=== PATIENT | male | born 1930 | race African-American/Black ===

== ENCOUNTER 2016-10-07 08:42 | Inpatient (IN) | payer MEDICARE, OTHER ==
[~2016-10-07] VITALS: Ht 160 cm; Wt 59.0 kg
[2016-10-07] VITALS (20 sets, daily range): BP systolic 84–168; BP diastolic 30–93
[2016-10-07] MEDS ORDERED: Ipratropium 0.02% Inh Soln 2.5ml UD HHN ONE (09:00)
[2016-10-07] MEDS ORDERED: Albuterol ud Inhalation HHN ONE (09:00)
--- NOTE | 2016-10-07 09:06 | Emergency Room Report ---
History of Present Illness General Chief Complaint: Dyspnea/Respdistress Source: Medical Record Present Illness HPI Patient presents by paramedics for acute respiratory distress The report by paramedics reports that the patient was found to be short of breath this morning Patient himself is in acute distress and not able to provide any input review of medical records also reveals significant Alzheimer's and dementia Unknown regarding fevers Unknown regarding chest pain Patient has not had any recent travel History of present illness is significantly limited given the patient's presentation Allergies: Coded Allergies: No Known Allergies (Unverified , 10/07/16) Patient History Limited by: medical condition Past Medical History: see triage record Pertinent Family History: unable to obtain Reviewed Nursing Documentation: PMH: Agreed, PSxH: Agreed Nursing Documentation-PMH Hx Cardiac Problems: No Hx Hypertension: Yes Hx Pacemaker: No Hx Asthma: No Hx COPD: No Hx Diabetes: No Hx Cancer: No Hx Gastrointestinal Problems: No Hx Dialysis: No History Of Psychiatric Problem: Yes - alzhimers Hx Neurological Problems: No Hx Cerebrovascular Accident: No Hx Seizures: Yes Review of Systems All Other Systems: limited - Other than the ones mentioned in the history of present illness all others are reviewed however they do stay limited due to the patient's mental status Physical Exam Vital Signs Date Time Temp Pulse Resp B/P Pulse Ox O2 Delivery O2 Flow Rate FiO2 10/07/16 08:44 78 22 135/70 94 Non-Rebreather 15.0 Sp02 EP Interpretation: reviewed, normal General Appearance: moderate distress - Patient appears tachypneic and short of breath Head: normocephalic, atraumatic Eyes: bilateral eye EOMI, bilateral eye PERRL ENT: TMs + canals normal, uvula midline, dry mucus membranes Neck: full range of motion, supple, no meningismus, no bony tend Respiratory: respiratory distress, accessory muscle use - Patient appears tachypneic with some mild accessory muscle use, crackles - diffusely Cardiovascular #1: normal peripheral pulses, regular rate, rhythm Gastrointestinal: normal bowel sounds, non tender, soft, no mass, non-distended , no hernia, no pulsatile mass, no rebound Genitourinary: no CVA tenderness Musculoskeletal: other - Patient is an acute distress, moves both upper extremities to physical stimuli but not able to follow commands appropriately, Neurologic: responsive - To physical stimuli, sensory intact, other - Airway remains patent and gag reflexes intact Psychiatric: mood/affect normal Skin: warm/dry, palpation normal Lymphatic: normal inspection, no adenopathy Procedures Critical Care Time Critical Care Time 50 minutes for multiple reevaluation Presentation and respiratory distress Endorgan injury Consideration for life-threatening pathology Discussion with family Central Line Central Line : Consent: Emergent Central Line Lumen: triple Maximal Sterile Barrier Tech: yes cap, yes mask, yes sterile gown, yes sterile gloves, yes large sterile sheet, yes hand hygiene, yes chlorhexidine prep Central Line Postion: femoral (R) Complications: none Central Line Post Position: sutured Attempts: One Patient Tolerated: Well Complications: None Intubation Intubation : Consent: Emergent Intubation Method: orotracheal Tube Size (cm): 8.0 Medications: Succinylcholine Breath Sounds after Intubation: equal Intubation Complications: no complications Post Intubation Xray: Yes Progress/Xray Impression: ET tube just at the julia will be which on one centimeter, no acute change Attempts: One Patient Tolerated: Well Complications: None Medical Decision Making Diagnostic Impression: Primary Impression: Respiratory failure, acute Additional Impression: Sepsis ER Course Patient presents in critical status Multiple differentials considered Extensive blood work and imaging initiated Patient was initially attempted on BiPAP However the patient failed this attempt As he is a full CODE STATUS patient require airway intubation Please refer to note that patient receiving now aggressive hydration Initially there was some control of hydration given the possible heart failure Patient shows severe acidosis as well Please note that I spoke to the patient's daughter at length she is a commercial baking teacher and reports that she tries to avoid the hospital as not to get anyone else sick She discussed in voiced likely limitation on the patient's intervention including no further CPR This will be discussed further with the admitting physician At this time patient is in critical status admitted for further inpatient care Labs Test 10/07/16 08:55 10/07/16 09:06 10/07/16 09:10 10/07/16 11:03 White Blood Count 15.5 K/UL (4.8-10.8) Red Blood Count 5.54 M/UL (4.70-6.10) Hemoglobin 17.3 G/DL (14.2-18.0) Hematocrit 52.6 % (42.0-52.0) Mean Corpuscular Volume 95 FL (80-99) Mean Corpuscular Hemoglobin 31.1 PG (27.0-31.0) Mean Corpuscular Hemoglobin Concent 32.8 G/DL (32.0-36.0) Red Cell Distribution Width 13.7 % (11.6-14.8) Platelet Count 175 K/UL (150-450) Mean Platelet Volume 7.4 FL (6.5-10.1) Neutrophils (%) (Auto) % (45.0-75.0) Lymphocytes (%) (Auto) % (20.0-45.0) Monocytes (%) (Auto) % (1.0-10.0) Eosinophils (%) (Auto) % (0.0-3.0) Basophils (%) (Auto) % (0.0-2.0) Differential Total Cells Counted 100 Neutrophils % (Manual) 60 % (45-75) Lymphocytes % (Manual) 12 % (20-45) Monocytes % (Manual) 5 % (1-10) Eosinophils % (Manual) 0 % (0-3) Basophils % (Manual) 0 % (0-2) Band Neutrophils 23 % (0-8) Platelet Estimate Adequate Platelet Morphology Normal Red Blood Cell Morphology Normal Prothrombin Time 12.8 SEC (9.30-11.50) Prothromb Time International Ratio 1.3 (0.9-1.1) Activated Partial Thromboplast Time 36 SEC (23-33) Sodium Level 146 mEQ/L (135-145) Potassium Level 4.0 mEQ/L (3.4-4.9) Chloride Level 100 mEQ/L (98-107) Carbon Dioxide Level 24 mEQ/L (20-30) Anion Gap 22 (5-15) Blood Urea Nitrogen 39 mg/dL (7-23) Creatinine 2.2 mg/dL (0.7-1.2) Estimat Glomerular Filtration Rate mL/min (>60) Glucose Level 92 mg/dL (74-106) Lactic Acid Level 5.70 mmol/L (0.66-2.22) 4.50 mmol/L (0.66-2.22) Calcium Level 9.8 mg/dL (8.6-10.2) Total Bilirubin 1.3 mg/dL (0.0-1.2) Direct Bilirubin 0.3 mg/dL (0.1-0.3) Aspartate Amino Transf (AST/SGOT) 25 U/L (5-40) Alanine Aminotransferase (ALT/SGPT) 11 U/L (3-41) Alkaline Phosphatase 33 U/L (40-129) Total Creatine Kinase 100 U/L (38-174) Creatine Kinase MB 3.1 ng/mL (< 6.7) Creatine Kinase MB Relative Index 3.1 Troponin I < 0.30 ng/mL (<=0.30) Pro-B-Type Natriuretic Peptide > 95651 pg/mL (0-450) Total Protein 6.9 g/dL (6.6-8.7) Albumin 3.3 g/dL (3.5-5.2) Globulin 3.6 g/dL Albumin/Globulin Ratio 0.9 (1.0-2.7) Arterial Blood pH 7.413 (7.350-7.450) Arterial Blood Partial Pressure CO2 33.4 mmHg (35.0-45.0) Arterial Blood Partial Pressure O2 45.3 mmHg (75.0-100.0) Arterial Blood HCO3 16.4 mmol/L (22.0-26.0) Arterial Blood Oxygen Saturation 81.3 % (92.0-98.0) Arterial Blood Base Excess -2.7 Evan Test Positive Urine Color Yellow Urine Appearance Clear Urine pH 5 (4.5-8.0) Urine Specific [place] 1.020 (1.005-1.035) Urine Protein 2+ (NEGATIVE) Urine Glucose (UA) Negative (NEGATIVE) Urine Ketones 2+ (NEGATIVE) Urine Occult Blood Negative (NEGATIVE) Urine Nitrite Negative (NEGATIVE) Urine Bilirubin 1+ (NEGATIVE) Urine Ictotest Negative Urine Urobilinogen 1 MG/DL (0.0-1.0) Urine Leukocyte Esterase 1+ (NEGATIVE) Urine RBC 0-2 /HPF (0 - 0) Urine WBC 2-4 /HPF (0 - 0) Urine Squamous Epithelial Cells Occasional /LPF Urine Bacteria Few /HPF (NONE) EKG Diagnostic Results Rate: normal Rhythm: NSR ST Segments: other - Bifascicular block, nonspecific ST and T-wave changes Rhythm Strip Diag. Results EP Interpretation: yes Rate: 78 Rhythm: NSR, no PVC's, no ectopy Chest X-Ray Diagnostic Results EP Interpretation: Yes Findings: no effusion, no pneumothorax, other - Questionable lower lobe atelectasis versus infiltrate, mild point congestion cardiomegaly Number of Views: 1 CT/MRI/US Diagnostic Results CT/MRI/US Diagnostic Results : Impression CT head no acute disease CT abdomen pelvisIMPRESSION: Nonspecific mild dilation of small bowel left upper quadrant, likely regional ileus, etiology indeterminate No other evidence of acute abdominopelvic disease, with limitation as described. Subtle but potentially significant abnormalities may be missed. Repeat CT scan with full oral and IV contrast preparation recommended for more complete evaluation, as clinically indicated Cholelithiasis Bilateral renal cortical masses, largest likely cyst, smaller indeterminate Severe arteriosclerosis, vascular patency indeterminate Rectal fecal distention, possible impaction Colonic diverticulosis. Associated sigmoid colon mural thickening, or other chronic inflammatory or neoplastic, cannot be excluded. No evidence of acute diverticulitis. Collapsed urinary bladder. Pathologic mural thickening not excludable Enlarged prostate Probable previous right inguinal herniorrhaphy Small paraumbilical ventral hernia contains only fat Bilateral pulmonary lower lobe consolidation--atelectasis versus pneumonia Cardiomegaly Degenerative spondylosis Multiple thoracolumbar vertebral body compression fractures, acuity indeterminate Last Vital Signs Date Time Temp Pulse Resp B/P Pulse Ox O2 Delivery O2 Flow Rate FiO2 10/07/16 08:44 78 22 135/70 94 Non-Rebreather 15.0 Status: improved Disposition: ADMITTED INPATIENT Condition: Critical CHARLY GILMAN D.O. Oct 07, 2016 09:06
[2016-10-07 09:09] LABS: ABG PCO2 33.4 mmHg (35.0-45.0)
[2016-10-07 09:10] LABS: ABG ALLEN TEST POSITIVE; ABG BASE EXCESS -2.7
[2016-10-07] MEDS ORDERED: COREG3.125 MG ORAL (09:47)
[2016-10-07] MEDS ORDERED: TYLENOL650 MG/20. ORAL (09:47)
[2016-10-07] MEDS ORDERED: PROSCAR5 MG ORAL (09:47)
[2016-10-07] MEDS ORDERED: ATORVASTATIN CA20 MG ORAL (09:47)
[2016-10-07] MEDS ORDERED: LISINOPRIL10 MG ORAL (09:47)
[2016-10-07] MEDS ORDERED: SENNA8.6 M2 PO (09:47)
[2016-10-07] MEDS ORDERED: DEPAKOTE250 MG PO (09:47)
[2016-10-07] MEDS ORDERED: MULTI-VITAMIN-1 EACH PO (09:47)
[2016-10-07] MEDS ORDERED: FOSAMAX70 MG ORAL (09:47)
[2016-10-07] MEDS ORDERED: ARICEPT5 MG ORAL (09:47)
[2016-10-07 09:53] LABS: APPEARANCE,URINE CLEAR; KETONES,URINE 2+ (NEGATIVE); LEUKOCYTE ESTERASE ,URINE 1+ (NEGATIVE); NITRITE,URINE NEGATIVE (NEGATIVE); PH,URINE 5 (4.5-8.0); PROTEIN,URINE 2+ (NEGATIVE); UROBILINOGEN,URINE 1 MG/DL (0.0-1.0)
[2016-10-07 09:56] LABS: ICTOTEST NEGATIVE
[2016-10-07 10:00] LABS: MEAN CORPUSCULAR HEMOGLOBIN 31.1 PG (27.0-31.0); MEAN CORPUSCULAR HGB CONC 32.8 G/DL (32.0-36.0); MEAN CORPUSCULAR VOLUME 95 FL (80-99); MEAN PLATELET VOLUME 7.4 FL (6.5-10.1); PLATELET COUNT 175 K/UL (150-450); RED BLOOD COUNT 5.54 M/UL (4.70-6.10); RED CELL DISTRIBUTION WIDTH 13.7 % (11.6-14.8); WHITE BLOOD COUNT 15.5 K/UL (4.8-10.8)
[2016-10-07 10:02] LABS: BACTERIA,URINE FEW /HPF; RBC,URINE 0-2 /HPF (0 - 0); SQUAMOUS EPITHELIAL CELL,UR OCCASIONAL /LPF (NONE/OCC)
[2016-10-07 10:05] LABS: INR 1.3 (0.9-1.1); PROTHROMBIN TIME 12.8 SEC (9.30-11.50)
--- NOTE | 2016-10-07 10:06 | Diagnostic Imaging Report ---
Indications: Shortness of breath Technique: Portable AP chest Findings: Comparison: None Inspiratory effort is suboptimal. Cardiac silhouette enlarged. Pulmonary vascular redistribution. Bilateral interstitial prominence. Left costophrenic angle blunting suggests small pleural effusion. Aortic arch, upper abdominal arteries calcified. Cystic lucency overlies the abdominal right upper quadrant. Bones diffusely demineralized. IMPRESSION: Thoracic findings suggest congestive heart failure Arteriosclerosis Gas lucency abdominal right upper quadrant, nonspecific, could represent percutaneous gastrostomy tube balloon Osteopenia
[2016-10-07 10:10] LABS: ALANINE AMINOTRANSFERASE 11 U/L (3-41); ALBUMIN/GLOBULIN RATIO 0.9 (1.0-2.7); ASPARTATE AMINO TRANSFERASE 25 U/L (5-40); CALCIUM 9.8 mg/dL (8.6-10.2); CARBON DIOXIDE 24 mEQ/L (20-30); CREATININE 2.2 mg/dL (0.7-1.2); HEMOLYSIS 17; TOTAL PROTEIN 6.9 g/dL (6.6-8.7)
[2016-10-07 10:11] LABS: ANION GAP 22 (5-15); CHLORIDE 100 mEQ/L (98-107); SODIUM 146 mEQ/L (135-145); TROPONIN I < 0.30 ng/mL (<=0.30)
[2016-10-07 10:21] LABS: CKMB 3.1 ng/mL (< 6.7); REFLEX LACTIC ACID YES OR NO YES
[2016-10-07] MEDS ORDERED: NS 110 ML ONE (10:31)
[2016-10-07] MEDS ORDERED: Tubing IV Secondary IV ONE (10:31)
[2016-10-07] MEDS ORDERED: Zosyn 3.375gm inj ONE (10:31)
[2016-10-07 10:54] LABS: BAND NEUTROPHILS % (MANUAL) 23 % (0-8); LYMPHOCYTES % (MANUAL) 12 % (20-45); NEUTROPHILS % (MANUAL) 60 % (45-75); TOTAL CELLS COUNTED 100
[2016-10-07 10:55] LABS: BASOPHILS % (MANUAL) 0 % (0-2); EOSINOPHILS % (MANUAL) 0 % (0-3); PLATELET ESTIMATE ADEQUATE; PLATELET MORPHOLOGY NORMAL
[2016-10-07 10:58] LABS: BILIRUBIN,DIRECT 0.3 mg/dL (0.1-0.3)
[2016-10-07] MEDS ORDERED: Morphine Sulfate 4mg/ml Inj IVP PRN (13:00)
[2016-10-07] MEDS ORDERED: Miralax 17gm pkt ORAL PRN (13:00)
[2016-10-07] MEDS ORDERED: LORazepam Inj 2mg/ml 1ml IV PRN (13:00)
[2016-10-07] MEDS ORDERED: Nitroglycerin Subl 0.4mg tab (Bottle Of 25) SL PRN (13:00)
[2016-10-07] MEDS ORDERED: DuoNeb 0.5-3(2.5)mg/3ml neb HHN PRN (13:00)
--- NOTE | 2016-10-07 13:14 | Pulmonolgy Critical Care Note ---
Critical Care - Asmt/Plan Problems: (1) Respiratory failure, acute (2) Pneumonia (3) ATN (acute tubular necrosis) (4) History of hypertension (5) Dementia Respiratory: monitor respiratory rate, adjust FIO2, CXR Cardiac: continue pressors, continue to monitor HR/BP Renal: F/U I&O, keep IV fluid Infectious Disease: check cultures Gastrointestinal: hold feedings Endocrine: monitor blood sugar Hematologic: monitor H/H, transfuse if hgb<8.5 Neurologic: PRN Ativan, PRN Morphine, keep patient comfortable, other Affect: PRN ativan Prophylaxis: Protonix Disposition: keep in ICU Time Spent (Minutes): 40 Notes Reviewed: reference test clerk Discussed with: nurses, consultants, case resolution specialistreport manager - Objective Last 24 Hour Vital Signs Date Time Temp Pulse Resp B/P Pulse Ox O2 Delivery O2 Flow Rate FiO2 10/07/16 12:40 98.0 83 33 152/76 97 Mechanical Ventilator 100 10/07/16 12:35 101.1 76 20 95/54 100 Mechanical Ventilator 15.0 100 10/07/16 12:34 76 20 95/54 100 Mechanical Ventilator 100 10/07/16 12:23 82 33 100 10/07/16 11:55 73 20 131/49 100 Mechanical Ventilator 100 10/07/16 11:47 20 10/07/16 11:30 76 20 111/43 90 Ambu-Bag 15.0 100 10/07/16 11:15 100 10/07/16 11:11 81 20 151/59 90 Ambu-Bag 15.0 10/07/16 11:10 100 10/07/16 11:04 97 17 168/85 96 Mechanical Ventilator 100 10/07/16 11:00 66 35 96/37 80 Bi-pap 100 10/07/16 10:51 12.0 100 10/07/16 10:45 101.1 70 22 96/37 79 Bi-pap 100 10/07/16 09:44 71 38 90 Non-Rebreather 15.0 100 10/07/16 09:37 75 22 Non-Rebreather 15.0 100 10/07/16 09:36 101.1 75 22 89/48 83 Non-Rebreather 15.0 100 10/07/16 09:34 72 39 90 Non-Rebreather 15.0 100 10/07/16 08:59 95 35 Non-Rebreather 15.0 100 10/07/16 08:44 78 22 135/70 94 Non-Rebreather 15.0 Status: sedated Condition: critical HEENT: atraumatic Neck: full ROM Lungs: chest wall tender Heart: HR/BP stable Abdomen: soft, non-tender, feeding tube Extremities: no C/C/E, edema Decubiti: location Micro: Microbiology Date/Time Source Procedure Growth Status 10/07/16 09:20 Nasal Nares Influenza Types A,B Antigen (SHELBIE) - Final Complete Accucheck: 81 Critical Care - Subjective ROS Limited/Unobtainable: Yes ICU Day: 1 Intubation Day: 1 Interval Events: 86 year old patient with hx of dementia, COPd, prison resident presented by paramedics for acute respiratory distress Patient was in acute distress and not able to provide any history. Pt was intubated in ER and transferred to ICU for further care. Currently Pt is orally intubated, minimally sedated. He seems cachectic and chronically ill EKG Rhythm: Sinus Rhythm FI02: 100 Vent Support Breath Rate: 18 Vent Support Mode: AC Vent Tidal Volume: 600 PEEP: 0.0 PIP: 26 CXR: ET in good position, Cardiomegaly, left infiltrate ET-Tube: 8.0 ET Position: 23 Labs: Laboratory Tests Test 10/07/16 08:55 10/07/16 09:06 10/07/16 09:10 10/07/16 11:03 White Blood Count 15.5 K/UL (4.8-10.8) H Red Blood Count 5.54 M/UL (4.70-6.10) Hemoglobin 17.3 G/DL (14.2-18.0) Hematocrit 52.6 % (42.0-52.0) H Mean Corpuscular Volume 95 FL (80-99) Mean Corpuscular Hemoglobin 31.1 PG (27.0-31.0) H Mean Corpuscular Hemoglobin Concent 32.8 G/DL (32.0-36.0) Red Cell Distribution Width 13.7 % (11.6-14.8) Platelet Count 175 K/UL (150-450) Mean Platelet Volume 7.4 FL (6.5-10.1) Neutrophils (%) (Auto) % (45.0-75.0) Lymphocytes (%) (Auto) % (20.0-45.0) Monocytes (%) (Auto) % (1.0-10.0) Eosinophils (%) (Auto) % (0.0-3.0) Basophils (%) (Auto) % (0.0-2.0) Differential Total Cells Counted 100 Neutrophils % (Manual) 60 % (45-75) Lymphocytes % (Manual) 12 % (20-45) L Monocytes % (Manual) 5 % (1-10) Eosinophils % (Manual) 0 % (0-3) Basophils % (Manual) 0 % (0-2) Band Neutrophils 23 % (0-8) H Platelet Estimate Adequate Platelet Morphology Normal Red Blood Cell Morphology Normal Prothrombin Time 12.8 SEC (9.30-11.50) H Prothromb Time International Ratio 1.3 (0.9-1.1) H Activated Partial Thromboplast Time 36 SEC (23-33) H Sodium Level 146 mEQ/L (135-145) H Potassium Level 4.0 mEQ/L (3.4-4.9) Chloride Level 100 mEQ/L (98-107) Carbon Dioxide Level 24 mEQ/L (20-30) Anion Gap 22 (5-15) H Blood Urea Nitrogen 39 mg/dL (7-23) H Creatinine 2.2 mg/dL (0.7-1.2) H Estimat Glomerular Filtration Rate mL/min (>60) Glucose Level 92 mg/dL (74-106) Lactic Acid Level 5.70 mmol/L (0.66-2.22) H 4.50 mmol/L (0.66-2.22) H Calcium Level 9.8 mg/dL (8.6-10.2) Total Bilirubin 1.3 mg/dL (0.0-1.2) H Direct Bilirubin 0.3 mg/dL (0.1-0.3) Aspartate Amino Transf (AST/SGOT) 25 U/L (5-40) Alanine Aminotransferase (ALT/SGPT) 11 U/L (3-41) Alkaline Phosphatase 33 U/L (40-129) L Total Creatine Kinase 100 U/L (38-174) Creatine Kinase MB 3.1 ng/mL (< 6.7) Creatine Kinase MB Relative Index 3.1 Troponin I < 0.30 ng/mL (<=0.30) Pro-B-Type Natriuretic Peptide > 87518 pg/mL (0-450) H Total Protein 6.9 g/dL (6.6-8.7) Albumin 3.3 g/dL (3.5-5.2) L Globulin 3.6 g/dL Albumin/Globulin Ratio 0.9 (1.0-2.7) L Arterial Blood pH 7.413 (7.350-7.450) Arterial Blood Partial Pressure CO2 33.4 mmHg (35.0-45.0) L Arterial Blood Partial Pressure O2 45.3 mmHg (75.0-100.0) Arterial Blood HCO3 16.4 mmol/L (22.0-26.0) L Arterial Blood Oxygen Saturation 81.3 % (92.0-98.0) L Arterial Blood Base Excess -2.7 Evan Test Positive Urine Color Yellow Urine Appearance Clear Urine pH 5 (4.5-8.0) Urine Specific [place] 1.020 (1.005-1.035) Urine Protein 2+ (NEGATIVE) H Urine Glucose (UA) Negative (NEGATIVE) Urine Ketones 2+ (NEGATIVE) H Urine Occult Blood Negative (NEGATIVE) Urine Nitrite Negative (NEGATIVE) Urine Bilirubin 1+ (NEGATIVE) H Urine Ictotest Negative Urine Urobilinogen 1 MG/DL (0.0-1.0) H Urine Leukocyte Esterase 1+ (NEGATIVE) H Urine RBC 0-2 /HPF (0 - 0) H Urine WBC 2-4 /HPF (0 - 0) Urine Squamous Epithelial Cells Occasional /LPF Urine Bacteria Few /HPF (NONE) HERMINIO DIXON Oct 07, 2016 13:14
--- NOTE | 2016-10-07 13:18 | Diagnostic Imaging Report ---
Indications: With the Technique: Continuous helical CT imaging of the brain was performed with nonionic exposure control on a Siemens sensation [address] scanner. Axial and coronal images were reconstructed at 5 mm slice thickness and interval. CTDI volume(s): 70 mGy Total DLP: 1439 mGy-cm Findings: Comparison: None Posterior fossa substantially degraded by skull base/motion artifact. low attenuation is present in the bilateral periventricular white matter. Ventricles, cisterns, and sulci are diffusely prominent. Low-attenuation fluid collections in the extra-axial cyst base over both vertebral hemisphere convexities. No evidence of mass or hemorrhage, mass effect, midline shift, hydrocephalus, or increased intracranial pressure. Bone window images are unremarkable. Visualized paranasal sinuses and mastoid air cells are clear. IMPRESSION: No evidence of acute intracranial pathology , limited as described. Subtle abnormalities the posterior fossa may be missed.. Bilateral cerebral periventricular white matter low attenuation, nonspecific, likely chronic microvascular ischemic in nature. Pronounced atrophy. Fluid collections in the bilateral convexity extra-axial spaces may simply represent prominent subarachnoid spaces due to atrophy. Superimposed chronic subdural fluid collections not excludable. No significant mass effect or midline shift, however. The CT scanner at [facility] is accredited by the [employer] and the scans are performed using protocols designed to limit radiation exposure to as low as reasonably achievable to attain images of sufficient resolution adequate for diagnostic evaluation.
--- NOTE | 2016-10-07 13:26 | Diagnostic Imaging Report ---
Indications: Abdominal pain Technique: Continuous helical CT imaging of the abdomen and pelvis was performed with automatic exposure control on a Siemens sensation [address] scanner. Axial, coronal, sagittal images reconstructed at 3 mm slice thickness. No oral or IV contrast was administered per requesting physician's order, despite no contraindications listed in either submitted clinical data or tech note.. CTDI volume(s): 13 mGy Total DLP: 669 mGy-cm Findings: Comparison: None Lack of IV and oral contrast limits evaluation. Few mildly dilated small bowel loops in left upper quadrant. Remainder of tract nondilated aside from moderate equal distention of the rectum 7.5 cm diameter. Multiple colonic diverticula. Associated mural thickening within the sigmoid colon not excludable. No adjacent stranding, extraluminal gas or fluid collections. Large calcified stone the gallbladder lumen. No obvious mural thickening, adjacent stranding or fluid. Bilateral renal cortical circumscribed low-attenuation masses, largest left exophytic, 7 cm diameter. Prominent arterial mural calcifications. Vascular patency indeterminate. Collapsed urinary bladder contains Beatty catheter. Mural thickening not excludable. Prostate gland enlarged. Calcified nodules versus surgical clips in region of right inguinal canal. Small paraumbilical ventral hernia contains only fat. Remainder visualized abdominopelvic anatomy demonstrates no other obvious acute abnormality. Dense parenchymal consolidation and volume loss in both lung bases. Heart enlarged. Multilevel disc space narrowing with marginal osteophyte formation lumbar, lower thoracic spine. T12, L1, L4 vertebral body compression fractures. No associated retropulsion or obvious lytic destructive process. IMPRESSION: Nonspecific mild dilation of small bowel left upper quadrant, likely regional ileus, etiology indeterminate No other evidence of acute abdominopelvic disease, with limitation as described. Subtle but potentially significant abnormalities may be missed. Repeat CT scan with full oral and IV contrast preparation recommended for more complete evaluation, as clinically indicated Cholelithiasis Bilateral renal cortical masses, largest likely cyst, smaller indeterminate Severe arteriosclerosis, vascular patency indeterminate Rectal fecal distention, possible impaction Colonic diverticulosis. Associated sigmoid colon mural thickening, or other chronic inflammatory or neoplastic, cannot be excluded. No evidence of acute diverticulitis. Collapsed urinary bladder. Pathologic mural thickening not excludable Enlarged prostate Probable previous right inguinal herniorrhaphy Small paraumbilical ventral hernia contains only fat Bilateral pulmonary lower lobe consolidation--atelectasis versus pneumonia Cardiomegaly Degenerative spondylosis Multiple thoracolumbar vertebral body compression fractures, acuity indeterminate
--- NOTE | 2016-10-07 14:08 | History & Physical ---
History and Physical History & Physicial patient is seen and examined. Dictation completed. Margaret Jc MD Oct 07, 2016 14:07
--- NOTE | 2016-10-07 14:15 | Consultation ---
Consult Note Consult Note ID CONSULT: Jing# [id number] Assessment/Plan ASSESSMENT: 86 y/o male with: // Probable PNA - CT: Bilateral pulmonary lower lobe consolidation--atelectasis versus pneumonia - negative: influenza // Severe sepsis - improved lactic acidosis // Leukocytosis, bandemia // Fever // Acute VDRF - intubated 10/07 // Possible CHF exacerbation - trop(-) x1, BNP >70K - TTE: pending - CXR: Pulmonary vascular redistribution. Bilateral interstitial prominence. Left costophrenic angle blunting suggests small pleural effusion // ARF ?CKD // Advanced Alzheimer's dementia // NKDA // Full Code PLAN: - continue empiric IV vancomycin, zosyn d# 1 - check SCx, legionella UAg - f/u cultures - f/u TTE - monitor CBC, temperatures - monitor BMP - monitor CXR - vent support, wean as tolerated Thanks! Will follow EMILIA CAIN Oct 07, 2016 14:15
[2016-10-07 14:30] LABS: ABG BASE EXCESS -1.1; ABG PCO2 32.8 mmHg (35.0-45.0)
[2016-10-07 14:31] LABS: ABG ALLEN TEST POSITIVE
[2016-10-07 16:26] LABS: INR 1.3 (0.9-1.1); PROTHROMBIN TIME 13.8 SEC (9.30-11.50)
[2016-10-07 18:00] LABS: PATH BLOOD SMEAR/OMC SENT TO PATHOLOGIST
[2016-10-07 18:14] LABS: REFLEX LACTIC ACID YES OR NO YES
--- NOTE | 2016-10-07 18:47 | Consultation ---
Consult Note Consult Note Cardiology consult for Dr. Silva # [id number] RIRI DILLARD Oct 07, 2016 18:47
[2016-10-07] MEDS: Heparin 5000 units/ml inj SUBQ SCH (20:31)
--- NOTE | 2016-10-07 20:39 | Cardiology Report ---
APPROVED REPORT EXAM: Two-dimensional and M-mode echocardiogram with Doppler and color Doppler. INDICATION Left ventricular function M-Mode DIMENSIONS IVSd1.5 (0.7-1.1cm)Left Atrium (MM)2.9 (1.6-4.0cm) LVDd4.9 (3.5-5.6cm)Aortic Root3.6 (2.0-3.7cm) PWd0.7 (0.7-1.1cm)Aortic Cusp Exc.1.4 (1.5-2.0cm) LVDs3.5 (2.5-4.0cm) PWs1.3 cm Technically difficult study due to poor acoustic windows. Patient on vent. Study quality precludes accurate assessment of regional wall motion. Normal left ventricular chamber size, systolic function and wall motion. Left ventricular ejection fraction estimated to be 55-60 % to extend visualized. Mild left ventricular hypertrophy. No evidence of pericardial fat or effusion. All other cardiac chamber sizes are within normal limits. Focal aortic valve sclerosis with adequate cusp excursion Thickened mitral valve leaflets with normal excursion. Mitral annulus and aortic root calcification. Pulmonic valve not well visualized. Normal tricuspid valve structure. IVC not available. A color flow and spectral Doppler study was performed and revealed: Mild aortic regurgitation. No mitral regurgitation. Mitral inflow velocities indicates possible pseudo normalization pattern implying significant left ventricular diastolic dysfunction. No tricuspid regurgitation. Tricuspid systolic velocities suggests peak right ventricular systolic pressure of 14 mmHg
[2016-10-07] MEDS ORDERED: Depakote 500mg tab ORAL SCH (21:00)
--- NOTE | 2016-10-07 21:57 | Consultation ---
DATE OF CONSULTATION: 10/07/2016 INFECTIOUS DISEASE CONSULTATION REQUESTING PHYSICIAN: Margaret Jc M.D. REASON FOR CONSULTATION: Pneumonia and severe sepsis. HISTORY OF PRESENT ILLNESS: This is an 86-year-old male admitted on 10/07/2016 with respiratory distress. He required intubation in the emergency room. Chest x-ray is consistent with congestive heart failure. Lung bases on CT abdomen and pelvis shows possible consolidation in the lower lobes. Influenza screen is negative. He meets severe sepsis criteria. Lactic acidosis is improving. BNP is elevated. Echocardiogram is pending. There is evidence of renal insufficiency, question acute versus chronic. He has been started on empiric vancomycin and Zosyn and ID now consulted to assist in management. PAST MEDICAL HISTORY: 1. Hypertension. 2. Gallstones. 3. Diverticulosis. 4. BPH. 5. Alzheimer's dementia. PAST SURGICAL HISTORY: Unknown. FAMILY HISTORY: Unknown. SOCIAL HISTORY: Unknown. ALLERGIES: No known drug allergies. MEDICATIONS: 1. Vancomycin. 2. Zosyn. 3. Protonix. 4. Proscar. 5. Depakote. 6. Subcutaneous heparin. REVIEW OF SYSTEMS: Unable to obtain. PHYSICAL EXAMINATION: VITAL SIGNS: Maximum temperature 101.1, blood pressure 151/93, heart rate in the 80s, respiratory rate 20, and saturating 100% on 100% FiO2. GENERAL: The patient is intubated and arousable. CARDIOVASCULAR: Regular rate and rhythm. No murmurs. PULMONARY: Coarse breath sounds bilaterally. ABDOMINAL: Bowel sounds present. Soft, nondistended, and nontender. Beatty catheter in place. EXTREMITIES: Edema. LABORATORY DATA: White blood cell count 15.5 with 23% bands, hemoglobin 17.3, and platelets 175,000. Sodium 146, potassium 4, chloride 100, bicarbonate 24, BUN 39, and creatinine 2.2. INR 1.1. Lactic acid 5.7 decreased to 4.5. AST 25, ALT 11, and alkaline phosphatase 33, and total bilirubin 1.3. Albumin 3.3. BNP greater than 70,000. Troponin negative x1. Urinalysis is negative. MICROBIOLOGY: 1. A 10/07/2016 influenza screen is negative. 2. A 10/07/2016 blood culture pending. IMAGIN. Reviewed. ASSESSMENT: 1. Probable pneumonia. CT shows bilateral lower lobe consolidation. Influenza screen is negative. 2. Severe sepsis with improving and lactic acidosis. 3. Leukocytosis and bandemia. 4. Fever. 5. Acute ventilator-dependent respiratory failure, intubated on 10/07/2016. 6. Possible congestive heart failure exacerbation with troponin negative x1 and a BNP of greater than 70,000. Echocardiogram is pending. Chest x-ray shows pulmonary vascular redistribution and bilateral interstitial prominence. 7. Renal insufficiency, question acute versus chronic. 8. Advanced Alzheimer's dementia. 9. No known drug allergies. 10. Full Code. PLAN: 1. Continue empiric IV vancomycin and Zosyn day #1. 2. Check sputum culture and Legionella urine antigen. 3. Follow up echocardiogram. 4. Monitor CBC and temperatures. 5. Monitor BMP. 6. Monitor chest x-ray. 7. Ventilator support and wean as tolerated. Thank you. We will follow. Tim Pope M.D. DR: JACKIE JOB#: [id number] CC: Margaret Jc M.D.; Fax#: [phone] Temple M.D; Fax#: [phone]
--- NOTE | 2016-10-07 22:28 | Consultation ---
DATE OF CONSULTATION: CARDIOLOGY CONSULTATION This is a cardiology consult being done as coverage for Dr. Josef Silva. History is obtained from the chart as cardiology consult being done as coverage for Dr. Silva. REASON FOR CONSULT: Shortness of breath and abnormal EKG. HISTORY OF PRESENT ILLNESS: History is obtained from the chart as the patient is intubated and sedated and unable to give any history. Mr. Easley is an 86-year-old white male with a history of hypertension and dementia, who was brought into the emergency room by paramedics for evaluation and treatment of shortness of breath. He was in respiratory distress and was intubated and placed on mechanical ventilation in the emergency room after failing a trial of BiPAP. His white blood count is elevated at 15 and chest x-ray shows cardiomegaly, increased pulmonary vascular markings, and small left base infiltrate. EKG shows right bundle branch block, left anterior peyton block, and possible septal infarct. Cardiology evaluation was requested. MEDICATIONS: Proscar 5 mg daily, Protonix 40 mg intravenous daily, Depakote 500 mg q.12 hours per NG tube, Zosyn 3.375 g intravenous q.12 hours, vancomycin per pharmacy, DuoNeb nebulizer every 4 hours p.r.n., Tylenol p.r.n., nitroglycerin sublingual p.r.n., and morphine as needed. ALLERGIES: No known drug allergies. PAST MEDICAL HISTORY: As noted above. History of hypertension and dementia. REVIEW OF SYSTEMS: Not obtainable from the patient or chart. PHYSICAL EXAMINATION: VITAL SIGNS: Blood pressure is 108/43, pulse 71 regular, respirations 16, afebrile. GENERAL: Sedated elderly appearing white male on the ventilator. HEENT: Normocephalic and atraumatic. Pupils are equal, round, and reactive to light. Sclerae anicteric. Oral mucosa are moist. Endotracheal tube in place. NECK: Supple. There is no jugular venous distention. No carotid bruits. LUNGS: Lungs are clear anteriorly bilaterally. HEART: Regular rate and rhythm, S1, S2. Nondisplaced PMI. No murmurs or S3. ABDOMEN: Soft, nontender. No palpable mass or organomegaly. EXTREMITIES: A 2+ DP pulses bilaterally. No peripheral edema. SKIN: No rashes or lesions. LABORATORY AND DIAGNOSTIC DATA: White blood count 15,500, hemoglobin 17, hematocrit 52, platelets 175,000. Troponin less than 0.3. Sodium 146, potassium 4.0, BUN 29, 39, and creatinine 2.2. ProBNP greater than 70,000. EKG shows normal sinus rhythm, rate of 74, left atrial enlargement, right bundle branch block, and left anterior peyton block. There is poor progression V1 to V2 suggesting possible old septal infarct. An echo done on admission is reported to show an EF of 55% to 60%, mild left ventricular hypertrophy, and no significant Doppler lesions, done on admission shows EF 55% to 60%, technically difficult study, unable to assess regional wall motion. Doppler showed no significant valve lesions. ASSESSMENT AND RECOMMENDATIONS: Mr. Easley is an 86-year-old man with history of hypertension and dementia, who is admitted with pneumonia, respiratory failure, and acute renal failure, although his proBNP is elevated, he does not clinically appear in congestive heart failure. His echo shows normal systolic function. He likely has some diastolic dysfunction related to left ventricular hypertrophy, respiratory failure, and renal failure. Although his proBNP is significantly elevated, he does not appear clinically in congestive heart failure. His echo shows normal left ventricular systolic function and mild diastolic dysfunction. I would favor intravenous hydration as well as broad-spectrum antibiotics as are being given for his acute pneumonia. We will check serial troponins and echos with close monitoring of fluid status. Antibiotics have been started for his pneumonia. I will check serial troponins and EKGs to rule out ischemia/infarction though doubt acute coronary syndrome in this patient. Thank you for allowing me to see him in cardiology consultation. I will be happy to follow him with you until Dr. Silva returns. Letty Rodríguez M.D. DR: JOHN JOB#: [id number] CC:
[2016-10-08] VITALS (25 sets, daily range): BP systolic 78–141; BP diastolic 28–71
--- NOTE | 2016-10-08 00:07 | History and Physical Report ---
DATE OF ADMISSION: 10/07/2016 SOURCE OF INFORMATION: EMR. HISTORY OF PRESENT ILLNESS: The patient is a pleasant 86-year-old white male with a history of dementia, currently resident of a [facility] with the past medical history including Dementia. He was reported to have respiratory problem. He had been sent to the hospital with 911 call. At the time of evaluation, the patient has already been intubated. I had detailed [facility], Dr. Hale, who confirmed hypoxemic respiratory failure . Patient was intubated and transferred to the ICU. REVIEW OF SYSTEMS: Not obtainable as above. PAST MEDICAL HISTORY: Osteoporosis, BPH, dementia, hyperlipidemia, and psychiatric disorder. SOCIAL HISTORY: [facility] No documented prior history of illicit drug abuse, smoking, or alcohol abuse has been noted. FAMILY HISTORY: Reviewed and noncontributory. ALLERGIES: Cannot be verified at this time. HOSPITAL MEDICATIONS: Hospital medications are reviewed and reconciled in the chart including, but not limited to propofol. PHYSICAL EXAMINATION: VITAL SIGNS: Blood pressure 100/80, pulse oximetry 100% on vent setting, and temperature 101. HEENT: Head and neck, atraumatic and normocephalic. CHEST: Bronchial breathing sounds. HEART: S1 and S2. Regular rate and rhythm. ABDOMEN: Soft. No organomegaly. MUSCULOSKELETAL: Limited evaluation as the patient is not following the commands. NEUROLOGY: The patient is intubated. Pupils are reactive to the light. LABORATORY RESULTS: Dated 10/07/2015 showed WBC 16.5, hemoglobin 17.3, and platelets 175,000. Sodium 146, potassium 4, BUN 39, and creatinine 2.2. Total bilirubin 1.3. Lactic acid 5.7. BNP 170,000. Chest x-ray, chest x-ray dated 10/07/2015 showed compatible with the CHF. Head CT, head CT is negative for acute pathology. CT scan of the abdomen is negative for acute pathology. ASSESSMENT: 1. Severe sepsis. 2. Healthcare-associated pneumonia. 3. Ventilator-dependent respiratory failure. 4. Hypertension. 5. Dementia. 6. Hyperlipidemia. 7. Psychiatric disorder. PLAN: Plan of care, Pulmonary, Dr. Mcbride and Infectious Disease, Dr. Medellin have been consulted. We will continue with the current management including IV antibiotic regimen. Margaret Jc M.D. DR: SRAVANI JOB#: [id number] CC: REYNA
--- NOTE | 2016-10-08 02:47 | History and Physical Report ---
DATE OF ADMISSION: 10/07/2016 NOTE: INCOMPLETE DICTATION SOURCE OF INFORMATION: EMR. Margaret Jc M.D. DR: Jian JOB#: [id number] CC:
[2016-10-08 05:20] LABS: MEAN CORPUSCULAR HEMOGLOBIN 32.2 PG (27.0-31.0); MEAN CORPUSCULAR HGB CONC 34.8 G/DL (32.0-36.0); MEAN CORPUSCULAR VOLUME 93 FL (80-99); MEAN PLATELET VOLUME 8.4 FL (6.5-10.1); PLATELET COUNT 115 K/UL (150-450); RED BLOOD COUNT 3.82 M/UL (4.70-6.10); RED CELL DISTRIBUTION WIDTH 13.4 % (11.6-14.8); WHITE BLOOD COUNT 13.8 K/UL (4.8-10.8)
[2016-10-08 06:16] LABS: REFLEX LACTIC ACID YES OR NO YES
[2016-10-08 06:58] LABS: TROPONIN I < 0.30 ng/mL (<=0.30)
[2016-10-08 07:17] LABS: ALANINE AMINOTRANSFERASE 8 U/L (3-41); ALBUMIN/GLOBULIN RATIO 0.7 (1.0-2.7); ANION GAP 16 (5-15); ASPARTATE AMINO TRANSFERASE 20 U/L (5-40); CALCIUM 8.2 mg/dL (8.6-10.2); CARBON DIOXIDE 22 mEQ/L (20-30); CHLORIDE 104 mEQ/L (98-107); CREATININE 2.6 mg/dL (0.7-1.2); HEMOLYSIS 12; POTASSIUM 4.4 mEQ/L (3.4-4.9); SODIUM 142 mEQ/L (135-145)
[2016-10-08 07:35] LABS: OTHERS PATHOLOGIST COMMENT
[2016-10-08] MEDS: Valproic Acid 250mg/5ml Liquid GT SCH ×2 (08:56→20:44)
[2016-10-08] MEDS: Pantoprazole Inj IV SCH (08:56)
[2016-10-08] MEDS: Heparin 5000 units/ml inj SUBQ SCH ×2 (08:57→20:45)
[2016-10-08] MEDS ORDERED: Donepezil 5mg Tab ORAL SCH (09:00)
[2016-10-08 09:58] LABS: FOLIC ACID 12.3 ng/mL (3.1-17.5)
--- NOTE | 2016-10-08 10:24 | Pulmonolgy Critical Care Note ---
Critical Care - Asmt/Plan Problems: (1) Respiratory failure, acute (2) Pneumonia (3) ATN (acute tubular necrosis) (4) History of hypertension (5) Dementia Respiratory: monitor respiratory rate, adjust FIO2, CXR Cardiac: continue to monitor HR/BP Renal: F/U I&O, keep IV fluid, check electrolytes Infectious Disease: continue antibiotics Gastrointestinal: continue feedings/current rate Endocrine: monitor blood sugar, check HgA1C, continue sliding scale insulin Hematologic: monitor H/H, transfuse if hgb<8.5 Neurologic: PRN Ativan, keep patient comfortable Affect: PRN ativan Prophylaxis: Protonix, Heparin Notes Reviewed: uc architect, cardio, renal Discussed with: nurses, consultants, insurance case managerautomotive finance manager - Objective Last 24 Hour Vital Signs Date Time Temp Pulse Resp B/P Pulse Ox O2 Delivery O2 Flow Rate FiO2 10/08/16 10:11 70 16 96/39 96 Mechanical Ventilator 50 10/08/16 09:00 70 16 99/66 99 Mechanical Ventilator 50 10/08/16 08:00 97.0 67 16 123/47 94 Mechanical Ventilator 50 10/08/16 08:00 70 10/08/16 08:00 50 10/08/16 07:10 65 16 60 10/08/16 07:00 69 16 108/34 98 Mechanical Ventilator 60 10/08/16 06:00 70 16 109/37 98 Mechanical Ventilator 60 10/08/16 05:30 74 16 60 10/08/16 05:00 69 16 90/37 98 Mechanical Ventilator 60 10/08/16 04:00 70 10/08/16 04:00 50 10/08/16 04:00 98.0 70 16 80/40 98 Mechanical Ventilator 60 10/08/16 03:30 73 20 60 10/08/16 03:00 78 16 78/33 98 Mechanical Ventilator 60 10/08/16 02:00 87 16 108/40 98 Mechanical Ventilator 60 10/08/16 01:16 96 20 80 10/08/16 01:00 87 16 113/44 98 Mechanical Ventilator 80 10/08/16 00:00 80 10/08/16 00:00 80 10/08/16 00:00 98.1 83 16 98/34 98 Mechanical Ventilator 80 10/07/16 23:01 81 16 112/34 98 Mechanical Ventilator 100 10/07/16 23:00 86 16 80 10/07/16 22:00 84 16 97/30 99 Mechanical Ventilator 100 10/07/16 21:10 80 16 80 10/07/16 21:00 80 16 84/40 99 Mechanical Ventilator 100 10/07/16 20:03 69 10/07/16 20:00 98.8 71 16 100/41 94 Mechanical Ventilator 100 10/07/16 20:00 100 10/07/16 19:00 72 16 90 10/07/16 19:00 70 16 97/51 96 Mechanical Ventilator 100 10/07/16 18:00 73 16 94/42 95 Mechanical Ventilator 100 10/07/16 17:00 71 16 108/43 97 Mechanical Ventilator 100 10/07/16 16:35 72 16 100 10/07/16 16:00 71 10/07/16 16:00 100 10/07/16 16:00 98.9 70 16 92/45 94 Mechanical Ventilator 100 10/07/16 15:40 85 25 100 10/07/16 15:00 74 18 110/47 94 Mechanical Ventilator 100 10/07/16 14:00 76 18 102/46 96 Mechanical Ventilator 100 10/07/16 13:38 100 10/07/16 13:15 88 25 100 10/07/16 13:00 80 21 151/93 100 Mechanical Ventilator 100 10/07/16 13:00 97.1 10/07/16 13:00 78 10/07/16 12:40 98.0 83 33 152/76 97 Mechanical Ventilator 100 10/07/16 12:35 101.1 76 20 95/54 100 Mechanical Ventilator 15.0 100 10/07/16 12:34 76 20 95/54 100 Mechanical Ventilator 100 10/07/16 12:23 82 33 100 10/07/16 11:55 73 20 131/49 100 Mechanical Ventilator 100 10/07/16 11:47 20 10/07/16 11:30 76 20 111/43 90 Ambu-Bag 15.0 100 10/07/16 11:15 100 10/07/16 11:11 81 20 151/59 90 Ambu-Bag 15.0 10/07/16 11:10 100 10/07/16 11:04 97 17 168/85 96 Mechanical Ventilator 100 10/07/16 11:00 66 35 96/37 80 Bi-pap 100 10/07/16 10:51 12.0 100 10/07/16 10:45 101.1 70 22 96/37 79 Bi-pap 100 Status: awake Condition: critical HEENT: atraumatic Neck: full ROM Lungs: clear Heart: HR/BP stable Abdomen: soft, non-tender Extremities: no C/C/E, edema Decubiti: location Micro: Microbiology Date/Time Source Procedure Growth Status 10/07/16 09:20 Nasal Nares Influenza Types A,B Antigen (SHELBIE) - Final Complete Accucheck: 81 Critical Care - Subjective ROS Limited/Unobtainable: Yes ICU Day: 2 Intubation Day: 2 Condition: critical EKG Rhythm: Sinus Rhythm FI02: 50 Vent Support Breath Rate: 16 Vent Support Mode: AC Vent Tidal Volume: 600 Sputum Amount: Small PEEP: 5.0 PIP: 20 Fluids: 1/2 NS 50 cc.hour I&O: Intake and Output 10/07/16 10/08/16 19:00 07:00 Intake Total 600 ml 760 ml Output Total 115 ml 60 ml Balance 485 ml 700 ml Intake IV Total 500 ml 700 ml Other 100 ml 60 ml Output Urine Total 115 ml 60 ml CXR: no change ET-Tube: 8.0 ET Position: 24 Labs: Laboratory Tests Test 10/07/16 11:03 10/07/16 13:43 10/07/16 15:15 10/07/16 15:58 Lactic Acid Level 4.50 mmol/L (0.66-2.22) H Arterial Blood pH 7.446 (7.350-7.450) Arterial Blood Partial Pressure CO2 32.8 mmHg (35.0-45.0) L Arterial Blood Partial Pressure O2 59.9 mmHg (75.0-100.0) L Arterial Blood HCO3 22.1 mmol/L (22.0-26.0) Arterial Blood Oxygen Saturation 91.6 % (92.0-98.0) L Arterial Blood Base Excess -1.1 Evan Test Positive Erythrocyte Sedimentation Rate 21 MM/HR (0-30) Reticulocyte Count 1.0 % (0.0-2.0) Prothrombin Time 13.8 SEC (9.30-11.50) H Prothromb Time International Ratio 1.3 (0.9-1.1) H Activated Partial Thromboplast Time 40 SEC (23-33) H Iron Level 12 ug/dL (59-158) L Total Iron Binding Capacity 159 ug/dL (250-400) L Percent Iron Saturation 8 % (15-50) L Unsaturated Iron Binding 147 ug/dL (112-346) Lactate Dehydrogenase 143 U/L (135-230) Carcinoembryonic Antigen 1.8 ng/mL Vitamin B12 Level 854 pg/mL (211-946) Folate 12.3 ng/mL (3.1-17.5) Urine Legionella Antigen Pending Test 10/07/16 17:44 10/08/16 04:00 10/08/16 08:00 Lactic Acid Level 3.30 mmol/L (0.66-2.22) H 3.40 mmol/L (0.66-2.22) H 3.10 mmol/L (0.66-2.22) H White Blood Count 13.8 K/UL (4.8-10.8) H Red Blood Count 3.82 M/UL (4.70-6.10) L Hemoglobin 12.3 G/DL (14.2-18.0) L Hematocrit 35.4 % (42.0-52.0) #L Mean Corpuscular Volume 93 FL (80-99) Mean Corpuscular Hemoglobin 32.2 PG (27.0-31.0) H Mean Corpuscular Hemoglobin Concent 34.8 G/DL (32.0-36.0) Red Cell Distribution Width 13.4 % (11.6-14.8) Platelet Count 115 K/UL (150-450) L Mean Platelet Volume 8.4 FL (6.5-10.1) Neutrophils (%) (Auto) % (45.0-75.0) Lymphocytes (%) (Auto) % (20.0-45.0) Monocytes (%) (Auto) % (1.0-10.0) Eosinophils (%) (Auto) % (0.0-3.0) Basophils (%) (Auto) % (0.0-2.0) Sodium Level 142 mEQ/L (135-145) Potassium Level 4.4 mEQ/L (3.4-4.9) Chloride Level 104 mEQ/L (98-107) Carbon Dioxide Level 22 mEQ/L (20-30) Anion Gap 16 (5-15) H Blood Urea Nitrogen 49 mg/dL (7-23) H Creatinine 2.6 mg/dL (0.7-1.2) H Estimat Glomerular Filtration Rate mL/min (>60) Glucose Level 92 mg/dL (74-106) Calcium Level 8.2 mg/dL (8.6-10.2) L Total Bilirubin 1.0 mg/dL (0.0-1.2) Aspartate Amino Transf (AST/SGOT) 20 U/L (5-40) Alanine Aminotransferase (ALT/SGPT) 8 U/L (3-41) Alkaline Phosphatase 46 U/L (40-129) Troponin I < 0.30 ng/mL (<=0.30) Total Protein 5.0 g/dL (6.6-8.7) L Albumin 2.2 g/dL (3.5-5.2) L Globulin 2.8 g/dL Albumin/Globulin Ratio 0.7 (1.0-2.7) L HERMINIO DIXON Oct 08, 2016 10:24
--- NOTE | 2016-10-08 12:05 | Infectious Diseases Prog Note ---
Assessment/Plan Assessment/Plan ASSESSMENT: 86 y/o male with: // Probable PNA - SCx, legionella UAg pending - CT: Bilateral pulmonary lower lobe consolidation--atelectasis versus pneumonia - negative: influenza // Severe sepsis - improved lactic acidosis // Leukocytosis, bandemia - improved // Fever - afebrile overnight // Acute VDRF - intubated 10/07 // Possible diastolic CHF exacerbation - trop(-) x1, BNP >70K - TTE: EF 55-60%, mild AR, significant implied diastolic dysfunction - CXR: Pulmonary vascular redistribution. Bilateral interstitial prominence. Left costophrenic angle blunting suggests small pleural effusion // ARF ?CKD - worse // Advanced Alzheimer's dementia // NKDA // Full Code PLAN: - continue empiric IV vancomycin, zosyn d# 2 - f/u cultures, legionella UAg - monitor CBC, temperatures - monitor BMP - monitor CXR - vent support, wean as tolerated Subjective Allergies: Coded Allergies: No Known Allergies (Unverified , 10/07/16) Subjective afebrile overnight. remains on vent Cx NGTD Objective Vital Signs Last 24 Hour Vital Signs Date Time Temp Pulse Resp B/P Pulse Ox O2 Delivery O2 Flow Rate FiO2 10/08/16 11:08 70 16 103/54 100 Mechanical Ventilator 50 10/08/16 10:11 70 16 96/39 96 Mechanical Ventilator 50 10/08/16 09:00 70 16 99/66 99 Mechanical Ventilator 50 10/08/16 08:00 97.0 67 16 123/47 94 Mechanical Ventilator 50 10/08/16 08:00 70 10/08/16 08:00 50 10/08/16 07:10 65 16 60 10/08/16 07:00 69 16 108/34 98 Mechanical Ventilator 60 10/08/16 06:00 70 16 109/37 98 Mechanical Ventilator 60 10/08/16 05:30 74 16 60 10/08/16 05:00 69 16 90/37 98 Mechanical Ventilator 60 10/08/16 04:00 70 10/08/16 04:00 50 10/08/16 04:00 98.0 70 16 80/40 98 Mechanical Ventilator 60 10/08/16 03:30 73 20 60 10/08/16 03:00 78 16 78/33 98 Mechanical Ventilator 60 10/08/16 02:00 87 16 108/40 98 Mechanical Ventilator 60 10/08/16 01:16 96 20 80 10/08/16 01:00 87 16 113/44 98 Mechanical Ventilator 80 10/08/16 00:00 80 10/08/16 00:00 80 10/08/16 00:00 98.1 83 16 98/34 98 Mechanical Ventilator 80 10/07/16 23:01 81 16 112/34 98 Mechanical Ventilator 100 10/07/16 23:00 86 16 80 10/07/16 22:00 84 16 97/30 99 Mechanical Ventilator 100 10/07/16 21:10 80 16 80 10/07/16 21:00 80 16 84/40 99 Mechanical Ventilator 100 10/07/16 20:03 69 10/07/16 20:00 98.8 71 16 100/41 94 Mechanical Ventilator 100 10/07/16 20:00 100 10/07/16 19:00 72 16 90 10/07/16 19:00 70 16 97/51 96 Mechanical Ventilator 100 10/07/16 18:00 73 16 94/42 95 Mechanical Ventilator 100 10/07/16 17:00 71 16 108/43 97 Mechanical Ventilator 100 10/07/16 16:35 72 16 100 10/07/16 16:00 71 10/07/16 16:00 100 10/07/16 16:00 98.9 70 16 92/45 94 Mechanical Ventilator 100 10/07/16 15:40 85 25 100 10/07/16 15:00 74 18 110/47 94 Mechanical Ventilator 100 10/07/16 14:00 76 18 102/46 96 Mechanical Ventilator 100 10/07/16 13:38 100 10/07/16 13:15 88 25 100 10/07/16 13:00 80 21 151/93 100 Mechanical Ventilator 100 10/07/16 13:00 97.1 10/07/16 13:00 78 10/07/16 12:40 98.0 83 33 152/76 97 Mechanical Ventilator 100 10/07/16 12:35 101.1 76 20 95/54 100 Mechanical Ventilator 15.0 100 10/07/16 12:34 76 20 95/54 100 Mechanical Ventilator 100 10/07/16 12:23 82 33 100 Height (Feet): 5 Height (Inches): 3.00 Weight (Pounds): 130 General Appearance: other - intubated Respiratory/Chest: decreased breath sounds Cardiovascular: normal rate, regular rhythm Abdomen: normal bowel sounds, soft, non tender, non distended Microbiology Date/Time Source Procedure Growth Status 10/07/16 21:00 Sputum Gram Stain - Final Resulted 10/07/16 21:00 Sputum Sputum Culture Pending Resulted 10/07/16 09:20 Nasal Nares Influenza Types A,B Antigen (SHELBIE) - Final Complete Laboratory Tests Test 10/07/16 13:43 10/07/16 15:15 10/07/16 15:58 10/07/16 17:44 Arterial Blood pH 7.446 (7.350-7.450) Arterial Blood Partial Pressure CO2 32.8 mmHg (35.0-45.0) L Arterial Blood Partial Pressure O2 59.9 mmHg (75.0-100.0) L Arterial Blood HCO3 22.1 mmol/L (22.0-26.0) Arterial Blood Oxygen Saturation 91.6 % (92.0-98.0) L Arterial Blood Base Excess -1.1 Evan Test Positive Erythrocyte Sedimentation Rate 21 MM/HR (0-30) Reticulocyte Count 1.0 % (0.0-2.0) Prothrombin Time 13.8 SEC (9.30-11.50) H Prothromb Time International Ratio 1.3 (0.9-1.1) H Activated Partial Thromboplast Time 40 SEC (23-33) H Iron Level 12 ug/dL (59-158) L Total Iron Binding Capacity 159 ug/dL (250-400) L Percent Iron Saturation 8 % (15-50) L Unsaturated Iron Binding 147 ug/dL (112-346) Lactate Dehydrogenase 143 U/L (135-230) Carcinoembryonic Antigen 1.8 ng/mL Vitamin B12 Level 854 pg/mL (211-946) Folate 12.3 ng/mL (3.1-17.5) Urine Legionella Antigen Pending Lactic Acid Level 3.30 mmol/L (0.66-2.22) H Test 10/08/16 04:00 10/08/16 08:00 White Blood Count 13.8 K/UL (4.8-10.8) H Red Blood Count 3.82 M/UL (4.70-6.10) L Hemoglobin 12.3 G/DL (14.2-18.0) L Hematocrit 35.4 % (42.0-52.0) #L Mean Corpuscular Volume 93 FL (80-99) Mean Corpuscular Hemoglobin 32.2 PG (27.0-31.0) H Mean Corpuscular Hemoglobin Concent 34.8 G/DL (32.0-36.0) Red Cell Distribution Width 13.4 % (11.6-14.8) Platelet Count 115 K/UL (150-450) L Mean Platelet Volume 8.4 FL (6.5-10.1) Neutrophils (%) (Auto) % (45.0-75.0) Lymphocytes (%) (Auto) % (20.0-45.0) Monocytes (%) (Auto) % (1.0-10.0) Eosinophils (%) (Auto) % (0.0-3.0) Basophils (%) (Auto) % (0.0-2.0) Sodium Level 142 mEQ/L (135-145) Potassium Level 4.4 mEQ/L (3.4-4.9) Chloride Level 104 mEQ/L (98-107) Carbon Dioxide Level 22 mEQ/L (20-30) Anion Gap 16 (5-15) H Blood Urea Nitrogen 49 mg/dL (7-23) H Creatinine 2.6 mg/dL (0.7-1.2) H Estimat Glomerular Filtration Rate mL/min (>60) Glucose Level 92 mg/dL (74-106) Lactic Acid Level 3.40 mmol/L (0.66-2.22) H 3.10 mmol/L (0.66-2.22) H Calcium Level 8.2 mg/dL (8.6-10.2) L Total Bilirubin 1.0 mg/dL (0.0-1.2) Aspartate Amino Transf (AST/SGOT) 20 U/L (5-40) Alanine Aminotransferase (ALT/SGPT) 8 U/L (3-41) Alkaline Phosphatase 46 U/L (40-129) Troponin I < 0.30 ng/mL (<=0.30) Total Protein 5.0 g/dL (6.6-8.7) L Albumin 2.2 g/dL (3.5-5.2) L Globulin 2.8 g/dL Albumin/Globulin Ratio 0.7 (1.0-2.7) L Current Medications Medications (Trade) Dose Ordered Sig/Archie Route PRN Reason Start Time Stop Time Status Last Admin Dose Admin Acetaminophen (Tylenol) 650 mg Q4H PRN ORAL fever 10/07/16 13:00 11/06/16 12:59 Albuterol/ Ipratropium 3 ml 3 ml EVERY 4 HOURS PRN HHN Shortness of Breath 10/07/16 13:00 10/12/16 12:59 Dextrose STAT PRN IV Hypoglycemia 10/07/16 13:00 11/06/16 12:59 Finasteride (Proscar) 5 mg DAILY ORAL 10/08/16 09:00 11/07/16 08:59 10/08/16 08:56 Heparin Sodium (Porcine) (Heparin 5000 units/ml) 5,000 units EVERY 12 HOURS SUBQ 10/07/16 21:00 11/06/16 20:59 10/08/16 08:57 Lorazepam (Ativan 2mg/ml 1ml) 2 mg Q4H PRN IV For Anxiety 10/07/16 13:00 10/14/16 12:59 10/07/16 20:26 Morphine Sulfate (Morphine Sulfate) 4 mg Q4H PRN IVP For Pain 10/07/16 13:00 10/14/16 12:59 Nitroglycerin (Ntg) 0.4 mg Q5M PRN SL Prn Chest Pain 10/07/16 13:00 11/06/16 12:59 Ondansetron HCl (Zofran) 4 mg Q6H PRN IVP Nausea & Vomiting 10/07/16 13:00 11/06/16 12:59 Pantoprazole (Protonix) 40 mg DAILY IV 10/08/16 09:00 11/07/16 08:59 10/08/16 08:56 Piperacillin Sod/ Tazobactam Sod/ Dextrose (Zosyn/D5W 100ml) 100 ml @ 25 mls/hr Q12HR IVPB 10/07/16 21:00 10/14/16 20:59 10/08/16 08:56 Polyethylene Glycol (Miralax) 17 gm DAILYPRN PRN ORAL Constipation 10/07/16 13:00 11/06/16 12:59 10/08/16 00:14 Sodium Chloride (0.45% NS 1000ml) 1,000 ml @ 100 mls/hr Q10H IV 10/08/16 12:00 11/07/16 11:59 10/08/16 11:48 Valproic Acid 500 mg 500 mg Q12HR GT 10/08/16 09:00 11/06/16 20:59 10/08/16 08:56 Vancomycin HCl (Vanco rx to dose) 1 ea DAILY PRN MISC . 10/07/16 14:30 11/06/16 14:29 Vancomycin HCl/ Dextrose (Vancomycin/D5W 250ml) 250 ml @ 167 mls/hr Q48H IVPB 10/07/16 16:00 10/12/16 15:59 10/07/16 16:50 EMILIA CAIN Oct 08, 2016 12:05
--- NOTE | 2016-10-08 15:16 | General Progress Note ---
Assessment/Plan Status: unchanged Assessment/Plan 1. Severe sepsis. 2. Healthcare-associated pneumonia. 3. Ventilator-dependent respiratory failure. 4. HF- Diastolic 5. ARF: likely secondary to #1 4. Hypertension. 5. Dementia. 6. Hyperlipidemia. 7. DNR Pulmonary, ID, Nephrology services are on board Serious condition poor prognosis Subjective ROS Limited/Unobtainable: Yes Allergies: Coded Allergies: No Known Allergies (Unverified , 10/07/16) Objective Last 24 Hour Vital Signs Date Time Temp Pulse Resp B/P Pulse Ox O2 Delivery O2 Flow Rate FiO2 10/08/16 15:05 71 16 108/40 99 Mechanical Ventilator 50 10/08/16 14:09 67 16 106/49 96 Mechanical Ventilator 50 10/08/16 13:10 66 16 93/38 96 Mechanical Ventilator 50 10/08/16 13:10 66 16 60 10/08/16 12:07 50 10/08/16 12:06 97.0 67 16 110/43 99 Mechanical Ventilator 50 10/08/16 12:00 66 10/08/16 11:10 65 16 60 10/08/16 11:08 70 16 103/54 100 Mechanical Ventilator 50 10/08/16 10:11 70 16 96/39 96 Mechanical Ventilator 50 10/08/16 09:10 67 16 60 10/08/16 09:00 70 16 99/66 99 Mechanical Ventilator 50 10/08/16 08:00 97.0 67 16 123/47 94 Mechanical Ventilator 50 10/08/16 08:00 70 10/08/16 08:00 50 10/08/16 07:10 65 16 60 10/08/16 07:00 69 16 108/34 98 Mechanical Ventilator 60 10/08/16 06:00 70 16 109/37 98 Mechanical Ventilator 60 10/08/16 05:30 74 16 60 10/08/16 05:00 69 16 90/37 98 Mechanical Ventilator 60 10/08/16 04:00 70 10/08/16 04:00 50 10/08/16 04:00 98.0 70 16 80/40 98 Mechanical Ventilator 60 10/08/16 03:30 73 20 60 10/08/16 03:00 78 16 78/33 98 Mechanical Ventilator 60 10/08/16 02:00 87 16 108/40 98 Mechanical Ventilator 60 10/08/16 01:16 96 20 80 10/08/16 01:00 87 16 113/44 98 Mechanical Ventilator 80 10/08/16 00:00 80 10/08/16 00:00 80 10/08/16 00:00 98.1 83 16 98/34 98 Mechanical Ventilator 80 10/07/16 23:01 81 16 112/34 98 Mechanical Ventilator 100 10/07/16 23:00 86 16 80 10/07/16 22:00 84 16 97/30 99 Mechanical Ventilator 100 10/07/16 21:10 80 16 80 10/07/16 21:00 80 16 84/40 99 Mechanical Ventilator 100 10/07/16 20:03 69 10/07/16 20:00 98.8 71 16 100/41 94 Mechanical Ventilator 100 10/07/16 20:00 100 10/07/16 19:00 72 16 90 10/07/16 19:00 70 16 97/51 96 Mechanical Ventilator 100 10/07/16 18:00 73 16 94/42 95 Mechanical Ventilator 100 10/07/16 17:00 71 16 108/43 97 Mechanical Ventilator 100 10/07/16 16:35 72 16 100 10/07/16 16:00 71 10/07/16 16:00 100 10/07/16 16:00 98.9 70 16 92/45 94 Mechanical Ventilator 100 10/07/16 15:40 85 25 100 Intake and Output 10/07/16 10/08/16 19:00 07:00 Intake Total 600 ml 760 ml Output Total 115 ml 60 ml Balance 485 ml 700 ml IV Total 500 ml 700 ml Other 100 ml 60 ml Output Urine Total 115 ml 60 ml Laboratory Tests 10/07/16 15:15: Erythrocyte Sedimentation Rate 21, Reticulocyte Count 1.0, Prothrombin Time 13.8H, Prothromb Time International Ratio 1.3H, Activated Partial Thromboplast Time 40H, Iron Level 12L, Total Iron Binding Capacity 159L, Percent Iron Saturation 8L, Unsaturated Iron Binding 147, Lactate Dehydrogenase 143, Carcinoembryonic Antigen 1.8, Vitamin B12 Level 854, Folate 12.3 10/07/16 15:58: Urine Legionella Antigen [Pending] 10/07/16 17:44: Lactic Acid Level 3.30H 10/08/16 04:00: Lactic Acid Level 3.40H, White Blood Count 13.8H, Red Blood Count 3.82L, Hemoglobin 12.3L, Hematocrit 35.4#L, Mean Corpuscular Volume 93, Mean Corpuscular Hemoglobin 32.2H, Mean Corpuscular Hemoglobin Concent 34.8, Red Cell Distribution Width 13.4, Platelet Count 115L, Mean Platelet Volume 8.4, Neutrophils (%) (Auto) , Lymphocytes (%) (Auto) , Monocytes (%) (Auto) , Eosinophils (%) (Auto) , Basophils (%) (Auto) , Sodium Level 142, Potassium Level 4.4, Chloride Level 104, Carbon Dioxide Level 22, Anion Gap 16H, Blood Urea Nitrogen 49H, Creatinine 2.6H, Estimat Glomerular Filtration Rate , Glucose Level 92, Calcium Level 8.2L, Total Bilirubin 1.0, Aspartate Amino Transf (AST/SGOT) 20, Alanine Aminotransferase (ALT/SGPT) 8, Alkaline Phosphatase 46, Troponin I < 0.30, Total Protein 5.0L, Albumin 2.2L, Globulin 2.8, Albumin/Globulin Ratio 0.7L 10/08/16 08:00: Lactic Acid Level 3.10H Height (Feet): 5 Height (Inches): 3.00 Weight (Pounds): 130 General Appearance: no apparent distress, other - Entubated Neck: supple Cardiovascular: normal rate Respiratory/Chest: rhonchi - bilaterally Abdomen: soft Extremities: other - atrophied musculature Neurologic: other - limited as intubated Margaret Jc MD Oct 08, 2016 15:16
[2016-10-08] MEDS ORDERED: 1/2 NS 1000ml IV ONE (18:41)
--- NOTE | 2016-10-08 19:52 | Cardiology Progress Note ---
Assessment/Plan Status: stable, unchanged Status Narrative Respiratory failure/ pneumonia CKD Intermittent hypotension , likely due to combination of sepsis and vol depletion Nl LV systolic function and mild diastolic dysfunction by echo this adm. Assessment/Plan Continue iv antibiotics pending final culture results (influenza screen negative ) Continue iv hydration., vent support Wean from vent as tolerated. Subjective ROS Limited/Unobtainable: Yes Subjective intubated/ sedated Objective Last 24 Hour Vital Signs Date Time Temp Pulse Resp B/P Pulse Ox O2 Delivery O2 Flow Rate FiO2 10/08/16 19:34 65 16 127/44 98 Mechanical Ventilator 50 10/08/16 19:00 65 16 83/28 98 Mechanical Ventilator 50 10/08/16 18:30 64 16 60 10/08/16 18:00 71 16 131/44 98 Mechanical Ventilator 50 10/08/16 17:10 64 16 60 10/08/16 17:00 73 16 104/36 98 Mechanical Ventilator 50 10/08/16 16:00 96.4 73 16 95/33 99 Mechanical Ventilator 50 10/08/16 16:00 70 10/08/16 16:00 50 10/08/16 15:10 69 16 60 10/08/16 15:05 71 16 108/40 99 Mechanical Ventilator 50 10/08/16 14:09 67 16 106/49 96 Mechanical Ventilator 50 10/08/16 13:10 66 16 93/38 96 Mechanical Ventilator 50 10/08/16 13:10 66 16 60 10/08/16 12:07 50 10/08/16 12:06 97.0 67 16 110/43 99 Mechanical Ventilator 50 10/08/16 12:00 66 10/08/16 11:10 65 16 60 10/08/16 11:08 70 16 103/54 100 Mechanical Ventilator 50 10/08/16 10:11 70 16 96/39 96 Mechanical Ventilator 50 10/08/16 09:10 67 16 60 10/08/16 09:00 70 16 99/66 99 Mechanical Ventilator 50 10/08/16 08:00 97.0 67 16 123/47 94 Mechanical Ventilator 50 10/08/16 08:00 70 10/08/16 08:00 50 10/08/16 07:10 65 16 60 10/08/16 07:00 69 16 108/34 98 Mechanical Ventilator 60 10/08/16 06:00 70 16 109/37 98 Mechanical Ventilator 60 10/08/16 05:30 74 16 60 10/08/16 05:00 69 16 90/37 98 Mechanical Ventilator 60 10/08/16 04:00 70 10/08/16 04:00 50 10/08/16 04:00 98.0 70 16 80/40 98 Mechanical Ventilator 60 10/08/16 03:30 73 20 60 10/08/16 03:00 78 16 78/33 98 Mechanical Ventilator 60 10/08/16 02:00 87 16 108/40 98 Mechanical Ventilator 60 10/08/16 01:16 96 20 80 10/08/16 01:00 87 16 113/44 98 Mechanical Ventilator 80 10/08/16 00:00 80 10/08/16 00:00 80 10/08/16 00:00 98.1 83 16 98/34 98 Mechanical Ventilator 80 10/07/16 23:01 81 16 112/34 98 Mechanical Ventilator 100 10/07/16 23:00 86 16 80 10/07/16 22:00 84 16 97/30 99 Mechanical Ventilator 100 10/07/16 21:10 80 16 80 10/07/16 21:00 80 16 84/40 99 Mechanical Ventilator 100 10/07/16 20:03 69 10/07/16 20:00 98.8 71 16 100/41 94 Mechanical Ventilator 100 10/07/16 20:00 100 General Appearance: on vent, other - not responsive Neck: no JVD Rhythm: NSR Cardiovascular: normal rate, regular rhythm, no gallop/murmur Respiratory/Chest: other - scattered rhonchi bilat Abdomen: non tender, soft, no organomegaly, no mass Extremities: no swelling Intake and Output 10/07/16 10/08/16 19:00 07:00 Intake Total 600 ml 760 ml Output Total 115 ml 60 ml Balance 485 ml 700 ml IV Total 500 ml 700 ml Other 100 ml 60 ml Output Urine Total 115 ml 60 ml Laboratory Tests Test 10/08/16 04:00 10/08/16 08:00 White Blood Count 13.8 K/UL (4.8-10.8) H Red Blood Count 3.82 M/UL (4.70-6.10) L Hemoglobin 12.3 G/DL (14.2-18.0) L Hematocrit 35.4 % (42.0-52.0) #L Mean Corpuscular Volume 93 FL (80-99) Mean Corpuscular Hemoglobin 32.2 PG (27.0-31.0) H Mean Corpuscular Hemoglobin Concent 34.8 G/DL (32.0-36.0) Red Cell Distribution Width 13.4 % (11.6-14.8) Platelet Count 115 K/UL (150-450) L Mean Platelet Volume 8.4 FL (6.5-10.1) Neutrophils (%) (Auto) % (45.0-75.0) Lymphocytes (%) (Auto) % (20.0-45.0) Monocytes (%) (Auto) % (1.0-10.0) Eosinophils (%) (Auto) % (0.0-3.0) Basophils (%) (Auto) % (0.0-2.0) Sodium Level 142 mEQ/L (135-145) Potassium Level 4.4 mEQ/L (3.4-4.9) Chloride Level 104 mEQ/L (98-107) Carbon Dioxide Level 22 mEQ/L (20-30) Anion Gap 16 (5-15) H Blood Urea Nitrogen 49 mg/dL (7-23) H Creatinine 2.6 mg/dL (0.7-1.2) H Estimat Glomerular Filtration Rate mL/min (>60) Glucose Level 92 mg/dL (74-106) Lactic Acid Level 3.40 mmol/L (0.66-2.22) H 3.10 mmol/L (0.66-2.22) H Calcium Level 8.2 mg/dL (8.6-10.2) L Total Bilirubin 1.0 mg/dL (0.0-1.2) Aspartate Amino Transf (AST/SGOT) 20 U/L (5-40) Alanine Aminotransferase (ALT/SGPT) 8 U/L (3-41) Alkaline Phosphatase 46 U/L (40-129) Troponin I < 0.30 ng/mL (<=0.30) Total Protein 5.0 g/dL (6.6-8.7) L Albumin 2.2 g/dL (3.5-5.2) L Globulin 2.8 g/dL Albumin/Globulin Ratio 0.7 (1.0-2.7) L Microbiology Date/Time Source Procedure Growth Status 10/07/16 21:00 Sputum Gram Stain - Final Resulted 10/07/16 21:00 Sputum Sputum Culture Pending Resulted 10/07/16 09:20 Nasal Nares Influenza Types A,B Antigen (SHELBIE) - Final Complete RIRI DILLARD Oct 08, 2016 19:52
[2016-10-09] VITALS (25 sets, daily range): BP systolic 90–154; BP diastolic 26–69
[2016-10-09 05:40] LABS: MEAN CORPUSCULAR HEMOGLOBIN 31.5 PG (27.0-31.0); MEAN CORPUSCULAR HGB CONC 34.1 G/DL (32.0-36.0); MEAN CORPUSCULAR VOLUME 92 FL (80-99); MEAN PLATELET VOLUME 8.7 FL (6.5-10.1); PLATELET COUNT 100 K/UL (150-450); RED BLOOD COUNT 3.71 M/UL (4.70-6.10); RED CELL DISTRIBUTION WIDTH 13.2 % (11.6-14.8); WHITE BLOOD COUNT 12.4 K/UL (4.8-10.8)
[2016-10-09 06:02] LABS: ALANINE AMINOTRANSFERASE 19 U/L (3-41); ALBUMIN/GLOBULIN RATIO 0.7 (1.0-2.7); ANION GAP 12 (5-15); ASPARTATE AMINO TRANSFERASE 34 U/L (5-40); CALCIUM 7.8 mg/dL (8.6-10.2); CARBON DIOXIDE 23 mEQ/L (20-30); CHLORIDE 102 mEQ/L (98-107); CREATININE 2.1 mg/dL (0.7-1.2); HEMOLYSIS 13; MAGNESIUM 1.6 mg/dL (1.7-2.5); PHOSPHORUS 3.1 mg/dL (2.5-4.8); POTASSIUM 3.4 mEQ/L (3.4-4.9); SODIUM 137 mEQ/L (135-145); TOTAL PROTEIN 4.6 g/dL (6.6-8.7)
[2016-10-09 06:05] LABS: REFLEX LACTIC ACID YES OR NO YES
--- NOTE | 2016-10-09 07:53 | Infectious Diseases Prog Note ---
Assessment/Plan Assessment/Plan ASSESSMENT: 86 y/o male with: // Probable PNA - SCx, legionella UAg pending - CT: Bilateral pulmonary lower lobe consolidation--atelectasis versus pneumonia - negative: influenza // Severe sepsis - improved lactic acidosis // Leukocytosis, bandemia - improved // Fever - resolved // Acute VDRF - intubated 10/07 // Possible diastolic CHF exacerbation - trop(-) x1, BNP >70K - TTE: EF 55-60%, mild AR, significant implied diastolic dysfunction - CXR: Pulmonary vascular redistribution. Bilateral interstitial prominence. Left costophrenic angle blunting suggests small pleural effusion // ARF ?CKD - improved // Advanced Alzheimer's dementia // NKDA // Full Code PLAN: - continue empiric IV vancomycin, zosyn d# 3 / - f/u cultures, legionella UAg - monitor CBC, temperatures - monitor BMP - monitor CXR - vent support, wean as tolerated Subjective Allergies: Coded Allergies: No Known Allergies (Unverified , 10/07/16) Subjective fevers resolved. remains on vent Cx NGTD Objective Vital Signs Last 24 Hour Vital Signs Date Time Temp Pulse Resp B/P Pulse Ox O2 Delivery O2 Flow Rate FiO2 10/09/16 07:12 64 16 40 10/09/16 05:35 61 16 40 10/09/16 05:00 64 16 121/41 100 Mechanical Ventilator 50 10/09/16 04:00 58 10/09/16 04:00 58 16 92/32 100 Mechanical Ventilator 50 10/09/16 04:00 98.0 58 16 92/32 100 Mechanical Ventilator 50 10/09/16 04:00 50 10/09/16 03:00 78 16 98/52 100 Mechanical Ventilator 50 10/09/16 03:00 68 16 40 10/09/16 02:00 78 16 125/51 100 Mechanical Ventilator 50 10/09/16 01:30 62 16 40 10/09/16 01:00 63 16 98/28 100 Mechanical Ventilator 50 10/09/16 00:00 98.3 78 16 154/64 100 Mechanical Ventilator 50 10/09/16 00:00 70 10/09/16 00:00 50 10/08/16 23:02 67 16 60 10/08/16 23:00 66 16 109/37 100 Mechanical Ventilator 50 10/08/16 22:29 65 1/13/17 22:00 72 16 124/46 100 Mechanical Ventilator 50 10/08/16 21:06 71 16 60 10/08/16 21:00 63 16 132/48 99 Mechanical Ventilator 50 10/08/16 20:00 97.0 74 19 141/71 99 Mechanical Ventilator 50 10/08/16 20:00 70 10/08/16 20:00 50 10/08/16 19:34 65 16 127/44 98 Mechanical Ventilator 50 10/08/16 19:00 65 16 83/28 98 Mechanical Ventilator 50 10/08/16 18:30 64 16 60 10/08/16 18:00 71 16 131/44 98 Mechanical Ventilator 50 10/08/16 17:10 64 16 60 10/08/16 17:00 73 16 104/36 98 Mechanical Ventilator 50 10/08/16 16:00 96.4 73 16 95/33 99 Mechanical Ventilator 50 10/08/16 16:00 70 10/08/16 16:00 50 10/08/16 15:10 69 16 60 10/08/16 15:05 71 16 108/40 99 Mechanical Ventilator 50 10/08/16 14:09 67 16 106/49 96 Mechanical Ventilator 50 10/08/16 13:10 66 16 93/38 96 Mechanical Ventilator 50 10/08/16 13:10 66 16 60 10/08/16 12:07 50 10/08/16 12:06 97.0 67 16 110/43 99 Mechanical Ventilator 50 10/08/16 12:00 66 10/08/16 11:10 65 16 60 10/08/16 11:08 70 16 103/54 100 Mechanical Ventilator 50 10/08/16 10:11 70 16 96/39 96 Mechanical Ventilator 50 10/08/16 09:10 67 16 60 10/08/16 09:00 70 16 99/66 99 Mechanical Ventilator 50 10/08/16 08:00 97.0 67 16 123/47 94 Mechanical Ventilator 50 10/08/16 08:00 70 10/08/16 08:00 50 Height (Feet): 5 Height (Inches): 3.00 Weight (Pounds): 130 General Appearance: other - intubated Respiratory/Chest: decreased breath sounds Cardiovascular: normal rate, regular rhythm Abdomen: normal bowel sounds, soft, non tender, non distended Microbiology Date/Time Source Procedure Growth Status 1/12/17 09:10 Blood Blood Culture - Preliminary NO GROWTH AFTER 24 HOURS Resulted 10/07/16 08:55 Blood Blood Culture - Preliminary NO GROWTH AFTER 24 HOURS Resulted 10/07/16 21:00 Sputum Gram Stain - Final Resulted 10/07/16 21:00 Sputum Sputum Culture Pending Resulted 10/07/16 09:20 Nasal Nares Influenza Types A,B Antigen (SHELBIE) - Final Complete 10/07/16 08:55 Nasal Nares MRSA Culture - Final NO METHICILLIN RESISTANT STAPH AUREUS... Complete Laboratory Tests Test 10/08/16 08:00 10/09/16 02:40 10/09/16 05:00 Lactic Acid Level 3.10 mmol/L (0.66-2.22) H 2.20 mmol/L (0.66-2.22) Stool Occult Blood Pending White Blood Count 12.4 K/UL (4.8-10.8) H Red Blood Count 3.71 M/UL (4.70-6.10) L Hemoglobin 11.7 G/DL (14.2-18.0) L Hematocrit 34.2 % (42.0-52.0) L Mean Corpuscular Volume 92 FL (80-99) Mean Corpuscular Hemoglobin 31.5 PG (27.0-31.0) H Mean Corpuscular Hemoglobin Concent 34.1 G/DL (32.0-36.0) Red Cell Distribution Width 13.2 % (11.6-14.8) Platelet Count 100 K/UL (150-450) L Mean Platelet Volume 8.7 FL (6.5-10.1) Neutrophils (%) (Auto) % (45.0-75.0) Lymphocytes (%) (Auto) % (20.0-45.0) Monocytes (%) (Auto) % (1.0-10.0) Eosinophils (%) (Auto) % (0.0-3.0) Basophils (%) (Auto) % (0.0-2.0) Sodium Level 137 mEQ/L (135-145) Potassium Level 3.4 mEQ/L (3.4-4.9) Chloride Level 102 mEQ/L (98-107) Carbon Dioxide Level 23 mEQ/L (20-30) Anion Gap 12 (5-15) Blood Urea Nitrogen 61 mg/dL (7-23) H Creatinine 2.1 mg/dL (0.7-1.2) H Estimat Glomerular Filtration Rate mL/min (>60) Glucose Level 110 mg/dL (74-106) H Calcium Level 7.8 mg/dL (8.6-10.2) L Phosphorus Level 3.1 mg/dL (2.5-4.8) Magnesium Level 1.6 mg/dL (1.7-2.5) L Total Bilirubin 0.5 mg/dL (0.0-1.2) Aspartate Amino Transf (AST/SGOT) 34 U/L (5-40) Alanine Aminotransferase (ALT/SGPT) 19 U/L (3-41) Alkaline Phosphatase 50 U/L (40-129) Total Protein 4.6 g/dL (6.6-8.7) L Albumin 2.0 g/dL (3.5-5.2) L Globulin 2.6 g/dL Albumin/Globulin Ratio 0.7 (1.0-2.7) L Random Vancomycin Level 8.1 ug/mL Current Medications Medications (Trade) Dose Ordered Sig/Archie Route PRN Reason Start Time Stop Time Status Last Admin Dose Admin Acetaminophen (Tylenol) 650 mg Q4H PRN ORAL fever 10/07/16 13:00 11/06/16 12:59 Albuterol/ Ipratropium (DuoNeb 0.5-3(2.5)mg/3ml) 3 ml EVERY 4 HOURS PRN HHN Shortness of Breath 10/07/16 13:00 10/12/16 12:59 Dextrose STAT PRN IV Hypoglycemia 10/07/16 13:00 11/06/16 12:59 Finasteride (Proscar) 5 mg DAILY ORAL 10/08/16 09:00 11/07/16 08:59 10/08/16 08:56 Heparin Sodium (Porcine) (Heparin 5000 units/ml) 5,000 units EVERY 12 HOURS SUBQ 10/07/16 21:00 11/06/16 20:59 10/08/16 20:45 Lorazepam (Ativan 2mg/ml 1ml) 2 mg Q4H PRN IV For Anxiety 10/07/16 13:00 10/14/16 12:59 10/07/16 20:26 Morphine Sulfate (Morphine Sulfate) 4 mg Q4H PRN IVP For Pain 10/07/16 13:00 10/14/16 12:59 Nitroglycerin (Ntg) 0.4 mg Q5M PRN SL Prn Chest Pain 10/07/16 13:00 11/06/16 12:59 Ondansetron HCl (Zofran) 4 mg Q6H PRN IVP Nausea & Vomiting 10/07/16 13:00 11/06/16 12:59 Pantoprazole (Protonix) 40 mg DAILY IV 10/08/16 09:00 11/07/16 08:59 10/08/16 08:56 Piperacillin Sod/ Tazobactam Sod/ Dextrose (Zosyn/D5W 100ml) 100 ml @ 25 mls/hr Q12HR IVPB 10/07/16 21:00 10/14/16 20:59 10/08/16 20:44 Polyethylene Glycol (Miralax) 17 gm DAILYPRN PRN ORAL Constipation 10/07/16 13:00 11/06/16 12:59 10/08/16 00:14 Sodium Chloride 500 ml @ 999 mls/hr NEEDED PRN IV For hypotension (MAP <60%) 10/08/16 13:45 11/07/16 13:44 Sodium Chloride 1,000 ml @ 100 mls/hr Q10H IV 10/08/16 12:00 11/07/16 11:59 10/08/16 21:35 Valproic Acid 500 mg 500 mg Q12HR GT 10/08/16 09:00 11/06/16 20:59 10/08/16 20:44 Vancomycin HCl (Vanco rx to dose) 1 ea DAILY PRN MISC . 10/07/16 14:30 11/06/16 14:29 Vancomycin HCl/ Dextrose (Vancomycin/D5W 250ml) 275 ml @ 183.708 mls/hr Q24H IVPB 10/09/16 07:00 10/14/16 06:59 EMILIA CAIN Oct 09, 2016 07:53
--- NOTE | 2016-10-09 08:30 | Diagnostic Imaging Report ---
Indications: Endotracheal tube placement Technique: Portable AP chest at 1129 Findings: Comparison: 0949 Endotracheal tube has been placed, tip within 1 cm of the origin of the right mainstem bronchus. Cardiomegaly, bilateral interstitial infiltrates, left retrocardiac opacification, suggestion of left pleural effusion unchanged. IMPRESSION: Endotracheal tube deep in position, recommend withdrawal 2 cm No other change from earlier exam
--- NOTE | 2016-10-09 08:35 | Pulmonolgy Critical Care Note ---
Critical Care - Asmt/Plan Problems: (1) Respiratory failure, acute (2) Pneumonia (3) ATN (acute tubular necrosis) (4) History of hypertension (5) Dementia Respiratory: monitor respiratory rate, adjust FIO2 Cardiac: continue to monitor HR/BP Renal: F/U I&O, keep IV fluid Infectious Disease: check cultures, continue antibiotics, other - afebrile Endocrine: monitor blood sugar, check TSH, continue sliding scale insulin Hematologic: monitor H/H, transfuse if hgb<8.5 Neurologic: PRN Ativan, PRN Morphine, keep patient comfortable Prophylaxis: Protonix Notes Reviewed: coding specialist home health, cardio, renal - renal called Discussed with: nurses, consultants, case packercontracting manager - Objective Last 24 Hour Vital Signs Date Time Temp Pulse Resp B/P Pulse Ox O2 Delivery O2 Flow Rate FiO2 10/09/16 07:12 64 16 40 10/09/16 05:35 61 16 40 10/09/16 05:00 64 16 121/41 100 Mechanical Ventilator 50 10/09/16 04:00 58 10/09/16 04:00 58 16 92/32 100 Mechanical Ventilator 50 10/09/16 04:00 98.0 58 16 92/32 100 Mechanical Ventilator 50 10/09/16 04:00 50 10/09/16 03:00 78 16 98/52 100 Mechanical Ventilator 50 10/09/16 03:00 68 16 40 10/09/16 02:00 78 16 125/51 100 Mechanical Ventilator 50 10/09/16 01:30 62 16 40 10/09/16 01:00 63 16 98/28 100 Mechanical Ventilator 50 10/09/16 00:00 98.3 78 16 154/64 100 Mechanical Ventilator 50 10/09/16 00:00 70 10/09/16 00:00 50 10/08/16 23:02 67 16 60 10/08/16 23:00 66 16 109/37 100 Mechanical Ventilator 50 10/08/16 22:29 65 10/08/16 22:00 72 16 124/46 100 Mechanical Ventilator 50 10/08/16 21:06 71 16 60 10/08/16 21:00 63 16 132/48 99 Mechanical Ventilator 50 10/08/16 20:00 97.0 74 19 141/71 99 Mechanical Ventilator 50 10/08/16 20:00 70 10/08/16 20:00 50 10/08/16 19:34 65 16 127/44 98 Mechanical Ventilator 50 10/08/16 19:00 65 16 83/28 98 Mechanical Ventilator 50 10/08/16 18:30 64 16 60 10/08/16 18:00 71 16 131/44 98 Mechanical Ventilator 50 10/08/16 17:10 64 16 60 10/08/16 17:00 73 16 104/36 98 Mechanical Ventilator 50 10/08/16 16:00 96.4 73 16 95/33 99 Mechanical Ventilator 50 10/08/16 16:00 70 10/08/16 16:00 50 10/08/16 15:10 69 16 60 10/08/16 15:05 71 16 108/40 99 Mechanical Ventilator 50 10/08/16 14:09 67 16 106/49 96 Mechanical Ventilator 50 10/08/16 13:10 66 16 93/38 96 Mechanical Ventilator 50 10/08/16 13:10 66 16 60 10/08/16 12:07 50 10/08/16 12:06 97.0 67 16 110/43 99 Mechanical Ventilator 50 10/08/16 12:00 66 10/08/16 11:10 65 16 60 10/08/16 11:08 70 16 103/54 100 Mechanical Ventilator 50 10/08/16 10:11 70 16 96/39 96 Mechanical Ventilator 50 10/08/16 09:10 67 16 60 10/08/16 09:00 70 16 99/66 99 Mechanical Ventilator 50 Status: sedated Condition: critical, grave HEENT: atraumatic Lungs: rales, rhonchi Heart: HR/BP stable Abdomen: soft, non-tender Extremities: no C/C/E, edema Decubiti: location Micro: Microbiology Date/Time Source Procedure Growth Status 10/07/16 09:10 Blood Blood Culture - Preliminary NO GROWTH AFTER 24 HOURS Resulted 10/07/16 08:55 Blood Blood Culture - Preliminary NO GROWTH AFTER 24 HOURS Resulted 10/07/16 21:00 Sputum Gram Stain - Final Resulted 10/07/16 21:00 Sputum Sputum Culture Pending Resulted 10/07/16 09:20 Nasal Nares Influenza Types A,B Antigen (SHELBIE) - Final Complete 10/07/16 08:55 Nasal Nares MRSA Culture - Final NO METHICILLIN RESISTANT STAPH AUREUS... Complete Accucheck: 81 Critical Care - Subjective ROS Limited/Unobtainable: Yes ICU Day: 3 Intubation Day: 3 Condition: critical EKG Rhythm: Sinus Rhythm FI02: 40 Vent Support Breath Rate: 16 Vent Support Mode: AC Vent Tidal Volume: 600 Sputum Amount: Small PEEP: 5.0 PIP: 19 Tube Feeding Amount: 40 I&O: Intake and Output 10/08/16 10/09/16 19:00 07:00 Intake Total 1435 ml 1575 ml Output Total 140 ml 295 ml Balance 1295 ml 1280 ml Intake Free Water 30 ml 100 ml IV Total 1300 ml 1155 ml Tube Feeding 85 ml 290 ml Other 20 ml 30 ml Output Urine Total 140 ml 295 ml # Bowel Movements 2 5 CXR: no change, ET in good position ET-Tube: 8.0 ET Position: 23 Labs: Laboratory Tests Test 10/09/16 02:40 10/09/16 05:00 Stool Occult Blood Pending White Blood Count 12.4 K/UL (4.8-10.8) H Red Blood Count 3.71 M/UL (4.70-6.10) L Hemoglobin 11.7 G/DL (14.2-18.0) L Hematocrit 34.2 % (42.0-52.0) L Mean Corpuscular Volume 92 FL (80-99) Mean Corpuscular Hemoglobin 31.5 PG (27.0-31.0) H Mean Corpuscular Hemoglobin Concent 34.1 G/DL (32.0-36.0) Red Cell Distribution Width 13.2 % (11.6-14.8) Platelet Count 100 K/UL (150-450) L Mean Platelet Volume 8.7 FL (6.5-10.1) Neutrophils (%) (Auto) % (45.0-75.0) Lymphocytes (%) (Auto) % (20.0-45.0) Monocytes (%) (Auto) % (1.0-10.0) Eosinophils (%) (Auto) % (0.0-3.0) Basophils (%) (Auto) % (0.0-2.0) Sodium Level 137 mEQ/L (135-145) Potassium Level 3.4 mEQ/L (3.4-4.9) Chloride Level 102 mEQ/L (98-107) Carbon Dioxide Level 23 mEQ/L (20-30) Anion Gap 12 (5-15) Blood Urea Nitrogen 61 mg/dL (7-23) H Creatinine 2.1 mg/dL (0.7-1.2) H Estimat Glomerular Filtration Rate mL/min (>60) Glucose Level 110 mg/dL (74-106) H Lactic Acid Level 2.20 mmol/L (0.66-2.22) Calcium Level 7.8 mg/dL (8.6-10.2) L Phosphorus Level 3.1 mg/dL (2.5-4.8) Magnesium Level 1.6 mg/dL (1.7-2.5) L Total Bilirubin 0.5 mg/dL (0.0-1.2) Aspartate Amino Transf (AST/SGOT) 34 U/L (5-40) Alanine Aminotransferase (ALT/SGPT) 19 U/L (3-41) Alkaline Phosphatase 50 U/L (40-129) Total Protein 4.6 g/dL (6.6-8.7) L Albumin 2.0 g/dL (3.5-5.2) L Globulin 2.6 g/dL Albumin/Globulin Ratio 0.7 (1.0-2.7) L Random Vancomycin Level 8.1 ug/mL HERMINIO DIXON Oct 09, 2016 08:35
[2016-10-09] MEDS: Pantoprazole Inj IV SCH (09:02)
[2016-10-09] MEDS: Heparin 5000 units/ml inj SUBQ SCH ×2 (09:05→21:12)
[2016-10-09] MEDS: Valproic Acid 250mg/5ml Liquid GT SCH ×2 (09:06→21:12)
--- NOTE | 2016-10-09 09:16 | Diagnostic Imaging Report ---
Indications: DYSPNEA Technique: Portable AP chest Findings: Comparison: 10/07/2016 Endotracheal tube has been withdrawn, tip now 3 cm above julia. Nasogastric tube has been placed, tip in the region of the gastric fundus. Cardiac silhouette remains enlarged. Diffuse bilateral interstitial infiltrates, left parahilar and retrocardiac consolidative opacities, crowding of bronchovascular markings in right lung base persist, unchanged. No new abnormality identified. IMPRESSION: Repositioning of endotracheal tube, in good position Placement of nasogastric tube, in good position No other significant change from 2 days prior
[2016-10-09] MEDS: Vancomycin 750mg/D5W 250ml IVPB SCH ×2 (10:02)
--- NOTE | 2016-10-09 10:29 | Consultation ---
Consult Note Consult Note asked to evaluate for renal failure HPI Patient presents by paramedics for acute respiratory distress The report by paramedics reports that the patient was found to be short of breath this morning Patient himself is in acute distress and not able to provide any input review of medical records also reveals significant Alzheimer's and dementia Unknown regarding fevers Unknown regarding chest pain Patient has not had any recent travel History of present illness is significantly limited given the patient's presentation Hx Hypertension: Yes History Of Psychiatric Problem: Yes - sher Dias Seizures: Yes patient examined- data reviewed- discussed with RN . Assessment/Plan status: 1. Severe sepsis. leading to acute renal failure- and respiratory failure- 2. Healthcare-associated pneumonia. 3. Ventilator-dependent respiratory failure. 4. Hypertension. 5. Dementia. Alzheimer's dementia. 6. Hyperlipidemia. 7. Psychiatric disorder. 8. h/o Gallstones. 9. h/o Diverticulosis. 10.h/o BPH. Plan: Vent support- Antibiotics- Monitor renal parameters- Urine studies- MANPREET GERMAN Oct 09, 2016 10:29
--- NOTE | 2016-10-09 11:59 | General Progress Note ---
Assessment/Plan Status: unchanged Assessment/Plan 1. Severe sepsis. 2. Healthcare-associated pneumonia. 3. Ventilator-dependent respiratory failure. 4. HF- Diastolic 5. ARF: likely secondary to #1 6, Acute Anemia 5. Dementia. 6. Hyperlipidemia. 7. DNR Pulmonary, ID, Nephrology notes are reviewed Serious condition guarded prognosis Subjective ROS Limited/Unobtainable: Yes Allergies: Coded Allergies: No Known Allergies (Unverified , 10/07/16) Objective Last 24 Hour Vital Signs Date Time Temp Pulse Resp B/P Pulse Ox O2 Delivery O2 Flow Rate FiO2 10/09/16 11:08 55 16 40 10/09/16 10:58 52 16 90/26 100 Mechanical Ventilator 50 10/09/16 10:00 55 16 90/26 100 Mechanical Ventilator 50 10/09/16 09:00 61 16 123/64 100 Mechanical Ventilator 50 10/09/16 08:57 65 16 40 10/09/16 08:00 98.0 59 16 122/40 100 Mechanical Ventilator 50 10/09/16 08:00 50 10/09/16 08:00 60 10/09/16 07:12 64 16 40 10/09/16 07:00 59 16 117/40 100 Mechanical Ventilator 50 10/09/16 05:35 61 16 40 10/09/16 05:00 64 16 121/41 100 Mechanical Ventilator 50 10/09/16 04:00 58 10/09/16 04:00 58 16 92/32 100 Mechanical Ventilator 50 10/09/16 04:00 98.0 58 16 92/32 100 Mechanical Ventilator 50 10/09/16 04:00 50 10/09/16 03:00 78 16 98/52 100 Mechanical Ventilator 50 10/09/16 03:00 68 16 40 10/09/16 02:00 78 16 125/51 100 Mechanical Ventilator 50 10/09/16 01:30 62 16 40 10/09/16 01:00 63 16 98/28 100 Mechanical Ventilator 50 10/09/16 00:00 98.3 78 16 154/64 100 Mechanical Ventilator 50 10/09/16 00:00 70 10/09/16 00:00 50 10/08/16 23:02 67 16 60 10/08/16 23:00 66 16 109/37 100 Mechanical Ventilator 50 10/08/16 22:29 65 10/08/16 22:00 72 16 124/46 100 Mechanical Ventilator 50 10/08/16 21:06 71 16 60 10/08/16 21:00 63 16 132/48 99 Mechanical Ventilator 50 10/08/16 20:00 97.0 74 19 141/71 99 Mechanical Ventilator 50 10/08/16 20:00 70 10/08/16 20:00 50 10/08/16 19:34 65 16 127/44 98 Mechanical Ventilator 50 10/08/16 19:00 65 16 83/28 98 Mechanical Ventilator 50 10/08/16 18:30 64 16 60 10/08/16 18:00 71 16 131/44 98 Mechanical Ventilator 50 10/08/16 17:10 64 16 60 10/08/16 17:00 73 16 104/36 98 Mechanical Ventilator 50 10/08/16 16:00 96.4 73 16 95/33 99 Mechanical Ventilator 50 10/08/16 16:00 70 10/08/16 16:00 50 10/08/16 15:10 69 16 60 10/08/16 15:05 71 16 108/40 99 Mechanical Ventilator 50 10/08/16 14:09 67 16 106/49 96 Mechanical Ventilator 50 10/08/16 13:10 66 16 93/38 96 Mechanical Ventilator 50 10/08/16 13:10 66 16 60 10/08/16 12:07 50 10/08/16 12:06 97.0 67 16 110/43 99 Mechanical Ventilator 50 10/08/16 12:00 66 Intake and Output 10/08/16 10/09/16 18:59 06:59 Intake Total 1370 ml 1690 ml Output Total 130 ml 305 ml Balance 1240 ml 1385 ml Intake Free Water 30 ml 100 ml IV Total 1250 ml 1255 ml Tube Feeding 70 ml 305 ml Other 20 ml 30 ml Output Urine Total 130 ml 305 ml # Bowel Movements 2 5 Laboratory Tests 10/09/16 02:40: Stool Occult Blood [Pending] 10/09/16 05:00: White Blood Count 12.4H, Red Blood Count 3.71L, Hemoglobin 11.7L, Hematocrit 34.2L, Mean Corpuscular Volume 92, Mean Corpuscular Hemoglobin 31.5H, Mean Corpuscular Hemoglobin Concent 34.1, Red Cell Distribution Width 13.2, Platelet Count 100L, Mean Platelet Volume 8.7, Neutrophils (%) (Auto) , Lymphocytes (%) ( Auto) , Monocytes (%) (Auto) , Eosinophils (%) (Auto) , Basophils (%) (Auto) , Sodium Level 137, Potassium Level 3.4, Chloride Level 102, Carbon Dioxide Level 23, Anion Gap 12, Blood Urea Nitrogen 61H, Creatinine 2.1H, Estimat Glomerular Filtration Rate , Glucose Level 110H, Lactic Acid Level 2.20, Calcium Level 7.8L , Phosphorus Level 3.1, Magnesium Level 1.6L, Total Bilirubin 0.5, Aspartate Amino Transf (AST/SGOT) 34, Alanine Aminotransferase (ALT/SGPT) 19, Alkaline Phosphatase 50, Total Protein 4.6L, Albumin 2.0L, Globulin 2.6, Albumin/ Globulin Ratio 0.7L, Random Vancomycin Level 8.1 Height (Feet): 5 Height (Inches): 3.00 Weight (Pounds): 130 General Appearance: no apparent distress, other - connected to Vent, limited evaluation. EENT: PERRL/EOMI Neck: supple Cardiovascular: bradycardia Respiratory/Chest: rhonchi - bilaterally Abdomen: soft Extremities: non-tender, other Neurologic: oriented x 3 Margaret Jc MD Oct 09, 2016 11:59
[2016-10-09 12:49] LABS: ABG PCO2 33.5 mmHg (35.0-45.0)
[2016-10-09 12:50] LABS: ABG ALLEN TEST POSITIVE; ABG BASE EXCESS 0.7
--- NOTE | 2016-10-09 15:53 | Cardiology Progress Note ---
Assessment/Plan Status: stable, progressing Status Narrative Respiratory failure/ pneumonia CKD - worsening renal parameters noted - ? ATN Hypotension has improved. Nl LV systolic function and mild diastolic dysfunction by echo this adm. Assessment/Plan Continue iv antibiotics - cultures negative so far NG tube feeds weaning slowly from vent. + i/os noted - may need diuretics. BNP inacc due to RF followup cxr in am. 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 Subjective Subjective intubated/ awake Objective Last 24 Hour Vital Signs Date Time Temp Pulse Resp B/P Pulse Ox O2 Delivery O2 Flow Rate FiO2 10/09/16 15:02 61 15 40 10/09/16 15:00 67 16 130/67 100 Mechanical Ventilator 50 10/09/16 14:00 57 16 110/40 100 Mechanical Ventilator 50 10/09/16 13:02 67 15 40 10/09/16 13:00 97.8 62 16 143/69 100 Mechanical Ventilator 50 10/09/16 12:03 66 16 135/40 100 Mechanical Ventilator 50 10/09/16 12:00 62 10/09/16 12:00 50 10/09/16 11:08 55 16 40 10/09/16 10:58 52 16 90/26 100 Mechanical Ventilator 50 10/09/16 10:00 55 16 90/26 100 Mechanical Ventilator 50 10/09/16 09:00 61 16 123/64 100 Mechanical Ventilator 50 10/09/16 08:57 65 16 40 10/09/16 08:00 98.0 59 16 122/40 100 Mechanical Ventilator 50 10/09/16 08:00 50 10/09/16 08:00 60 10/09/16 07:12 64 16 40 10/09/16 07:00 59 16 117/40 100 Mechanical Ventilator 50 10/09/16 05:35 61 16 40 10/09/16 05:00 64 16 121/41 100 Mechanical Ventilator 50 10/09/16 04:00 58 10/09/16 04:00 58 16 92/32 100 Mechanical Ventilator 50 10/09/16 04:00 98.0 58 16 92/32 100 Mechanical Ventilator 50 10/09/16 04:00 50 10/09/16 03:00 78 16 98/52 100 Mechanical Ventilator 50 10/09/16 03:00 68 16 40 10/09/16 02:00 78 16 125/51 100 Mechanical Ventilator 50 10/09/16 01:30 62 16 40 10/09/16 01:00 63 16 98/28 100 Mechanical Ventilator 50 10/09/16 00:00 98.3 78 16 154/64 100 Mechanical Ventilator 50 10/09/16 00:00 70 10/09/16 00:00 50 10/08/16 23:02 67 16 60 10/08/16 23:00 66 16 109/37 100 Mechanical Ventilator 50 10/08/16 22:29 65 10/08/16 22:00 72 16 124/46 100 Mechanical Ventilator 50 10/08/16 21:06 71 16 60 10/08/16 21:00 63 16 132/48 99 Mechanical Ventilator 50 10/08/16 20:00 97.0 74 19 141/71 99 Mechanical Ventilator 50 10/08/16 20:00 70 10/08/16 20:00 50 10/08/16 19:34 65 16 127/44 98 Mechanical Ventilator 50 10/08/16 19:00 65 16 83/28 98 Mechanical Ventilator 50 10/08/16 18:30 64 16 60 10/08/16 18:00 71 16 131/44 98 Mechanical Ventilator 50 10/08/16 17:10 64 16 60 10/08/16 17:00 73 16 104/36 98 Mechanical Ventilator 50 10/08/16 16:00 96.4 73 16 95/33 99 Mechanical Ventilator 50 10/08/16 16:00 70 10/08/16 16:00 50 General Appearance: WD/WN, mild distress, on vent, other - intermittent agitation EENT: other - et, og tubes in place Neck: no JVD Rhythm: NSR Cardiovascular: normal rate, regular rhythm, no gallop/murmur Respiratory/Chest: other - occ rhonchi anteriorly bilaterally Abdomen: non tender, soft, no mass Extremities: no swelling Intake and Output 10/08/16 10/09/16 19:00 07:00 Intake Total 1435 ml 1815 ml Output Total 140 ml 325 ml Balance 1295 ml 1490 ml Intake Free Water 30 ml 200 ml IV Total 1300 ml 1255 ml Tube Feeding 85 ml 330 ml Other 20 ml 30 ml Output Urine Total 140 ml 325 ml # Bowel Movements 2 5 Laboratory Tests Test 10/09/16 02:40 10/09/16 05:00 10/09/16 11:00 10/09/16 12:44 Stool Occult Blood Pending White Blood Count 12.4 K/UL (4.8-10.8) H Red Blood Count 3.71 M/UL (4.70-6.10) L Hemoglobin 11.7 G/DL (14.2-18.0) L Hematocrit 34.2 % (42.0-52.0) L Mean Corpuscular Volume 92 FL (80-99) Mean Corpuscular Hemoglobin 31.5 PG (27.0-31.0) H Mean Corpuscular Hemoglobin Concent 34.1 G/DL (32.0-36.0) Red Cell Distribution Width 13.2 % (11.6-14.8) Platelet Count 100 K/UL (150-450) L Mean Platelet Volume 8.7 FL (6.5-10.1) Neutrophils (%) (Auto) % (45.0-75.0) Lymphocytes (%) (Auto) % (20.0-45.0) Monocytes (%) (Auto) % (1.0-10.0) Eosinophils (%) (Auto) % (0.0-3.0) Basophils (%) (Auto) % (0.0-2.0) Sodium Level 137 mEQ/L (135-145) Potassium Level 3.4 mEQ/L (3.4-4.9) Chloride Level 102 mEQ/L (98-107) Carbon Dioxide Level 23 mEQ/L (20-30) Anion Gap 12 (5-15) Blood Urea Nitrogen 61 mg/dL (7-23) H Creatinine 2.1 mg/dL (0.7-1.2) H Estimat Glomerular Filtration Rate mL/min (>60) Glucose Level 110 mg/dL (74-106) H Lactic Acid Level 2.20 mmol/L (0.66-2.22) Calcium Level 7.8 mg/dL (8.6-10.2) L Phosphorus Level 3.1 mg/dL (2.5-4.8) Magnesium Level 1.6 mg/dL (1.7-2.5) L Total Bilirubin 0.5 mg/dL (0.0-1.2) Aspartate Amino Transf (AST/SGOT) 34 U/L (5-40) Alanine Aminotransferase (ALT/SGPT) 19 U/L (3-41) Alkaline Phosphatase 50 U/L (40-129) Total Protein 4.6 g/dL (6.6-8.7) L Albumin 2.0 g/dL (3.5-5.2) L Globulin 2.6 g/dL Albumin/Globulin Ratio 0.7 (1.0-2.7) L Random Vancomycin Level 8.1 ug/mL Urine Random Sodium 12 mmol/L Arterial Blood pH 7.470 (7.350-7.450) Arterial Blood Partial Pressure CO2 33.5 mmHg (35.0-45.0) L Arterial Blood Partial Pressure O2 89.3 mmHg (75.0-100.0) Arterial Blood HCO3 23.8 mmol/L (22.0-26.0) Arterial Blood Oxygen Saturation 96.7 % (92.0-98.0) Arterial Blood Base Excess 0.7 Evan Test Positive Microbiology Date/Time Source Procedure Growth Status 10/07/16 09:10 Blood Blood Culture - Preliminary NO GROWTH AFTER 24 HOURS Resulted 10/07/16 08:55 Blood Blood Culture - Preliminary NO GROWTH AFTER 24 HOURS Resulted 10/07/16 21:00 Sputum Gram Stain - Final Resulted 10/07/16 21:00 Sputum Sputum Culture Pending Resulted 10/07/16 09:20 Nasal Nares Influenza Types A,B Antigen (SHELBIE) - Final Complete 10/07/16 08:55 Nasal Nares MRSA Culture - Final NO METHICILLIN RESISTANT STAPH AUREUS... Complete RIRI DILLARD Oct 09, 2016 15:53
[2016-10-10] VITALS (24 sets, daily range): BP systolic 104–161; BP diastolic 32–67
[2016-10-10 05:42] LABS: MEAN CORPUSCULAR HEMOGLOBIN 31.8 PG (27.0-31.0); MEAN CORPUSCULAR HGB CONC 34.4 G/DL (32.0-36.0); MEAN CORPUSCULAR VOLUME 92 FL (80-99); MEAN PLATELET VOLUME 9.2 FL (6.5-10.1); PLATELET COUNT 103 K/UL (150-450); RED BLOOD COUNT 3.93 M/UL (4.70-6.10); RED CELL DISTRIBUTION WIDTH 12.7 % (11.6-14.8); WHITE BLOOD COUNT 12.2 K/UL (4.8-10.8)
[2016-10-10] MEDS: Vancomycin 750mg/D5W 250ml IVPB SCH ×2 (06:52)
[2016-10-10 07:09] LABS: ALANINE AMINOTRANSFERASE 27 U/L (3-41); ALBUMIN/GLOBULIN RATIO 0.8 (1.0-2.7); ANION GAP 16 (5-15); ASPARTATE AMINO TRANSFERASE 33 U/L (5-40); CARBON DIOXIDE 23 mEQ/L (20-30); CHLORIDE 100 mEQ/L (98-107); CREATININE 1.1 mg/dL (0.7-1.2); HEMOLYSIS 8; MAGNESIUM 1.9 mg/dL (1.7-2.5); PHOSPHORUS 2.6 mg/dL (2.5-4.8); POTASSIUM 3.1 mEQ/L (3.4-4.9); SODIUM 139 mEQ/L (135-145); TOTAL PROTEIN 4.7 g/dL (6.6-8.7)
[2016-10-10 07:31] LABS: CRP QUANT 6.9 mg/dL (< 0.5); URIC ACID 4.4 mg/dL (3.0-7.5)
[2016-10-10 08:04] LABS: ABG ALLEN TEST POSITIVE; ABG BASE EXCESS -1.3; ABG PCO2 28.7 mmHg (35.0-45.0)
--- NOTE | 2016-10-10 08:22 | Infectious Diseases Prog Note ---
Assessment/Plan Assessment/Plan ASSESSMENT: 86 y/o male with: // Probable PNA - SCx, legionella UAg pending - CXR 10/09: Diffuse bilateral interstitial infiltrates, left parahilar and retrocardiac consolidative opacities, crowding of bronchovascular markings in right lung base persist, unchanged - CT: Bilateral pulmonary lower lobe consolidation--atelectasis versus pneumonia - negative: influenza // Severe sepsis - improved lactic acidosis // Leukocytosis, bandemia - improved // Fever - resolved // Acute VDRF - intubated 10/07 // Possible diastolic CHF exacerbation - trop(-) x1, BNP >70K - TTE: EF 55-60%, mild AR, significant implied diastolic dysfunction - CXR: Pulmonary vascular redistribution. Bilateral interstitial prominence. Left costophrenic angle blunting suggests small pleural effusion // ARF ?CKD - improved // Advanced Alzheimer's dementia // NKDA // Full Code PLAN: - continue empiric IV vancomycin, zosyn d# 4 / - f/u cultures, legionella UAg - monitor CBC, temperatures - monitor BMP - monitor CXR - vent support, wean as tolerated Subjective Allergies: Coded Allergies: No Known Allergies (Unverified , 10/07/16) Subjective fevers resolved. remains on vent Cx NGTD Objective Vital Signs Last 24 Hour Vital Signs Date Time Temp Pulse Resp B/P Pulse Ox O2 Delivery O2 Flow Rate FiO2 10/10/16 08:10 30 10/10/16 08:00 98.0 62 20 160/48 100 Mechanical Ventilator 30 10/10/16 08:00 62 10/10/16 07:25 62 16 30 10/10/16 07:00 60 20 143/38 100 Mechanical Ventilator 30 10/10/16 06:00 80 20 151/49 100 Mechanical Ventilator 30 10/10/16 05:14 80 20 30 10/10/16 05:00 85 20 153/44 100 Mechanical Ventilator 30 10/10/16 04:29 30 10/10/16 04:29 75 10/10/16 04:00 97.7 75 20 139/57 100 Mechanical Ventilator 30 10/10/16 03:22 91 22 30 10/10/16 03:00 62 16 110/32 100 Mechanical Ventilator 30 10/10/16 02:00 60 18 139/35 100 Mechanical Ventilator 30 10/10/16 01:00 68 18 104/52 100 Mechanical Ventilator 30 10/10/16 00:58 56 16 30 10/10/16 00:08 97.3 70 20 146/52 100 Mechanical Ventilator 30 10/10/16 00:03 70 10/10/16 00:02 30 10/09/16 23:05 72 18 137/51 100 Mechanical Ventilator 40 10/09/16 23:00 74 18 137/51 100 Mechanical Ventilator 40 10/09/16 22:46 66 16 30 10/09/16 22:00 64 18 144/42 100 Mechanical Ventilator 40 10/09/16 21:00 63 17 140/42 100 Mechanical Ventilator 40 10/09/16 21:00 98.0 62 16 127/40 100 Mechanical Ventilator 40 10/09/16 20:00 40 10/09/16 20:00 60 16 129/40 100 Mechanical Ventilator 40 10/09/16 20:00 68 10/09/16 19:08 97.1 10/09/16 19:00 62 16 127/40 100 Mechanical Ventilator 40 10/09/16 18:32 62 16 30 10/09/16 18:00 64 16 135/43 99 Mechanical Ventilator 40 10/09/16 17:12 82 16 30 10/09/16 17:00 68 16 138/41 100 Mechanical Ventilator 40 10/09/16 16:00 62 10/09/16 16:00 97.1 62 17 141/47 99 Mechanical Ventilator 50 10/09/16 16:00 40 10/09/16 15:02 61 15 40 10/09/16 15:00 67 16 130/67 100 Mechanical Ventilator 50 10/09/16 14:00 57 16 110/40 100 Mechanical Ventilator 50 10/09/16 13:02 67 15 40 10/09/16 13:00 97.8 62 16 143/69 100 Mechanical Ventilator 50 10/09/16 12:03 66 16 135/40 100 Mechanical Ventilator 50 10/09/16 12:00 62 10/09/16 12:00 50 10/09/16 11:08 55 16 40 10/09/16 10:58 52 16 90/26 100 Mechanical Ventilator 50 10/09/16 10:00 55 16 90/26 100 Mechanical Ventilator 50 10/09/16 09:00 61 16 123/64 100 Mechanical Ventilator 50 10/09/16 08:57 65 16 40 Height (Feet): 5 Height (Inches): 3.00 Weight (Pounds): 130 General Appearance: other - intubated, arousable Respiratory/Chest: decreased breath sounds Cardiovascular: normal rate, regular rhythm Abdomen: normal bowel sounds, soft, non tender, non distended Microbiology Date/Time Source Procedure Growth Status 10/07/16 09:10 Blood Blood Culture - Preliminary NO GROWTH AFTER 48 HOURS Resulted 10/07/16 08:55 Blood Blood Culture - Preliminary NO GROWTH AFTER 48 HOURS Resulted 10/07/16 21:00 Sputum Gram Stain - Final Resulted 10/07/16 21:00 Sputum Sputum Culture Pending Resulted 10/07/16 09:20 Nasal Nares Influenza Types A,B Antigen (SHELBIE) - Final Complete 10/07/16 08:55 Nasal Nares MRSA Culture - Final NO METHICILLIN RESISTANT STAPH AUREUS... Complete Laboratory Tests Test 10/09/16 11:00 10/09/16 12:44 10/10/16 05:00 10/10/16 07:47 Urine Random Sodium 12 mmol/L Arterial Blood pH 7.470 (7.350-7.450) 7.484 (7.350-7.450) Arterial Blood Partial Pressure CO2 33.5 mmHg (35.0-45.0) L 28.7 mmHg (35.0-45.0) L Arterial Blood Partial Pressure O2 89.3 mmHg (75.0-100.0) 80.8 mmHg (75.0-100.0) Arterial Blood HCO3 23.8 mmol/L (22.0-26.0) 21.1 mmol/L (22.0-26.0) L Arterial Blood Oxygen Saturation 96.7 % (92.0-98.0) 95.4 % (92.0-98.0) Arterial Blood Base Excess 0.7 -1.3 Evan Test Positive Positive White Blood Count 12.2 K/UL (4.8-10.8) H Red Blood Count 3.93 M/UL (4.70-6.10) L Hemoglobin 12.5 G/DL (14.2-18.0) L Hematocrit 36.3 % (42.0-52.0) L Mean Corpuscular Volume 92 FL (80-99) Mean Corpuscular Hemoglobin 31.8 PG (27.0-31.0) H Mean Corpuscular Hemoglobin Concent 34.4 G/DL (32.0-36.0) Red Cell Distribution Width 12.7 % (11.6-14.8) Platelet Count 103 K/UL (150-450) L Mean Platelet Volume 9.2 FL (6.5-10.1) Neutrophils (%) (Auto) % (45.0-75.0) Lymphocytes (%) (Auto) % (20.0-45.0) Monocytes (%) (Auto) % (1.0-10.0) Eosinophils (%) (Auto) % (0.0-3.0) Basophils (%) (Auto) % (0.0-2.0) Neutrophils % (Manual) Pending Lymphocytes % (Manual) Pending Platelet Estimate Pending Platelet Morphology Pending Urine Eosinophils Pending Sodium Level 139 mEQ/L (135-145) Potassium Level 3.1 mEQ/L (3.4-4.9) L Chloride Level 100 mEQ/L (98-107) Carbon Dioxide Level 23 mEQ/L (20-30) Anion Gap 16 (5-15) H Blood Urea Nitrogen 37 mg/dL (7-23) H Creatinine 1.1 mg/dL (0.7-1.2) Estimat Glomerular Filtration Rate mL/min (>60) Glucose Level 104 mg/dL (74-106) Uric Acid 4.4 mg/dL (3.0-7.5) Calcium Level 8.0 mg/dL (8.6-10.2) L Phosphorus Level 2.6 mg/dL (2.5-4.8) Magnesium Level 1.9 mg/dL (1.7-2.5) Total Bilirubin 0.4 mg/dL (0.0-1.2) Gamma Glutamyl Transpeptidase 27 U/L (8-61) Aspartate Amino Transf (AST/SGOT) 33 U/L (5-40) Alanine Aminotransferase (ALT/SGPT) 27 U/L (3-41) Alkaline Phosphatase 49 U/L (40-129) Total Creatine Kinase 89 U/L (38-174) C-Reactive Protein, Quantitative 6.9 mg/dL (< 0.5) H Pro-B-Type Natriuretic Peptide 9784 pg/mL (0-450) H Total Protein 4.7 g/dL (6.6-8.7) L Albumin 2.2 g/dL (3.5-5.2) L Globulin 2.5 g/dL Albumin/Globulin Ratio 0.8 (1.0-2.7) L Valproic Acid (Depakene) Level 45 ug/mL (50-100) L Current Medications Medications (Trade) Dose Ordered Sig/Archie Route PRN Reason Start Time Stop Time Status Last Admin Dose Admin Acetaminophen (Tylenol) 650 mg Q4H PRN ORAL fever 10/07/16 13:00 11/06/16 12:59 Albuterol/ Ipratropium (DuoNeb 0.5-3(2.5)mg/3ml) 3 ml EVERY 4 HOURS PRN HHN Shortness of Breath 10/07/16 13:00 10/12/16 12:59 Dextrose STAT PRN IV Hypoglycemia 10/07/16 13:00 11/06/16 12:59 Heparin Sodium (Porcine) (Heparin 5000 units/ml) 5,000 units EVERY 12 HOURS SUBQ 10/07/16 21:00 11/06/16 20:59 10/09/16 21:12 Lorazepam (Ativan 2mg/ml 1ml) 2 mg Q4H PRN IV For Anxiety 10/07/16 13:00 10/14/16 12:59 10/07/16 20:26 Morphine Sulfate (Morphine Sulfate) 4 mg Q4H PRN IVP For Pain 10/07/16 13:00 10/14/16 12:59 10/09/16 18:24 Nitroglycerin (Ntg) 0.4 mg Q5M PRN SL Prn Chest Pain 10/07/16 13:00 11/06/16 12:59 Ondansetron HCl (Zofran) 4 mg Q6H PRN IVP Nausea & Vomiting 10/07/16 13:00 11/06/16 12:59 Pantoprazole (Protonix) 40 mg DAILY IV 10/08/16 09:00 11/07/16 08:59 10/09/16 09:02 Piperacillin Sod/ Tazobactam Sod/ Dextrose (Zosyn/D5W 100ml) 100 ml @ 25 mls/hr Q12HR IVPB 10/07/16 21:00 10/14/16 20:59 10/09/16 21:11 Polyethylene Glycol (Miralax) 17 gm DAILYPRN PRN ORAL Constipation 10/07/16 13:00 11/06/16 12:59 10/08/16 00:14 Sodium Chloride 500 ml @ 999 mls/hr NEEDED PRN IV For hypotension (MAP <60%) 10/08/16 13:45 11/07/16 13:44 Sodium Chloride 1,000 ml @ 100 mls/hr Q10H IV 10/08/16 12:00 11/07/16 11:59 10/10/16 06:52 Valproic Acid 500 mg 500 mg Q12HR GT 10/08/16 09:00 11/06/16 20:59 10/09/16 21:12 Vancomycin HCl (Vanco rx to dose) 1 ea DAILY PRN MISC . 10/07/16 14:30 11/06/16 14:29 Vancomycin HCl/ Dextrose (Vancomycin/D5W 250ml) 275 ml @ 183.708 mls/hr Q24H IVPB 10/09/16 07:00 10/14/16 06:59 10/10/16 06:52 EMILIA CAIN Oct 10, 2016 08:22
--- NOTE | 2016-10-10 09:18 | Diagnostic Imaging Report ---
Indications: Dyspnea Technique: Portable AP chest Findings: Comparison: 10/09/16 Cardiomegaly, pulmonary vascular redistribution, bilateral interstitial infiltrates, left lower lobe alveolar consolidation, left costophrenic angle blunting suggesting pleural effusion persist, unchanged. Lines and tubes remain in place. No new abnormality identified. IMPRESSION: No change from one day prior
[2016-10-10 09:22] LABS: BAND NEUTROPHILS % (MANUAL) 9 % (0-8); BASOPHILS % (MANUAL) 0 % (0-2); EOSINOPHILS % (MANUAL) 2 % (0-3); LYMPHOCYTES % (MANUAL) 10 % (20-45); NEUTROPHILS % (MANUAL) 77 % (45-75); PLATELET ESTIMATE DECREASED; TOTAL CELLS COUNTED 100
[2016-10-10 09:23] LABS: HYPOCHROMASIA 1+; PLATELET MORPHOLOGY NORMAL
[2016-10-10] MEDS: Valproic Acid 250mg/5ml Liquid GT SCH ×2 (09:29→20:42)
[2016-10-10] MEDS: Pantoprazole Inj IV SCH (09:29)
[2016-10-10] MEDS: Heparin 5000 units/ml inj SUBQ SCH ×2 (09:30→20:44)
--- NOTE | 2016-10-10 11:31 | General Progress Note ---
Assessment/Plan Status: stable - from renal stand Status Narrative Cr now WNL Assessment/Plan Status: 1. Severe sepsis. leading to acute renal failure- and respiratory failure- 2. Healthcare-associated pneumonia. 3. Ventilator-dependent respiratory failure. 4. Hypertension. 5. Dementia. Alzheimer's dementia. 6. Hyperlipidemia. 7. Psychiatric disorder. 8. h/o Gallstones. 9. h/o Diverticulosis. 10.h/o BPH. Plan: Vent support- Antibiotics- Monitor renal parameters- Urine studies- Subjective ROS Limited/Unobtainable: Yes Allergies: Coded Allergies: No Known Allergies (Unverified , 10/07/16) Objective Last 24 Hour Vital Signs Date Time Temp Pulse Resp B/P Pulse Ox O2 Delivery O2 Flow Rate FiO2 10/10/16 10:50 70 16 30 10/10/16 10:00 71 20 156/46 100 Mechanical Ventilator 30 10/10/16 09:00 72 20 145/38 100 Mechanical Ventilator 30 10/10/16 09:00 75 16 30 10/10/16 08:10 30 10/10/16 08:00 98.0 62 20 160/48 100 Mechanical Ventilator 30 10/10/16 08:00 62 10/10/16 07:25 62 16 30 10/10/16 07:00 60 20 143/38 100 Mechanical Ventilator 30 10/10/16 06:00 80 20 151/49 100 Mechanical Ventilator 30 10/10/16 05:14 80 20 30 10/10/16 05:00 85 20 153/44 100 Mechanical Ventilator 30 10/10/16 04:29 30 10/10/16 04:29 75 10/10/16 04:00 97.7 75 20 139/57 100 Mechanical Ventilator 30 10/10/16 03:22 91 22 30 10/10/16 03:00 62 16 110/32 100 Mechanical Ventilator 30 10/10/16 02:00 60 18 139/35 100 Mechanical Ventilator 30 10/10/16 01:00 68 18 104/52 100 Mechanical Ventilator 30 10/10/16 00:58 56 16 30 10/10/16 00:08 97.3 70 20 146/52 100 Mechanical Ventilator 30 10/10/16 00:03 70 10/10/16 00:02 30 10/09/16 23:05 72 18 137/51 100 Mechanical Ventilator 40 10/09/16 23:00 74 18 137/51 100 Mechanical Ventilator 40 10/09/16 22:46 66 16 30 10/09/16 22:00 64 18 144/42 100 Mechanical Ventilator 40 10/09/16 21:00 63 17 140/42 100 Mechanical Ventilator 40 10/09/16 21:00 98.0 62 16 127/40 100 Mechanical Ventilator 40 10/09/16 20:00 40 10/09/16 20:00 60 16 129/40 100 Mechanical Ventilator 40 10/09/16 20:00 68 10/09/16 19:08 97.1 10/09/16 19:00 62 16 127/40 100 Mechanical Ventilator 40 10/09/16 18:32 62 16 30 10/09/16 18:00 64 16 135/43 99 Mechanical Ventilator 40 10/09/16 17:12 82 16 30 10/09/16 17:00 68 16 138/41 100 Mechanical Ventilator 40 10/09/16 16:00 62 10/09/16 16:00 97.1 62 17 141/47 99 Mechanical Ventilator 50 10/09/16 16:00 40 10/09/16 15:02 61 15 40 10/09/16 15:00 67 16 130/67 100 Mechanical Ventilator 50 10/09/16 14:00 57 16 110/40 100 Mechanical Ventilator 50 10/09/16 13:02 67 15 40 10/09/16 13:00 97.8 62 16 143/69 100 Mechanical Ventilator 50 10/09/16 12:03 66 16 135/40 100 Mechanical Ventilator 50 10/09/16 12:00 62 10/09/16 12:00 50 Intake and Output 10/09/16 10/10/16 19:00 07:00 Intake Total 1845.000 ml 1500 ml Output Total 705 ml 670 ml Balance 1140.000 ml 830 ml Intake Free Water 100 ml 100 ml IV Total 1175.000 ml 800 ml Tube Feeding 570 ml 600 ml Output Urine Total 705 ml 670 ml # Bowel Movements 2 Laboratory Tests 10/09/16 12:44: Arterial Blood pH 7.470H, Arterial Blood Partial Pressure CO2 33.5L, Arterial Blood Partial Pressure O2 89.3, Arterial Blood HCO3 23.8, Arterial Blood Oxygen Saturation 96.7, Arterial Blood Base Excess 0.7, Evan Test Positive 10/10/16 05:00: White Blood Count 12.2H, Red Blood Count 3.93L, Hemoglobin 12.5L, Hematocrit 36.3L, Mean Corpuscular Volume 92, Mean Corpuscular Hemoglobin 31.8H, Mean Corpuscular Hemoglobin Concent 34.4, Red Cell Distribution Width 12.7, Platelet Count 103L, Mean Platelet Volume 9.2, Neutrophils (%) (Auto) , Lymphocytes (%) ( Auto) , Monocytes (%) (Auto) , Eosinophils (%) (Auto) , Basophils (%) (Auto) , Differential Total Cells Counted 100, Neutrophils % (Manual) 77H, Lymphocytes % (Manual) 10L, Monocytes % (Manual) 2, Eosinophils % (Manual) 2, Basophils % ( Manual) 0, Band Neutrophils 9H, Platelet Estimate DecreasedL, Platelet Morphology Normal, Hypochromasia 1+, Urine Eosinophils None seen, Sodium Level 139, Potassium Level 3.1L, Chloride Level 100, Carbon Dioxide Level 23, Anion Gap 16H, Blood Urea Nitrogen 37H, Creatinine 1.1, Estimat Glomerular Filtration Rate , Glucose Level 104, Uric Acid 4.4, Calcium Level 8.0L, Phosphorus Level 2.6, Magnesium Level 1.9, Total Bilirubin 0.4, Gamma Glutamyl Transpeptidase 27 , Aspartate Amino Transf (AST/SGOT) 33, Alanine Aminotransferase (ALT/SGPT) 27, Alkaline Phosphatase 49, Total Creatine Kinase 89, C-Reactive Protein, Quantitative 6.9H, Pro-B-Type Natriuretic Peptide 9784H, Total Protein 4.7L, Albumin 2.2L, Globulin 2.5, Albumin/Globulin Ratio 0.8L, Valproic Acid (Depakene ) Level 45L 10/10/16 07:47: Arterial Blood pH 7.484H, Arterial Blood Partial Pressure CO2 28.7L, Arterial Blood Partial Pressure O2 80.8, Arterial Blood HCO3 21.1L, Arterial Blood Oxygen Saturation 95.4, Arterial Blood Base Excess -1.3, Evan Test Positive Height (Feet): 5 Height (Inches): 3.00 Weight (Pounds): 130 General Appearance: other - on vent Neck: stiff neck Cardiovascular: normal rate Respiratory/Chest: decreased breath sounds Abdomen: distended MANPREET GERMAN Oct 10, 2016 11:31
--- NOTE | 2016-10-10 11:46 | Pulmonolgy Critical Care Note ---
Critical Care - Asmt/Plan Problems: (1) Respiratory failure, acute (2) Pneumonia (3) ATN (acute tubular necrosis) (4) History of hypertension (5) Dementia Respiratory: monitor respiratory rate Cardiac: start pressors, continue pressors Renal: keep IV fluid Infectious Disease: check cultures Gastrointestinal: continue feedings/current rate, hold feedings Endocrine: continue sliding scale insulin Hematologic: monitor H/H, transfuse if hgb<8.5 Neurologic: keep patient comfortable Affect: PRN ativan Disposition: keep in ICU Notes Reviewed: java development team lead, cardio Discussed with: nurses, consultants, sample case porter, other - d/w daughter, she wants comfort care if pt can't come off the vent. Critical Care - Objective Last 24 Hour Vital Signs Date Time Temp Pulse Resp B/P Pulse Ox O2 Delivery O2 Flow Rate FiO2 10/10/16 10:50 70 16 30 10/10/16 10:00 71 20 156/46 100 Mechanical Ventilator 30 10/10/16 09:00 72 20 145/38 100 Mechanical Ventilator 30 10/10/16 09:00 75 16 30 10/10/16 08:10 30 10/10/16 08:00 98.0 62 20 160/48 100 Mechanical Ventilator 30 10/10/16 08:00 62 10/10/16 07:25 62 16 30 10/10/16 07:00 60 20 143/38 100 Mechanical Ventilator 30 10/10/16 06:00 80 20 151/49 100 Mechanical Ventilator 30 10/10/16 05:14 80 20 30 10/10/16 05:00 85 20 153/44 100 Mechanical Ventilator 30 10/10/16 04:29 30 10/10/16 04:29 75 10/10/16 04:00 97.7 75 20 139/57 100 Mechanical Ventilator 30 10/10/16 03:22 91 22 30 10/10/16 03:00 62 16 110/32 100 Mechanical Ventilator 30 10/10/16 02:00 60 18 139/35 100 Mechanical Ventilator 30 10/10/16 01:00 68 18 104/52 100 Mechanical Ventilator 30 10/10/16 00:58 56 16 30 10/10/16 00:08 97.3 70 20 146/52 100 Mechanical Ventilator 30 10/10/16 00:03 70 10/10/16 00:02 30 10/09/16 23:05 72 18 137/51 100 Mechanical Ventilator 40 10/09/16 23:00 74 18 137/51 100 Mechanical Ventilator 40 10/09/16 22:46 66 16 30 10/09/16 22:00 64 18 144/42 100 Mechanical Ventilator 40 10/09/16 21:00 63 17 140/42 100 Mechanical Ventilator 40 10/09/16 21:00 98.0 62 16 127/40 100 Mechanical Ventilator 40 10/09/16 20:00 40 10/09/16 20:00 60 16 129/40 100 Mechanical Ventilator 40 10/09/16 20:00 68 10/09/16 19:08 97.1 10/09/16 19:00 62 16 127/40 100 Mechanical Ventilator 40 10/09/16 18:32 62 16 30 10/09/16 18:00 64 16 135/43 99 Mechanical Ventilator 40 10/09/16 17:12 82 16 30 10/09/16 17:00 68 16 138/41 100 Mechanical Ventilator 40 10/09/16 16:00 62 10/09/16 16:00 97.1 62 17 141/47 99 Mechanical Ventilator 50 10/09/16 16:00 40 10/09/16 15:02 61 15 40 10/09/16 15:00 67 16 130/67 100 Mechanical Ventilator 50 10/09/16 14:00 57 16 110/40 100 Mechanical Ventilator 50 10/09/16 13:02 67 15 40 10/09/16 13:00 97.8 62 16 143/69 100 Mechanical Ventilator 50 10/09/16 12:03 66 16 135/40 100 Mechanical Ventilator 50 10/09/16 12:00 62 10/09/16 12:00 50 Status: awake Condition: critical, grave Neck: full ROM Heart: HR/BP stable, HR/BP unstable Abdomen: soft, non-tender, feeding tube Extremities: no C/C/E, edema Micro: Microbiology Date/Time Source Procedure Growth Status 10/07/16 21:00 Sputum Gram Stain - Final Complete 10/07/16 21:00 Sputum Sputum Culture - Final NORMAL UPPER RESPIRATORY JUANI PRESENT Complete Accucheck: 81 Critical Care - Subjective ROS Limited/Unobtainable: Yes ICU Day: 4 Intubation Day: 4 EKG Rhythm: Sinus Rhythm FI02: 30 Vent Support Breath Rate: 16 Vent Support Mode: AC Vent Tidal Volume: 600 Sputum Amount: Scant PEEP: 5.0 PIP: 24 Fluids: 1/2 NS 50 cc.hour Tube Feeding Amount: 50 I&O: Intake and Output 10/09/16 10/10/16 19:00 07:00 Intake Total 1845.000 ml 1500 ml Output Total 705 ml 670 ml Balance 1140.000 ml 830 ml Intake Free Water 100 ml 100 ml IV Total 1175.000 ml 800 ml Tube Feeding 570 ml 600 ml Output Urine Total 705 ml 670 ml # Bowel Movements 2 CXR: no change ET-Tube: 8.0 ET Position: 23 Labs: Laboratory Tests Test 10/09/16 12:44 10/10/16 05:00 10/10/16 07:47 Arterial Blood pH 7.470 (7.350-7.450) 7.484 (7.350-7.450) Arterial Blood Partial Pressure CO2 33.5 mmHg (35.0-45.0) L 28.7 mmHg (35.0-45.0) L Arterial Blood Partial Pressure O2 89.3 mmHg (75.0-100.0) 80.8 mmHg (75.0-100.0) Arterial Blood HCO3 23.8 mmol/L (22.0-26.0) 21.1 mmol/L (22.0-26.0) L Arterial Blood Oxygen Saturation 96.7 % (92.0-98.0) 95.4 % (92.0-98.0) Arterial Blood Base Excess 0.7 -1.3 Evan Test Positive Positive White Blood Count 12.2 K/UL (4.8-10.8) H Red Blood Count 3.93 M/UL (4.70-6.10) L Hemoglobin 12.5 G/DL (14.2-18.0) L Hematocrit 36.3 % (42.0-52.0) L Mean Corpuscular Volume 92 FL (80-99) Mean Corpuscular Hemoglobin 31.8 PG (27.0-31.0) H Mean Corpuscular Hemoglobin Concent 34.4 G/DL (32.0-36.0) Red Cell Distribution Width 12.7 % (11.6-14.8) Platelet Count 103 K/UL (150-450) L Mean Platelet Volume 9.2 FL (6.5-10.1) Neutrophils (%) (Auto) % (45.0-75.0) Lymphocytes (%) (Auto) % (20.0-45.0) Monocytes (%) (Auto) % (1.0-10.0) Eosinophils (%) (Auto) % (0.0-3.0) Basophils (%) (Auto) % (0.0-2.0) Differential Total Cells Counted 100 Neutrophils % (Manual) 77 % (45-75) H Lymphocytes % (Manual) 10 % (20-45) L Monocytes % (Manual) 2 % (1-10) Eosinophils % (Manual) 2 % (0-3) Basophils % (Manual) 0 % (0-2) Band Neutrophils 9 % (0-8) H Platelet Estimate Decreased L Platelet Morphology Normal Hypochromasia 1+ Urine Eosinophils None seen Sodium Level 139 mEQ/L (135-145) Potassium Level 3.1 mEQ/L (3.4-4.9) L Chloride Level 100 mEQ/L (98-107) Carbon Dioxide Level 23 mEQ/L (20-30) Anion Gap 16 (5-15) H Blood Urea Nitrogen 37 mg/dL (7-23) H Creatinine 1.1 mg/dL (0.7-1.2) Estimat Glomerular Filtration Rate mL/min (>60) Glucose Level 104 mg/dL (74-106) Uric Acid 4.4 mg/dL (3.0-7.5) Calcium Level 8.0 mg/dL (8.6-10.2) L Phosphorus Level 2.6 mg/dL (2.5-4.8) Magnesium Level 1.9 mg/dL (1.7-2.5) Total Bilirubin 0.4 mg/dL (0.0-1.2) Gamma Glutamyl Transpeptidase 27 U/L (8-61) Aspartate Amino Transf (AST/SGOT) 33 U/L (5-40) Alanine Aminotransferase (ALT/SGPT) 27 U/L (3-41) Alkaline Phosphatase 49 U/L (40-129) Total Creatine Kinase 89 U/L (38-174) C-Reactive Protein, Quantitative 6.9 mg/dL (< 0.5) H Pro-B-Type Natriuretic Peptide 9784 pg/mL (0-450) H Total Protein 4.7 g/dL (6.6-8.7) L Albumin 2.2 g/dL (3.5-5.2) L Globulin 2.5 g/dL Albumin/Globulin Ratio 0.8 (1.0-2.7) L Valproic Acid (Depakene) Level 45 ug/mL (50-100) L HERMINIO DIXON Oct 10, 2016 11:46
--- NOTE | 2016-10-10 17:03 | Cardiology Progress Note ---
Assessment/Plan Status: stable, progressing Status Narrative Respiratory failure/ pneumonia CKD - improving renal function Hypotension has resolved Nl LV systolic function and mild diastolic dysfunction by echo this adm. Assessment/Plan Continue iv antibiotics - cultures negative so far NG tube feeds Tolerating weaning trials + i/os noted - may need diuretics. K3.1 - supplement IV today followup cxr, labs in am. 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 Subjective ROS Limited/Unobtainable: Yes Subjective intubated/ awake Objective Last 24 Hour Vital Signs Date Time Temp Pulse Resp B/P Pulse Ox O2 Delivery O2 Flow Rate FiO2 10/10/16 16:28 98 10/10/16 16:06 74 10/10/16 16:00 30 10/10/16 16:00 98.2 74 16 161/46 98 Mechanical Ventilator 30 10/10/16 14:50 82 20 30 10/10/16 14:50 74 20 148/45 100 Mechanical Ventilator 30 10/10/16 14:00 71 20 149/48 100 Mechanical Ventilator 30 10/10/16 13:00 73 20 140/46 100 Mechanical Ventilator 30 10/10/16 12:50 67 16 30 10/10/16 12:00 30 10/10/16 12:00 98.0 80 20 148/50 100 Mechanical Ventilator 30 10/10/16 12:00 72 10/10/16 11:00 76 20 156/46 100 Mechanical Ventilator 30 10/10/16 10:50 70 16 30 10/10/16 10:00 71 20 156/46 100 Mechanical Ventilator 30 10/10/16 09:00 72 20 145/38 100 Mechanical Ventilator 30 10/10/16 09:00 75 16 30 10/10/16 08:10 30 10/10/16 08:00 98.0 62 20 160/48 100 Mechanical Ventilator 30 10/10/16 08:00 62 10/10/16 07:25 62 16 30 10/10/16 07:00 60 20 143/38 100 Mechanical Ventilator 30 10/10/16 06:00 80 20 151/49 100 Mechanical Ventilator 30 10/10/16 05:14 80 20 30 10/10/16 05:00 85 20 153/44 100 Mechanical Ventilator 30 10/10/16 04:29 30 10/10/16 04:29 75 10/10/16 04:00 97.7 75 20 139/57 100 Mechanical Ventilator 30 10/10/16 03:22 91 22 30 10/10/16 03:00 62 16 110/32 100 Mechanical Ventilator 30 10/10/16 02:00 60 18 139/35 100 Mechanical Ventilator 30 10/10/16 01:00 68 18 104/52 100 Mechanical Ventilator 30 10/10/16 00:58 56 16 30 10/10/16 00:08 97.3 70 20 146/52 100 Mechanical Ventilator 30 10/10/16 00:03 70 10/10/16 00:02 30 10/09/16 23:05 72 18 137/51 100 Mechanical Ventilator 40 10/09/16 23:00 74 18 137/51 100 Mechanical Ventilator 40 10/09/16 22:46 66 16 30 10/09/16 22:00 64 18 144/42 100 Mechanical Ventilator 40 10/09/16 21:00 63 17 140/42 100 Mechanical Ventilator 40 10/09/16 21:00 98.0 62 16 127/40 100 Mechanical Ventilator 40 10/09/16 20:00 40 10/09/16 20:00 60 16 129/40 100 Mechanical Ventilator 40 10/09/16 20:00 68 10/09/16 19:08 97.1 10/09/16 19:00 62 16 127/40 100 Mechanical Ventilator 40 10/09/16 18:32 62 16 30 10/09/16 18:00 64 16 135/43 99 Mechanical Ventilator 40 10/09/16 17:12 82 16 30 10/09/16 17:00 68 16 138/41 100 Mechanical Ventilator 40 General Appearance: WD/WN, on vent EENT: other - et, og tubes in place Neck: supple, no JVD Cardiovascular: normal rate, regular rhythm, no gallop/murmur Respiratory/Chest: other - few rhonchi anteriorly Abdomen: non tender, soft Extremities: no swelling Intake and Output 10/09/16 10/10/16 19:00 07:00 Intake Total 1845.000 ml 1500 ml Output Total 705 ml 670 ml Balance 1140.000 ml 830 ml Intake Free Water 100 ml 100 ml IV Total 1175.000 ml 800 ml Tube Feeding 570 ml 600 ml Output Urine Total 705 ml 670 ml # Bowel Movements 2 Laboratory Tests Test 10/10/16 05:00 10/10/16 07:47 White Blood Count 12.2 K/UL (4.8-10.8) H Red Blood Count 3.93 M/UL (4.70-6.10) L Hemoglobin 12.5 G/DL (14.2-18.0) L Hematocrit 36.3 % (42.0-52.0) L Mean Corpuscular Volume 92 FL (80-99) Mean Corpuscular Hemoglobin 31.8 PG (27.0-31.0) H Mean Corpuscular Hemoglobin Concent 34.4 G/DL (32.0-36.0) Red Cell Distribution Width 12.7 % (11.6-14.8) Platelet Count 103 K/UL (150-450) L Mean Platelet Volume 9.2 FL (6.5-10.1) Neutrophils (%) (Auto) % (45.0-75.0) Lymphocytes (%) (Auto) % (20.0-45.0) Monocytes (%) (Auto) % (1.0-10.0) Eosinophils (%) (Auto) % (0.0-3.0) Basophils (%) (Auto) % (0.0-2.0) Differential Total Cells Counted 100 Neutrophils % (Manual) 77 % (45-75) H Lymphocytes % (Manual) 10 % (20-45) L Monocytes % (Manual) 2 % (1-10) Eosinophils % (Manual) 2 % (0-3) Basophils % (Manual) 0 % (0-2) Band Neutrophils 9 % (0-8) H Platelet Estimate Decreased L Platelet Morphology Normal Hypochromasia 1+ Urine Eosinophils None seen Sodium Level 139 mEQ/L (135-145) Potassium Level 3.1 mEQ/L (3.4-4.9) L Chloride Level 100 mEQ/L (98-107) Carbon Dioxide Level 23 mEQ/L (20-30) Anion Gap 16 (5-15) H Blood Urea Nitrogen 37 mg/dL (7-23) H Creatinine 1.1 mg/dL (0.7-1.2) Estimat Glomerular Filtration Rate mL/min (>60) Glucose Level 104 mg/dL (74-106) Uric Acid 4.4 mg/dL (3.0-7.5) Calcium Level 8.0 mg/dL (8.6-10.2) L Phosphorus Level 2.6 mg/dL (2.5-4.8) Magnesium Level 1.9 mg/dL (1.7-2.5) Total Bilirubin 0.4 mg/dL (0.0-1.2) Gamma Glutamyl Transpeptidase 27 U/L (8-61) Aspartate Amino Transf (AST/SGOT) 33 U/L (5-40) Alanine Aminotransferase (ALT/SGPT) 27 U/L (3-41) Alkaline Phosphatase 49 U/L (40-129) Total Creatine Kinase 89 U/L (38-174) C-Reactive Protein, Quantitative 6.9 mg/dL (< 0.5) H Pro-B-Type Natriuretic Peptide 9784 pg/mL (0-450) H Total Protein 4.7 g/dL (6.6-8.7) L Albumin 2.2 g/dL (3.5-5.2) L Globulin 2.5 g/dL Albumin/Globulin Ratio 0.8 (1.0-2.7) L Valproic Acid (Depakene) Level 45 ug/mL (50-100) L Arterial Blood pH 7.484 (7.350-7.450) Arterial Blood Partial Pressure CO2 28.7 mmHg (35.0-45.0) L Arterial Blood Partial Pressure O2 80.8 mmHg (75.0-100.0) Arterial Blood HCO3 21.1 mmol/L (22.0-26.0) L Arterial Blood Oxygen Saturation 95.4 % (92.0-98.0) Arterial Blood Base Excess -1.3 Evan Test Positive Microbiology Date/Time Source Procedure Growth Status 10/07/16 21:00 Sputum Gram Stain - Final Complete 10/07/16 21:00 Sputum Sputum Culture - Final NORMAL UPPER RESPIRATORY JUANI PRESENT Complete RIRI DILLARD Oct 10, 2016 17:03
--- NOTE | 2016-10-10 19:29 | Internal Med Progress Note ---
Subjective Date of Service: Oct 10, 2016 Physician Name Cezar Haney Attending Physician Margaret Jc MD Current Medications Medications (Trade) Dose Ordered Sig/Archie Route PRN Reason Start Time Stop Time Status Last Admin Dose Admin Acetaminophen (Tylenol) 650 mg Q4H PRN ORAL fever 10/07/16 13:00 11/06/16 12:59 Albuterol/ Ipratropium (DuoNeb 0.5-3(2.5)mg/3ml) 3 ml EVERY 4 HOURS PRN HHN Shortness of Breath 10/07/16 13:00 10/12/16 12:59 Dextrose (Dextrose 50%) STAT PRN IV Hypoglycemia 10/07/16 13:00 11/06/16 12:59 Heparin Sodium (Porcine) (Heparin 5000 units/ml) 5,000 units EVERY 12 HOURS SUBQ 10/07/16 21:00 11/06/16 20:59 10/10/16 09:30 Lorazepam (Ativan 2mg/ml 1ml) 2 mg Q4H PRN IV For Anxiety 10/07/16 13:00 10/14/16 12:59 10/07/16 20:26 Morphine Sulfate (Morphine Sulfate) 4 mg Q4H PRN IVP For Pain 10/07/16 13:00 10/14/16 12:59 10/09/16 18:24 Nitroglycerin (Ntg) 0.4 mg Q5M PRN SL Prn Chest Pain 10/07/16 13:00 11/06/16 12:59 Ondansetron HCl (Zofran) 4 mg Q6H PRN IVP Nausea & Vomiting 10/07/16 13:00 11/06/16 12:59 Pantoprazole (Protonix) 40 mg DAILY IV 10/08/16 09:00 11/07/16 08:59 10/10/16 09:29 Piperacillin Sod/ Tazobactam Sod/ Dextrose (Zosyn/D5W 100ml) 100 ml @ 25 mls/hr Q8HR@0200,1000,1800 IVPB 10/10/16 18:00 10/17/16 17:59 10/10/16 17:44 Polyethylene Glycol (Miralax) 17 gm DAILYPRN PRN ORAL Constipation 10/07/16 13:00 11/06/16 12:59 10/08/16 00:14 Sodium Chloride 500 ml @ 999 mls/hr NEEDED PRN IV For hypotension (MAP <60%) 10/08/16 13:45 11/07/16 13:44 Valproic Acid 500 mg 500 mg Q12HR GT 10/08/16 09:00 11/06/16 20:59 10/10/16 09:29 Vancomycin HCl (Vanco rx to dose) 1 ea DAILY PRN MISC . 10/07/16 14:30 11/06/16 14:29 Vancomycin HCl 750 mg/Dextrose 275 ml @ 183.708 mls/hr Q24H IVPB 10/09/16 07:00 10/14/16 06:59 10/10/16 06:52 Allergies: Coded Allergies: No Known Allergies (Unverified , 10/07/16) ROS Limited/Unobtainable: Yes Subjective 86 YO M admitted with pneumonia and respiratory failure. Cover for Int Med - Dr Jc. ICU-Intubated and sedated Objective Last Vital Signs Date Time Temp Pulse Resp B/P Pulse Ox O2 Delivery O2 Flow Rate FiO2 10/10/16 19:00 75 16 151/45 99 Mechanical Ventilator 30 10/10/16 16:00 98.2 10/07/16 12:35 15.0 General Appearance: WD/WN, lethargic EENT: normal ENT inspection Neck: non-tender, normal alignment, supple Cardiovascular: normal peripheral pulses, normal rate, regular rhythm, no gallop/murmur, no JVD Abdomen: non tender, soft, no organomegaly, no mass, decreased bowel sounds Skin: normal pigmentation, warm/dry Laboratory Tests Test 10/10/16 05:00 10/10/16 07:47 White Blood Count 12.2 K/UL (4.8-10.8) H Red Blood Count 3.93 M/UL (4.70-6.10) L Hemoglobin 12.5 G/DL (14.2-18.0) L Hematocrit 36.3 % (42.0-52.0) L Mean Corpuscular Volume 92 FL (80-99) Mean Corpuscular Hemoglobin 31.8 PG (27.0-31.0) H Mean Corpuscular Hemoglobin Concent 34.4 G/DL (32.0-36.0) Red Cell Distribution Width 12.7 % (11.6-14.8) Platelet Count 103 K/UL (150-450) L Mean Platelet Volume 9.2 FL (6.5-10.1) Neutrophils (%) (Auto) % (45.0-75.0) Lymphocytes (%) (Auto) % (20.0-45.0) Monocytes (%) (Auto) % (1.0-10.0) Eosinophils (%) (Auto) % (0.0-3.0) Basophils (%) (Auto) % (0.0-2.0) Differential Total Cells Counted 100 Neutrophils % (Manual) 77 % (45-75) H Lymphocytes % (Manual) 10 % (20-45) L Monocytes % (Manual) 2 % (1-10) Eosinophils % (Manual) 2 % (0-3) Basophils % (Manual) 0 % (0-2) Band Neutrophils 9 % (0-8) H Platelet Estimate Decreased L Platelet Morphology Normal Hypochromasia 1+ Urine Eosinophils None seen Sodium Level 139 mEQ/L (135-145) Potassium Level 3.1 mEQ/L (3.4-4.9) L Chloride Level 100 mEQ/L (98-107) Carbon Dioxide Level 23 mEQ/L (20-30) Anion Gap 16 (5-15) H Blood Urea Nitrogen 37 mg/dL (7-23) H Creatinine 1.1 mg/dL (0.7-1.2) Estimat Glomerular Filtration Rate mL/min (>60) Glucose Level 104 mg/dL (74-106) Uric Acid 4.4 mg/dL (3.0-7.5) Calcium Level 8.0 mg/dL (8.6-10.2) L Phosphorus Level 2.6 mg/dL (2.5-4.8) Magnesium Level 1.9 mg/dL (1.7-2.5) Total Bilirubin 0.4 mg/dL (0.0-1.2) Gamma Glutamyl Transpeptidase 27 U/L (8-61) Aspartate Amino Transf (AST/SGOT) 33 U/L (5-40) Alanine Aminotransferase (ALT/SGPT) 27 U/L (3-41) Alkaline Phosphatase 49 U/L (40-129) Total Creatine Kinase 89 U/L (38-174) C-Reactive Protein, Quantitative 6.9 mg/dL (< 0.5) H Pro-B-Type Natriuretic Peptide 9784 pg/mL (0-450) H Total Protein 4.7 g/dL (6.6-8.7) L Albumin 2.2 g/dL (3.5-5.2) L Globulin 2.5 g/dL Albumin/Globulin Ratio 0.8 (1.0-2.7) L Valproic Acid (Depakene) Level 45 ug/mL (50-100) L Arterial Blood pH 7.484 (7.350-7.450) Arterial Blood Partial Pressure CO2 28.7 mmHg (35.0-45.0) L Arterial Blood Partial Pressure O2 80.8 mmHg (75.0-100.0) Arterial Blood HCO3 21.1 mmol/L (22.0-26.0) L Arterial Blood Oxygen Saturation 95.4 % (92.0-98.0) Arterial Blood Base Excess -1.3 Evan Test Positive Microbiology Date/Time Source Procedure Growth Status 10/07/16 21:00 Sputum Gram Stain - Final Complete 10/07/16 21:00 Sputum Sputum Culture - Final NORMAL UPPER RESPIRATORY JUANI PRESENT Complete Intake and Output 10/09/16 10/10/16 19:00 07:00 Intake Total 1845.000 ml 1500 ml Output Total 705 ml 670 ml Balance 1140.000 ml 830 ml Intake Free Water 100 ml 100 ml IV Total 1175.000 ml 800 ml Tube Feeding 570 ml 600 ml Output Urine Total 705 ml 670 ml # Bowel Movements 2 Assessment/Plan Problem List: (1) HTN (hypertension) (2) CHF (congestive heart failure) Assessment & Plan: See cardiology note. (3) Anemia (4) Dementia (5) Pneumonia Assessment & Plan: Healthcare acquired. Cont zosyn and vanco per ID (6) Respiratory failure, acute Assessment & Plan: See pulmonary note. Intubated on vent. (7) Sepsis Status: not improved CEZAR HANEY Oct 10, 2016 19:29
--- NOTE | 2016-10-10 19:49 | Cardiology Report ---
APPROVED REPORT EKG Measurement Heart [id number] Sinus rhythm with occasional premature ventricular complexes Right bundle branch block Left anterior fascicular block Bifascicular block Minimal voltage criteria for LVH, may be normal variant T wave abnormality, consider lateral ischemia Abnormal ECG
--- NOTE | 2016-10-10 19:54 | Cardiology Report ---
APPROVED REPORT EKG Measurement Heart [id number] Normal sinus rhythm Possible Left atrial enlargement Right bundle branch block Left anterior fascicular block Bifascicular block Left ventricular hypertrophy with repolarization abnormality Cannot rule out Septal infarct, age undetermined Abnormal ECG
[2016-10-11] VITALS (24 sets, daily range): BP systolic 117–161; BP diastolic 26–59
[2016-10-11 06:43] LABS: MEAN CORPUSCULAR HEMOGLOBIN 31.8 PG (27.0-31.0); MEAN CORPUSCULAR HGB CONC 34.3 G/DL (32.0-36.0); MEAN CORPUSCULAR VOLUME 93 FL (80-99); PLATELET COUNT 90 K/UL (150-450); RED BLOOD COUNT 3.67 M/UL (4.70-6.10); RED CELL DISTRIBUTION WIDTH 13.4 % (11.6-14.8); WHITE BLOOD COUNT 10.7 K/UL (4.8-10.8)
[2016-10-11 07:18] LABS: ALANINE AMINOTRANSFERASE 20 U/L (3-41); ALBUMIN/GLOBULIN RATIO 0.7 (1.0-2.7); ANION GAP 11 (5-15); ASPARTATE AMINO TRANSFERASE 19 U/L (5-40); CALCIUM 7.9 mg/dL (8.6-10.2); CARBON DIOXIDE 24 mEQ/L (20-30); CHLORIDE 104 mEQ/L (98-107); CREATININE 0.7 mg/dL (0.7-1.2); HEMOLYSIS 4; MAGNESIUM 1.8 mg/dL (1.7-2.5); PHOSPHORUS 1.6 mg/dL (2.5-4.8); POTASSIUM 3.3 mEQ/L (3.4-4.9); SODIUM 139 mEQ/L (135-145); TOTAL PROTEIN 4.5 g/dL (6.6-8.7)
--- NOTE | 2016-10-11 08:17 | General Progress Note ---
Assessment/Plan Status: stable Assessment/Plan Status: 1. Severe sepsis. leading to acute renal failure- and respiratory failure- 2. Healthcare-associated pneumonia. 3. Ventilator-dependent respiratory failure. 4. Hypertension. 5. Dementia. Alzheimer's dementia. 6. Hyperlipidemia. 7. Psychiatric disorder. 8. h/o Gallstones. 9. h/o Diverticulosis. 10.h/o BPH. Plan: K Phos IV today- Vent support- Antibiotics- Monitor renal parameters- Urine studies- Subjective ROS Limited/Unobtainable: Yes Allergies: Coded Allergies: No Known Allergies (Unverified , 10/07/16) Objective Last 24 Hour Vital Signs Date Time Temp Pulse Resp B/P Pulse Ox O2 Delivery O2 Flow Rate FiO2 10/11/16 08:00 68 10/11/16 08:00 30 10/11/16 07:58 96.9 64 16 132/35 98 Mechanical Ventilator 30 10/11/16 07:00 68 18 161/49 97 Mechanical Ventilator 30 10/11/16 06:33 67 16 30 10/11/16 06:00 66 20 132/35 97 Mechanical Ventilator 30 10/11/16 05:00 65 20 142/50 97 Mechanical Ventilator 30 10/11/16 04:57 89 19 30 10/11/16 04:47 30 10/11/16 04:47 68 10/11/16 04:00 99.3 68 22 158/46 97 Mechanical Ventilator 30 10/11/16 03:00 75 16 148/47 98 Mechanical Ventilator 30 10/11/16 02:45 72 16 30 10/11/16 02:00 71 20 140/50 98 Mechanical Ventilator 30 10/11/16 01:16 94 24 30 10/11/16 01:00 70 18 141/59 98 Mechanical Ventilator 30 10/11/16 00:00 98.7 72 22 147/53 98 Mechanical Ventilator 30 10/11/16 00:00 30 10/11/16 00:00 72 10/10/16 23:00 82 19 133/67 98 Mechanical Ventilator 30 10/10/16 22:59 85 20 30 10/10/16 22:00 72 16 142/46 98 Mechanical Ventilator 30 10/10/16 21:00 72 16 143/37 98 Mechanical Ventilator 30 10/10/16 20:55 79 19 30 10/10/16 20:00 30 10/10/16 20:00 73 10/10/16 20:00 96.8 73 16 148/50 98 Mechanical Ventilator 30 10/10/16 19:00 75 16 151/45 99 Mechanical Ventilator 30 10/10/16 18:48 78 17 30 10/10/16 18:00 76 17 158/58 99 Mechanical Ventilator 30 10/10/16 17:25 79 17 30 10/10/16 17:00 74 15 156/51 99 Mechanical Ventilator 30 10/10/16 16:28 98 10/10/16 16:06 74 10/10/16 16:00 30 10/10/16 16:00 98.2 74 16 161/46 98 Mechanical Ventilator 30 10/10/16 14:50 82 20 30 10/10/16 14:50 74 20 148/45 100 Mechanical Ventilator 30 10/10/16 14:00 71 20 149/48 100 Mechanical Ventilator 30 10/10/16 13:00 73 20 140/46 100 Mechanical Ventilator 30 10/10/16 12:50 67 16 30 10/10/16 12:00 30 10/10/16 12:00 98.0 80 20 148/50 100 Mechanical Ventilator 30 10/10/16 12:00 72 10/10/16 11:00 76 20 156/46 100 Mechanical Ventilator 30 10/10/16 10:50 70 16 30 10/10/16 10:00 71 20 156/46 100 Mechanical Ventilator 30 10/10/16 09:00 72 20 145/38 100 Mechanical Ventilator 30 10/10/16 09:00 75 16 30 Intake and Output 10/10/16 10/11/16 19:00 07:00 Intake Total 1586.250 ml 968.75 ml Output Total 765 ml 640 ml Balance 821.250 ml 328.75 ml Intake Free Water 100 ml 200 ml IV Total 886.250 ml 168.75 ml Tube Feeding 600 ml 600 ml Output Urine Total 765 ml 640 ml Laboratory Tests 10/11/16 05:00: Urine Eosinophils [Pending] 10/11/16 06:30: White Blood Count 10.7, Red Blood Count 3.67L, Hemoglobin 11.7L, Hematocrit 34.1L, Mean Corpuscular Volume 93, Mean Corpuscular Hemoglobin 31.8H, Mean Corpuscular Hemoglobin Concent 34.3, Red Cell Distribution Width 13.4, Platelet Count 90L, Mean Platelet Volume 9.0, Neutrophils (%) (Auto) , Lymphocytes (%) ( Auto) , Monocytes (%) (Auto) , Eosinophils (%) (Auto) , Basophils (%) (Auto) , Neutrophils % (Manual) [Pending], Lymphocytes % (Manual) [Pending], Platelet Estimate [Pending], Platelet Morphology [Pending], Sodium Level 139, Potassium Level 3.3L, Chloride Level 104, Carbon Dioxide Level 24, Anion Gap 11, Blood Urea Nitrogen 19, Creatinine 0.7, Estimat Glomerular Filtration Rate , Glucose Level 122H, Calcium Level 7.9L, Phosphorus Level 1.6L, Magnesium Level 1.8, Total Bilirubin 0.4, Aspartate Amino Transf (AST/SGOT) 19, Alanine Aminotransferase (ALT/SGPT) 20, Alkaline Phosphatase 41, Pro-B-Type Natriuretic Peptide 67334H, Total Protein 4.5L, Albumin 1.9L, Globulin 2.6, Albumin/ Globulin Ratio 0.7L, Vancomycin Level Trough 7.9 Height (Feet): 5 Height (Inches): 3.00 Weight (Pounds): 130 General Appearance: no apparent distress Neck: stiff neck Cardiovascular: normal rate Respiratory/Chest: decreased breath sounds Abdomen: soft, distended Objective PE not changed MANPREET GERMAN Oct 11, 2016 08:17
[2016-10-11] MEDS: Valproic Acid 250mg/5ml Liquid GT SCH ×2 (08:31→21:08)
[2016-10-11] MEDS: Pantoprazole Inj IV SCH (08:31)
[2016-10-11] MEDS: Heparin 5000 units/ml inj SUBQ SCH ×2 (08:37→20:36)
--- NOTE | 2016-10-11 08:55 | Cardiology Progress Note ---
Assessment/Plan Status: stable, progressing Status Narrative Respiratory failure/ pneumonia - wBC improving, fever resolved CKD - renal parameters have normalized Hypotension has resolved ECHO w/ Assessment/Plan Continue iv antibiotics - cultures negative so far NG tube feeds Attempt to wean from vent. + i/os noted as well as inc BNP Hypokalemia - supplement IV today followup cxr, labs in am. 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 Avoid b blockers and other negative chronotropic agents. Overall, pt appears to be improving. Subjective ROS Limited/Unobtainable: Yes Subjective intubated/ awake Events noted Objective Last 24 Hour Vital Signs Date Time Temp Pulse Resp B/P Pulse Ox O2 Delivery O2 Flow Rate FiO2 10/11/16 08:00 68 10/11/16 08:00 30 10/11/16 07:58 96.9 64 16 132/35 98 Mechanical Ventilator 30 10/11/16 07:00 68 18 161/49 97 Mechanical Ventilator 30 10/11/16 06:33 67 16 30 10/11/16 06:00 66 20 132/35 97 Mechanical Ventilator 30 10/11/16 05:00 65 20 142/50 97 Mechanical Ventilator 30 10/11/16 04:57 89 19 30 10/11/16 04:47 30 10/11/16 04:47 68 10/11/16 04:00 99.3 68 22 158/46 97 Mechanical Ventilator 30 10/11/16 03:00 75 16 148/47 98 Mechanical Ventilator 30 10/11/16 02:45 72 16 30 10/11/16 02:00 71 20 140/50 98 Mechanical Ventilator 30 10/11/16 01:16 94 24 30 10/11/16 01:00 70 18 141/59 98 Mechanical Ventilator 30 10/11/16 00:00 98.7 72 22 147/53 98 Mechanical Ventilator 30 10/11/16 00:00 30 10/11/16 00:00 72 10/10/16 23:00 82 19 133/67 98 Mechanical Ventilator 30 10/10/16 22:59 85 20 30 10/10/16 22:00 72 16 142/46 98 Mechanical Ventilator 30 10/10/16 21:00 72 16 143/37 98 Mechanical Ventilator 30 10/10/16 20:55 79 19 30 10/10/16 20:00 30 10/10/16 20:00 73 10/10/16 20:00 96.8 73 16 148/50 98 Mechanical Ventilator 30 10/10/16 19:00 75 16 151/45 99 Mechanical Ventilator 30 10/10/16 18:48 78 17 30 10/10/16 18:00 76 17 158/58 99 Mechanical Ventilator 30 10/10/16 17:25 79 17 30 10/10/16 17:00 74 15 156/51 99 Mechanical Ventilator 30 10/10/16 16:28 98 10/10/16 16:06 74 10/10/16 16:00 30 10/10/16 16:00 98.2 74 16 161/46 98 Mechanical Ventilator 30 10/10/16 14:50 82 20 30 10/10/16 14:50 74 20 148/45 100 Mechanical Ventilator 30 10/10/16 14:00 71 20 149/48 100 Mechanical Ventilator 30 10/10/16 13:00 73 20 140/46 100 Mechanical Ventilator 30 10/10/16 12:50 67 16 30 10/10/16 12:00 30 10/10/16 12:00 98.0 80 20 148/50 100 Mechanical Ventilator 30 10/10/16 12:00 72 10/10/16 11:00 76 20 156/46 100 Mechanical Ventilator 30 10/10/16 10:50 70 16 30 10/10/16 10:00 71 20 156/46 100 Mechanical Ventilator 30 10/10/16 09:00 72 20 145/38 100 Mechanical Ventilator 30 10/10/16 09:00 75 16 30 General Appearance: no apparent distress, alert, on vent EENT: PERRL/EOMI, other - et, og tubes in place Rhythm: NSR Cardiovascular: normal rate, regular rhythm, no gallop/murmur Respiratory/Chest: other - few rhonchi anteriorly Abdomen: non tender, soft Extremities: no swelling Intake and Output 10/10/16 10/11/16 19:00 07:00 Intake Total 1586.250 ml 968.75 ml Output Total 765 ml 640 ml Balance 821.250 ml 328.75 ml Intake Free Water 100 ml 200 ml IV Total 886.250 ml 168.75 ml Tube Feeding 600 ml 600 ml Output Urine Total 765 ml 640 ml Laboratory Tests Test 10/11/16 05:00 10/11/16 06:30 Urine Eosinophils Pending White Blood Count 10.7 K/UL (4.8-10.8) Red Blood Count 3.67 M/UL (4.70-6.10) L Hemoglobin 11.7 G/DL (14.2-18.0) L Hematocrit 34.1 % (42.0-52.0) L Mean Corpuscular Volume 93 FL (80-99) Mean Corpuscular Hemoglobin 31.8 PG (27.0-31.0) H Mean Corpuscular Hemoglobin Concent 34.3 G/DL (32.0-36.0) Red Cell Distribution Width 13.4 % (11.6-14.8) Platelet Count 90 K/UL (150-450) L Mean Platelet Volume 9.0 FL (6.5-10.1) Neutrophils (%) (Auto) % (45.0-75.0) Lymphocytes (%) (Auto) % (20.0-45.0) Monocytes (%) (Auto) % (1.0-10.0) Eosinophils (%) (Auto) % (0.0-3.0) Basophils (%) (Auto) % (0.0-2.0) Neutrophils % (Manual) Pending Lymphocytes % (Manual) Pending Platelet Estimate Pending Platelet Morphology Pending Sodium Level 139 mEQ/L (135-145) Potassium Level 3.3 mEQ/L (3.4-4.9) L Chloride Level 104 mEQ/L (98-107) Carbon Dioxide Level 24 mEQ/L (20-30) Anion Gap 11 (5-15) Blood Urea Nitrogen 19 mg/dL (7-23) Creatinine 0.7 mg/dL (0.7-1.2) Estimat Glomerular Filtration Rate mL/min (>60) Glucose Level 122 mg/dL (74-106) H Calcium Level 7.9 mg/dL (8.6-10.2) L Phosphorus Level 1.6 mg/dL (2.5-4.8) L Magnesium Level 1.8 mg/dL (1.7-2.5) Total Bilirubin 0.4 mg/dL (0.0-1.2) Aspartate Amino Transf (AST/SGOT) 19 U/L (5-40) Alanine Aminotransferase (ALT/SGPT) 20 U/L (3-41) Alkaline Phosphatase 41 U/L (40-129) Pro-B-Type Natriuretic Peptide 03835 pg/mL (0-450) H Total Protein 4.5 g/dL (6.6-8.7) L Albumin 1.9 g/dL (3.5-5.2) L Globulin 2.6 g/dL Albumin/Globulin Ratio 0.7 (1.0-2.7) L Vancomycin Level Trough 7.9 ug/mL (5.0-12.0) RIRI DILLARD Oct 11, 2016 08:55
[2016-10-11] MEDS ORDERED: Vancomycin 1.25 GM in NS 275 ML IVPB ONE (09:00)
[2016-10-11] MEDS ORDERED: POTASSIUM PHOSPHATE IV SCH (09:00)
[2016-10-11] MEDS ORDERED: NS IV SCH (09:00)
[2016-10-11 09:40] LABS: ABG ALLEN TEST POSITIVE; ABG BASE EXCESS 1.2; ABG PCO2 27.1 mmHg (35.0-45.0)
[2016-10-11 10:17] LABS: EOSINOPHILS % (MANUAL) 1 % (0-3); LYMPHOCYTES % (MANUAL) 8 % (20-45); NEUTROPHILS % (MANUAL) 82 % (45-75); TOTAL CELLS COUNTED 100
[2016-10-11 10:18] LABS: ANISOCYTOSIS 1+; BAND NEUTROPHILS % (MANUAL) 0 % (0-8); BASOPHILS % (MANUAL) 0 % (0-2); PLATELET ESTIMATE DECREASED; PLATELET MORPHOLOGY NORMAL
--- NOTE | 2016-10-11 10:31 | Pulmonolgy Critical Care Note ---
Critical Care - Asmt/Plan Problems: (1) Respiratory failure, acute (2) Pneumonia (3) ATN (acute tubular necrosis) (4) History of hypertension (5) Dementia Respiratory: monitor respiratory rate, adjust FIO2, CXR, ABG, weaning trial Cardiac: continue to monitor HR/BP Renal: F/U I&O, check electrolytes, other - lasix prn Infectious Disease: check cultures, continue antibiotics Gastrointestinal: continue feedings/current rate Endocrine: monitor blood sugar Hematologic: monitor H/H, transfuse if hgb<8.5 Neurologic: PRN Ativan, PRN Morphine, keep patient comfortable Time Spent (Minutes): 40 Notes Reviewed: lift mechanic, cardio, renal Discussed with: nurses, case managers, family member - pts daughter Critical Care - Objective Last 24 Hour Vital Signs Date Time Temp Pulse Resp B/P Pulse Ox O2 Delivery O2 Flow Rate FiO2 10/11/16 10:03 69 16 117/30 98 Mechanical Ventilator 30 10/11/16 08:55 66 16 129/43 98 Mechanical Ventilator 30 10/11/16 08:45 63 16 30 10/11/16 08:00 68 10/11/16 08:00 30 10/11/16 07:58 96.9 64 16 132/35 98 Mechanical Ventilator 30 10/11/16 07:00 68 18 161/49 97 Mechanical Ventilator 30 10/11/16 06:33 67 16 30 10/11/16 06:00 66 20 132/35 97 Mechanical Ventilator 30 10/11/16 05:00 65 20 142/50 97 Mechanical Ventilator 30 10/11/16 04:57 89 19 30 10/11/16 04:47 30 10/11/16 04:47 68 10/11/16 04:00 99.3 68 22 158/46 97 Mechanical Ventilator 30 10/11/16 03:00 75 16 148/47 98 Mechanical Ventilator 30 10/11/16 02:45 72 16 30 10/11/16 02:00 71 20 140/50 98 Mechanical Ventilator 30 10/11/16 01:16 94 24 30 10/11/16 01:00 70 18 141/59 98 Mechanical Ventilator 30 10/11/16 00:00 98.7 72 22 147/53 98 Mechanical Ventilator 30 10/11/16 00:00 30 10/11/16 00:00 72 10/10/16 23:00 82 19 133/67 98 Mechanical Ventilator 30 10/10/16 22:59 85 20 30 10/10/16 22:00 72 16 142/46 98 Mechanical Ventilator 30 10/10/16 21:00 72 16 143/37 98 Mechanical Ventilator 30 10/10/16 20:55 79 19 30 10/10/16 20:00 30 10/10/16 20:00 73 10/10/16 20:00 96.8 73 16 148/50 98 Mechanical Ventilator 30 10/10/16 19:00 75 16 151/45 99 Mechanical Ventilator 30 10/10/16 18:48 78 17 30 10/10/16 18:00 76 17 158/58 99 Mechanical Ventilator 30 10/10/16 17:25 79 17 30 10/10/16 17:00 74 15 156/51 99 Mechanical Ventilator 30 10/10/16 16:28 98 10/10/16 16:06 74 10/10/16 16:00 30 10/10/16 16:00 98.2 74 16 161/46 98 Mechanical Ventilator 30 10/10/16 14:50 82 20 30 10/10/16 14:50 74 20 148/45 100 Mechanical Ventilator 30 10/10/16 14:00 71 20 149/48 100 Mechanical Ventilator 30 10/10/16 13:00 73 20 140/46 100 Mechanical Ventilator 30 10/10/16 12:50 67 16 30 10/10/16 12:00 30 10/10/16 12:00 98.0 80 20 148/50 100 Mechanical Ventilator 30 10/10/16 12:00 72 10/10/16 11:00 76 20 156/46 100 Mechanical Ventilator 30 10/10/16 10:50 70 16 30 Status: awake Condition: critical HEENT: atraumatic Neck: full ROM Lungs: chest wall tender Heart: HR/BP stable, HR/BP unstable Abdomen: soft, non-tender, feeding tube Extremities: no C/C/E, edema Accucheck: 81 Critical Care - Subjective ICU Day: 6 Intubation Day: 6 Condition: critical EKG Rhythm: Sinus Rhythm FI02: 30 Vent Support Breath Rate: 16 Vent Support Mode: AC Vent Tidal Volume: 600 Sputum Amount: Small PEEP: 5.0 PIP: 20 Secretions: small Tube Feeding Amount: 50 I&O: Intake and Output 10/10/16 10/11/16 19:00 07:00 Intake Total 1586.250 ml 968.75 ml Output Total 765 ml 640 ml Balance 821.250 ml 328.75 ml Intake Free Water 100 ml 200 ml IV Total 886.250 ml 168.75 ml Tube Feeding 600 ml 600 ml Output Urine Total 765 ml 640 ml CXR: ET in good position ET-Tube: 8.0 ET Position: 23 Labs: Laboratory Tests Test 10/11/16 05:00 10/11/16 06:30 10/11/16 08:50 Urine Eosinophils None seen White Blood Count 10.7 K/UL (4.8-10.8) Red Blood Count 3.67 M/UL (4.70-6.10) L Hemoglobin 11.7 G/DL (14.2-18.0) L Hematocrit 34.1 % (42.0-52.0) L Mean Corpuscular Volume 93 FL (80-99) Mean Corpuscular Hemoglobin 31.8 PG (27.0-31.0) H Mean Corpuscular Hemoglobin Concent 34.3 G/DL (32.0-36.0) Red Cell Distribution Width 13.4 % (11.6-14.8) Platelet Count 90 K/UL (150-450) L Mean Platelet Volume 9.0 FL (6.5-10.1) Neutrophils (%) (Auto) % (45.0-75.0) Lymphocytes (%) (Auto) % (20.0-45.0) Monocytes (%) (Auto) % (1.0-10.0) Eosinophils (%) (Auto) % (0.0-3.0) Basophils (%) (Auto) % (0.0-2.0) Differential Total Cells Counted 100 Neutrophils % (Manual) 82 % (45-75) H Lymphocytes % (Manual) 8 % (20-45) L Monocytes % (Manual) 9 % (1-10) Eosinophils % (Manual) 1 % (0-3) Basophils % (Manual) 0 % (0-2) Band Neutrophils 0 % (0-8) Platelet Estimate Decreased L Platelet Morphology Normal Red Blood Cell Morphology Normal Anisocytosis 1+ Sodium Level 139 mEQ/L (135-145) Potassium Level 3.3 mEQ/L (3.4-4.9) L Chloride Level 104 mEQ/L (98-107) Carbon Dioxide Level 24 mEQ/L (20-30) Anion Gap 11 (5-15) Blood Urea Nitrogen 19 mg/dL (7-23) Creatinine 0.7 mg/dL (0.7-1.2) Estimat Glomerular Filtration Rate mL/min (>60) Glucose Level 122 mg/dL (74-106) H Calcium Level 7.9 mg/dL (8.6-10.2) L Phosphorus Level 1.6 mg/dL (2.5-4.8) L Magnesium Level 1.8 mg/dL (1.7-2.5) Total Bilirubin 0.4 mg/dL (0.0-1.2) Aspartate Amino Transf (AST/SGOT) 19 U/L (5-40) Alanine Aminotransferase (ALT/SGPT) 20 U/L (3-41) Alkaline Phosphatase 41 U/L (40-129) Pro-B-Type Natriuretic Peptide 87697 pg/mL (0-450) H Total Protein 4.5 g/dL (6.6-8.7) L Albumin 1.9 g/dL (3.5-5.2) L Globulin 2.6 g/dL Albumin/Globulin Ratio 0.7 (1.0-2.7) L Vancomycin Level Trough 7.9 ug/mL (5.0-12.0) Arterial Blood pH 7.541 (7.350-7.450) Arterial Blood Partial Pressure CO2 27.1 mmHg (35.0-45.0) L Arterial Blood Partial Pressure O2 78.3 mmHg (75.0-100.0) Arterial Blood HCO3 22.7 mmol/L (22.0-26.0) Arterial Blood Oxygen Saturation 95.9 % (92.0-98.0) Arterial Blood Base Excess 1.2 Evan Test Positive HERMINIO DIXON Oct 11, 2016 10:31
--- NOTE | 2016-10-11 10:35 | Diagnostic Imaging Report ---
Indications: DYSPNEA Technique: Portal AP chest Findings: Comparison: 10/10/16 Pulmonary inflation remains suboptimal. Cardiac silhouette remains enlarged. Pulmonary vascular redistribution persists. Bilateral interstitial prominence has apparently decreased. Patchy consolidative opacities persist in right lung base, left upper and lower lung zones. Left costophrenic angle more distinct; right remain sharp IMPRESSION: Apparent improvement in bilateral congestive changes persistent bilateral consolidative opacities--atelectasis versus pneumonia Better demonstration of left costophrenic angle may be secondary to improved pulmonary aeration and/or decreasing pleural effusion
--- NOTE | 2016-10-11 10:47 | General Progress Note ---
Assessment/Plan Status: stable Assessment/Plan 1. Severe sepsis. 2. Healthcare-associated pneumonia. 3. Ventilator-dependent respiratory failure. 4. HF- Diastolic 5. ARF: likely secondary to #1 6, Acute Anemia 5. Dementia. 6. Hyperlipidemia. 7. DNR Pulmonary, ID, Nephrology and cardiology notes are reviewed continue with current management Subjective ROS Limited/Unobtainable: Yes Allergies: Coded Allergies: No Known Allergies (Unverified , 10/07/16) Objective Last 24 Hour Vital Signs Date Time Temp Pulse Resp B/P Pulse Ox O2 Delivery O2 Flow Rate FiO2 10/11/16 10:03 69 16 117/30 98 Mechanical Ventilator 30 10/11/16 08:55 66 16 129/43 98 Mechanical Ventilator 30 10/11/16 08:45 63 16 30 10/11/16 08:00 68 10/11/16 08:00 30 10/11/16 07:58 96.9 64 16 132/35 98 Mechanical Ventilator 30 10/11/16 07:00 68 18 161/49 97 Mechanical Ventilator 30 10/11/16 06:33 67 16 30 10/11/16 06:00 66 20 132/35 97 Mechanical Ventilator 30 10/11/16 05:00 65 20 142/50 97 Mechanical Ventilator 30 10/11/16 04:57 89 19 30 10/11/16 04:47 30 10/11/16 04:47 68 10/11/16 04:00 99.3 68 22 158/46 97 Mechanical Ventilator 30 10/11/16 03:00 75 16 148/47 98 Mechanical Ventilator 30 10/11/16 02:45 72 16 30 10/11/16 02:00 71 20 140/50 98 Mechanical Ventilator 30 10/11/16 01:16 94 24 30 10/11/16 01:00 70 18 141/59 98 Mechanical Ventilator 30 10/11/16 00:00 98.7 72 22 147/53 98 Mechanical Ventilator 30 10/11/16 00:00 30 10/11/16 00:00 72 10/10/16 23:00 82 19 133/67 98 Mechanical Ventilator 30 10/10/16 22:59 85 20 30 10/10/16 22:00 72 16 142/46 98 Mechanical Ventilator 30 10/10/16 21:00 72 16 143/37 98 Mechanical Ventilator 30 10/10/16 20:55 79 19 30 10/10/16 20:00 30 10/10/16 20:00 73 10/10/16 20:00 96.8 73 16 148/50 98 Mechanical Ventilator 30 10/10/16 19:00 75 16 151/45 99 Mechanical Ventilator 30 10/10/16 18:48 78 17 30 10/10/16 18:00 76 17 158/58 99 Mechanical Ventilator 30 10/10/16 17:25 79 17 30 10/10/16 17:00 74 15 156/51 99 Mechanical Ventilator 30 10/10/16 16:28 98 10/10/16 16:06 74 10/10/16 16:00 30 10/10/16 16:00 98.2 74 16 161/46 98 Mechanical Ventilator 30 10/10/16 14:50 82 20 30 10/10/16 14:50 74 20 148/45 100 Mechanical Ventilator 30 10/10/16 14:00 71 20 149/48 100 Mechanical Ventilator 30 10/10/16 13:00 73 20 140/46 100 Mechanical Ventilator 30 10/10/16 12:50 67 16 30 10/10/16 12:00 30 10/10/16 12:00 98.0 80 20 148/50 100 Mechanical Ventilator 30 10/10/16 12:00 72 10/10/16 11:00 76 20 156/46 100 Mechanical Ventilator 30 10/10/16 10:50 70 16 30 Intake and Output 10/10/16 10/11/16 18:59 06:59 Intake Total 1561.250 ml 893.75 ml Output Total 795 ml 650 ml Balance 766.250 ml 243.75 ml Intake Free Water 100 ml 100 ml IV Total 861.250 ml 193.75 ml Tube Feeding 600 ml 600 ml Output Urine Total 795 ml 650 ml Laboratory Tests 10/11/16 05:00: Urine Eosinophils None seen 10/11/16 06:30: White Blood Count 10.7, Red Blood Count 3.67L, Hemoglobin 11.7L, Hematocrit 34.1L, Mean Corpuscular Volume 93, Mean Corpuscular Hemoglobin 31.8H, Mean Corpuscular Hemoglobin Concent 34.3, Red Cell Distribution Width 13.4, Platelet Count 90L, Mean Platelet Volume 9.0, Neutrophils (%) (Auto) , Lymphocytes (%) ( Auto) , Monocytes (%) (Auto) , Eosinophils (%) (Auto) , Basophils (%) (Auto) , Differential Total Cells Counted 100, Neutrophils % (Manual) 82H, Lymphocytes % (Manual) 8L, Monocytes % (Manual) 9, Eosinophils % (Manual) 1, Basophils % ( Manual) 0, Band Neutrophils 0, Platelet Estimate DecreasedL, Platelet Morphology Normal, Red Blood Cell Morphology Normal, Anisocytosis 1+, Sodium Level 139, Potassium Level 3.3L, Chloride Level 104, Carbon Dioxide Level 24, Anion Gap 11, Blood Urea Nitrogen 19, Creatinine 0.7, Estimat Glomerular Filtration Rate , Glucose Level 122H, Calcium Level 7.9L, Phosphorus Level 1.6L , Magnesium Level 1.8, Total Bilirubin 0.4, Aspartate Amino Transf (AST/SGOT) 19 , Alanine Aminotransferase (ALT/SGPT) 20, Alkaline Phosphatase 41, Pro-B-Type Natriuretic Peptide 82009T, Total Protein 4.5L, Albumin 1.9L, Globulin 2.6, Albumin/Globulin Ratio 0.7L, Vancomycin Level Trough 7.9 10/11/16 08:50: Arterial Blood pH 7.541H, Arterial Blood Partial Pressure CO2 27.1L, Arterial Blood Partial Pressure O2 78.3, Arterial Blood HCO3 22.7, Arterial Blood Oxygen Saturation 95.9, Arterial Blood Base Excess 1.2, Evan Test Positive Height (Feet): 5 Height (Inches): 3.00 Weight (Pounds): 130 General Appearance: no apparent distress, other - Intubated EENT: PERRL/EOMI Neck: supple Cardiovascular: normal rate Respiratory/Chest: rhonchi - bilaterally Abdomen: soft Extremities: other - cachetic appearance Neurologic: other - limited as pt is intubated Margaret Jc MD Oct 11, 2016 10:47
--- NOTE | 2016-10-11 14:59 | Infectious Diseases Prog Note ---
Assessment/Plan Assessment/Plan ASSESSMENT: 86 y/o male with: // Probable PNA - SCx NRF, legionella UAg pending - CXR 10/11: persistent bilateral consolidative opacities--atelectasis versus pneumonia - CT: Bilateral pulmonary lower lobe consolidation--atelectasis versus pneumonia - negative: influenza // Severe sepsis SP - improved lactic acidosis // Leukocytosis, bandemia - resolved // Fever - resolved // Acute VDRF - intubated 10/07 // Possible diastolic CHF exacerbation - trop(-) x1, BNP >70K - TTE: EF 55-60%, mild AR, significant implied diastolic dysfunction - CXR: Pulmonary vascular redistribution. Bilateral interstitial prominence. Left costophrenic angle blunting suggests small pleural effusion // ARF ?CKD - improved // Advanced Alzheimer's dementia // NKDA // Full Code PLAN: - continue IV vancomycin, zosyn d# 5 / - f/u final cultures, legionella UAg - monitor CBC, temperatures - monitor BMP - monitor CXR - vent support, wean as tolerated Subjective Allergies: Coded Allergies: No Known Allergies (Unverified , 10/07/16) Subjective fevers, leukocytosis resolved. remains on vent Cx NGTD Objective Vital Signs Last 24 Hour Vital Signs Date Time Temp Pulse Resp B/P Pulse Ox O2 Delivery O2 Flow Rate FiO2 10/11/16 14:01 64 13 142/31 98 Mechanical Ventilator 30 10/11/16 13:30 61 15 30 10/11/16 13:00 65 16 140/29 98 Mechanical Ventilator 30 10/11/16 12:00 61 10/11/16 12:00 97.2 61 17 146/26 95 Mechanical Ventilator 30 10/11/16 12:00 30 10/11/16 11:16 99 10/11/16 11:15 30 10/11/16 11:10 61 16 30 10/11/16 11:01 63 16 127/30 95 Mechanical Ventilator 30 10/11/16 10:03 69 16 117/30 98 Mechanical Ventilator 30 10/11/16 08:55 66 16 129/43 98 Mechanical Ventilator 30 10/11/16 08:45 63 16 30 10/11/16 08:00 68 10/11/16 08:00 30 10/11/16 07:58 96.9 64 16 132/35 98 Mechanical Ventilator 30 10/11/16 07:00 68 18 161/49 97 Mechanical Ventilator 30 10/11/16 06:33 67 16 30 10/11/16 06:00 66 20 132/35 97 Mechanical Ventilator 30 10/11/16 05:00 65 20 142/50 97 Mechanical Ventilator 30 10/11/16 04:57 89 19 30 10/11/16 04:47 30 10/11/16 04:47 68 10/11/16 04:00 99.3 68 22 158/46 97 Mechanical Ventilator 30 10/11/16 03:00 75 16 148/47 98 Mechanical Ventilator 30 10/11/16 02:45 72 16 30 10/11/16 02:00 71 20 140/50 98 Mechanical Ventilator 30 10/11/16 01:16 94 24 30 10/11/16 01:00 70 18 141/59 98 Mechanical Ventilator 30 10/11/16 00:00 98.7 72 22 147/53 98 Mechanical Ventilator 30 10/11/16 00:00 30 10/11/16 00:00 72 10/10/16 23:00 82 19 133/67 98 Mechanical Ventilator 30 10/10/16 22:59 85 20 30 10/10/16 22:00 72 16 142/46 98 Mechanical Ventilator 30 10/10/16 21:00 72 16 143/37 98 Mechanical Ventilator 30 10/10/16 20:55 79 19 30 10/10/16 20:00 30 10/10/16 20:00 73 10/10/16 20:00 96.8 73 16 148/50 98 Mechanical Ventilator 30 10/10/16 19:00 75 16 151/45 99 Mechanical Ventilator 30 10/10/16 18:48 78 17 30 10/10/16 18:00 76 17 158/58 99 Mechanical Ventilator 30 10/10/16 17:25 79 17 30 10/10/16 17:00 74 15 156/51 99 Mechanical Ventilator 30 10/10/16 16:28 98 10/10/16 16:06 74 10/10/16 16:00 30 10/10/16 16:00 98.2 74 16 161/46 98 Mechanical Ventilator 30 Height (Feet): 5 Height (Inches): 3.00 Weight (Pounds): 130 General Appearance: other - intubated Respiratory/Chest: no respiratory distress Cardiovascular: normal rate, regular rhythm Abdomen: normal bowel sounds, soft, non tender, non distended Laboratory Tests Test 10/11/16 05:00 10/11/16 06:30 10/11/16 08:50 Urine Eosinophils None seen White Blood Count 10.7 K/UL (4.8-10.8) Red Blood Count 3.67 M/UL (4.70-6.10) L Hemoglobin 11.7 G/DL (14.2-18.0) L Hematocrit 34.1 % (42.0-52.0) L Mean Corpuscular Volume 93 FL (80-99) Mean Corpuscular Hemoglobin 31.8 PG (27.0-31.0) H Mean Corpuscular Hemoglobin Concent 34.3 G/DL (32.0-36.0) Red Cell Distribution Width 13.4 % (11.6-14.8) Platelet Count 90 K/UL (150-450) L Mean Platelet Volume 9.0 FL (6.5-10.1) Neutrophils (%) (Auto) % (45.0-75.0) Lymphocytes (%) (Auto) % (20.0-45.0) Monocytes (%) (Auto) % (1.0-10.0) Eosinophils (%) (Auto) % (0.0-3.0) Basophils (%) (Auto) % (0.0-2.0) Differential Total Cells Counted 100 Neutrophils % (Manual) 82 % (45-75) H Lymphocytes % (Manual) 8 % (20-45) L Monocytes % (Manual) 9 % (1-10) Eosinophils % (Manual) 1 % (0-3) Basophils % (Manual) 0 % (0-2) Band Neutrophils 0 % (0-8) Platelet Estimate Decreased L Platelet Morphology Normal Red Blood Cell Morphology Normal Anisocytosis 1+ Sodium Level 139 mEQ/L (135-145) Potassium Level 3.3 mEQ/L (3.4-4.9) L Chloride Level 104 mEQ/L (98-107) Carbon Dioxide Level 24 mEQ/L (20-30) Anion Gap 11 (5-15) Blood Urea Nitrogen 19 mg/dL (7-23) Creatinine 0.7 mg/dL (0.7-1.2) Estimat Glomerular Filtration Rate mL/min (>60) Glucose Level 122 mg/dL (74-106) H Calcium Level 7.9 mg/dL (8.6-10.2) L Phosphorus Level 1.6 mg/dL (2.5-4.8) L Magnesium Level 1.8 mg/dL (1.7-2.5) Total Bilirubin 0.4 mg/dL (0.0-1.2) Aspartate Amino Transf (AST/SGOT) 19 U/L (5-40) Alanine Aminotransferase (ALT/SGPT) 20 U/L (3-41) Alkaline Phosphatase 41 U/L (40-129) Pro-B-Type Natriuretic Peptide 35424 pg/mL (0-450) H Total Protein 4.5 g/dL (6.6-8.7) L Albumin 1.9 g/dL (3.5-5.2) L Globulin 2.6 g/dL Albumin/Globulin Ratio 0.7 (1.0-2.7) L Vancomycin Level Trough 7.9 ug/mL (5.0-12.0) Arterial Blood pH 7.541 (7.350-7.450) Arterial Blood Partial Pressure CO2 27.1 mmHg (35.0-45.0) L Arterial Blood Partial Pressure O2 78.3 mmHg (75.0-100.0) Arterial Blood HCO3 22.7 mmol/L (22.0-26.0) Arterial Blood Oxygen Saturation 95.9 % (92.0-98.0) Arterial Blood Base Excess 1.2 Evan Test Positive Current Medications Medications (Trade) Dose Ordered Sig/Archie Route PRN Reason Start Time Stop Time Status Last Admin Dose Admin Acetaminophen (Tylenol) 650 mg Q4H PRN ORAL fever 10/07/16 13:00 11/06/16 12:59 Albuterol/ Ipratropium (DuoNeb 0.5-3(2.5)mg/3ml) 3 ml EVERY 4 HOURS PRN HHN Shortness of Breath 10/07/16 13:00 10/12/16 12:59 Dextrose (Dextrose 50%) STAT PRN IV Hypoglycemia 10/07/16 13:00 11/06/16 12:59 Heparin Sodium (Porcine) (Heparin 5000 units/ml) 5,000 units EVERY 12 HOURS SUBQ 10/07/16 21:00 11/06/16 20:59 10/10/16 20:44 Lorazepam (Ativan 2mg/ml 1ml) 2 mg Q4H PRN IV For Anxiety 10/07/16 13:00 10/14/16 12:59 10/07/16 20:26 Morphine Sulfate (Morphine Sulfate) 4 mg Q4H PRN IVP For Pain 10/07/16 13:00 10/14/16 12:59 10/09/16 18:24 Nitroglycerin (Ntg) 0.4 mg Q5M PRN SL Prn Chest Pain 10/07/16 13:00 11/06/16 12:59 Ondansetron HCl (Zofran) 4 mg Q6H PRN IVP Nausea & Vomiting 10/07/16 13:00 11/06/16 12:59 Pantoprazole (Protonix) 40 mg DAILY IV 10/08/16 09:00 11/07/16 08:59 10/11/16 08:31 Piperacillin Sod/ Tazobactam Sod 3.375 gm/Dextrose 100 ml @ 25 mls/hr Q8HR@0200,1000,1800 IVPB 10/10/16 18:00 10/17/16 17:59 10/11/16 10:17 Polyethylene Glycol (Miralax) 17 gm DAILYPRN PRN ORAL Constipation 10/07/16 13:00 11/06/16 12:59 10/08/16 00:14 Sodium Chloride 500 ml @ 999 mls/hr NEEDED PRN IV For hypotension (MAP <60%) 10/08/16 13:45 11/07/16 13:44 Valproic Acid 500 mg 500 mg Q12HR GT 10/08/16 09:00 11/06/16 20:59 10/11/16 08:31 Vancomycin HCl (Vanco rx to dose) 1 ea DAILY PRN MISC . 10/07/16 14:30 11/06/16 14:29 Vancomycin HCl/ Sodium Chloride (Vancomycin/ Sodium Chloride 250ml bag) 275 ml @ 183.708 mls/hr Q24H IVPB 10/11/16 21:00 10/16/16 20:59 EMILIA CAIN Oct 11, 2016 14:58
[2016-10-11] MEDS: Vancomycin 1 GM in NS 275 ML IVPB SCH (21:08)
[2016-10-12] VITALS (24 sets, daily range): BP systolic 90–156; BP diastolic 25–74
[2016-10-12 04:58] LABS: MEAN CORPUSCULAR HGB CONC 34.5 G/DL (32.0-36.0); MEAN CORPUSCULAR VOLUME 93 FL (80-99); MEAN PLATELET VOLUME 9.9 FL (6.5-10.1); PLATELET COUNT 92 K/UL (150-450); RED BLOOD COUNT 3.63 M/UL (4.70-6.10); RED CELL DISTRIBUTION WIDTH 12.9 % (11.6-14.8); WHITE BLOOD COUNT 10.4 K/UL (4.8-10.8)
[2016-10-12 05:21] LABS: ALANINE AMINOTRANSFERASE 16 U/L (3-41); ALBUMIN/GLOBULIN RATIO 0.5 (1.0-2.7); ANION GAP 11 (5-15); ASPARTATE AMINO TRANSFERASE 19 U/L (5-40); CALCIUM 7.9 mg/dL (8.6-10.2); CARBON DIOXIDE 24 mEQ/L (20-30); CHLORIDE 102 mEQ/L (98-107); CREATININE 0.7 mg/dL (0.7-1.2); HEMOLYSIS 11; MAGNESIUM 1.8 mg/dL (1.7-2.5); POTASSIUM 3.4 mEQ/L (3.4-4.9); SODIUM 137 mEQ/L (135-145); TOTAL PROTEIN 4.7 g/dL (6.6-8.7)
[2016-10-12 07:51] LABS: ABG BASE EXCESS 4.9
[2016-10-12 07:52] LABS: ABG ALLEN TEST POSITIVE
[2016-10-12] MEDS: Heparin 5000 units/ml inj SUBQ SCH (09:00)
[2016-10-12] MEDS: Valproic Acid 250mg/5ml Liquid GT SCH ×2 (09:14→20:56)
[2016-10-12] MEDS: Pantoprazole Inj IV SCH (09:16)
--- NOTE | 2016-10-12 09:23 | General Progress Note ---
Assessment/Plan Status: stable Assessment/Plan 1. Severe sepsis. 2. Healthcare-associated pneumonia. 3. Ventilator-dependent respiratory failure. 4. HF- Diastolic 5. ARF: likely secondary to #1 6, Acute Anemia 5. Dementia. 6. Hyperlipidemia. 7. DNR Pulmonary, ID, Nephrology and cardiology notes are reviewed continue with current management weaning trial per pulmonary Subjective ROS Limited/Unobtainable: Yes - patient is intubated on vent Allergies: Coded Allergies: No Known Allergies (Unverified , 10/07/16) Objective Last 24 Hour Vital Signs Date Time Temp Pulse Resp B/P Pulse Ox O2 Delivery O2 Flow Rate FiO2 10/12/16 09:00 55 25 117/27 96 Mechanical Ventilator 30 10/12/16 08:00 30 10/12/16 08:00 62 10/12/16 08:00 98.0 66 16 117/36 99 Mechanical Ventilator 30 10/12/16 07:00 61 16 156/47 100 Mechanical Ventilator 30 10/12/16 06:54 60 12 30 10/12/16 06:00 60 16 156/47 97 Mechanical Ventilator 30 10/12/16 05:22 60 12 30 10/12/16 05:00 97.4 61 16 124/52 97 Mechanical Ventilator 30 10/12/16 04:00 65 10/12/16 04:00 97.4 61 15 124/52 97 Mechanical Ventilator 30 10/12/16 04:00 30 10/12/16 03:10 75 12 30 10/12/16 03:00 61 15 124/52 97 Mechanical Ventilator 30 10/12/16 02:00 61 15 124/52 97 Mechanical Ventilator 30 10/12/16 01:19 59 12 30 10/12/16 01:00 60 15 126/52 97 Mechanical Ventilator 30 10/12/16 00:00 30 10/12/16 00:00 97.4 59 16 146/42 97 Mechanical Ventilator 30 10/12/16 00:00 64 10/11/16 23:00 66 18 140/39 97 Mechanical Ventilator 30 10/11/16 22:50 64 15 30 10/11/16 22:00 65 17 148/41 97 Mechanical Ventilator 30 10/11/16 21:00 62 16 155/35 97 Mechanical Ventilator 30 10/11/16 20:38 60 14 30 10/11/16 20:00 60 10/11/16 20:00 30 1/16/17 20:00 97.8 61 17 122/41 98 Mechanical Ventilator 30 10/11/16 19:01 61 14 30 10/11/16 19:00 64 16 141/38 97 Mechanical Ventilator 30 10/11/16 18:00 65 15 139/36 97 Mechanical Ventilator 30 10/11/16 17:00 98.1 64 19 139/39 97 Mechanical Ventilator 30 10/11/16 16:37 69 16 30 10/11/16 16:00 63 19 139/41 96 Mechanical Ventilator 30 10/11/16 16:00 30 10/11/16 16:00 62 10/11/16 15:34 30 10/11/16 15:01 62 15 30 10/11/16 15:00 64 19 135/40 96 Mechanical Ventilator 30 10/11/16 14:01 64 13 142/31 98 Mechanical Ventilator 30 10/11/16 13:30 61 15 30 10/11/16 13:30 30 10/11/16 13:00 65 16 140/29 98 Mechanical Ventilator 30 10/11/16 12:00 61 10/11/16 12:00 97.2 61 17 146/26 95 Mechanical Ventilator 30 10/11/16 12:00 30 10/11/16 11:16 99 10/11/16 11:15 30 10/11/16 11:10 61 16 30 10/11/16 11:01 63 16 127/30 95 Mechanical Ventilator 30 10/11/16 10:03 69 16 117/30 98 Mechanical Ventilator 30 Intake and Output 10/11/16 10/12/16 19:00 07:00 Intake Total 1403 ml 1316 ml Output Total 1878 ml 610 ml Balance -475 ml 706 ml Intake Free Water 100 ml 200 ml IV Total 703 ml 516 ml Tube Feeding 600 ml 600 ml Output Urine Total 1878 ml 610 ml Laboratory Tests 10/12/16 03:50: White Blood Count 10.4, Red Blood Count 3.63L, Hemoglobin 11.6L, Hematocrit 33.6L, Mean Corpuscular Volume 93, Mean Corpuscular Hemoglobin 32.0H, Mean Corpuscular Hemoglobin Concent 34.5, Red Cell Distribution Width 12.9, Platelet Count 92L, Mean Platelet Volume 9.9, Neutrophils (%) (Auto) , Lymphocytes (%) ( Auto) , Monocytes (%) (Auto) , Eosinophils (%) (Auto) , Basophils (%) (Auto) , Neutrophils % (Manual) [Pending], Lymphocytes % (Manual) [Pending], Platelet Estimate [Pending], Platelet Morphology [Pending], Sodium Level 137, Potassium Level 3.4, Chloride Level 102, Carbon Dioxide Level 24, Anion Gap 11, Blood Urea Nitrogen 19, Creatinine 0.7, Estimat Glomerular Filtration Rate , Glucose Level 112H, Calcium Level 7.9L, Phosphorus Level 3.0, Magnesium Level 1.8, Total Bilirubin 0.4, Aspartate Amino Transf (AST/SGOT) 19, Alanine Aminotransferase (ALT/SGPT) 16, Alkaline Phosphatase 52, Total Protein 4.7L, Albumin 1.7L, Globulin 3.0, Albumin/Globulin Ratio 0.5L 10/12/16 04:00: Arterial Blood pH 7.500H, Arterial Blood Partial Pressure CO2 37.0, Arterial Blood Partial Pressure O2 82.0, Arterial Blood HCO3 28.1H, Arterial Blood Oxygen Saturation 96.0, Arterial Blood Base Excess 4.9, Evan Test Positive 10/12/16 08:30: Urine Eosinophils [Pending] Height (Feet): 5 Height (Inches): 3.00 Weight (Pounds): 130 General Appearance: no apparent distress EENT: PERRL/EOMI Neck: supple Cardiovascular: normal rate Respiratory/Chest: rhonchi - bilaterally Abdomen: soft Extremities: other - atrophied , moves all x4 spontaneoulsy Neurologic: other - awake , follow commands, limited exam Margaret Jc MD Oct 12, 2016 09:23
[2016-10-12 10:01] LABS: BAND NEUTROPHILS % (MANUAL) 9 % (0-8); BASOPHILS % (MANUAL) 0 % (0-2); EOSINOPHILS % (MANUAL) 1 % (0-3); LYMPHOCYTES % (MANUAL) 17 % (20-45); METAMYELOCYTES % 2 % (0-0); MYELOCYTES % 4 % (0-0); NEUTROPHILS % (MANUAL) 52 % (45-75); PLATELET ESTIMATE DECREASED; PLATELET MORPHOLOGY NORMAL; TOTAL CELLS COUNTED 100
[2016-10-12 10:02] LABS: HYPOCHROMASIA 1+
--- NOTE | 2016-10-12 10:03 | Pulmonolgy Critical Care Note ---
Critical Care - Asmt/Plan Problems: (1) Respiratory failure, acute Assessment & Plan: weaning, still on SIMV (2) Pneumonia (3) ATN (acute tubular necrosis) (4) History of hypertension (5) Dementia Respiratory: monitor respiratory rate, adjust FIO2, CXR Cardiac: continue to monitor HR/BP Renal: F/U I&O, keep IV fluid Infectious Disease: check cultures Gastrointestinal: continue feedings/current rate, hold feedings Endocrine: monitor blood sugar, continue sliding scale insulin Hematologic: monitor H/H, transfuse if hgb<8.5 Neurologic: PRN Ativan, PRN Morphine, keep patient comfortable Affect: PRN ativan 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, ID Discussed with: nurses, consultants, case operatorgeneral 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 in training - Objective Last 24 Hour Vital Signs Date Time Temp Pulse Resp B/P Pulse Ox O2 Delivery O2 Flow Rate FiO2 10/12/16 09:12 69 12 30 10/12/16 09:00 55 25 117/27 96 Mechanical Ventilator 30 10/12/16 08:00 30 10/12/16 08:00 62 10/12/16 08:00 98.0 66 16 117/36 99 Mechanical Ventilator 30 10/12/16 07:00 61 16 156/47 100 Mechanical Ventilator 30 10/12/16 06:54 60 12 30 10/12/16 06:00 60 16 156/47 97 Mechanical Ventilator 30 10/12/16 05:22 60 12 30 10/12/16 05:00 97.4 61 16 124/52 97 Mechanical Ventilator 30 10/12/16 04:00 65 10/12/16 04:00 97.4 61 15 124/52 97 Mechanical Ventilator 30 10/12/16 04:00 30 10/12/16 03:10 75 12 30 10/12/16 03:00 61 15 124/52 97 Mechanical Ventilator 30 10/12/16 02:00 61 15 124/52 97 Mechanical Ventilator 30 10/12/16 01:19 59 12 30 10/12/16 01:00 60 15 126/52 97 Mechanical Ventilator 30 10/12/16 00:00 30 10/12/16 00:00 97.4 59 16 146/42 97 Mechanical Ventilator 30 10/12/16 00:00 64 10/11/16 23:00 66 18 140/39 97 Mechanical Ventilator 30 10/11/16 22:50 64 15 30 10/11/16 22:00 65 17 148/41 97 Mechanical Ventilator 30 10/11/16 21:00 62 16 155/35 97 Mechanical Ventilator 30 10/11/16 20:38 60 14 30 10/11/16 20:00 60 10/11/16 20:00 30 10/11/16 20:00 97.8 61 17 122/41 98 Mechanical Ventilator 30 10/11/16 19:01 61 14 30 10/11/16 19:00 64 16 141/38 97 Mechanical Ventilator 30 10/11/16 18:00 65 15 139/36 97 Mechanical Ventilator 30 10/11/16 17:00 98.1 64 19 139/39 97 Mechanical Ventilator 30 10/11/16 16:37 69 16 30 10/11/16 16:00 63 19 139/41 96 Mechanical Ventilator 30 10/11/16 16:00 30 10/11/16 16:00 62 10/11/16 15:34 30 10/11/16 15:01 62 15 30 10/11/16 15:00 64 19 135/40 96 Mechanical Ventilator 30 10/11/16 14:01 64 13 142/31 98 Mechanical Ventilator 30 10/11/16 13:30 61 15 30 10/11/16 13:30 30 10/11/16 13:00 65 16 140/29 98 Mechanical Ventilator 30 10/11/16 12:00 61 10/11/16 12:00 97.2 61 17 146/26 95 Mechanical Ventilator 30 10/11/16 12:00 30 10/11/16 11:16 99 10/11/16 11:15 30 10/11/16 11:10 61 16 30 10/11/16 11:01 63 16 127/30 95 Mechanical Ventilator 30 10/11/16 10:03 69 16 117/30 98 Mechanical Ventilator 30 Status: sedated, somnolent Condition: critical HEENT: atraumatic Neck: full ROM Lungs: clear, chest wall tender Heart: HR/BP stable Abdomen: soft, non-tender Extremities: no C/C/E Accucheck: 81 Critical Care - Subjective ROS Limited/Unobtainable: Yes ICU Day: 4 Intubation Day: 4 Condition: critical EKG Rhythm: Sinus Rhythm FI02: 30 Vent Support Breath Rate: 12 Vent Support Mode: IMV/SIMV Vent Tidal Volume: 600 Sputum Amount: Small PEEP: 5.0 PIP: 20 Drips: none Tube Feeding Amount: 50 I&O: Intake and Output 10/11/16 10/12/16 18:59 06:59 Intake Total 1478 ml 1316 ml Output Total 1818 ml 660 ml Balance -340 ml 656 ml Intake Free Water 200 ml 200 ml IV Total 678 ml 516 ml Tube Feeding 600 ml 600 ml Output Urine Total 1818 ml 660 ml CXR: no change ET-Tube: 8.0 ET Position: 23 Labs: Laboratory Tests Test 10/12/16 03:50 10/12/16 04:00 10/12/16 08:30 White Blood Count 10.4 K/UL (4.8-10.8) Red Blood Count 3.63 M/UL (4.70-6.10) L Hemoglobin 11.6 G/DL (14.2-18.0) L Hematocrit 33.6 % (42.0-52.0) L Mean Corpuscular Volume 93 FL (80-99) Mean Corpuscular Hemoglobin 32.0 PG (27.0-31.0) H Mean Corpuscular Hemoglobin Concent 34.5 G/DL (32.0-36.0) Red Cell Distribution Width 12.9 % (11.6-14.8) Platelet Count 92 K/UL (150-450) L Mean Platelet Volume 9.9 FL (6.5-10.1) Neutrophils (%) (Auto) % (45.0-75.0) Lymphocytes (%) (Auto) % (20.0-45.0) Monocytes (%) (Auto) % (1.0-10.0) Eosinophils (%) (Auto) % (0.0-3.0) Basophils (%) (Auto) % (0.0-2.0) Neutrophils % (Manual) Pending Lymphocytes % (Manual) Pending Platelet Estimate Pending Platelet Morphology Pending Sodium Level 137 mEQ/L (135-145) Potassium Level 3.4 mEQ/L (3.4-4.9) Chloride Level 102 mEQ/L (98-107) Carbon Dioxide Level 24 mEQ/L (20-30) Anion Gap 11 (5-15) Blood Urea Nitrogen 19 mg/dL (7-23) Creatinine 0.7 mg/dL (0.7-1.2) Estimat Glomerular Filtration Rate mL/min (>60) Glucose Level 112 mg/dL (74-106) H Calcium Level 7.9 mg/dL (8.6-10.2) L Phosphorus Level 3.0 mg/dL (2.5-4.8) Magnesium Level 1.8 mg/dL (1.7-2.5) Total Bilirubin 0.4 mg/dL (0.0-1.2) Aspartate Amino Transf (AST/SGOT) 19 U/L (5-40) Alanine Aminotransferase (ALT/SGPT) 16 U/L (3-41) Alkaline Phosphatase 52 U/L (40-129) Total Protein 4.7 g/dL (6.6-8.7) L Albumin 1.7 g/dL (3.5-5.2) L Globulin 3.0 g/dL Albumin/Globulin Ratio 0.5 (1.0-2.7) L Arterial Blood pH 7.500 (7.350-7.450) Arterial Blood Partial Pressure CO2 37.0 mmHg (35.0-45.0) Arterial Blood Partial Pressure O2 82.0 mmHg (75.0-100.0) Arterial Blood HCO3 28.1 mmol/L (22.0-26.0) H Arterial Blood Oxygen Saturation 96.0 % (92.0-98.0) Arterial Blood Base Excess 4.9 Evan Test Positive Urine Eosinophils Pending HERMINIO DIXON Oct 12, 2016 10:03
--- NOTE | 2016-10-12 10:50 | General Progress Note ---
Assessment/Plan Status: stable Assessment/Plan Status: 1. Severe sepsis. leading to acute renal failure- and respiratory failure- 2. Healthcare-associated pneumonia. 3. Ventilator-dependent respiratory failure. 4. Hypertension. 5. Dementia. Alzheimer's dementia. 6. Hyperlipidemia. 7. Psychiatric disorder. 8. h/o Gallstones. 9. h/o Diverticulosis. 10.h/o BPH. Plan: K Phos IV as needed Vent support- Antibiotics- Monitor renal parameters- Urine studies- Subjective ROS Limited/Unobtainable: Yes Allergies: Coded Allergies: No Known Allergies (Unverified , 10/07/16) Objective Last 24 Hour Vital Signs Date Time Temp Pulse Resp B/P Pulse Ox O2 Delivery O2 Flow Rate FiO2 10/12/16 10:00 58 17 90/27 97 Mechanical Ventilator 30 10/12/16 09:12 69 12 30 10/12/16 09:00 55 25 117/27 96 Mechanical Ventilator 30 10/12/16 08:00 30 10/12/16 08:00 62 10/12/16 08:00 98.0 66 16 117/36 99 Mechanical Ventilator 30 10/12/16 07:00 61 16 156/47 100 Mechanical Ventilator 30 10/12/16 06:54 60 12 30 10/12/16 06:00 60 16 156/47 97 Mechanical Ventilator 30 10/12/16 05:22 60 12 30 10/12/16 05:00 97.4 61 16 124/52 97 Mechanical Ventilator 30 10/12/16 04:00 65 10/12/16 04:00 97.4 61 15 124/52 97 Mechanical Ventilator 30 10/12/16 04:00 30 10/12/16 03:10 75 12 30 10/12/16 03:00 61 15 124/52 97 Mechanical Ventilator 30 10/12/16 02:00 61 15 124/52 97 Mechanical Ventilator 30 10/12/16 01:19 59 12 30 10/12/16 01:00 60 15 126/52 97 Mechanical Ventilator 30 10/12/16 00:00 30 10/12/16 00:00 97.4 59 16 146/42 97 Mechanical Ventilator 30 10/12/16 00:00 64 10/11/16 23:00 66 18 140/39 97 Mechanical Ventilator 30 10/11/16 22:50 64 15 30 10/11/16 22:00 65 17 148/41 97 Mechanical Ventilator 30 10/11/16 21:00 62 16 155/35 97 Mechanical Ventilator 30 10/11/16 20:38 60 14 30 10/11/16 20:00 60 10/11/16 20:00 30 10/11/16 20:00 97.8 61 17 122/41 98 Mechanical Ventilator 30 10/11/16 19:01 61 14 30 10/11/16 19:00 64 16 141/38 97 Mechanical Ventilator 30 10/11/16 18:00 65 15 139/36 97 Mechanical Ventilator 30 10/11/16 17:00 98.1 64 19 139/39 97 Mechanical Ventilator 30 10/11/16 16:37 69 16 30 10/11/16 16:00 63 19 139/41 96 Mechanical Ventilator 30 10/11/16 16:00 30 10/11/16 16:00 62 10/11/16 15:34 30 10/11/16 15:01 62 15 30 10/11/16 15:00 64 19 135/40 96 Mechanical Ventilator 30 10/11/16 14:01 64 13 142/31 98 Mechanical Ventilator 30 10/11/16 13:30 61 15 30 10/11/16 13:30 30 10/11/16 13:00 65 16 140/29 98 Mechanical Ventilator 30 10/11/16 12:00 61 10/11/16 12:00 97.2 61 17 146/26 95 Mechanical Ventilator 30 10/11/16 12:00 30 10/11/16 11:16 99 10/11/16 11:15 30 10/11/16 11:10 61 16 30 10/11/16 11:01 63 16 127/30 95 Mechanical Ventilator 30 Intake and Output 10/11/16 10/12/16 19:00 07:00 Intake Total 1403 ml 1316 ml Output Total 1878 ml 610 ml Balance -475 ml 706 ml Intake Free Water 100 ml 200 ml IV Total 703 ml 516 ml Tube Feeding 600 ml 600 ml Output Urine Total 1878 ml 610 ml Laboratory Tests 10/12/16 03:50: White Blood Count 10.4, Red Blood Count 3.63L, Hemoglobin 11.6L, Hematocrit 33.6L, Mean Corpuscular Volume 93, Mean Corpuscular Hemoglobin 32.0H, Mean Corpuscular Hemoglobin Concent 34.5, Red Cell Distribution Width 12.9, Platelet Count 92L, Mean Platelet Volume 9.9, Neutrophils (%) (Auto) , Lymphocytes (%) ( Auto) , Monocytes (%) (Auto) , Eosinophils (%) (Auto) , Basophils (%) (Auto) , Differential Total Cells Counted 100, Neutrophils % (Manual) 52, Lymphocytes % ( Manual) 17L, Monocytes % (Manual) 15H, Eosinophils % (Manual) 1, Basophils % ( Manual) 0, Metamyelocytes % 2H, Myelocytes % 4H, Band Neutrophils 9H, Platelet Estimate DecreasedL, Platelet Morphology Normal, Hypochromasia 1+, Sodium Level 137, Potassium Level 3.4, Chloride Level 102, Carbon Dioxide Level 24, Anion Gap 11, Blood Urea Nitrogen 19, Creatinine 0.7, Estimat Glomerular Filtration Rate , Glucose Level 112H, Calcium Level 7.9L, Phosphorus Level 3.0, Magnesium Level 1.8, Total Bilirubin 0.4, Aspartate Amino Transf (AST/SGOT) 19, Alanine Aminotransferase (ALT/SGPT) 16, Alkaline Phosphatase 52, Total Protein 4.7L, Albumin 1.7L, Globulin 3.0, Albumin/Globulin Ratio 0.5L 10/12/16 04:00: Arterial Blood pH 7.500H, Arterial Blood Partial Pressure CO2 37.0, Arterial Blood Partial Pressure O2 82.0, Arterial Blood HCO3 28.1H, Arterial Blood Oxygen Saturation 96.0, Arterial Blood Base Excess 4.9, Evan Test Positive 10/12/16 08:30: Urine Eosinophils None seen Height (Feet): 5 Height (Inches): 3.00 Weight (Pounds): 130 General Appearance: no apparent distress Cardiovascular: bradycardia Respiratory/Chest: decreased breath sounds Abdomen: soft Objective PE not changed MANPREET GERMNA Oct 12, 2016 10:50
--- NOTE | 2016-10-12 13:50 | Diagnostic Imaging Report ---
Indication: Dyspnea Comparison: 10/11/16 A single view chest radiograph was obtained. Findings: Retrocardiac density noted. Cardiac enlargement noted once again. Endotracheal tube position is satisfactory. Impression: Infiltrate versus atelectasis at the left lung base. No significant change.
--- NOTE | 2016-10-12 14:41 | Infectious Diseases Prog Note ---
Assessment/Plan Assessment/Plan ASSESSMENT: 86 y/o male with: // Probable PNA - SCx NRF, legionella UAg(-) - CXR 10/12: Infiltrate versus atelectasis at the left lung base. No significant change. - CT: Bilateral pulmonary lower lobe consolidation--atelectasis versus pneumonia - negative: influenza // Severe sepsis SP - improved lactic acidosis // Leukocytosis, bandemia - resolved // Fever - resolved // Acute VDRF - intubated 10/07, weaning // Possible diastolic CHF exacerbation - trop(-) x1, BNP >70K - TTE: EF 55-60%, mild AR, significant implied diastolic dysfunction - CXR: Pulmonary vascular redistribution. Bilateral interstitial prominence. Left costophrenic angle blunting suggests small pleural effusion // ARF ?CKD - improved // Advanced Alzheimer's dementia // NKDA // Full Code PLAN: - continue IV vancomycin, zosyn d# 6 / 7 - f/u final cultures - monitor CBC, temperatures - monitor BMP - monitor CXR - vent support, wean as tolerated Subjective Allergies: Coded Allergies: No Known Allergies (Unverified , 10/07/16) Subjective fevers, leukocytosis resolved. remains on vent Cx NGTD Objective Vital Signs Last 24 Hour Vital Signs Date Time Temp Pulse Resp B/P Pulse Ox O2 Delivery O2 Flow Rate FiO2 10/12/16 14:00 63 13 143/38 98 Mechanical Ventilator 30 10/12/16 13:00 65 22 129/29 96 Mechanical Ventilator 30 10/12/16 12:57 68 15 30 10/12/16 12:00 69 10/12/16 12:00 30 10/12/16 12:00 97.6 65 22 119/27 96 Mechanical Ventilator 30 10/12/16 11:00 65 22 137/27 97 Mechanical Ventilator 30 10/12/16 10:55 75 22 30 10/12/16 10:00 58 17 90/27 97 Mechanical Ventilator 30 10/12/16 09:12 69 12 30 10/12/16 09:00 55 25 117/27 96 Mechanical Ventilator 30 10/12/16 08:00 30 10/12/16 08:00 62 10/12/16 08:00 98.0 66 16 117/36 99 Mechanical Ventilator 30 10/12/16 07:00 61 16 156/47 100 Mechanical Ventilator 30 10/12/16 06:54 60 12 30 10/12/16 06:00 60 16 156/47 97 Mechanical Ventilator 30 10/12/16 05:22 60 12 30 10/12/16 05:00 97.4 61 16 124/52 97 Mechanical Ventilator 30 10/12/16 04:00 65 10/12/16 04:00 97.4 61 15 124/52 97 Mechanical Ventilator 30 10/12/16 04:00 30 10/12/16 03:10 75 12 30 10/12/16 03:00 61 15 124/52 97 Mechanical Ventilator 30 10/12/16 02:00 61 15 124/52 97 Mechanical Ventilator 30 10/12/16 01:19 59 12 30 10/12/16 01:00 60 15 126/52 97 Mechanical Ventilator 30 10/12/16 00:00 30 10/12/16 00:00 97.4 59 16 146/42 97 Mechanical Ventilator 30 10/12/16 00:00 64 10/11/16 23:00 66 18 140/39 97 Mechanical Ventilator 30 10/11/16 22:50 64 15 30 10/11/16 22:00 65 17 148/41 97 Mechanical Ventilator 30 10/11/16 21:00 62 16 155/35 97 Mechanical Ventilator 30 10/11/16 20:38 60 14 30 10/11/16 20:00 60 10/11/16 20:00 30 10/11/16 20:00 97.8 61 17 122/41 98 Mechanical Ventilator 30 10/11/16 19:01 61 14 30 10/11/16 19:00 64 16 141/38 97 Mechanical Ventilator 30 10/11/16 18:00 65 15 139/36 97 Mechanical Ventilator 30 10/11/16 17:00 98.1 64 19 139/39 97 Mechanical Ventilator 30 10/11/16 16:37 69 16 30 10/11/16 16:00 63 19 139/41 96 Mechanical Ventilator 30 10/11/16 16:00 30 10/11/16 16:00 62 10/11/16 15:34 30 10/11/16 15:01 62 15 30 10/11/16 15:00 64 19 135/40 96 Mechanical Ventilator 30 Height (Feet): 5 Height (Inches): 3.00 Weight (Pounds): 130 General Appearance: other - intubated Respiratory/Chest: decreased breath sounds Cardiovascular: normal rate, regular rhythm Abdomen: normal bowel sounds, soft, non tender, non distended Laboratory Tests Test 10/12/16 03:50 10/12/16 04:00 10/12/16 08:30 White Blood Count 10.4 K/UL (4.8-10.8) Red Blood Count 3.63 M/UL (4.70-6.10) L Hemoglobin 11.6 G/DL (14.2-18.0) L Hematocrit 33.6 % (42.0-52.0) L Mean Corpuscular Volume 93 FL (80-99) Mean Corpuscular Hemoglobin 32.0 PG (27.0-31.0) H Mean Corpuscular Hemoglobin Concent 34.5 G/DL (32.0-36.0) Red Cell Distribution Width 12.9 % (11.6-14.8) Platelet Count 92 K/UL (150-450) L Mean Platelet Volume 9.9 FL (6.5-10.1) Neutrophils (%) (Auto) % (45.0-75.0) Lymphocytes (%) (Auto) % (20.0-45.0) Monocytes (%) (Auto) % (1.0-10.0) Eosinophils (%) (Auto) % (0.0-3.0) Basophils (%) (Auto) % (0.0-2.0) Differential Total Cells Counted 100 Neutrophils % (Manual) 52 % (45-75) Lymphocytes % (Manual) 17 % (20-45) L Monocytes % (Manual) 15 % (1-10) H Eosinophils % (Manual) 1 % (0-3) Basophils % (Manual) 0 % (0-2) Metamyelocytes % 2 % (0-0) H Myelocytes % 4 % (0-0) H Band Neutrophils 9 % (0-8) H Platelet Estimate Decreased L Platelet Morphology Normal Hypochromasia 1+ Sodium Level 137 mEQ/L (135-145) Potassium Level 3.4 mEQ/L (3.4-4.9) Chloride Level 102 mEQ/L (98-107) Carbon Dioxide Level 24 mEQ/L (20-30) Anion Gap 11 (5-15) Blood Urea Nitrogen 19 mg/dL (7-23) Creatinine 0.7 mg/dL (0.7-1.2) Estimat Glomerular Filtration Rate mL/min (>60) Glucose Level 112 mg/dL (74-106) H Calcium Level 7.9 mg/dL (8.6-10.2) L Phosphorus Level 3.0 mg/dL (2.5-4.8) Magnesium Level 1.8 mg/dL (1.7-2.5) Total Bilirubin 0.4 mg/dL (0.0-1.2) Aspartate Amino Transf (AST/SGOT) 19 U/L (5-40) Alanine Aminotransferase (ALT/SGPT) 16 U/L (3-41) Alkaline Phosphatase 52 U/L (40-129) Total Protein 4.7 g/dL (6.6-8.7) L Albumin 1.7 g/dL (3.5-5.2) L Globulin 3.0 g/dL Albumin/Globulin Ratio 0.5 (1.0-2.7) L Arterial Blood pH 7.500 (7.350-7.450) Arterial Blood Partial Pressure CO2 37.0 mmHg (35.0-45.0) Arterial Blood Partial Pressure O2 82.0 mmHg (75.0-100.0) Arterial Blood HCO3 28.1 mmol/L (22.0-26.0) H Arterial Blood Oxygen Saturation 96.0 % (92.0-98.0) Arterial Blood Base Excess 4.9 Evan Test Positive Urine Eosinophils None seen Current Medications Medications (Trade) Dose Ordered Sig/Archie Route PRN Reason Start Time Stop Time Status Last Admin Dose Admin Acetaminophen (Tylenol) 650 mg Q4H PRN ORAL fever 10/07/16 13:00 11/06/16 12:59 Dextrose (Dextrose 50%) STAT PRN IV Hypoglycemia 10/07/16 13:00 11/06/16 12:59 Lorazepam (Ativan 2mg/ml 1ml) 2 mg Q4H PRN IV For Anxiety 10/07/16 13:00 10/14/16 12:59 10/07/16 20:26 Morphine Sulfate (Morphine Sulfate) 4 mg Q4H PRN IVP For Pain 10/07/16 13:00 10/14/16 12:59 10/09/16 18:24 Nitroglycerin (Ntg) 0.4 mg Q5M PRN SL Prn Chest Pain 10/07/16 13:00 11/06/16 12:59 Ondansetron HCl (Zofran) 4 mg Q6H PRN IVP Nausea & Vomiting 10/07/16 13:00 11/06/16 12:59 Pantoprazole (Protonix) 40 mg DAILY IV 10/08/16 09:00 11/07/16 08:59 10/12/16 09:16 Piperacillin Sod/ Tazobactam Sod 3.375 gm/Dextrose 100 ml @ 25 mls/hr Q8HR@0200,1000,1800 IVPB 10/10/16 18:00 10/13/16 23:59 10/12/16 09:16 Polyethylene Glycol (Miralax) 17 gm DAILYPRN PRN ORAL Constipation 10/07/16 13:00 11/06/16 12:59 10/08/16 00:14 Sodium Chloride 500 ml @ 999 mls/hr NEEDED PRN IV For hypotension (MAP <60%) 10/08/16 13:45 11/07/16 13:44 Valproic Acid 500 mg 500 mg Q12HR GT 10/08/16 09:00 11/06/16 20:59 10/12/16 09:14 Vancomycin HCl (Vanco rx to dose) 1 ea DAILY PRN MISC . 10/07/16 14:30 11/06/16 14:29 Vancomycin HCl/ Sodium Chloride (Vancomycin/ Sodium Chloride) 275 ml @ 183.708 mls/hr Q24H IVPB 10/11/16 21:00 10/13/16 23:59 10/11/16 21:08 EMILIA CAIN Oct 12, 2016 14:41
[2016-10-12] MEDS ORDERED: Succinylcholine 20mg/ml 10ml vial ONE (16:54)
[2016-10-12] MEDS ORDERED: Zemuron 50mg/5ml Inj IV ONE (16:54)
--- NOTE | 2016-10-12 19:52 | Cardiology Progress Note ---
Assessment/Plan Status: stable, unchanged Status Narrative Respiratory failure/ pneumonia - wBC improving, fever resolved CKD - renal parameters have normalized Hypotension has resolved ECHO w/ preserved LV function Pt not able to be weaned from the vent - apnea noted after short time on weaning trial Assessment/Plan Continue current supportive care. Will give lasix/ KCL suppl for mild vol overload. Repeat labs in am Further attempts at weaning per pulm/ Dr. Mcbride Subjective ROS Limited/Unobtainable: Yes Subjective intubated/ opens eyes to voice Events noted Objective Last 24 Hour Vital Signs Date Time Temp Pulse Resp B/P Pulse Ox O2 Delivery O2 Flow Rate FiO2 10/12/16 19:37 69 12 30 10/12/16 18:00 65 23 144/32 97 Mechanical Ventilator 30 10/12/16 17:00 68 27 146/36 96 Mechanical Ventilator 30 10/12/16 16:34 73 24 30 10/12/16 16:00 30 10/12/16 16:00 97.3 90 18 148/39 99 Mechanical Ventilator 30 10/12/16 16:00 97 10/12/16 15:00 65 13 152/32 96 Mechanical Ventilator 30 10/12/16 14:40 73 22 30 10/12/16 14:00 63 13 143/38 98 Mechanical Ventilator 30 10/12/16 13:00 65 22 129/29 96 Mechanical Ventilator 30 10/12/16 12:57 68 15 30 10/12/16 12:00 69 10/12/16 12:00 30 10/12/16 12:00 97.6 65 22 119/27 96 Mechanical Ventilator 30 10/12/16 11:00 65 22 137/27 97 Mechanical Ventilator 30 10/12/16 10:55 75 22 30 10/12/16 10:00 58 17 90/27 97 Mechanical Ventilator 30 10/12/16 09:12 69 12 30 10/12/16 09:00 55 25 117/27 96 Mechanical Ventilator 30 10/12/16 08:00 30 10/12/16 08:00 62 10/12/16 08:00 98.0 66 16 117/36 99 Mechanical Ventilator 30 10/12/16 07:00 61 16 156/47 100 Mechanical Ventilator 30 10/12/16 06:54 60 12 30 10/12/16 06:00 60 16 156/47 97 Mechanical Ventilator 30 10/12/16 05:22 60 12 30 10/12/16 05:00 97.4 61 16 124/52 97 Mechanical Ventilator 30 10/12/16 04:00 65 10/12/16 04:00 97.4 61 15 124/52 97 Mechanical Ventilator 30 10/12/16 04:00 30 10/12/16 03:10 75 12 30 10/12/16 03:00 61 15 124/52 97 Mechanical Ventilator 30 10/12/16 02:00 61 15 124/52 97 Mechanical Ventilator 30 10/12/16 01:19 59 12 30 10/12/16 01:00 60 15 126/52 97 Mechanical Ventilator 30 10/12/16 00:00 30 10/12/16 00:00 97.4 59 16 146/42 97 Mechanical Ventilator 30 10/12/16 00:00 64 10/11/16 23:00 66 18 140/39 97 Mechanical Ventilator 30 10/11/16 22:50 64 15 30 10/11/16 22:00 65 17 148/41 97 Mechanical Ventilator 30 10/11/16 21:00 62 16 155/35 97 Mechanical Ventilator 30 10/11/16 20:38 60 14 30 10/11/16 20:00 60 10/11/16 20:00 30 10/11/16 20:00 97.8 61 17 122/41 98 Mechanical Ventilator 30 General Appearance: WD/WN, lethargic, on vent EENT: other - et, og tubes in place Neck: supple Rhythm: NSR Cardiovascular: normal rate, regular rhythm, no gallop/murmur Respiratory/Chest: other - bilat scattered rhonchi Abdomen: non tender, soft Extremities: no swelling Intake and Output 10/11/16 10/12/16 19:00 07:00 Intake Total 1403 ml 1316 ml Output Total 1878 ml 610 ml Balance -475 ml 706 ml Intake Free Water 100 ml 200 ml IV Total 703 ml 516 ml Tube Feeding 600 ml 600 ml Output Urine Total 1878 ml 610 ml Laboratory Tests Test 10/12/16 03:50 10/12/16 04:00 10/12/16 08:30 White Blood Count 10.4 K/UL (4.8-10.8) Red Blood Count 3.63 M/UL (4.70-6.10) L Hemoglobin 11.6 G/DL (14.2-18.0) L Hematocrit 33.6 % (42.0-52.0) L Mean Corpuscular Volume 93 FL (80-99) Mean Corpuscular Hemoglobin 32.0 PG (27.0-31.0) H Mean Corpuscular Hemoglobin Concent 34.5 G/DL (32.0-36.0) Red Cell Distribution Width 12.9 % (11.6-14.8) Platelet Count 92 K/UL (150-450) L Mean Platelet Volume 9.9 FL (6.5-10.1) Neutrophils (%) (Auto) % (45.0-75.0) Lymphocytes (%) (Auto) % (20.0-45.0) Monocytes (%) (Auto) % (1.0-10.0) Eosinophils (%) (Auto) % (0.0-3.0) Basophils (%) (Auto) % (0.0-2.0) Differential Total Cells Counted 100 Neutrophils % (Manual) 52 % (45-75) Lymphocytes % (Manual) 17 % (20-45) L Monocytes % (Manual) 15 % (1-10) H Eosinophils % (Manual) 1 % (0-3) Basophils % (Manual) 0 % (0-2) Metamyelocytes % 2 % (0-0) H Myelocytes % 4 % (0-0) H Band Neutrophils 9 % (0-8) H Platelet Estimate Decreased L Platelet Morphology Normal Hypochromasia 1+ Sodium Level 137 mEQ/L (135-145) Potassium Level 3.4 mEQ/L (3.4-4.9) Chloride Level 102 mEQ/L (98-107) Carbon Dioxide Level 24 mEQ/L (20-30) Anion Gap 11 (5-15) Blood Urea Nitrogen 19 mg/dL (7-23) Creatinine 0.7 mg/dL (0.7-1.2) Estimat Glomerular Filtration Rate mL/min (>60) Glucose Level 112 mg/dL (74-106) H Calcium Level 7.9 mg/dL (8.6-10.2) L Phosphorus Level 3.0 mg/dL (2.5-4.8) Magnesium Level 1.8 mg/dL (1.7-2.5) Total Bilirubin 0.4 mg/dL (0.0-1.2) Aspartate Amino Transf (AST/SGOT) 19 U/L (5-40) Alanine Aminotransferase (ALT/SGPT) 16 U/L (3-41) Alkaline Phosphatase 52 U/L (40-129) Total Protein 4.7 g/dL (6.6-8.7) L Albumin 1.7 g/dL (3.5-5.2) L Globulin 3.0 g/dL Albumin/Globulin Ratio 0.5 (1.0-2.7) L Arterial Blood pH 7.500 (7.350-7.450) Arterial Blood Partial Pressure CO2 37.0 mmHg (35.0-45.0) Arterial Blood Partial Pressure O2 82.0 mmHg (75.0-100.0) Arterial Blood HCO3 28.1 mmol/L (22.0-26.0) H Arterial Blood Oxygen Saturation 96.0 % (92.0-98.0) Arterial Blood Base Excess 4.9 Evan Test Positive Urine Eosinophils None seen RIRI DILLARD Oct 12, 2016 19:52
[2016-10-12] MEDS ORDERED: KCl 10% 20 mEq/15ml liquid NG ONE (20:00)
[2016-10-12] MEDS: Vancomycin 1 GM in NS 275 ML IVPB SCH (21:47)
[2016-10-13] VITALS (24 sets, daily range): BP systolic 114–181; BP diastolic 33–67
[2016-10-13 05:15] LABS: MEAN CORPUSCULAR HEMOGLOBIN 31.8 PG (27.0-31.0); MEAN CORPUSCULAR HGB CONC 34.2 G/DL (32.0-36.0); MEAN CORPUSCULAR VOLUME 93 FL (80-99); MEAN PLATELET VOLUME 7.4 FL (6.5-10.1); PLATELET COUNT 91 K/UL (150-450); RED BLOOD COUNT 3.02 M/UL (4.70-6.10); RED CELL DISTRIBUTION WIDTH 13.4 % (11.6-14.8); WHITE BLOOD COUNT 11.7 K/UL (4.8-10.8)
[2016-10-13 05:34] LABS: ALANINE AMINOTRANSFERASE 18 U/L (3-41); ALBUMIN/GLOBULIN RATIO 0.6 (1.0-2.7); ANION GAP 8 (5-15); ASPARTATE AMINO TRANSFERASE 19 U/L (5-40); CARBON DIOXIDE 25 mEQ/L (20-30); CHLORIDE 109 mEQ/L (98-107); CREATININE 0.7 mg/dL (0.7-1.2); HEMOLYSIS 13; POTASSIUM 3.5 mEQ/L (3.4-4.9); SODIUM 142 mEQ/L (135-145); TOTAL PROTEIN 4.1 g/dL (6.6-8.7)
[2016-10-13 07:41] LABS: OTHERS PATHOLOGIST COMMENT
[2016-10-13 08:02] LABS: BAND NEUTROPHILS % (MANUAL) 7 % (0-8); EOSINOPHILS % (MANUAL) 6 % (0-3); LYMPHOCYTES % (MANUAL) 21 % (20-45); METAMYELOCYTES % 6 % (0-0); MYELOCYTES % 6 % (0-0); NEUTROPHILS % (MANUAL) 46 % (45-75); TOTAL CELLS COUNTED 100
[2016-10-13 08:03] LABS: BASOPHILS % (MANUAL) 0 % (0-2); PLATELET ESTIMATE DECREASED; PLATELET MORPHOLOGY NORMAL
[2016-10-13] MEDS: Pantoprazole Inj IV SCH (09:04)
[2016-10-13] MEDS: Valproic Acid 250mg/5ml Liquid GT SCH ×2 (09:05→20:47)
--- NOTE | 2016-10-13 09:20 | General Progress Note ---
Assessment/Plan Status: stable Assessment/Plan 1. Severe sepsis. 2. Healthcare-associated pneumonia. 3. Ventilator-dependent respiratory failure. 4. HF- Diastolic 5. ARF: likely secondary to #1 6, Acute Anemia 5. Dementia. 6. Hyperlipidemia. 7. DNR Pulmonary, ID, Nephrology and cardiology notes are reviewed continue with current management weaning trial per pulmonary Subjective ROS Limited/Unobtainable: Yes - Entubated, on Vent Allergies: Coded Allergies: No Known Allergies (Unverified , 10/07/16) Objective Last 24 Hour Vital Signs Date Time Temp Pulse Resp B/P Pulse Ox O2 Delivery O2 Flow Rate FiO2 10/13/16 09:00 67 26 117/44 95 Mechanical Ventilator 30 10/13/16 08:00 30 10/13/16 08:00 60 10/13/16 08:00 97.2 60 25 133/45 100 Mechanical Ventilator 30 10/13/16 07:00 72 25 156/49 98 Mechanical Ventilator 30 10/13/16 06:55 70 14 30 10/13/16 06:00 70 22 181/34 97 Mechanical Ventilator 30 10/13/16 05:00 64 22 136/35 97 Mechanical Ventilator 30 10/13/16 04:50 63 10 30 10/13/16 04:00 30 10/13/16 04:00 97.2 65 23 136/35 97 Mechanical Ventilator 30 10/13/16 04:00 64 10/13/16 03:00 68 20 132/67 97 Mechanical Ventilator 30 10/13/16 02:45 70 17 30 10/13/16 02:00 70 20 142/41 97 Mechanical Ventilator 30 10/13/16 01:06 72 17 30 10/13/16 01:00 69 23 137/33 97 Mechanical Ventilator 30 10/13/16 00:00 97.4 74 23 134/34 96 Mechanical Ventilator 30 10/13/16 00:00 74 10/13/16 00:00 30 10/12/16 23:00 74 18 144/32 99 Mechanical Ventilator 30 10/12/16 22:54 75 13 30 10/12/16 22:00 81 18 136/25 99 Mechanical Ventilator 30 10/12/16 21:00 71 18 123/74 97 Mechanical Ventilator 30 10/12/16 20:30 72 24 30 10/12/16 20:00 97.6 72 24 147/31 96 Mechanical Ventilator 30 10/12/16 20:00 30 10/12/16 20:00 71 10/12/16 19:10 69 12 30 10/12/16 19:00 68 22 149/34 97 Mechanical Ventilator 30 10/12/16 18:00 65 23 144/32 97 Mechanical Ventilator 30 10/12/16 17:00 68 27 146/36 96 Mechanical Ventilator 30 10/12/16 16:34 73 24 30 10/12/16 16:00 30 10/12/16 16:00 97.3 90 18 148/39 99 Mechanical Ventilator 30 10/12/16 16:00 97 10/12/16 15:00 65 13 152/32 96 Mechanical Ventilator 30 10/12/16 14:40 73 22 30 10/12/16 14:00 63 13 143/38 98 Mechanical Ventilator 30 10/12/16 13:00 65 22 129/29 96 Mechanical Ventilator 30 10/12/16 12:57 68 15 30 10/12/16 12:00 69 10/12/16 12:00 30 10/12/16 12:00 97.6 65 22 119/27 96 Mechanical Ventilator 30 10/12/16 11:00 65 22 137/27 97 Mechanical Ventilator 30 10/12/16 10:55 75 22 30 10/12/16 10:00 58 17 90/27 97 Mechanical Ventilator 30 Intake and Output 10/12/16 10/13/16 19:00 07:00 Intake Total 945 ml 1108.7 ml Output Total 345 ml 1130 ml Balance 600 ml -21.3 ml Intake Free Water 160 ml 150 ml IV Total 150 ml 358.7 ml Tube Feeding 600 ml 600 ml Other 35 ml Output Urine Total 345 ml 1130 ml Laboratory Tests 10/12/16 20:20: Vancomycin Level Trough 14.0H 10/13/16 04:56: White Blood Count 11.7H, Red Blood Count 3.02L, Hemoglobin 9.6L, Hematocrit 28.1L, Mean Corpuscular Volume 93, Mean Corpuscular Hemoglobin 31.8H, Mean Corpuscular Hemoglobin Concent 34.2, Red Cell Distribution Width 13.4, Platelet Count 91L, Mean Platelet Volume 7.4, Neutrophils (%) (Auto) , Lymphocytes (%) ( Auto) , Monocytes (%) (Auto) , Eosinophils (%) (Auto) , Basophils (%) (Auto) , Differential Total Cells Counted 100, Neutrophils % (Manual) 46, Lymphocytes % ( Manual) 21, Monocytes % (Manual) 8, Eosinophils % (Manual) 6H, Basophils % ( Manual) 0, Metamyelocytes % 6H, Myelocytes % 6H, Band Neutrophils 7, Platelet Estimate DecreasedL, Platelet Morphology Normal, Red Blood Cell Morphology Normal, Sodium Level 142, Potassium Level 3.5, Chloride Level 109H, Carbon Dioxide Level 25, Anion Gap 8, Blood Urea Nitrogen 17, Creatinine 0.7, Estimat Glomerular Filtration Rate , Glucose Level 74, Calcium Level 7.0L, Total Bilirubin 0.4, Aspartate Amino Transf (AST/SGOT) 19, Alanine Aminotransferase ( ALT/SGPT) 18, Alkaline Phosphatase 39L, Total Protein 4.1L, Albumin 1.6L, Globulin 2.5, Albumin/Globulin Ratio 0.6L Height (Feet): 5 Height (Inches): 3.00 Weight (Pounds): 130 General Appearance: no apparent distress, other - Entubated. Appears comfortable EENT: PERRL/EOMI Neck: supple Cardiovascular: normal rate Respiratory/Chest: rhonchi - bilaterally Abdomen: soft Extremities: other - limited eval Neurologic: other - awake. limited following the commands Margaret Jc MD Oct 13, 2016 09:20
--- NOTE | 2016-10-13 10:22 | Pulmonolgy Critical Care Note ---
Critical Care - Asmt/Plan Problems: (1) Respiratory failure, acute Assessment & Plan: failed weaning yesterday, will try today again (2) Pneumonia (3) ATN (acute tubular necrosis) (4) History of hypertension (5) Dementia Respiratory: monitor respiratory rate, adjust FIO2, weaning trial Cardiac: continue to monitor HR/BP Renal: F/U I&O, check electrolytes Infectious Disease: check cultures, continue antibiotics Gastrointestinal: continue feedings/current rate Endocrine: monitor blood sugar Hematologic: monitor H/H, transfuse if hgb<8.5 Neurologic: PRN Ativan, PRN Morphine, keep patient comfortable Affect: PRN ativan Prophylaxis: Protonix Time Spent (Minutes): 40 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, 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 Discussed with: nurses, consultants, casework supervisorreports analysis manager - Objective Last 24 Hour Vital Signs Date Time Temp Pulse Resp B/P Pulse Ox O2 Delivery O2 Flow Rate FiO2 10/13/16 09:00 58 10 30 10/13/16 09:00 96 10/13/16 09:00 67 26 117/44 95 Mechanical Ventilator 30 10/13/16 08:00 30 10/13/16 08:00 60 10/13/16 08:00 97.2 60 25 133/45 100 Mechanical Ventilator 30 10/13/16 07:00 72 25 156/49 98 Mechanical Ventilator 30 10/13/16 06:55 70 14 30 10/13/16 06:00 70 22 181/34 97 Mechanical Ventilator 30 10/13/16 05:00 64 22 136/35 97 Mechanical Ventilator 30 10/13/16 04:50 63 10 30 10/13/16 04:00 30 10/13/16 04:00 97.2 65 23 136/35 97 Mechanical Ventilator 30 10/13/16 04:00 64 10/13/16 03:00 68 20 132/67 97 Mechanical Ventilator 30 10/13/16 02:45 70 17 30 10/13/16 02:00 70 20 142/41 97 Mechanical Ventilator 30 10/13/16 01:06 72 17 30 10/13/16 01:00 69 23 137/33 97 Mechanical Ventilator 30 10/13/16 00:00 97.4 74 23 134/34 96 Mechanical Ventilator 30 10/13/16 00:00 74 10/13/16 00:00 30 10/12/16 23:00 74 18 144/32 99 Mechanical Ventilator 30 10/12/16 22:54 75 13 30 10/12/16 22:00 81 18 136/25 99 Mechanical Ventilator 30 10/12/16 21:00 71 18 123/74 97 Mechanical Ventilator 30 10/12/16 20:30 72 24 30 10/12/16 20:00 97.6 72 24 147/31 96 Mechanical Ventilator 30 10/12/16 20:00 30 10/12/16 20:00 71 10/12/16 19:10 69 12 30 10/12/16 19:00 68 22 149/34 97 Mechanical Ventilator 30 10/12/16 18:00 65 23 144/32 97 Mechanical Ventilator 30 10/12/16 17:00 68 27 146/36 96 Mechanical Ventilator 30 10/12/16 16:34 73 24 30 10/12/16 16:00 30 10/12/16 16:00 97.3 90 18 148/39 99 Mechanical Ventilator 30 10/12/16 16:00 97 10/12/16 15:00 65 13 152/32 96 Mechanical Ventilator 30 10/12/16 14:40 73 22 30 10/12/16 14:00 63 13 143/38 98 Mechanical Ventilator 30 10/12/16 13:00 65 22 129/29 96 Mechanical Ventilator 30 10/12/16 12:57 68 15 30 10/12/16 12:00 69 10/12/16 12:00 30 10/12/16 12:00 97.6 65 22 119/27 96 Mechanical Ventilator 30 10/12/16 11:00 65 22 137/27 97 Mechanical Ventilator 30 10/12/16 10:55 75 22 30 Status: awake HEENT: atraumatic, normocephalic Lungs: clear, chest wall tender Heart: HR/BP stable, regular Abdomen: soft Decubiti: location Accucheck: 81 Critical Care - Subjective ROS Limited/Unobtainable: No ICU Day: 7 Intubation Day: 7 Condition: critical EKG Rhythm: Sinus Rhythm FI02: 30 Vent Support Breath Rate: 10 Vent Support Mode: IMV/SIMV Vent Tidal Volume: 600 Sputum Amount: Small PEEP: 5.0 PIP: 24 Fluids: kvo Tube Feeding Amount: 50 I&O: Intake and Output 10/12/16 10/13/16 19:00 07:00 Intake Total 945 ml 1108.7 ml Output Total 345 ml 1130 ml Balance 600 ml -21.3 ml Intake Free Water 160 ml 150 ml IV Total 150 ml 358.7 ml Tube Feeding 600 ml 600 ml Other 35 ml Output Urine Total 345 ml 1130 ml CXR: no change, et in good position ET-Tube: 8.0 ET Position: 23 Labs: Laboratory Tests Test 10/12/16 20:20 10/13/16 04:56 Vancomycin Level Trough 14.0 ug/mL (5.0-12.0) H White Blood Count 11.7 K/UL (4.8-10.8) H Red Blood Count 3.02 M/UL (4.70-6.10) L Hemoglobin 9.6 G/DL (14.2-18.0) L Hematocrit 28.1 % (42.0-52.0) L Mean Corpuscular Volume 93 FL (80-99) Mean Corpuscular Hemoglobin 31.8 PG (27.0-31.0) H Mean Corpuscular Hemoglobin Concent 34.2 G/DL (32.0-36.0) Red Cell Distribution Width 13.4 % (11.6-14.8) Platelet Count 91 K/UL (150-450) L Mean Platelet Volume 7.4 FL (6.5-10.1) Neutrophils (%) (Auto) % (45.0-75.0) Lymphocytes (%) (Auto) % (20.0-45.0) Monocytes (%) (Auto) % (1.0-10.0) Eosinophils (%) (Auto) % (0.0-3.0) Basophils (%) (Auto) % (0.0-2.0) Differential Total Cells Counted 100 Neutrophils % (Manual) 46 % (45-75) Lymphocytes % (Manual) 21 % (20-45) Monocytes % (Manual) 8 % (1-10) Eosinophils % (Manual) 6 % (0-3) H Basophils % (Manual) 0 % (0-2) Metamyelocytes % 6 % (0-0) H Myelocytes % 6 % (0-0) H Band Neutrophils 7 % (0-8) Platelet Estimate Decreased L Platelet Morphology Normal Red Blood Cell Morphology Normal Sodium Level 142 mEQ/L (135-145) Potassium Level 3.5 mEQ/L (3.4-4.9) Chloride Level 109 mEQ/L (98-107) H Carbon Dioxide Level 25 mEQ/L (20-30) Anion Gap 8 (5-15) Blood Urea Nitrogen 17 mg/dL (7-23) Creatinine 0.7 mg/dL (0.7-1.2) Estimat Glomerular Filtration Rate mL/min (>60) Glucose Level 74 mg/dL (74-106) Calcium Level 7.0 mg/dL (8.6-10.2) L Total Bilirubin 0.4 mg/dL (0.0-1.2) Aspartate Amino Transf (AST/SGOT) 19 U/L (5-40) Alanine Aminotransferase (ALT/SGPT) 18 U/L (3-41) Alkaline Phosphatase 39 U/L (40-129) L Total Protein 4.1 g/dL (6.6-8.7) L Albumin 1.6 g/dL (3.5-5.2) L Globulin 2.5 g/dL Albumin/Globulin Ratio 0.6 (1.0-2.7) L HERMINIO DIXON Oct 13, 2016 10:22
--- NOTE | 2016-10-13 11:44 | Cardiology Progress Note ---
Assessment/Plan Status: stable, progressing Status Narrative Respiratory failure/ pneumonia -clinically improved. CXR w L base atelectasis vs infiltrate and cardiomegaly CKD - renal parameters have normalized Hypotension has resolved ECHO w/ preserved LV systolic function - poss diastolic dysfunction Remains vent dependent Assessment/Plan Continue current supportive care. will give addl iv lasix today and kcl supplement. Continue iv antibiotics for pneumonia NG tube feeds Attempt to wean/extubate per pulm Subjective Subjective Intublateopens eyes to voice Events noted remains intubated/ more alert, attempting to speak Objective Last 24 Hour Vital Signs Date Time Temp Pulse Resp B/P Pulse Ox O2 Delivery O2 Flow Rate FiO2 10/13/16 10:50 58 9 30 10/13/16 10:00 55 26 128/40 95 Mechanical Ventilator 30 10/13/16 09:00 58 10 30 10/13/16 09:00 96 10/13/16 09:00 67 26 117/44 95 Mechanical Ventilator 30 10/13/16 08:00 30 10/13/16 08:00 60 10/13/16 08:00 97.2 60 25 133/45 100 Mechanical Ventilator 30 10/13/16 07:00 72 25 156/49 98 Mechanical Ventilator 30 10/13/16 06:55 70 14 30 10/13/16 06:00 70 22 181/34 97 Mechanical Ventilator 30 10/13/16 05:00 64 22 136/35 97 Mechanical Ventilator 30 10/13/16 04:50 63 10 30 10/13/16 04:00 30 10/13/16 04:00 97.2 65 23 136/35 97 Mechanical Ventilator 30 10/13/16 04:00 64 10/13/16 03:00 68 20 132/67 97 Mechanical Ventilator 30 10/13/16 02:45 70 17 30 10/13/16 02:00 70 20 142/41 97 Mechanical Ventilator 30 10/13/16 01:06 72 17 30 10/13/16 01:00 69 23 137/33 97 Mechanical Ventilator 30 10/13/16 00:00 97.4 74 23 134/34 96 Mechanical Ventilator 30 10/13/16 00:00 74 10/13/16 00:00 30 10/12/16 23:00 74 18 144/32 99 Mechanical Ventilator 30 10/12/16 22:54 75 13 30 10/12/16 22:00 81 18 136/25 99 Mechanical Ventilator 30 10/12/16 21:00 71 18 123/74 97 Mechanical Ventilator 30 10/12/16 20:30 72 24 30 10/12/16 20:00 97.6 72 24 147/31 96 Mechanical Ventilator 30 10/12/16 20:00 30 10/12/16 20:00 71 10/12/16 19:10 69 12 30 10/12/16 19:00 68 22 149/34 97 Mechanical Ventilator 30 10/12/16 18:00 65 23 144/32 97 Mechanical Ventilator 30 10/12/16 17:00 68 27 146/36 96 Mechanical Ventilator 30 10/12/16 16:34 73 24 30 10/12/16 16:00 30 10/12/16 16:00 97.3 90 18 148/39 99 Mechanical Ventilator 30 10/12/16 16:00 97 10/12/16 15:00 65 13 152/32 96 Mechanical Ventilator 30 10/12/16 14:40 73 22 30 10/12/16 14:00 63 13 143/38 98 Mechanical Ventilator 30 10/12/16 13:00 65 22 129/29 96 Mechanical Ventilator 30 10/12/16 12:57 68 15 30 10/12/16 12:00 69 10/12/16 12:00 30 10/12/16 12:00 97.6 65 22 119/27 96 Mechanical Ventilator 30 General Appearance: WD/WN, alert, on vent EENT: PERRL/EOMI, other - et tube in place Neck: supple, no JVD Rhythm: NSR Cardiovascular: normal rate, regular rhythm, no gallop/murmur Respiratory/Chest: rhonchi - bilaterally, other - scattered rhonchi and transm upper airway sounds Abdomen: normal bowel sounds, soft - mild distension Extremities: no swelling Intake and Output 10/12/16 10/13/16 19:00 07:00 Intake Total 945 ml 1108.7 ml Output Total 345 ml 1130 ml Balance 600 ml -21.3 ml Intake Free Water 160 ml 150 ml IV Total 150 ml 358.7 ml Tube Feeding 600 ml 600 ml Other 35 ml Output Urine Total 345 ml 1130 ml Laboratory Tests Test 10/12/16 20:20 10/13/16 04:56 Vancomycin Level Trough 14.0 ug/mL (5.0-12.0) H White Blood Count 11.7 K/UL (4.8-10.8) H Red Blood Count 3.02 M/UL (4.70-6.10) L Hemoglobin 9.6 G/DL (14.2-18.0) L Hematocrit 28.1 % (42.0-52.0) L Mean Corpuscular Volume 93 FL (80-99) Mean Corpuscular Hemoglobin 31.8 PG (27.0-31.0) H Mean Corpuscular Hemoglobin Concent 34.2 G/DL (32.0-36.0) Red Cell Distribution Width 13.4 % (11.6-14.8) Platelet Count 91 K/UL (150-450) L Mean Platelet Volume 7.4 FL (6.5-10.1) Neutrophils (%) (Auto) % (45.0-75.0) Lymphocytes (%) (Auto) % (20.0-45.0) Monocytes (%) (Auto) % (1.0-10.0) Eosinophils (%) (Auto) % (0.0-3.0) Basophils (%) (Auto) % (0.0-2.0) Differential Total Cells Counted 100 Neutrophils % (Manual) 46 % (45-75) Lymphocytes % (Manual) 21 % (20-45) Monocytes % (Manual) 8 % (1-10) Eosinophils % (Manual) 6 % (0-3) H Basophils % (Manual) 0 % (0-2) Metamyelocytes % 6 % (0-0) H Myelocytes % 6 % (0-0) H Band Neutrophils 7 % (0-8) Platelet Estimate Decreased L Platelet Morphology Normal Red Blood Cell Morphology Normal Sodium Level 142 mEQ/L (135-145) Potassium Level 3.5 mEQ/L (3.4-4.9) Chloride Level 109 mEQ/L (98-107) H Carbon Dioxide Level 25 mEQ/L (20-30) Anion Gap 8 (5-15) Blood Urea Nitrogen 17 mg/dL (7-23) Creatinine 0.7 mg/dL (0.7-1.2) Estimat Glomerular Filtration Rate mL/min (>60) Glucose Level 74 mg/dL (74-106) Calcium Level 7.0 mg/dL (8.6-10.2) L Total Bilirubin 0.4 mg/dL (0.0-1.2) Aspartate Amino Transf (AST/SGOT) 19 U/L (5-40) Alanine Aminotransferase (ALT/SGPT) 18 U/L (3-41) Alkaline Phosphatase 39 U/L (40-129) L Total Protein 4.1 g/dL (6.6-8.7) L Albumin 1.6 g/dL (3.5-5.2) L Globulin 2.5 g/dL Albumin/Globulin Ratio 0.6 (1.0-2.7) L RIRI DILLARD Oct 13, 2016 11:44
[2016-10-13] MEDS ORDERED: KCl 10% 20 mEq/15ml liquid NG ONE (12:30)
--- NOTE | 2016-10-13 12:35 | Diagnostic Imaging Report ---
Indication: Dyspnea Comparison: 10/12/16 A single view chest radiograph was obtained. Findings: Left basilar infiltrate versus atelectasis demonstrated. Tubes are stable and satisfactory in position. Impression: No significant change in one day
--- NOTE | 2016-10-13 12:55 | General Progress Note ---
Assessment/Plan Status: stable - from renal stand point, unchanged Assessment/Plan Status: 1. Severe sepsis. leading to acute renal failure- and respiratory failure- 2. Healthcare-associated pneumonia. 3. Ventilator-dependent respiratory failure. 4. Hypertension. 5. Dementia. Alzheimer's dementia. 6. Hyperlipidemia. 7. Psychiatric disorder. 8. h/o Gallstones. 9. h/o Diverticulosis. 10.h/o BPH. Plan: K Phos IV as needed Vent support- Antibiotics- Monitor renal parameters- Urine studies- Subjective ROS Limited/Unobtainable: Yes Allergies: Coded Allergies: No Known Allergies (Unverified , 10/07/16) Objective Last 24 Hour Vital Signs Date Time Temp Pulse Resp B/P Pulse Ox O2 Delivery O2 Flow Rate FiO2 10/13/16 12:00 98.1 69 26 136/51 95 Mechanical Ventilator 30 10/13/16 12:00 30 10/13/16 12:00 64 10/13/16 11:00 61 26 134/50 95 Mechanical Ventilator 30 10/13/16 10:50 58 9 30 10/13/16 10:00 55 26 128/40 95 Mechanical Ventilator 30 10/13/16 09:00 58 10 30 10/13/16 09:00 96 10/13/16 09:00 67 26 117/44 95 Mechanical Ventilator 30 10/13/16 08:00 30 10/13/16 08:00 60 10/13/16 08:00 97.2 60 25 133/45 100 Mechanical Ventilator 30 10/13/16 07:00 72 25 156/49 98 Mechanical Ventilator 30 10/13/16 06:55 70 14 30 10/13/16 06:00 70 22 181/34 97 Mechanical Ventilator 30 10/13/16 05:00 64 22 136/35 97 Mechanical Ventilator 30 10/13/16 04:50 63 10 30 10/13/16 04:00 30 10/13/16 04:00 97.2 65 23 136/35 97 Mechanical Ventilator 30 10/13/16 04:00 64 10/13/16 03:00 68 20 132/67 97 Mechanical Ventilator 30 10/13/16 02:45 70 17 30 10/13/16 02:00 70 20 142/41 97 Mechanical Ventilator 30 10/13/16 01:06 72 17 30 10/13/16 01:00 69 23 137/33 97 Mechanical Ventilator 30 10/13/16 00:00 97.4 74 23 134/34 96 Mechanical Ventilator 30 10/13/16 00:00 74 10/13/16 00:00 30 10/12/16 23:00 74 18 144/32 99 Mechanical Ventilator 30 10/12/16 22:54 75 13 30 10/12/16 22:00 81 18 136/25 99 Mechanical Ventilator 30 10/12/16 21:00 71 18 123/74 97 Mechanical Ventilator 30 10/12/16 20:30 72 24 30 10/12/16 20:00 97.6 72 24 147/31 96 Mechanical Ventilator 30 10/12/16 20:00 30 10/12/16 20:00 71 10/12/16 19:10 69 12 30 10/12/16 19:00 68 22 149/34 97 Mechanical Ventilator 30 10/12/16 18:00 65 23 144/32 97 Mechanical Ventilator 30 10/12/16 17:00 68 27 146/36 96 Mechanical Ventilator 30 10/12/16 16:34 73 24 30 10/12/16 16:00 30 10/12/16 16:00 97.3 90 18 148/39 99 Mechanical Ventilator 30 10/12/16 16:00 97 10/12/16 15:00 65 13 152/32 96 Mechanical Ventilator 30 10/12/16 14:40 73 22 30 10/12/16 14:00 63 13 143/38 98 Mechanical Ventilator 30 10/12/16 13:00 65 22 129/29 96 Mechanical Ventilator 30 10/12/16 12:57 68 15 30 Intake and Output 10/12/16 10/13/16 19:00 07:00 Intake Total 945 ml 1108.7 ml Output Total 345 ml 1130 ml Balance 600 ml -21.3 ml Intake Free Water 160 ml 150 ml IV Total 150 ml 358.7 ml Tube Feeding 600 ml 600 ml Other 35 ml Output Urine Total 345 ml 1130 ml Laboratory Tests 10/12/16 20:20: Vancomycin Level Trough 14.0H 10/13/16 04:56: White Blood Count 11.7H, Red Blood Count 3.02L, Hemoglobin 9.6L, Hematocrit 28.1L, Mean Corpuscular Volume 93, Mean Corpuscular Hemoglobin 31.8H, Mean Corpuscular Hemoglobin Concent 34.2, Red Cell Distribution Width 13.4, Platelet Count 91L, Mean Platelet Volume 7.4, Neutrophils (%) (Auto) , Lymphocytes (%) ( Auto) , Monocytes (%) (Auto) , Eosinophils (%) (Auto) , Basophils (%) (Auto) , Differential Total Cells Counted 100, Neutrophils % (Manual) 46, Lymphocytes % ( Manual) 21, Monocytes % (Manual) 8, Eosinophils % (Manual) 6H, Basophils % ( Manual) 0, Metamyelocytes % 6H, Myelocytes % 6H, Band Neutrophils 7, Platelet Estimate DecreasedL, Platelet Morphology Normal, Red Blood Cell Morphology Normal, Sodium Level 142, Potassium Level 3.5, Chloride Level 109H, Carbon Dioxide Level 25, Anion Gap 8, Blood Urea Nitrogen 17, Creatinine 0.7, Estimat Glomerular Filtration Rate , Glucose Level 74, Calcium Level 7.0L, Total Bilirubin 0.4, Aspartate Amino Transf (AST/SGOT) 19, Alanine Aminotransferase ( ALT/SGPT) 18, Alkaline Phosphatase 39L, Total Protein 4.1L, Albumin 1.6L, Globulin 2.5, Albumin/Globulin Ratio 0.6L Height (Feet): 5 Height (Inches): 3.00 Weight (Pounds): 130 General Appearance: no apparent distress Objective PE not changed MANPREET GERMAN Oct 13, 2016 12:55
--- NOTE | 2016-10-13 15:28 | Infectious Diseases Prog Note ---
Assessment/Plan Assessment/Plan ASSESSMENT: 86 y/o male with: // Probable PNA - SCx NRF, legionella UAg(-) - CXR 10/13: Infiltrate versus atelectasis at the left lung base. No significant change. - CT: Bilateral pulmonary lower lobe consolidation--atelectasis versus pneumonia - negative: influenza // Severe sepsis SP - improved lactic acidosis // Leukocytosis, bandemia - recurrent, mild // Fever - resolved // Acute VDRF - intubated 10/07, weaning // Possible diastolic CHF exacerbation - trop(-) x1, BNP >70K - TTE: EF 55-60%, mild AR, significant implied diastolic dysfunction - CXR: Pulmonary vascular redistribution. Bilateral interstitial prominence. Left costophrenic angle blunting suggests small pleural effusion // ARF ?CKD - improved // Advanced Alzheimer's dementia // NKDA // Full Code PLAN: - finishes IV vancomycin, zosyn d# today. Monitor pt off of ABX for now - monitor CBC, temperatures, re-culture if febrile or worsening leukocytosis - monitor BMP - monitor CXR - vent support, wean as tolerated Subjective Allergies: Coded Allergies: No Known Allergies (Unverified , 10/07/16) Subjective remains afebrile on vent. recurrent mild leukocytosis Cx NGTD Objective Vital Signs Last 24 Hour Vital Signs Date Time Temp Pulse Resp B/P Pulse Ox O2 Delivery O2 Flow Rate FiO2 10/13/16 15:00 73 23 130/45 94 Mechanical Ventilator 30 10/13/16 14:55 73 15 30 10/13/16 14:00 74 23 117/41 94 Mechanical Ventilator 30 10/13/16 13:00 72 12 30 10/13/16 13:00 71 23 119/42 96 Mechanical Ventilator 30 10/13/16 12:00 98.1 69 26 136/51 95 Mechanical Ventilator 30 10/13/16 12:00 30 10/13/16 12:00 64 10/13/16 11:00 61 26 134/50 95 Mechanical Ventilator 30 10/13/16 10:50 58 9 30 10/13/16 10:00 55 26 128/40 95 Mechanical Ventilator 30 10/13/16 09:00 58 10 30 10/13/16 09:00 96 10/13/16 09:00 67 26 117/44 95 Mechanical Ventilator 30 10/13/16 08:00 30 10/13/16 08:00 60 10/13/16 08:00 97.2 60 25 133/45 100 Mechanical Ventilator 30 10/13/16 07:00 72 25 156/49 98 Mechanical Ventilator 30 10/13/16 06:55 70 14 30 10/13/16 06:00 70 22 181/34 97 Mechanical Ventilator 30 10/13/16 05:00 64 22 136/35 97 Mechanical Ventilator 30 10/13/16 04:50 63 10 30 10/13/16 04:00 30 10/13/16 04:00 97.2 65 23 136/35 97 Mechanical Ventilator 30 10/13/16 04:00 64 10/13/16 03:00 68 20 132/67 97 Mechanical Ventilator 30 10/13/16 02:45 70 17 30 10/13/16 02:00 70 20 142/41 97 Mechanical Ventilator 30 10/13/16 01:06 72 17 30 10/13/16 01:00 69 23 137/33 97 Mechanical Ventilator 30 10/13/16 00:00 97.4 74 23 134/34 96 Mechanical Ventilator 30 10/13/16 00:00 74 10/13/16 00:00 30 10/12/16 23:00 74 18 144/32 99 Mechanical Ventilator 30 10/12/16 22:54 75 13 30 10/12/16 22:00 81 18 136/25 99 Mechanical Ventilator 30 10/12/16 21:00 71 18 123/74 97 Mechanical Ventilator 30 10/12/16 20:30 72 24 30 10/12/16 20:00 97.6 72 24 147/31 96 Mechanical Ventilator 30 10/12/16 20:00 30 10/12/16 20:00 71 10/12/16 19:10 69 12 30 10/12/16 19:00 68 22 149/34 97 Mechanical Ventilator 30 10/12/16 18:00 65 23 144/32 97 Mechanical Ventilator 30 10/12/16 17:00 68 27 146/36 96 Mechanical Ventilator 30 10/12/16 16:34 73 24 30 10/12/16 16:00 30 10/12/16 16:00 97.3 90 18 148/39 99 Mechanical Ventilator 30 10/12/16 16:00 97 Height (Feet): 5 Height (Inches): 3.00 Weight (Pounds): 130 General Appearance: other - intubated Respiratory/Chest: decreased breath sounds Cardiovascular: normal rate, regular rhythm Abdomen: normal bowel sounds, soft, non tender, non distended Laboratory Tests Test 10/12/16 20:20 10/13/16 04:56 Vancomycin Level Trough 14.0 ug/mL (5.0-12.0) H White Blood Count 11.7 K/UL (4.8-10.8) H Red Blood Count 3.02 M/UL (4.70-6.10) L Hemoglobin 9.6 G/DL (14.2-18.0) L Hematocrit 28.1 % (42.0-52.0) L Mean Corpuscular Volume 93 FL (80-99) Mean Corpuscular Hemoglobin 31.8 PG (27.0-31.0) H Mean Corpuscular Hemoglobin Concent 34.2 G/DL (32.0-36.0) Red Cell Distribution Width 13.4 % (11.6-14.8) Platelet Count 91 K/UL (150-450) L Mean Platelet Volume 7.4 FL (6.5-10.1) Neutrophils (%) (Auto) % (45.0-75.0) Lymphocytes (%) (Auto) % (20.0-45.0) Monocytes (%) (Auto) % (1.0-10.0) Eosinophils (%) (Auto) % (0.0-3.0) Basophils (%) (Auto) % (0.0-2.0) Differential Total Cells Counted 100 Neutrophils % (Manual) 46 % (45-75) Lymphocytes % (Manual) 21 % (20-45) Monocytes % (Manual) 8 % (1-10) Eosinophils % (Manual) 6 % (0-3) H Basophils % (Manual) 0 % (0-2) Metamyelocytes % 6 % (0-0) H Myelocytes % 6 % (0-0) H Band Neutrophils 7 % (0-8) Platelet Estimate Decreased L Platelet Morphology Normal Red Blood Cell Morphology Normal Sodium Level 142 mEQ/L (135-145) Potassium Level 3.5 mEQ/L (3.4-4.9) Chloride Level 109 mEQ/L (98-107) H Carbon Dioxide Level 25 mEQ/L (20-30) Anion Gap 8 (5-15) Blood Urea Nitrogen 17 mg/dL (7-23) Creatinine 0.7 mg/dL (0.7-1.2) Estimat Glomerular Filtration Rate mL/min (>60) Glucose Level 74 mg/dL (74-106) Calcium Level 7.0 mg/dL (8.6-10.2) L Total Bilirubin 0.4 mg/dL (0.0-1.2) Aspartate Amino Transf (AST/SGOT) 19 U/L (5-40) Alanine Aminotransferase (ALT/SGPT) 18 U/L (3-41) Alkaline Phosphatase 39 U/L (40-129) L Total Protein 4.1 g/dL (6.6-8.7) L Albumin 1.6 g/dL (3.5-5.2) L Globulin 2.5 g/dL Albumin/Globulin Ratio 0.6 (1.0-2.7) L Current Medications Medications (Trade) Dose Ordered Sig/Archie Route PRN Reason Start Time Stop Time Status Last Admin Dose Admin Acetaminophen (Tylenol) 650 mg Q4H PRN ORAL fever 10/07/16 13:00 11/06/16 12:59 Dextrose (Dextrose 50%) STAT PRN IV Hypoglycemia 10/07/16 13:00 11/06/16 12:59 Nitroglycerin (Ntg) 0.4 mg Q5M PRN SL Prn Chest Pain 10/07/16 13:00 11/06/16 12:59 Ondansetron HCl (Zofran) 4 mg Q6H PRN IVP Nausea & Vomiting 10/07/16 13:00 11/06/16 12:59 Pantoprazole (Protonix) 40 mg DAILY IV 10/08/16 09:00 11/07/16 08:59 10/13/16 09:04 Piperacillin Sod/ Tazobactam Sod 3.375 gm/Dextrose 100 ml @ 25 mls/hr Q8HR@0200,1000,1800 IVPB 10/10/16 18:00 10/13/16 23:59 10/13/16 09:05 Polyethylene Glycol (Miralax) 17 gm DAILYPRN PRN ORAL Constipation 10/07/16 13:00 11/06/16 12:59 10/08/16 00:14 Sodium Chloride 500 ml @ 999 mls/hr NEEDED PRN IV For hypotension (MAP <60%) 10/08/16 13:45 11/07/16 13:44 Valproic Acid 500 mg 500 mg Q12HR GT 10/08/16 09:00 11/06/16 20:59 10/13/16 09:05 Vancomycin HCl (Vanco rx to dose) 1 ea DAILY PRN MISC . 10/07/16 14:30 11/06/16 14:29 Vancomycin HCl/ Sodium Chloride (Vancomycin/ Sodium Chloride) 275 ml @ 183.708 mls/hr Q24H IVPB 10/11/16 21:00 10/13/16 23:59 10/12/16 21:47 EMILIA CAIN Oct 13, 2016 15:28
[2016-10-13] MEDS: Vancomycin 1 GM in NS 275 ML IVPB SCH (20:47)
[2016-10-14] VITALS (21 sets, daily range): BP systolic 112–160; BP diastolic 33–65
[2016-10-14 05:30] LABS: BASOPHILS % (AUTO) 1.8 % (0.0-2.0); EOSINOPHILS % (AUTO) 3.1 % (0.0-3.0); LYMPHOCYTES % (AUTO) 11.1 % (20.0-45.0); MEAN CORPUSCULAR HEMOGLOBIN 32.2 PG (27.0-31.0); MEAN CORPUSCULAR HGB CONC 33.1 G/DL (32.0-36.0); MEAN CORPUSCULAR VOLUME 97 FL (80-99); MONOCYTES % (AUTO) 13.4 % (1.0-10.0); NEUTROPHILS % (AUTO) 70.5 % (45.0-75.0); PLATELET COUNT 135 K/UL (150-450); RED BLOOD COUNT 3.13 M/UL (4.70-6.10); RED CELL DISTRIBUTION WIDTH 13.5 % (11.6-14.8); WHITE BLOOD COUNT 11.7 K/UL (4.8-10.8)
[2016-10-14 06:01] LABS: ALANINE AMINOTRANSFERASE 18 U/L (3-41); ALBUMIN/GLOBULIN RATIO 0.6 (1.0-2.7); ANION GAP 9 (5-15); ASPARTATE AMINO TRANSFERASE 19 U/L (5-40); CALCIUM 7.9 mg/dL (8.6-10.2); CARBON DIOXIDE 28 mEQ/L (20-30); CHLORIDE 106 mEQ/L (98-107); CREATININE 0.8 mg/dL (0.7-1.2); HEMOLYSIS 6; PHOSPHORUS 2.2 mg/dL (2.5-4.8); POTASSIUM 3.8 mEQ/L (3.4-4.9); SODIUM 143 mEQ/L (135-145); TOTAL PROTEIN 4.8 g/dL (6.6-8.7)
[2016-10-14 06:57] LABS: CRP QUANT 3.7 mg/dL (< 0.5); URIC ACID 2.4 mg/dL (3.0-7.5)
[2016-10-14] MEDS: Pantoprazole Inj IV SCH (08:15)
[2016-10-14] MEDS: Valproic Acid 250mg/5ml Liquid GT SCH ×2 (08:15→20:27)
[2016-10-14 08:42] LABS: ABG BASE EXCESS 5.3; ABG PCO2 40.9 mmHg (35.0-45.0)
[2016-10-14 08:43] LABS: ABG ALLEN TEST POSITIVE
[2016-10-14 10:14] LABS: ABG PCO2 46.5 mmHg (35.0-45.0)
[2016-10-14 10:15] LABS: ABG ALLEN TEST POSITIVE; ABG BASE EXCESS 7.6
--- NOTE | 2016-10-14 10:34 | General Progress Note ---
Assessment/Plan Status: stable - from renal stand Assessment/Plan Status: 1. Severe sepsis. leading to acute renal failure- and respiratory failure- 2. Healthcare-associated pneumonia. 3. Ventilator-dependent respiratory failure. 4. Hypertension. 5. Dementia. Alzheimer's dementia. 6. Hyperlipidemia. 7. Psychiatric disorder. 8. h/o Gallstones. 9. h/o Diverticulosis. 10.h/o BPH. Plan: K Phos IV as needed Vent support- Antibiotics- Monitor renal parameters- Urine studies- Subjective ROS Limited/Unobtainable: Yes Allergies: Coded Allergies: No Known Allergies (Unverified , 10/07/16) Objective Last 24 Hour Vital Signs Date Time Temp Pulse Resp B/P Pulse Ox O2 Delivery O2 Flow Rate FiO2 10/14/16 10:00 63 28 115/36 96 Mechanical Ventilator 30 10/14/16 09:35 97 10/14/16 09:15 69 29 30 10/14/16 09:00 63 25 112/33 99 Mechanical Ventilator 30 10/14/16 08:00 68 10/14/16 08:00 98.1 73 17 113/40 96 Mechanical Ventilator 30 10/14/16 08:00 30 10/14/16 07:00 83 22 137/44 96 Mechanical Ventilator 30 10/14/16 06:59 72 14 30 10/14/16 06:00 71 25 150/44 96 Mechanical Ventilator 30 10/14/16 05:03 65 12 30 10/14/16 05:00 98.2 69 23 158/49 96 Mechanical Ventilator 30 10/14/16 04:00 30 10/14/16 04:00 64 10/14/16 04:00 64 22 146/40 96 Mechanical Ventilator 30 10/14/16 03:09 67 11 30 10/14/16 03:00 65 23 123/40 96 Mechanical Ventilator 30 10/14/16 02:00 69 21 135/43 96 Mechanical Ventilator 30 10/14/16 01:00 66 21 116/42 96 Mechanical Ventilator 30 10/14/16 00:44 70 12 30 10/14/16 00:00 98.3 73 22 137/44 96 Mechanical Ventilator 30 10/14/16 00:00 73 10/14/16 00:00 30 10/13/16 23:00 68 20 126/45 96 Mechanical Ventilator 30 10/13/16 22:44 76 18 30 10/13/16 22:00 77 20 147/50 96 Mechanical Ventilator 30 10/13/16 21:09 72 14 30 10/13/16 21:00 72 18 129/41 95 Mechanical Ventilator 30 10/13/16 20:00 72 10/13/16 20:00 30 10/13/16 20:00 98.7 72 24 137/54 95 Mechanical Ventilator 30 10/13/16 19:00 72 18 117/40 95 Mechanical Ventilator 30 10/13/16 18:49 71 13 30 10/13/16 18:00 69 20 130/38 96 Mechanical Ventilator 30 10/13/16 17:00 71 21 118/36 96 Mechanical Ventilator 30 10/13/16 16:50 72 14 30 10/13/16 16:00 98.3 71 26 114/38 95 Mechanical Ventilator 30 10/13/16 16:00 71 10/13/16 16:00 30 10/13/16 15:00 73 23 130/45 94 Mechanical Ventilator 30 10/13/16 14:55 73 15 30 10/13/16 14:00 74 23 117/41 94 Mechanical Ventilator 30 10/13/16 13:00 72 12 30 10/13/16 13:00 71 23 119/42 96 Mechanical Ventilator 30 10/13/16 12:00 98.1 69 26 136/51 95 Mechanical Ventilator 30 10/13/16 12:00 30 10/13/16 12:00 64 10/13/16 11:00 61 26 134/50 95 Mechanical Ventilator 30 10/13/16 10:50 58 9 30 Intake and Output 10/13/16 10/14/16 19:00 07:00 Intake Total 575 ml 1100.000 ml Output Total 1555 ml 280 ml Balance -980 ml 820.000 ml Intake Free Water 150 ml IV Total 125 ml 350.000 ml Tube Feeding 450 ml 600 ml Output Urine Total 1555 ml 280 ml Laboratory Tests 10/14/16 05:00: White Blood Count 11.7H, Red Blood Count 3.13L, Hemoglobin 10.1L, Hematocrit 30.4L, Mean Corpuscular Volume 97, Mean Corpuscular Hemoglobin 32.2H, Mean Corpuscular Hemoglobin Concent 33.1, Red Cell Distribution Width 13.5, Platelet Count 135L, Mean Platelet Volume 7.0, Neutrophils (%) (Auto) 70.5, Lymphocytes ( %) (Auto) 11.1L, Monocytes (%) (Auto) 13.4H, Eosinophils (%) (Auto) 3.1H, Basophils (%) (Auto) 1.8, Sodium Level 143, Potassium Level 3.8, Chloride Level 106, Carbon Dioxide Level 28, Anion Gap 9, Blood Urea Nitrogen 20, Creatinine 0.8, Estimat Glomerular Filtration Rate , Glucose Level 142H, Uric Acid 2.4L, Calcium Level 7.9L, Phosphorus Level 2.2L, Magnesium Level 2.0, Total Bilirubin 0.4, Aspartate Amino Transf (AST/SGOT) 19, Alanine Aminotransferase (ALT/SGPT) 18, Alkaline Phosphatase 40, C-Reactive Protein, Quantitative 3.7H, Pro-B-Type Natriuretic Peptide 4532H, Total Protein 4.8L, Albumin 1.9L, Globulin 2.9, Albumin/Globulin Ratio 0.6L 10/14/16 08:30: Arterial Blood pH 7.470H, Arterial Blood Partial Pressure CO2 40.9, Arterial Blood Partial Pressure O2 81.6, Arterial Blood HCO3 29.4H, Arterial Blood Oxygen Saturation 95.4, Arterial Blood Base Excess 5.3, Evan Test Positive 10/14/16 10:00: Arterial Blood pH 7.460H, Arterial Blood Partial Pressure CO2 46.5H, Arterial Blood Partial Pressure O2 81.2, Arterial Blood HCO3 32.4H, Arterial Blood Oxygen Saturation 94.6, Arterial Blood Base Excess 7.6, Evan Test Positive Height (Feet): 5 Height (Inches): 3.00 Weight (Pounds): 130 General Appearance: no apparent distress Objective PE not changed MANPREET GERMAN Oct 14, 2016 10:34
--- NOTE | 2016-10-14 10:57 | Pulmonolgy Critical Care Note ---
Critical Care - Asmt/Plan Problems: (1) Respiratory failure, acute Assessment & Plan: continue current setting (2) Pneumonia (3) ATN (acute tubular necrosis) (4) History of hypertension (5) Dementia Respiratory: monitor respiratory rate, adjust FIO2, CXR Cardiac: continue to monitor HR/BP Renal: F/U I&O, keep IV fluid, check electrolytes Infectious Disease: check cultures, continue antibiotics Gastrointestinal: continue feedings/current rate Endocrine: monitor blood sugar, continue sliding scale insulin Hematologic: monitor H/H, transfuse if hgb<8.5 Neurologic: PRN Ativan, PRN Morphine, keep patient comfortable Prophylaxis: Protonix, Heparin Notes 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, 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 Discussed with: nurses, consultants, caseworker protective servicesyouth manager - Objective Last 24 Hour Vital Signs Date Time Temp Pulse Resp B/P Pulse Ox O2 Delivery O2 Flow Rate FiO2 10/14/16 10:00 63 28 115/36 96 Mechanical Ventilator 30 10/14/16 09:35 97 10/14/16 09:15 69 29 30 10/14/16 09:00 63 25 112/33 99 Mechanical Ventilator 30 10/14/16 08:00 68 10/14/16 08:00 98.1 73 17 113/40 96 Mechanical Ventilator 30 10/14/16 08:00 30 10/14/16 07:00 83 22 137/44 96 Mechanical Ventilator 30 10/14/16 06:59 72 14 30 10/14/16 06:00 71 25 150/44 96 Mechanical Ventilator 30 10/14/16 05:03 65 12 30 10/14/16 05:00 98.2 69 23 158/49 96 Mechanical Ventilator 30 10/14/16 04:00 30 10/14/16 04:00 64 10/14/16 04:00 64 22 146/40 96 Mechanical Ventilator 30 10/14/16 03:09 67 11 30 10/14/16 03:00 65 23 123/40 96 Mechanical Ventilator 30 10/14/16 02:00 69 21 135/43 96 Mechanical Ventilator 30 10/14/16 01:00 66 21 116/42 96 Mechanical Ventilator 30 10/14/16 00:44 70 12 30 10/14/16 00:00 98.3 73 22 137/44 96 Mechanical Ventilator 30 10/14/16 00:00 73 10/14/16 00:00 30 10/13/16 23:00 68 20 126/45 96 Mechanical Ventilator 30 10/13/16 22:44 76 18 30 10/13/16 22:00 77 20 147/50 96 Mechanical Ventilator 30 10/13/16 21:09 72 14 30 10/13/16 21:00 72 18 129/41 95 Mechanical Ventilator 30 10/13/16 20:00 72 10/13/16 20:00 30 10/13/16 20:00 98.7 72 24 137/54 95 Mechanical Ventilator 30 10/13/16 19:00 72 18 117/40 95 Mechanical Ventilator 30 10/13/16 18:49 71 13 30 10/13/16 18:00 69 20 130/38 96 Mechanical Ventilator 30 10/13/16 17:00 71 21 118/36 96 Mechanical Ventilator 30 10/13/16 16:50 72 14 30 10/13/16 16:00 98.3 71 26 114/38 95 Mechanical Ventilator 30 10/13/16 16:00 71 10/13/16 16:00 30 10/13/16 15:00 73 23 130/45 94 Mechanical Ventilator 30 10/13/16 14:55 73 15 30 10/13/16 14:00 74 23 117/41 94 Mechanical Ventilator 30 10/13/16 13:00 72 12 30 10/13/16 13:00 71 23 119/42 96 Mechanical Ventilator 30 10/13/16 12:00 98.1 69 26 136/51 95 Mechanical Ventilator 30 10/13/16 12:00 30 10/13/16 12:00 64 10/13/16 11:00 61 26 134/50 95 Mechanical Ventilator 30 Status: somnolent Condition: critical HEENT: atraumatic Neck: full ROM Lungs: clear Heart: HR/BP stable, HR/BP unstable Abdomen: soft, non-tender Decubiti: location Accucheck: 81 Critical Care - Subjective ROS Limited/Unobtainable: No ICU Day: 8 Intubation Day: 8 Condition: critical EKG Rhythm: Sinus Rhythm FI02: 30 Vent Support Breath Rate: 8 Vent Support Mode: CPAP Vent Tidal Volume: 600 Sputum Amount: Small PEEP: 5.0 PIP: 15 Tube Feeding Amount: 50 I&O: Intake and Output 10/13/16 10/14/16 19:00 07:00 Intake Total 575 ml 1100.000 ml Output Total 1555 ml 280 ml Balance -980 ml 820.000 ml Intake Free Water 150 ml IV Total 125 ml 350.000 ml Tube Feeding 450 ml 600 ml Output Urine Total 1555 ml 280 ml CXR: no change ET-Tube: 8.0 ET Position: 23 Labs: Laboratory Tests Test 10/14/16 05:00 10/14/16 08:30 10/14/16 10:00 White Blood Count 11.7 K/UL (4.8-10.8) H Red Blood Count 3.13 M/UL (4.70-6.10) L Hemoglobin 10.1 G/DL (14.2-18.0) L Hematocrit 30.4 % (42.0-52.0) L Mean Corpuscular Volume 97 FL (80-99) Mean Corpuscular Hemoglobin 32.2 PG (27.0-31.0) H Mean Corpuscular Hemoglobin Concent 33.1 G/DL (32.0-36.0) Red Cell Distribution Width 13.5 % (11.6-14.8) Platelet Count 135 K/UL (150-450) L Mean Platelet Volume 7.0 FL (6.5-10.1) Neutrophils (%) (Auto) 70.5 % (45.0-75.0) Lymphocytes (%) (Auto) 11.1 % (20.0-45.0) L Monocytes (%) (Auto) 13.4 % (1.0-10.0) H Eosinophils (%) (Auto) 3.1 % (0.0-3.0) H Basophils (%) (Auto) 1.8 % (0.0-2.0) Sodium Level 143 mEQ/L (135-145) Potassium Level 3.8 mEQ/L (3.4-4.9) Chloride Level 106 mEQ/L (98-107) Carbon Dioxide Level 28 mEQ/L (20-30) Anion Gap 9 (5-15) Blood Urea Nitrogen 20 mg/dL (7-23) Creatinine 0.8 mg/dL (0.7-1.2) Estimat Glomerular Filtration Rate mL/min (>60) Glucose Level 142 mg/dL (74-106) H Uric Acid 2.4 mg/dL (3.0-7.5) L Calcium Level 7.9 mg/dL (8.6-10.2) L Phosphorus Level 2.2 mg/dL (2.5-4.8) L Magnesium Level 2.0 mg/dL (1.7-2.5) Total Bilirubin 0.4 mg/dL (0.0-1.2) Aspartate Amino Transf (AST/SGOT) 19 U/L (5-40) Alanine Aminotransferase (ALT/SGPT) 18 U/L (3-41) Alkaline Phosphatase 40 U/L (40-129) C-Reactive Protein, Quantitative 3.7 mg/dL (< 0.5) H Pro-B-Type Natriuretic Peptide 4532 pg/mL (0-450) H Total Protein 4.8 g/dL (6.6-8.7) L Albumin 1.9 g/dL (3.5-5.2) L Globulin 2.9 g/dL Albumin/Globulin Ratio 0.6 (1.0-2.7) L Arterial Blood pH 7.470 (7.350-7.450) 7.460 (7.350-7.450) Arterial Blood Partial Pressure CO2 40.9 mmHg (35.0-45.0) 46.5 mmHg (35.0-45.0) H Arterial Blood Partial Pressure O2 81.6 mmHg (75.0-100.0) 81.2 mmHg (75.0-100.0) Arterial Blood HCO3 29.4 mmol/L (22.0-26.0) H 32.4 mmol/L (22.0-26.0) H Arterial Blood Oxygen Saturation 95.4 % (92.0-98.0) 94.6 % (92.0-98.0) Arterial Blood Base Excess 5.3 7.6 Evan Test Positive Positive HERMINIO DIXON Oct 14, 2016 10:57
[2016-10-14 11:29] LABS: ABG BASE EXCESS 6.5; ABG PCO2 44.3 mmHg (35.0-45.0)
[2016-10-14 11:30] LABS: ABG ALLEN TEST POSITIVE
[2016-10-14] MEDS ORDERED: Potassium Phosphate 20 MM in NS 275 ML IV ONE (12:00)
[2016-10-14] MEDS ORDERED: Sodium Phosphate 30 MM in Sodium Chloride 550 ML IV ONE (12:00)
--- NOTE | 2016-10-14 14:07 | General Progress Note ---
Assessment/Plan Status: unchanged Assessment/Plan 1. Severe sepsis. 2. Healthcare-associated pneumonia. 3. Ventilator-dependent respiratory failure. 4. HF- Diastolic 5. ARF: likely secondary to #1 6, Acute Anemia 5. Dementia. 6. Hyperlipidemia. 7. DNR Pulmonary, ID, Nephrology and cardiology notes are reviewed continue with current management weaning trial per pulmonary Subjective ROS Limited/Unobtainable: Yes - Pat[place] is vented and Entubated Allergies: Coded Allergies: No Known Allergies (Unverified , 10/07/16) Objective Last 24 Hour Vital Signs Date Time Temp Pulse Resp B/P Pulse Ox O2 Delivery O2 Flow Rate FiO2 10/14/16 13:02 70 30 40 10/14/16 13:00 72 24 135/42 97 Mechanical Ventilator 30 10/14/16 12:00 98.4 62 24 148/46 95 Mechanical Ventilator 30 10/14/16 11:00 62 22 116/65 95 Mechanical Ventilator 30 10/14/16 10:36 72 30 40 10/14/16 10:00 63 28 115/36 96 Mechanical Ventilator 30 10/14/16 09:35 97 10/14/16 09:15 69 29 30 10/14/16 09:00 63 25 112/33 99 Mechanical Ventilator 30 10/14/16 08:00 68 10/14/16 08:00 98.1 73 17 113/40 96 Mechanical Ventilator 30 10/14/16 08:00 30 10/14/16 07:00 83 22 137/44 96 Mechanical Ventilator 30 10/14/16 06:59 72 14 30 10/14/16 06:00 71 25 150/44 96 Mechanical Ventilator 30 10/14/16 05:03 65 12 30 10/14/16 05:00 98.2 69 23 158/49 96 Mechanical Ventilator 30 10/14/16 04:00 30 10/14/16 04:00 64 10/14/16 04:00 64 22 146/40 96 Mechanical Ventilator 30 10/14/16 03:09 67 11 30 10/14/16 03:00 65 23 123/40 96 Mechanical Ventilator 30 10/14/16 02:00 69 21 135/43 96 Mechanical Ventilator 30 10/14/16 01:00 66 21 116/42 96 Mechanical Ventilator 30 10/14/16 00:44 70 12 30 10/14/16 00:00 98.3 73 22 137/44 96 Mechanical Ventilator 30 10/14/16 00:00 73 10/14/16 00:00 30 10/13/16 23:00 68 20 126/45 96 Mechanical Ventilator 30 10/13/16 22:44 76 18 30 10/13/16 22:00 77 20 147/50 96 Mechanical Ventilator 30 10/13/16 21:09 72 14 30 10/13/16 21:00 72 18 129/41 95 Mechanical Ventilator 30 10/13/16 20:00 72 10/13/16 20:00 30 10/13/16 20:00 98.7 72 24 137/54 95 Mechanical Ventilator 30 10/13/16 19:00 72 18 117/40 95 Mechanical Ventilator 30 10/13/16 18:49 71 13 30 10/13/16 18:00 69 20 130/38 96 Mechanical Ventilator 30 10/13/16 17:00 71 21 118/36 96 Mechanical Ventilator 30 10/13/16 16:50 72 14 30 10/13/16 16:00 98.3 71 26 114/38 95 Mechanical Ventilator 30 10/13/16 16:00 71 10/13/16 16:00 30 10/13/16 15:00 73 23 130/45 94 Mechanical Ventilator 30 10/13/16 14:55 73 15 30 Intake and Output 10/13/16 10/14/16 19:00 07:00 Intake Total 575 ml 1100.000 ml Output Total 1555 ml 280 ml Balance -980 ml 820.000 ml Intake Free Water 150 ml IV Total 125 ml 350.000 ml Tube Feeding 450 ml 600 ml Output Urine Total 1555 ml 280 ml Laboratory Tests 10/14/16 05:00: White Blood Count 11.7H, Red Blood Count 3.13L, Hemoglobin 10.1L, Hematocrit 30.4L, Mean Corpuscular Volume 97, Mean Corpuscular Hemoglobin 32.2H, Mean Corpuscular Hemoglobin Concent 33.1, Red Cell Distribution Width 13.5, Platelet Count 135L, Mean Platelet Volume 7.0, Neutrophils (%) (Auto) 70.5, Lymphocytes ( %) (Auto) 11.1L, Monocytes (%) (Auto) 13.4H, Eosinophils (%) (Auto) 3.1H, Basophils (%) (Auto) 1.8, Sodium Level 143, Potassium Level 3.8, Chloride Level 106, Carbon Dioxide Level 28, Anion Gap 9, Blood Urea Nitrogen 20, Creatinine 0.8, Estimat Glomerular Filtration Rate , Glucose Level 142H, Uric Acid 2.4L, Calcium Level 7.9L, Phosphorus Level 2.2L, Magnesium Level 2.0, Total Bilirubin 0.4, Aspartate Amino Transf (AST/SGOT) 19, Alanine Aminotransferase (ALT/SGPT) 18, Alkaline Phosphatase 40, C-Reactive Protein, Quantitative 3.7H, Pro-B-Type Natriuretic Peptide 4532H, Total Protein 4.8L, Albumin 1.9L, Globulin 2.9, Albumin/Globulin Ratio 0.6L 10/14/16 08:30: Arterial Blood pH 7.470H, Arterial Blood Partial Pressure CO2 40.9, Arterial Blood Partial Pressure O2 81.6, Arterial Blood HCO3 29.4H, Arterial Blood Oxygen Saturation 95.4, Arterial Blood Base Excess 5.3, Evan Test Positive 10/14/16 10:00: Arterial Blood pH 7.460H, Arterial Blood Partial Pressure CO2 46.5H, Arterial Blood Partial Pressure O2 81.2, Arterial Blood HCO3 32.4H, Arterial Blood Oxygen Saturation 94.6, Arterial Blood Base Excess 7.6, Evan Test Positive 10/14/16 10:30: Arterial Blood pH 7.460H, Arterial Blood Partial Pressure CO2 44.3, Arterial Blood Partial Pressure O2 74.9L, Arterial Blood HCO3 31.0H, Arterial Blood Oxygen Saturation 94.6, Arterial Blood Base Excess 6.5, Evan Test Positive Height (Feet): 5 Height (Inches): 3.00 Weight (Pounds): 130 General Appearance: WD/WN EENT: PERRL/EOMI Neck: supple Cardiovascular: normal rate Respiratory/Chest: rhonchi - bilaterally Abdomen: soft Extremities: non-tender Neurologic: other - awake. llimited following the commands Margaret Jc MD Oct 14, 2016 14:07
--- NOTE | 2016-10-14 15:59 | Cardiology Progress Note ---
Assessment/Plan Status: stable, progressing Status Narrative Tolerating weaning trial - hopefully will be extubated today. Appears hemodynamically stable. Assessment/Plan Continue current supportive care. will give low dose lasix/ K today, as cxr appears w mild pulm congestion. Followup lytes, renal function, i/os Weaning per pulm, Dr. Mcbride, and possible extubation today. Subjective ROS Limited/Unobtainable: No Subjective Pt intubated/ weaning from vent Objective Last 24 Hour Vital Signs Date Time Temp Pulse Resp B/P Pulse Ox O2 Delivery O2 Flow Rate FiO2 10/14/16 13:02 70 30 40 10/14/16 13:00 72 24 135/42 97 Mechanical Ventilator 30 10/14/16 12:00 98.4 62 24 148/46 95 Mechanical Ventilator 30 10/14/16 11:00 62 22 116/65 95 Mechanical Ventilator 30 10/14/16 10:36 72 30 40 10/14/16 10:00 63 28 115/36 96 Mechanical Ventilator 30 10/14/16 09:35 97 10/14/16 09:15 69 29 30 10/14/16 09:00 63 25 112/33 99 Mechanical Ventilator 30 10/14/16 08:00 68 10/14/16 08:00 98.1 73 17 113/40 96 Mechanical Ventilator 30 10/14/16 08:00 30 10/14/16 07:00 83 22 137/44 96 Mechanical Ventilator 30 10/14/16 06:59 72 14 30 10/14/16 06:00 71 25 150/44 96 Mechanical Ventilator 30 10/14/16 05:03 65 12 30 10/14/16 05:00 98.2 69 23 158/49 96 Mechanical Ventilator 30 10/14/16 04:00 30 10/14/16 04:00 64 10/14/16 04:00 64 22 146/40 96 Mechanical Ventilator 30 10/14/16 03:09 67 11 30 10/14/16 03:00 65 23 123/40 96 Mechanical Ventilator 30 10/14/16 02:00 69 21 135/43 96 Mechanical Ventilator 30 10/14/16 01:00 66 21 116/42 96 Mechanical Ventilator 30 10/14/16 00:44 70 12 30 10/14/16 00:00 98.3 73 22 137/44 96 Mechanical Ventilator 30 10/14/16 00:00 73 10/14/16 00:00 30 10/13/16 23:00 68 20 126/45 96 Mechanical Ventilator 30 10/13/16 22:44 76 18 30 10/13/16 22:00 77 20 147/50 96 Mechanical Ventilator 30 10/13/16 21:09 72 14 30 10/13/16 21:00 72 18 129/41 95 Mechanical Ventilator 30 10/13/16 20:00 72 10/13/16 20:00 30 10/13/16 20:00 98.7 72 24 137/54 95 Mechanical Ventilator 30 10/13/16 19:00 72 18 117/40 95 Mechanical Ventilator 30 10/13/16 18:49 71 13 30 10/13/16 18:00 69 20 130/38 96 Mechanical Ventilator 30 10/13/16 17:00 71 21 118/36 96 Mechanical Ventilator 30 10/13/16 16:50 72 14 30 10/13/16 16:00 98.3 71 26 114/38 95 Mechanical Ventilator 30 10/13/16 16:00 71 10/13/16 16:00 30 General Appearance: WD/WN, alert, on vent EENT: PERRL/EOMI, other - et tube in place Neck: non-tender, supple, no JVD Rhythm: NSR Cardiovascular: normal rate, regular rhythm Respiratory/Chest: other - scattered rhonchi Abdomen: normal bowel sounds, non tender, soft Extremities: non-tender, no swelling Intake and Output 10/13/16 10/14/16 19:00 07:00 Intake Total 575 ml 1100.000 ml Output Total 1555 ml 280 ml Balance -980 ml 820.000 ml Intake Free Water 150 ml IV Total 125 ml 350.000 ml Tube Feeding 450 ml 600 ml Output Urine Total 1555 ml 280 ml Laboratory Tests Test 10/14/16 05:00 10/14/16 08:30 10/14/16 10:00 10/14/16 10:30 White Blood Count 11.7 K/UL (4.8-10.8) H Red Blood Count 3.13 M/UL (4.70-6.10) L Hemoglobin 10.1 G/DL (14.2-18.0) L Hematocrit 30.4 % (42.0-52.0) L Mean Corpuscular Volume 97 FL (80-99) Mean Corpuscular Hemoglobin 32.2 PG (27.0-31.0) H Mean Corpuscular Hemoglobin Concent 33.1 G/DL (32.0-36.0) Red Cell Distribution Width 13.5 % (11.6-14.8) Platelet Count 135 K/UL (150-450) L Mean Platelet Volume 7.0 FL (6.5-10.1) Neutrophils (%) (Auto) 70.5 % (45.0-75.0) Lymphocytes (%) (Auto) 11.1 % (20.0-45.0) L Monocytes (%) (Auto) 13.4 % (1.0-10.0) H Eosinophils (%) (Auto) 3.1 % (0.0-3.0) H Basophils (%) (Auto) 1.8 % (0.0-2.0) Sodium Level 143 mEQ/L (135-145) Potassium Level 3.8 mEQ/L (3.4-4.9) Chloride Level 106 mEQ/L (98-107) Carbon Dioxide Level 28 mEQ/L (20-30) Anion Gap 9 (5-15) Blood Urea Nitrogen 20 mg/dL (7-23) Creatinine 0.8 mg/dL (0.7-1.2) Estimat Glomerular Filtration Rate mL/min (>60) Glucose Level 142 mg/dL (74-106) H Uric Acid 2.4 mg/dL (3.0-7.5) L Calcium Level 7.9 mg/dL (8.6-10.2) L Phosphorus Level 2.2 mg/dL (2.5-4.8) L Magnesium Level 2.0 mg/dL (1.7-2.5) Total Bilirubin 0.4 mg/dL (0.0-1.2) Aspartate Amino Transf (AST/SGOT) 19 U/L (5-40) Alanine Aminotransferase (ALT/SGPT) 18 U/L (3-41) Alkaline Phosphatase 40 U/L (40-129) C-Reactive Protein, Quantitative 3.7 mg/dL (< 0.5) H Pro-B-Type Natriuretic Peptide 4532 pg/mL (0-450) H Total Protein 4.8 g/dL (6.6-8.7) L Albumin 1.9 g/dL (3.5-5.2) L Globulin 2.9 g/dL Albumin/Globulin Ratio 0.6 (1.0-2.7) L Arterial Blood pH 7.470 (7.350-7.450) 7.460 (7.350-7.450) 7.460 (7.350-7.450) Arterial Blood Partial Pressure CO2 40.9 mmHg (35.0-45.0) 46.5 mmHg (35.0-45.0) H 44.3 mmHg (35.0-45.0) Arterial Blood Partial Pressure O2 81.6 mmHg (75.0-100.0) 81.2 mmHg (75.0-100.0) 74.9 mmHg (75.0-100.0) L Arterial Blood HCO3 29.4 mmol/L (22.0-26.0) H 32.4 mmol/L (22.0-26.0) H 31.0 mmol/L (22.0-26.0) H Arterial Blood Oxygen Saturation 95.4 % (92.0-98.0) 94.6 % (92.0-98.0) 94.6 % (92.0-98.0) Arterial Blood Base Excess 5.3 7.6 6.5 Evan Test Positive Positive Positive RIRI DILLARD Oct 14, 2016 15:59
--- NOTE | 2016-10-14 16:10 | Infectious Diseases Prog Note ---
Assessment/Plan Assessment/Plan ASSESSMENT: 86 y/o male with: // Probable PNA - SCx NRF, legionella UAg(-) - CXR 10/13: Infiltrate versus atelectasis at the left lung base. No significant change. - CT: Bilateral pulmonary lower lobe consolidation--atelectasis versus pneumonia - negative: influenza // Severe sepsis SP - improved lactic acidosis // Leukocytosis, bandemia - recurrent, mild, stable // Fever - resolved // Acute VDRF SP - intubated 10/07, extubated 10/14 // Possible diastolic CHF exacerbation - trop(-) x1, BNP >70K - TTE: EF 55-60%, mild AR, significant implied diastolic dysfunction - CXR: Pulmonary vascular redistribution. Bilateral interstitial prominence. Left costophrenic angle blunting suggests small pleural effusion // ARF ?CKD - resolved // Advanced Alzheimer's dementia // NKDA // Full Code PLAN: - Monitor pt off of ABX for now ( 10/13 SP IV vancomycin, zosyn d# 7 / ) - monitor CBC, temperatures, re-culture if febrile or worsening leukocytosis - monitor BMP - monitor CXR Subjective Allergies: Coded Allergies: No Known Allergies (Unverified , 10/07/16) Subjective remains afebrile. extubated recurrent mild leukocytosis, stable Objective Vital Signs Last 24 Hour Vital Signs Date Time Temp Pulse Resp B/P Pulse Ox O2 Delivery O2 Flow Rate FiO2 10/14/16 15:48 95 Nasal Cannula 4.0 10/14/16 15:47 Nasal Cannula 4.0 10/14/16 15:45 Nasal Cannula 2.0 10/14/16 15:00 68 28 116/38 97 Mechanical Ventilator 40 10/14/16 14:00 68 24 128/44 95 Mechanical Ventilator 40 10/14/16 13:02 70 30 40 10/14/16 13:00 72 24 135/42 97 Mechanical Ventilator 30 10/14/16 12:00 74 10/14/16 12:00 98.4 62 24 148/46 95 Mechanical Ventilator 30 10/14/16 12:00 40 10/14/16 11:00 62 22 116/65 95 Mechanical Ventilator 30 10/14/16 10:36 72 30 40 10/14/16 10:00 63 28 115/36 96 Mechanical Ventilator 30 1/19/17 09:35 97 10/14/16 09:15 69 29 30 10/14/16 09:00 63 25 112/33 99 Mechanical Ventilator 30 10/14/16 08:00 68 10/14/16 08:00 98.1 73 17 113/40 96 Mechanical Ventilator 30 10/14/16 08:00 30 10/14/16 07:00 83 22 137/44 96 Mechanical Ventilator 30 10/14/16 06:59 72 14 30 10/14/16 06:00 71 25 150/44 96 Mechanical Ventilator 30 10/14/16 05:03 65 12 30 10/14/16 05:00 98.2 69 23 158/49 96 Mechanical Ventilator 30 10/14/16 04:00 30 10/14/16 04:00 64 10/14/16 04:00 64 22 146/40 96 Mechanical Ventilator 30 10/14/16 03:09 67 11 30 10/14/16 03:00 65 23 123/40 96 Mechanical Ventilator 30 10/14/16 02:00 69 21 135/43 96 Mechanical Ventilator 30 10/14/16 01:00 66 21 116/42 96 Mechanical Ventilator 30 10/14/16 00:44 70 12 30 10/14/16 00:00 98.3 73 22 137/44 96 Mechanical Ventilator 30 10/14/16 00:00 73 10/14/16 00:00 30 10/13/16 23:00 68 20 126/45 96 Mechanical Ventilator 30 10/13/16 22:44 76 18 30 10/13/16 22:00 77 20 147/50 96 Mechanical Ventilator 30 10/13/16 21:09 72 14 30 10/13/16 21:00 72 18 129/41 95 Mechanical Ventilator 30 10/13/16 20:00 72 10/13/16 20:00 30 10/13/16 20:00 98.7 72 24 137/54 95 Mechanical Ventilator 30 10/13/16 19:00 72 18 117/40 95 Mechanical Ventilator 30 10/13/16 18:49 71 13 30 10/13/16 18:00 69 20 130/38 96 Mechanical Ventilator 30 10/13/16 17:00 71 21 118/36 96 Mechanical Ventilator 30 10/13/16 16:50 72 14 30 Height (Feet): 5 Height (Inches): 3.00 Weight (Pounds): 130 General Appearance: no acute distress Respiratory/Chest: no respiratory distress Cardiovascular: normal rate, regular rhythm Abdomen: normal bowel sounds, soft, non tender, non distended Laboratory Tests Test 10/14/16 05:00 10/14/16 08:30 10/14/16 10:00 10/14/16 10:30 White Blood Count 11.7 K/UL (4.8-10.8) H Red Blood Count 3.13 M/UL (4.70-6.10) L Hemoglobin 10.1 G/DL (14.2-18.0) L Hematocrit 30.4 % (42.0-52.0) L Mean Corpuscular Volume 97 FL (80-99) Mean Corpuscular Hemoglobin 32.2 PG (27.0-31.0) H Mean Corpuscular Hemoglobin Concent 33.1 G/DL (32.0-36.0) Red Cell Distribution Width 13.5 % (11.6-14.8) Platelet Count 135 K/UL (150-450) L Mean Platelet Volume 7.0 FL (6.5-10.1) Neutrophils (%) (Auto) 70.5 % (45.0-75.0) Lymphocytes (%) (Auto) 11.1 % (20.0-45.0) L Monocytes (%) (Auto) 13.4 % (1.0-10.0) H Eosinophils (%) (Auto) 3.1 % (0.0-3.0) H Basophils (%) (Auto) 1.8 % (0.0-2.0) Sodium Level 143 mEQ/L (135-145) Potassium Level 3.8 mEQ/L (3.4-4.9) Chloride Level 106 mEQ/L (98-107) Carbon Dioxide Level 28 mEQ/L (20-30) Anion Gap 9 (5-15) Blood Urea Nitrogen 20 mg/dL (7-23) Creatinine 0.8 mg/dL (0.7-1.2) Estimat Glomerular Filtration Rate mL/min (>60) Glucose Level 142 mg/dL (74-106) H Uric Acid 2.4 mg/dL (3.0-7.5) L Calcium Level 7.9 mg/dL (8.6-10.2) L Phosphorus Level 2.2 mg/dL (2.5-4.8) L Magnesium Level 2.0 mg/dL (1.7-2.5) Total Bilirubin 0.4 mg/dL (0.0-1.2) Aspartate Amino Transf (AST/SGOT) 19 U/L (5-40) Alanine Aminotransferase (ALT/SGPT) 18 U/L (3-41) Alkaline Phosphatase 40 U/L (40-129) C-Reactive Protein, Quantitative 3.7 mg/dL (< 0.5) H Pro-B-Type Natriuretic Peptide 4532 pg/mL (0-450) H Total Protein 4.8 g/dL (6.6-8.7) L Albumin 1.9 g/dL (3.5-5.2) L Globulin 2.9 g/dL Albumin/Globulin Ratio 0.6 (1.0-2.7) L Arterial Blood pH 7.470 (7.350-7.450) 7.460 (7.350-7.450) 7.460 (7.350-7.450) Arterial Blood Partial Pressure CO2 40.9 mmHg (35.0-45.0) 46.5 mmHg (35.0-45.0) H 44.3 mmHg (35.0-45.0) Arterial Blood Partial Pressure O2 81.6 mmHg (75.0-100.0) 81.2 mmHg (75.0-100.0) 74.9 mmHg (75.0-100.0) L Arterial Blood HCO3 29.4 mmol/L (22.0-26.0) H 32.4 mmol/L (22.0-26.0) H 31.0 mmol/L (22.0-26.0) H Arterial Blood Oxygen Saturation 95.4 % (92.0-98.0) 94.6 % (92.0-98.0) 94.6 % (92.0-98.0) Arterial Blood Base Excess 5.3 7.6 6.5 Evan Test Positive Positive Positive Current Medications Medications (Trade) Dose Ordered Sig/Archie Route PRN Reason Start Time Stop Time Status Last Admin Dose Admin Acetaminophen (Tylenol) 650 mg Q4H PRN ORAL fever 10/07/16 13:00 11/06/16 12:59 Dextrose (Dextrose 50%) STAT PRN IV Hypoglycemia 10/07/16 13:00 11/06/16 12:59 Nitroglycerin (Ntg) 0.4 mg Q5M PRN SL Prn Chest Pain 10/07/16 13:00 11/06/16 12:59 Ondansetron HCl (Zofran) 4 mg Q6H PRN IVP Nausea & Vomiting 10/07/16 13:00 11/06/16 12:59 Pantoprazole (Protonix) 40 mg DAILY IV 10/08/16 09:00 11/07/16 08:59 10/14/16 08:15 Polyethylene Glycol (Miralax) 17 gm DAILYPRN PRN ORAL Constipation 10/07/16 13:00 11/06/16 12:59 10/08/16 00:14 Potassium Phosphate/Sodium Chloride (Potassium Phosphate/Sodium Chloride) 281.6667 ml @ 46.944 m... ONCE ONCE IV 10/14/16 12:00 10/14/16 17:59 10/14/16 11:44 Sodium Chloride 500 ml @ 999 mls/hr NEEDED PRN IV For hypotension (MAP <60%) 10/08/16 13:45 11/07/16 13:44 Valproic Acid 500 mg 500 mg Q12HR GT 10/08/16 09:00 11/06/16 20:59 10/14/16 08:15 EMILIA CAIN Oct 14, 2016 16:10
[2016-10-14] MEDS ORDERED: Nitroglycerin Subl 0.4mg tab (Bottle Of 25) SL PRN (19:45)
[2016-10-14] MEDS ORDERED: Miralax 17gm pkt ORAL PRN (20:00)
[2016-10-15] VITALS (7 sets, daily range): BP systolic 152–160; BP diastolic 57–78
[2016-10-15 07:17] LABS: ALANINE AMINOTRANSFERASE 17 U/L (3-41); ALBUMIN/GLOBULIN RATIO 0.5 (1.0-2.7); ANION GAP 7 (5-15); ASPARTATE AMINO TRANSFERASE 19 U/L (5-40); CALCIUM 8.4 mg/dL (8.6-10.2); CARBON DIOXIDE 29 mEQ/L (20-30); CHLORIDE 105 mEQ/L (98-107); CREATININE 0.6 mg/dL (0.7-1.2); HEMOLYSIS 1; PHOSPHORUS 3.2 mg/dL (2.5-4.8); POTASSIUM 4.3 mEQ/L (3.4-4.9); SODIUM 141 mEQ/L (135-145); TOTAL PROTEIN 5.4 g/dL (6.6-8.7)
[2016-10-15 07:23] LABS: BASOPHILS % (AUTO) 1.1 % (0.0-2.0); EOSINOPHILS % (AUTO) 2.7 % (0.0-3.0); LYMPHOCYTES % (AUTO) 10.7 % (20.0-45.0); MEAN CORPUSCULAR HEMOGLOBIN 31.9 PG (27.0-31.0); MEAN CORPUSCULAR HGB CONC 33.6 G/DL (32.0-36.0); MEAN CORPUSCULAR VOLUME 95 FL (80-99); MEAN PLATELET VOLUME 6.7 FL (6.5-10.1); MONOCYTES % (AUTO) 12.7 % (1.0-10.0); NEUTROPHILS % (AUTO) 72.8 % (45.0-75.0); PLATELET COUNT 161 K/UL (150-450); RED BLOOD COUNT 3.38 M/UL (4.70-6.10); RED CELL DISTRIBUTION WIDTH 13.2 % (11.6-14.8); WHITE BLOOD COUNT 11.3 K/UL (4.8-10.8)
[2016-10-15] MEDS: Valproic Acid 250mg/5ml Liquid GT SCH ×2 (09:11→22:09)
[2016-10-15] MEDS: Pantoprazole Inj IV SCH (09:55)
--- NOTE | 2016-10-15 11:17 | General Progress Note ---
Assessment/Plan Status: unchanged Assessment/Plan 1. Severe sepsis. 2. Healthcare-associated pneumonia. 3. Ventilator-dependent respiratory failure. 4. HF- Diastolic 5. ARF: likely secondary to #1 6, Acute Anemia 5. Dementia. 6. Hyperlipidemia. 7. DNR Pulmonary, ID, Nephrology and cardiology notes are reviewed continue with current management weaning trial per pulmonary OFF antibiotic for now Subjective ROS Limited/Unobtainable: Yes - INTUBATED Allergies: Coded Allergies: No Known Allergies (Unverified , 10/07/16) Objective Last 24 Hour Vital Signs Date Time Temp Pulse Resp B/P Pulse Ox O2 Delivery O2 Flow Rate FiO2 10/15/16 08:55 97.0 74 19 157/66 94 Room Air 10/15/16 06:48 Nasal Cannula 3.0 10/15/16 06:47 95 Nasal Cannula 3.0 10/15/16 04:31 98.4 73 19 155/65 94 Room Air 10/15/16 00:01 98.1 73 20 153/65 93 Room Air 10/14/16 20:00 97.9 78 22 160/58 95 Nasal Cannula 3.0 10/14/16 19:00 Nasal Cannula 3.0 32 10/14/16 19:00 95 Nasal Cannula 3.0 32 10/14/16 19:00 71 28 151/57 93 Nasal Cannula 3.0 10/14/16 18:00 80 30 135/44 93 Nasal Cannula 3.0 10/14/16 17:00 79 29 123/36 94 Nasal Cannula 3.0 10/14/16 16:00 98.0 74 26 151/50 94 Nasal Cannula 3.0 10/14/16 16:00 74 10/14/16 15:48 95 Nasal Cannula 4.0 10/14/16 15:47 Nasal Cannula 4.0 10/14/16 15:45 Nasal Cannula 2.0 10/14/16 15:00 68 28 116/38 97 Mechanical Ventilator 40 10/14/16 14:00 68 24 128/44 95 Mechanical Ventilator 40 10/14/16 13:02 70 30 40 10/14/16 13:00 72 24 135/42 97 Mechanical Ventilator 30 10/14/16 12:00 74 10/14/16 12:00 98.4 62 24 148/46 95 Mechanical Ventilator 30 10/14/16 12:00 40 Intake and Output 10/14/16 10/15/16 19:00 07:00 Intake Total 939.32 ml 770 ml Output Total 410 ml 420 ml Balance 529.32 ml 350 ml Intake Free Water 200 ml 220 ml IV Total 139.32 ml Tube Feeding 600 ml 550 ml Output Urine Total 410 ml 420 ml # Bowel Movements 1 Laboratory Tests 10/15/16 05:10: White Blood Count 11.3H, Red Blood Count 3.38L, Hemoglobin 10.8L, Hematocrit 32.2L, Mean Corpuscular Volume 95, Mean Corpuscular Hemoglobin 31.9H, Mean Corpuscular Hemoglobin Concent 33.6, Red Cell Distribution Width 13.2, Platelet Count 161, Mean Platelet Volume 6.7, Neutrophils (%) (Auto) 72.8, Lymphocytes (% ) (Auto) 10.7L, Monocytes (%) (Auto) 12.7H, Eosinophils (%) (Auto) 2.7, Basophils (%) (Auto) 1.1, Sodium Level 141, Potassium Level 4.3, Chloride Level 105, Carbon Dioxide Level 29, Anion Gap 7, Blood Urea Nitrogen 19, Creatinine 0.6L, Estimat Glomerular Filtration Rate , Glucose Level 120H, Calcium Level 8.4L, Phosphorus Level 3.2, Magnesium Level 2.0, Total Bilirubin 0.4, Aspartate Amino Transf (AST/SGOT) 19, Alanine Aminotransferase (ALT/SGPT) 17, Alkaline Phosphatase 37L, Total Protein 5.4L, Albumin 1.9L, Globulin 3.5, Albumin/ Globulin Ratio 0.5L Height (Feet): 5 Height (Inches): 3.00 Weight (Pounds): 130 General Appearance: no apparent distress EENT: other - LMTIED EVAL. NOT FOLLOWS COMMANGDS Neck: supple Cardiovascular: normal rate Respiratory/Chest: rhonchi - bilaterally Abdomen: soft Extremities: other - LIMITED EVAL Neurologic: other Margaret Jc MD Oct 15, 2016 11:17
[2016-10-15] MEDS ORDERED: DuoNeb 0.5-3(2.5)mg/3ml neb HHN PRN (13:15)
--- NOTE | 2016-10-15 13:27 | Pulmonology Progress Note ---
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) ATN, likely 2 to sepsis-resolved HTN advanced Alzheimer dementia anemia PLAN OF CARE [facility] floor O2 HHN prn fup with CXR in am initial CXR with mild CHF, s/p Lasix cardio follows ECHO with EF 55-60% and RVSP of 14, mild LVH BP management - per cardio Venous Duplex today with evidence of acute DVT RLE start heparin drip per pharmacy off abx per ID, s/p Rx , observe off abx sputum, blood and urian cx all negative CT head no acute intracranial pathology monitor HH, transfuse prn, stool OB negative GI prophylaxis bowel regimen DNR/DNI status case discussed and evaluated by supervising physician Subjective Allergies: Coded Allergies: No Known Allergies (Unverified , 10/07/16) Subjective extubated on [facility] floor no signs of respiratory distress on 3 L O2 via NC, sat stable afebrile, mild leucocytosis venous Duplex + acute DVT RLE Objective Last 24 Hour Vital Signs Date Time Temp Pulse Resp B/P Pulse Ox O2 Delivery O2 Flow Rate FiO2 10/15/16 12:44 73 152/78 10/15/16 12:15 97.3 67 19 160/57 94 Room Air 10/15/16 08:55 97.0 74 19 157/66 94 Room Air 10/15/16 06:48 Nasal Cannula 3.0 10/15/16 06:47 95 Nasal Cannula 3.0 10/15/16 04:31 98.4 73 19 155/65 94 Room Air 10/15/16 00:01 98.1 73 20 153/65 93 Room Air 10/14/16 20:00 97.9 78 22 160/58 95 Nasal Cannula 3.0 10/14/16 19:00 Nasal Cannula 3.0 32 10/14/16 19:00 95 Nasal Cannula 3.0 32 10/14/16 19:00 71 28 151/57 93 Nasal Cannula 3.0 10/14/16 18:00 80 30 135/44 93 Nasal Cannula 3.0 10/14/16 17:00 79 29 123/36 94 Nasal Cannula 3.0 10/14/16 16:00 98.0 74 26 151/50 94 Nasal Cannula 3.0 10/14/16 16:00 74 10/14/16 15:48 95 Nasal Cannula 4.0 10/14/16 15:47 Nasal Cannula 4.0 10/14/16 15:45 Nasal Cannula 2.0 10/14/16 15:00 68 28 116/38 97 Mechanical Ventilator 40 10/14/16 14:00 68 24 128/44 95 Mechanical Ventilator 40 Intake and Output 10/14/16 10/15/16 19:00 07:00 Intake Total 939.32 ml 820 ml Output Total 410 ml 420 ml Balance 529.32 ml 400 ml Intake Free Water 200 ml 220 ml IV Total 139.32 ml Tube Feeding 600 ml 600 ml Output Urine Total 410 ml 420 ml # Bowel Movements 1 General Appearance: other - elderly, bedriiden male in NAD HEENT: normocephalic, atraumatic, other - O2 via NC, NGT Respiratory/Chest: rhonchi - few isolated rhonchi Cardiovascular: normal rate, regular rhythm, no JVD Abdomen: normal bowel sounds, soft, non tender, non distended Genitourinary: normal external genitalia, other Extremities: no edema Neurologic/Psychiatric: other - awake, poorly responsive Musculoskeletal: atrophy - BLE Laboratory Tests 10/15/16 05:10: White Blood Count 11.3H, Red Blood Count 3.38L, Hemoglobin 10.8L, Hematocrit 32.2L, Mean Corpuscular Volume 95, Mean Corpuscular Hemoglobin 31.9H, Mean Corpuscular Hemoglobin Concent 33.6, Red Cell Distribution Width 13.2, Platelet Count 161, Mean Platelet Volume 6.7, Neutrophils (%) (Auto) 72.8, Lymphocytes (% ) (Auto) 10.7L, Monocytes (%) (Auto) 12.7H, Eosinophils (%) (Auto) 2.7, Basophils (%) (Auto) 1.1, Sodium Level 141, Potassium Level 4.3, Chloride Level 105, Carbon Dioxide Level 29, Anion Gap 7, Blood Urea Nitrogen 19, Creatinine 0.6L, Estimat Glomerular Filtration Rate , Glucose Level 120H, Calcium Level 8.4L, Phosphorus Level 3.2, Magnesium Level 2.0, Total Bilirubin 0.4, Aspartate Amino Transf (AST/SGOT) 19, Alanine Aminotransferase (ALT/SGPT) 17, Alkaline Phosphatase 37L, Total Protein 5.4L, Albumin 1.9L, Globulin 3.5, Albumin/ Globulin Ratio 0.5L Current Medications Medications (Trade) Dose Ordered Sig/Archie Route PRN Reason Start Time Stop Time Status Last Admin Dose Admin Acetaminophen (Tylenol) 650 mg Q4H PRN ORAL fever 10/14/16 20:00 11/13/16 19:59 Dextrose (Dextrose 50%) STAT PRN IV Hypoglycemia 10/14/16 20:00 11/13/16 19:59 Nitroglycerin (Ntg) 0.4 mg Q 5 MIN X 3 DOSES PRN SL Prn Chest Pain 10/14/16 19:45 11/13/16 19:44 Ondansetron HCl (Zofran) 4 mg Q6H PRN IVP Nausea & Vomiting 10/14/16 20:00 11/13/16 19:59 Pantoprazole (Protonix) 40 mg DAILY IV 10/15/16 09:00 11/14/16 08:59 10/15/16 09:55 Polyethylene Glycol (Miralax) 17 gm DAILYPRN PRN ORAL Constipation 10/14/16 20:00 11/13/16 19:59 Sodium Chloride (NS) 500 ml @ 999 mls/hr NEEDED PRN IV For hypotension (MAP <60%) 10/14/16 20:00 11/13/16 19:59 Valproic Acid (Depakene) 500 mg Q12HR GT 10/14/16 21:00 11/13/16 20:59 10/15/16 09:11 [facility] HospitalId[facility] Mcgregor NP Oct 15, 2016 13:27
[2016-10-15] MEDS ORDERED: Heparin 5000 units/ml inj IV ONE ×2 (14:00→21:15)
--- NOTE | 2016-10-15 14:00 | Diagnostic Imaging Report ---
Indications: DYSPNEA Technique: Portable AP chest Findings: Comparison: 10/14/16 Inspiratory effort remains suboptimal. Linear densities persist in both lung bases, perhaps mildly improved on the right. Left costophrenic angle now blunted. Cardiac silhouette remains enlarged. Nasogastric tube remains in place. IMPRESSION: Persistent pulmonary bibasal subsegmental atelectasis with suggestion of some improvement on right Development versus better visualization of small left pleural effusion No other change
[2016-10-15] MEDS: Heparin 25,000u/D5W 500ml 500 ML IV SCH ×2 (14:28→21:10)
--- NOTE | 2016-10-15 15:44 | General Progress Note ---
Assessment/Plan Status: stable - from renal stand, unchanged Assessment/Plan Status: 1. Severe sepsis. leading to acute renal failure- and respiratory failure- 2. Healthcare-associated pneumonia. 3. Ventilator-dependent respiratory failure. 4. Hypertension. 5. Dementia. Alzheimer's dementia. 6. Hyperlipidemia. 7. Psychiatric disorder. 8. h/o Gallstones. 9. h/o Diverticulosis. 10.h/o BPH. Plan: K Phos IV as needed Vent support- Antibiotics- Monitor renal parameters- Urine studies- Subjective ROS Limited/Unobtainable: Yes Allergies: Coded Allergies: No Known Allergies (Unverified , 10/07/16) Objective Last 24 Hour Vital Signs Date Time Temp Pulse Resp B/P Pulse Ox O2 Delivery O2 Flow Rate FiO2 10/15/16 12:44 73 152/78 10/15/16 12:15 97.3 67 19 160/57 94 Room Air 10/15/16 08:55 97.0 74 19 157/66 94 Room Air 10/15/16 06:48 Nasal Cannula 3.0 10/15/16 06:47 95 Nasal Cannula 3.0 10/15/16 04:31 98.4 73 19 155/65 94 Room Air 10/15/16 00:01 98.1 73 20 153/65 93 Room Air 10/14/16 20:00 97.9 78 22 160/58 95 Nasal Cannula 3.0 10/14/16 19:00 Nasal Cannula 3.0 32 10/14/16 19:00 95 Nasal Cannula 3.0 32 10/14/16 19:00 71 28 151/57 93 Nasal Cannula 3.0 10/14/16 18:00 80 30 135/44 93 Nasal Cannula 3.0 10/14/16 17:00 79 29 123/36 94 Nasal Cannula 3.0 10/14/16 16:00 98.0 74 26 151/50 94 Nasal Cannula 3.0 10/14/16 16:00 74 10/14/16 15:48 95 Nasal Cannula 4.0 10/14/16 15:47 Nasal Cannula 4.0 10/14/16 15:45 Nasal Cannula 2.0 Intake and Output 10/14/16 10/15/16 19:00 07:00 Intake Total 939.32 ml 820 ml Output Total 410 ml 420 ml Balance 529.32 ml 400 ml Intake Free Water 200 ml 220 ml IV Total 139.32 ml Tube Feeding 600 ml 600 ml Output Urine Total 410 ml 420 ml # Bowel Movements 1 Laboratory Tests 10/15/16 05:10: White Blood Count 11.3H, Red Blood Count 3.38L, Hemoglobin 10.8L, Hematocrit 32.2L, Mean Corpuscular Volume 95, Mean Corpuscular Hemoglobin 31.9H, Mean Corpuscular Hemoglobin Concent 33.6, Red Cell Distribution Width 13.2, Platelet Count 161, Mean Platelet Volume 6.7, Neutrophils (%) (Auto) 72.8, Lymphocytes (% ) (Auto) 10.7L, Monocytes (%) (Auto) 12.7H, Eosinophils (%) (Auto) 2.7, Basophils (%) (Auto) 1.1, Sodium Level 141, Potassium Level 4.3, Chloride Level 105, Carbon Dioxide Level 29, Anion Gap 7, Blood Urea Nitrogen 19, Creatinine 0.6L, Estimat Glomerular Filtration Rate , Glucose Level 120H, Calcium Level 8.4L, Phosphorus Level 3.2, Magnesium Level 2.0, Total Bilirubin 0.4, Aspartate Amino Transf (AST/SGOT) 19, Alanine Aminotransferase (ALT/SGPT) 17, Alkaline Phosphatase 37L, Total Protein 5.4L, Albumin 1.9L, Globulin 3.5, Albumin/ Globulin Ratio 0.5L 10/15/16 13:35: Activated Partial Thromboplast Time 31 Height (Feet): 5 Height (Inches): 3.00 Weight (Pounds): 130 General Appearance: no apparent distress EENT: other - NGT Respiratory/Chest: decreased breath sounds Abdomen: soft Objective PE not changed MANPREET GERMAN Oct 15, 2016 15:44
--- NOTE | 2016-10-15 16:07 | Infectious Diseases Prog Note ---
Assessment/Plan Assessment/Plan ASSESSMENT: 86 y/o male with: // Probable PNA - SCx NRF, legionella UAg(-) SP Rx - CXR 10/15: Persistent pulmonary bibasal subsegmental atelectasis with suggestion of some improvement on right - CT: Bilateral pulmonary lower lobe consolidation--atelectasis versus pneumonia - negative: influenza // Severe sepsis SP - improved lactic acidosis // Leukocytosis, bandemia - recurrent, mild, stable ( m/l DVT ) // Fever - resolved // Acute RLE DVT // Acute VDRF SP - intubated 10/07, extubated 10/14 // Possible diastolic CHF exacerbation - trop(-) x1, BNP >70K - TTE: EF 55-60%, mild AR, significant implied diastolic dysfunction - CXR: Pulmonary vascular redistribution. Bilateral interstitial prominence. Left costophrenic angle blunting suggests small pleural effusion // ARF ?CKD - resolved // Advanced Alzheimer's dementia // NKDA // Full Code PLAN: - Monitor pt off of ABX ( 10/13 SP IV vancomycin, zosyn d# 7 / ) - monitor CBC, temperatures, re-culture if febrile or worsening leukocytosis - monitor BMP - monitor CXR Subjective Allergies: Coded Allergies: No Known Allergies (Unverified , 10/07/16) Subjective remains afebrile. recurrent mild leukocytosis, stable transferred to floor Objective Vital Signs Last 24 Hour Vital Signs Date Time Temp Pulse Resp B/P Pulse Ox O2 Delivery O2 Flow Rate FiO2 10/15/16 12:44 73 152/78 10/15/16 12:15 97.3 67 19 160/57 94 Room Air 10/15/16 08:55 97.0 74 19 157/66 94 Room Air 10/15/16 06:48 Nasal Cannula 3.0 10/15/16 06:47 95 Nasal Cannula 3.0 10/15/16 04:31 98.4 73 19 155/65 94 Room Air 10/15/16 00:01 98.1 73 20 153/65 93 Room Air 10/14/16 20:00 97.9 78 22 160/58 95 Nasal Cannula 3.0 10/14/16 19:00 Nasal Cannula 3.0 32 10/14/16 19:00 95 Nasal Cannula 3.0 32 10/14/16 19:00 71 28 151/57 93 Nasal Cannula 3.0 10/14/16 18:00 80 30 135/44 93 Nasal Cannula 3.0 10/14/16 17:00 79 29 123/36 94 Nasal Cannula 3.0 Height (Feet): 5 Height (Inches): 3.00 Weight (Pounds): 130 General Appearance: no acute distress Respiratory/Chest: no respiratory distress Cardiovascular: normal rate, regular rhythm Abdomen: normal bowel sounds, soft, non tender, non distended Laboratory Tests Test 10/15/16 05:10 10/15/16 13:35 White Blood Count 11.3 K/UL (4.8-10.8) H Red Blood Count 3.38 M/UL (4.70-6.10) L Hemoglobin 10.8 G/DL (14.2-18.0) L Hematocrit 32.2 % (42.0-52.0) L Mean Corpuscular Volume 95 FL (80-99) Mean Corpuscular Hemoglobin 31.9 PG (27.0-31.0) H Mean Corpuscular Hemoglobin Concent 33.6 G/DL (32.0-36.0) Red Cell Distribution Width 13.2 % (11.6-14.8) Platelet Count 161 K/UL (150-450) Mean Platelet Volume 6.7 FL (6.5-10.1) Neutrophils (%) (Auto) 72.8 % (45.0-75.0) Lymphocytes (%) (Auto) 10.7 % (20.0-45.0) L Monocytes (%) (Auto) 12.7 % (1.0-10.0) H Eosinophils (%) (Auto) 2.7 % (0.0-3.0) Basophils (%) (Auto) 1.1 % (0.0-2.0) Sodium Level 141 mEQ/L (135-145) Potassium Level 4.3 mEQ/L (3.4-4.9) Chloride Level 105 mEQ/L (98-107) Carbon Dioxide Level 29 mEQ/L (20-30) Anion Gap 7 (5-15) Blood Urea Nitrogen 19 mg/dL (7-23) Creatinine 0.6 mg/dL (0.7-1.2) L Estimat Glomerular Filtration Rate mL/min (>60) Glucose Level 120 mg/dL (74-106) H Calcium Level 8.4 mg/dL (8.6-10.2) L Phosphorus Level 3.2 mg/dL (2.5-4.8) Magnesium Level 2.0 mg/dL (1.7-2.5) Total Bilirubin 0.4 mg/dL (0.0-1.2) Aspartate Amino Transf (AST/SGOT) 19 U/L (5-40) Alanine Aminotransferase (ALT/SGPT) 17 U/L (3-41) Alkaline Phosphatase 37 U/L (40-129) L Total Protein 5.4 g/dL (6.6-8.7) L Albumin 1.9 g/dL (3.5-5.2) L Globulin 3.5 g/dL Albumin/Globulin Ratio 0.5 (1.0-2.7) L Activated Partial Thromboplast Time 31 SEC (23-33) Current Medications Medications (Trade) Dose Ordered Sig/Archie Route PRN Reason Start Time Stop Time Status Last Admin Dose Admin Acetaminophen (Tylenol) 650 mg Q4H PRN ORAL fever 10/14/16 20:00 11/13/16 19:59 Albuterol/ Ipratropium 3 ml 3 ml Q4HRT PRN HHN sob 10/15/16 13:15 10/20/16 13:14 Dextrose (Dextrose 50%) STAT PRN IV Hypoglycemia 10/14/16 20:00 11/13/16 19:59 Heparin Sodium/ Dextrose (Heparin) 500 ml @ 21.228 mls/ hr adjust per protocol IV 10/15/16 14:00 11/14/16 13:59 10/15/16 14:28 Nitroglycerin (Ntg) 0.4 mg Q 5 MIN X 3 DOSES PRN SL Prn Chest Pain 10/14/16 19:45 11/13/16 19:44 Ondansetron HCl (Zofran) 4 mg Q6H PRN IVP Nausea & Vomiting 10/14/16 20:00 11/13/16 19:59 Pantoprazole (Protonix) 40 mg DAILY IV 10/15/16 09:00 11/14/16 08:59 10/15/16 09:55 Polyethylene Glycol (Miralax) 17 gm DAILYPRN PRN ORAL Constipation 10/14/16 20:00 2/18/17 19:59 Sodium Chloride (NS) 500 ml @ 999 mls/hr NEEDED PRN IV For hypotension (MAP <60%) 10/14/16 20:00 11/13/16 19:59 Valproic Acid (Depakene) 500 mg Q12HR GT 10/14/16 21:00 11/13/16 20:59 10/15/16 09:11 EMILIA CAIN Oct 15, 2016 16:07
[2016-10-16] VITALS: BP 184/64
[2016-10-16 03:56] LABS: BASOPHILS % (AUTO) 0.7 % (0.0-2.0); EOSINOPHILS % (AUTO) 1.8 % (0.0-3.0); LYMPHOCYTES % (AUTO) 11.7 % (20.0-45.0); MEAN CORPUSCULAR HEMOGLOBIN 31.4 PG (27.0-31.0); MEAN CORPUSCULAR HGB CONC 33.5 G/DL (32.0-36.0); MEAN CORPUSCULAR VOLUME 94 FL (80-99); MEAN PLATELET VOLUME 5.9 FL (6.5-10.1); MONOCYTES % (AUTO) 10.7 % (1.0-10.0); NEUTROPHILS % (AUTO) 75.2 % (45.0-75.0); PLATELET COUNT 206 K/UL (150-450); RED CELL DISTRIBUTION WIDTH 12.9 % (11.6-14.8); WHITE BLOOD COUNT 14.3 K/UL (4.8-10.8)
[2016-10-16 04:00] VITALS: BP 162/64
[2016-10-16 04:17] LABS: ANION GAP 9 (5-15); CALCIUM 8.5 mg/dL (8.6-10.2); CARBON DIOXIDE 27 mEQ/L (20-30); CHLORIDE 104 mEQ/L (98-107); CREATININE 0.6 mg/dL (0.7-1.2); HEMOLYSIS 6; POTASSIUM 4.6 mEQ/L (3.4-4.9); SODIUM 140 mEQ/L (135-145)
[2016-10-16 08:00] VITALS: BP 158/54
[2016-10-16] MEDS: Valproic Acid 250mg/5ml Liquid GT SCH ×2 (09:00→20:25)
[2016-10-16] MEDS: Pantoprazole Inj IV SCH (09:20)
[2016-10-16] MEDS: D5NS 1,000 ML IV SCH (11:38)
[2016-10-16 12:07] VITALS: BP 162/52
--- NOTE | 2016-10-16 12:52 | General Progress Note ---
Assessment/Plan Status: stable Assessment/Plan 1. sepsis. 2. Healthcare-associated pneumonia. 3. HF- Diastolic 5. ARF: likely secondary to #1 6, Acute Anemia 5. Dementia. 6. Hyperlipidemia. 7. DNR 8. Acute DVT Pulmonary, ID, Nephrology and cardiology notes are reviewed worsening wbc, Recurrence! New infection on anticoagulation, will monitor PLT Subjective ROS Limited/Unobtainable: Yes Allergies: Coded Allergies: No Known Allergies (Unverified , 10/07/16) Objective Last 24 Hour Vital Signs Date Time Temp Pulse Resp B/P Pulse Ox O2 Delivery O2 Flow Rate FiO2 10/16/16 12:07 97.5 60 20 162/52 92 Nasal Cannula 10/16/16 08:00 98.1 64 19 158/54 95 Nasal Cannula 10/16/16 07:40 95 Nasal Cannula 3.0 10/16/16 07:39 Nasal Cannula 3.0 10/16/16 04:00 98.1 67 20 162/64 96 Room Air 10/16/16 00:00 98.1 76 20 184/64 91 Room Air 10/15/16 20:00 98.2 72 20 157/66 92 Nasal Cannula 2.0 10/15/16 19:00 96 Nasal Cannula 3.0 32 10/15/16 19:00 Nasal Cannula 3.0 32 10/15/16 16:12 96.9 74 19 157/73 93 Nasal Cannula 2.0 Intake and Output 10/15/16 10/16/16 19:00 07:00 Intake Total 832 ml 790 ml Output Total 120 ml 650 ml Balance 712 ml 140 ml Intake Free Water 160 ml 160 ml IV Total 72 ml 80 ml Tube Feeding 600 ml 550 ml Output Urine Total 120 ml 650 ml Laboratory Tests 10/15/16 13:35: Activated Partial Thromboplast Time 31 10/15/16 20:30: Activated Partial Thromboplast Time 44H 10/16/16 03:30: Activated Partial Thromboplast Time 168*H, White Blood Count 14.3H, Red Blood Count 3.60L, Hemoglobin 11.3L, Hematocrit 33.8L, Mean Corpuscular Volume 94, Mean Corpuscular Hemoglobin 31.4H, Mean Corpuscular Hemoglobin Concent 33.5, Red Cell Distribution Width 12.9, Platelet Count 206, Mean Platelet Volume 5.9L , Neutrophils (%) (Auto) 75.2H, Lymphocytes (%) (Auto) 11.7L, Monocytes (%) ( Auto) 10.7H, Eosinophils (%) (Auto) 1.8, Basophils (%) (Auto) 0.7, Sodium Level 140, Potassium Level 4.6, Chloride Level 104, Carbon Dioxide Level 27, Anion Gap 9, Blood Urea Nitrogen 18, Creatinine 0.6L, Estimat Glomerular Filtration Rate , Glucose Level 86, Calcium Level 8.5L 10/16/16 11:30: Activated Partial Thromboplast Time 80H Height (Feet): 5 Height (Inches): 3.00 Weight (Pounds): 130 General Appearance: no apparent distress EENT: PERRL/EOMI Neck: supple Cardiovascular: normal rate Respiratory/Chest: rhonchi - bilaterally Abdomen: soft Extremities: other - cachectic, mal nourished Neurologic: disoriented, other - awake Margaret Jc MD Oct 16, 2016 12:52
[2016-10-16] MEDS: Heparin 25,000u/D5W 500ml 500 ML IV SCH (14:21)
[2016-10-16] MEDS ORDERED: 1/2 NS 1000ml IV ONE (15:07)
[2016-10-16] MEDS ORDERED: Tubing IV Secondary IV ONE ×2 (15:07→15:14)
--- NOTE | 2016-10-16 15:08 | Infectious Diseases Prog Note ---
Assessment/Plan Assessment/Plan ASSESSMENT: 86 y/o male with: // Probable PNA - SCx NRF, legionella UAg(-) SP Rx - CXR 10/15: Persistent pulmonary bibasal subsegmental atelectasis with suggestion of some improvement on right - CT: Bilateral pulmonary lower lobe consolidation--atelectasis versus pneumonia - negative: influenza // Severe sepsis SP - improved lactic acidosis // Leukocytosis, increased ( m/l DVT ) // Fever - resolved // Acute RLE DVT // Acute VDRF SP - intubated 10/07, extubated 10/14 // Possible diastolic CHF exacerbation - trop(-) x1, BNP >70K - TTE: EF 55-60%, mild AR, significant implied diastolic dysfunction - CXR: Pulmonary vascular redistribution. Bilateral interstitial prominence. Left costophrenic angle blunting suggests small pleural effusion // ARF ?CKD - resolved // Advanced Alzheimer's dementia // NKDA // Full Code PLAN: - Monitor pt off of ABX if WBC worsen , will start AB Rx ( 10/13 SP IV vancomycin, zosyn d# 7 / ) - monitor CBC, temperatures, r - monitor CXR - culture ( Bl, Ur Sp) - Cxray Subjective Constitutional: Denies: anorexia, chills, drenching sweats, fatigue, fever, no symptoms, other Allergies: Coded Allergies: No Known Allergies (Unverified , 10/07/16) Subjective more awake today Objective Vital Signs Last 24 Hour Vital Signs Date Time Temp Pulse Resp B/P Pulse Ox O2 Delivery O2 Flow Rate FiO2 10/16/16 12:07 97.5 60 20 162/52 92 Nasal Cannula 10/16/16 08:00 98.1 64 19 158/54 95 Nasal Cannula 10/16/16 07:40 95 Nasal Cannula 3.0 10/16/16 07:39 Nasal Cannula 3.0 10/16/16 04:00 98.1 67 20 162/64 96 Room Air 10/16/16 00:00 98.1 76 20 184/64 91 Room Air 10/15/16 20:00 98.2 72 20 157/66 92 Nasal Cannula 2.0 10/15/16 19:00 96 Nasal Cannula 3.0 32 10/15/16 19:00 Nasal Cannula 3.0 32 10/15/16 16:12 96.9 74 19 157/73 93 Nasal Cannula 2.0 Height (Feet): 5 Height (Inches): 3.00 Weight (Pounds): 130 Respiratory/Chest: no accessory muscle use Abdomen: no organomegaly Neurologic/Psychiatric: abnormal gait Laboratory Tests Test 10/15/16 20:30 10/16/16 03:30 10/16/16 11:30 Activated Partial Thromboplast Time 44 SEC (23-33) H 168 SEC (23-33) *H 80 SEC (23-33) H White Blood Count 14.3 K/UL (4.8-10.8) H Red Blood Count 3.60 M/UL (4.70-6.10) L Hemoglobin 11.3 G/DL (14.2-18.0) L Hematocrit 33.8 % (42.0-52.0) L Mean Corpuscular Volume 94 FL (80-99) Mean Corpuscular Hemoglobin 31.4 PG (27.0-31.0) H Mean Corpuscular Hemoglobin Concent 33.5 G/DL (32.0-36.0) Red Cell Distribution Width 12.9 % (11.6-14.8) Platelet Count 206 K/UL (150-450) Mean Platelet Volume 5.9 FL (6.5-10.1) L Neutrophils (%) (Auto) 75.2 % (45.0-75.0) H Lymphocytes (%) (Auto) 11.7 % (20.0-45.0) L Monocytes (%) (Auto) 10.7 % (1.0-10.0) H Eosinophils (%) (Auto) 1.8 % (0.0-3.0) Basophils (%) (Auto) 0.7 % (0.0-2.0) Sodium Level 140 mEQ/L (135-145) Potassium Level 4.6 mEQ/L (3.4-4.9) Chloride Level 104 mEQ/L (98-107) Carbon Dioxide Level 27 mEQ/L (20-30) Anion Gap 9 (5-15) Blood Urea Nitrogen 18 mg/dL (7-23) Creatinine 0.6 mg/dL (0.7-1.2) L Estimat Glomerular Filtration Rate mL/min (>60) Glucose Level 86 mg/dL (74-106) Calcium Level 8.5 mg/dL (8.6-10.2) L Current Medications Medications (Trade) Dose Ordered Sig/Archie Route PRN Reason Start Time Stop Time Status Last Admin Dose Admin Acetaminophen (Tylenol) 650 mg Q4H PRN ORAL fever 10/14/16 20:00 11/13/16 19:59 Albuterol/ Ipratropium 3 ml 3 ml Q4HRT PRN HHN sob 10/15/16 13:15 10/20/16 13:14 Dextrose (Dextrose 50%) STAT PRN IV Hypoglycemia 10/14/16 20:00 11/13/16 19:59 Dextrose/Sodium Chloride (D5ns) 1,000 ml @ 50 mls/hr Q20H IV 10/16/16 10:00 11/15/16 09:59 10/16/16 11:38 Heparin Sodium/ Dextrose 500 ml @ 21.228 mls/ hr adjust per protocol IV 10/16/16 05:40 11/14/16 13:59 10/16/16 14:21 Nitroglycerin (Ntg) 0.4 mg Q 5 MIN X 3 DOSES PRN SL Prn Chest Pain 10/14/16 19:45 11/13/16 19:44 Ondansetron HCl (Zofran) 4 mg Q6H PRN IVP Nausea & Vomiting 10/14/16 20:00 11/13/16 19:59 Pantoprazole (Protonix) 40 mg DAILY IV 10/15/16 09:00 11/14/16 08:59 10/16/16 09:20 Polyethylene Glycol (Miralax) 17 gm DAILYPRN PRN ORAL Constipation 10/14/16 20:00 11/13/16 19:59 Sodium Chloride (NS) 500 ml @ 999 mls/hr NEEDED PRN IV For hypotension (MAP <60%) 10/14/16 20:00 11/13/16 19:59 Valproic Acid (Depakene) 500 mg Q12HR GT 10/14/16 21:00 11/13/16 20:59 10/15/16 22:09 ZAIRE MORA M.D. Oct 16, 2016 15:08
[2016-10-16] MEDS ORDERED: NS 275ml ONE (15:11)
--- NOTE | 2016-10-16 15:25 | General Progress Note ---
Assessment/Plan Status: stable - from renal stand, unchanged Assessment/Plan Status: 1. Severe sepsis. leading to acute renal failure- and respiratory failure- 2. Healthcare-associated pneumonia. 3. Ventilator-dependent respiratory failure. 4. Hypertension. 5. Dementia. Alzheimer's dementia. 6. Hyperlipidemia. 7. Psychiatric disorder. 8. h/o Gallstones. 9. h/o Diverticulosis. 10.h/o BPH. Plan: K Phos IV as needed Vent support- Antibiotics- Monitor renal parameters- Urine studies- per consultants Subjective ROS Limited/Unobtainable: No Constitutional: Reports: malaise, weakness Allergies: Coded Allergies: No Known Allergies (Unverified , 10/07/16) Objective Last 24 Hour Vital Signs Date Time Temp Pulse Resp B/P Pulse Ox O2 Delivery O2 Flow Rate FiO2 10/16/16 12:07 97.5 60 20 162/52 92 Nasal Cannula 10/16/16 08:00 98.1 64 19 158/54 95 Nasal Cannula 10/16/16 07:40 95 Nasal Cannula 3.0 10/16/16 07:39 Nasal Cannula 3.0 10/16/16 04:00 98.1 67 20 162/64 96 Room Air 10/16/16 00:00 98.1 76 20 184/64 91 Room Air 10/15/16 20:00 98.2 72 20 157/66 92 Nasal Cannula 2.0 10/15/16 19:00 96 Nasal Cannula 3.0 32 10/15/16 19:00 Nasal Cannula 3.0 32 10/15/16 16:12 96.9 74 19 157/73 93 Nasal Cannula 2.0 Intake and Output 10/15/16 10/16/16 19:00 07:00 Intake Total 832 ml 790 ml Output Total 120 ml 650 ml Balance 712 ml 140 ml Intake Free Water 160 ml 160 ml IV Total 72 ml 80 ml Tube Feeding 600 ml 550 ml Output Urine Total 120 ml 650 ml Laboratory Tests 10/15/16 20:30: Activated Partial Thromboplast Time 44H 10/16/16 03:30: Activated Partial Thromboplast Time 168*H, White Blood Count 14.3H, Red Blood Count 3.60L, Hemoglobin 11.3L, Hematocrit 33.8L, Mean Corpuscular Volume 94, Mean Corpuscular Hemoglobin 31.4H, Mean Corpuscular Hemoglobin Concent 33.5, Red Cell Distribution Width 12.9, Platelet Count 206, Mean Platelet Volume 5.9L , Neutrophils (%) (Auto) 75.2H, Lymphocytes (%) (Auto) 11.7L, Monocytes (%) ( Auto) 10.7H, Eosinophils (%) (Auto) 1.8, Basophils (%) (Auto) 0.7, Sodium Level 140, Potassium Level 4.6, Chloride Level 104, Carbon Dioxide Level 27, Anion Gap 9, Blood Urea Nitrogen 18, Creatinine 0.6L, Estimat Glomerular Filtration Rate , Glucose Level 86, Calcium Level 8.5L 10/16/16 11:30: Activated Partial Thromboplast Time 80H Height (Feet): 5 Height (Inches): 3.00 Weight (Pounds): 130 General Appearance: no apparent distress, lethargic Cardiovascular: normal rate Respiratory/Chest: decreased breath sounds Abdomen: soft Objective PE not changed MANPREET GERMAN Oct 16, 2016 15:25
--- NOTE | 2016-10-16 15:45 | Cardiology Progress Note ---
Assessment/Plan Status: stable, progressing Status Narrative extubated successfully. Hypertensive - ? mild vol overload Assessment/Plan Continue current supportive care. low dose iv lasix today. Restart lisinopril, coreg (pt taking prior to admission, per summary report) for BP f/u labs in am Subjective ROS Limited/Unobtainable: No Subjective Events noted. Pt extubated/ awake. No respir distress Objective Last 24 Hour Vital Signs Date Time Temp Pulse Resp B/P Pulse Ox O2 Delivery O2 Flow Rate FiO2 10/16/16 12:07 97.5 60 20 162/52 92 Nasal Cannula 10/16/16 08:00 98.1 64 19 158/54 95 Nasal Cannula 10/16/16 07:40 95 Nasal Cannula 3.0 10/16/16 07:39 Nasal Cannula 3.0 10/16/16 04:00 98.1 67 20 162/64 96 Room Air 10/16/16 00:00 98.1 76 20 184/64 91 Room Air 10/15/16 20:00 98.2 72 20 157/66 92 Nasal Cannula 2.0 10/15/16 19:00 96 Nasal Cannula 3.0 32 10/15/16 19:00 Nasal Cannula 3.0 32 10/15/16 16:12 96.9 74 19 157/73 93 Nasal Cannula 2.0 General Appearance: WD/WN, no apparent distress, alert Neck: supple, no JVD Rhythm: NSR Cardiovascular: normal rate, no gallop/murmur Respiratory/Chest: rhonchi - bilaterally - few rhonchi bilat Abdomen: non tender, soft Extremities: no swelling Intake and Output 10/15/16 10/16/16 19:00 07:00 Intake Total 832 ml 790 ml Output Total 120 ml 650 ml Balance 712 ml 140 ml Intake Free Water 160 ml 160 ml IV Total 72 ml 80 ml Tube Feeding 600 ml 550 ml Output Urine Total 120 ml 650 ml Laboratory Tests Test 10/15/16 20:30 10/16/16 03:30 10/16/16 11:30 Activated Partial Thromboplast Time 44 SEC (23-33) H 168 SEC (23-33) *H 80 SEC (23-33) H White Blood Count 14.3 K/UL (4.8-10.8) H Red Blood Count 3.60 M/UL (4.70-6.10) L Hemoglobin 11.3 G/DL (14.2-18.0) L Hematocrit 33.8 % (42.0-52.0) L Mean Corpuscular Volume 94 FL (80-99) Mean Corpuscular Hemoglobin 31.4 PG (27.0-31.0) H Mean Corpuscular Hemoglobin Concent 33.5 G/DL (32.0-36.0) Red Cell Distribution Width 12.9 % (11.6-14.8) Platelet Count 206 K/UL (150-450) Mean Platelet Volume 5.9 FL (6.5-10.1) L Neutrophils (%) (Auto) 75.2 % (45.0-75.0) H Lymphocytes (%) (Auto) 11.7 % (20.0-45.0) L Monocytes (%) (Auto) 10.7 % (1.0-10.0) H Eosinophils (%) (Auto) 1.8 % (0.0-3.0) Basophils (%) (Auto) 0.7 % (0.0-2.0) Sodium Level 140 mEQ/L (135-145) Potassium Level 4.6 mEQ/L (3.4-4.9) Chloride Level 104 mEQ/L (98-107) Carbon Dioxide Level 27 mEQ/L (20-30) Anion Gap 9 (5-15) Blood Urea Nitrogen 18 mg/dL (7-23) Creatinine 0.6 mg/dL (0.7-1.2) L Estimat Glomerular Filtration Rate mL/min (>60) Glucose Level 86 mg/dL (74-106) Calcium Level 8.5 mg/dL (8.6-10.2) RIRI PENNY Oct 16, 2016 15:45
[2016-10-16 16:00] VITALS: BP 152/72
--- NOTE | 2016-10-16 17:04 | Pulmonology Progress Note ---
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) ATN, likely 2 to sepsis-resolved HTN advanced Alzheimer dementia anemia PLAN OF CARE [facility] floor O2 HHN prn fup with CXR in am initial CXR with mild CHF, s/p Lasix cardio follows today appeared with mild fluid overload, low dose Lasix 10/16 as per cardio ECHO with EF 55-60% and RVSP of 14, mild LVH BP management, started on BB and JOON Venous Duplex with evidence of acute DVT RLE Heparin drip per pharmacy, add Coumadin to bridge to therapeutic INR off abx per ID, s/p Rx , observe off abx sputum, blood and urian cx all negative CT head no acute intracranial pathology monitor HH, transfuse prn, stool OB negative GI prophylaxis bowel regimen DNR/DNI status case discussed and evaluated by supervising physician Subjective Allergies: Coded Allergies: No Known Allergies (Unverified , 10/07/16) Subjective on [place] floor no signs of respiratory distress on 3 L O2 via NC, sat stable afebrile, leucocytosis with trend up venous Duplex + acute DVT RLE, on heparin drip Objective Last 24 Hour Vital Signs Date Time Temp Pulse Resp B/P Pulse Ox O2 Delivery O2 Flow Rate FiO2 10/16/16 16:00 97.9 61 18 152/72 94 Nasal Cannula 2.0 10/16/16 12:07 97.5 60 20 162/52 92 Nasal Cannula 10/16/16 08:00 98.1 64 19 158/54 95 Nasal Cannula 10/16/16 07:40 95 Nasal Cannula 3.0 10/16/16 07:39 Nasal Cannula 3.0 10/16/16 04:00 98.1 67 20 162/64 96 Room Air 10/16/16 00:00 98.1 76 20 184/64 91 Room Air 10/15/16 20:00 98.2 72 20 157/66 92 Nasal Cannula 2.0 10/15/16 19:00 96 Nasal Cannula 3.0 32 10/15/16 19:00 Nasal Cannula 3.0 32 Intake and Output 10/15/16 10/16/16 19:00 07:00 Intake Total 832 ml 790 ml Output Total 120 ml 650 ml Balance 712 ml 140 ml Intake Free Water 160 ml 160 ml IV Total 72 ml 80 ml Tube Feeding 600 ml 550 ml Output Urine Total 120 ml 650 ml Objective General Appearance: other - elderly, bedriiden male in NAD HEENT: normocephalic, atraumatic, other - O2 via NC, NGT Respiratory/Chest: rhonchi - few isolated rhonchi Cardiovascular: normal rate, regular rhythm, no JVD Abdomen: normal bowel sounds, soft, non tender, non distended Genitourinary: normal external genitalia, other Extremities: no edema Neurologic/Psychiatric: other - awake, poorly responsive Musculoskeletal: atrophy - BLE Laboratory Tests 10/15/16 20:30: Activated Partial Thromboplast Time 44H 10/16/16 03:30: Activated Partial Thromboplast Time 168*H, White Blood Count 14.3H, Red Blood Count 3.60L, Hemoglobin 11.3L, Hematocrit 33.8L, Mean Corpuscular Volume 94, Mean Corpuscular Hemoglobin 31.4H, Mean Corpuscular Hemoglobin Concent 33.5, Red Cell Distribution Width 12.9, Platelet Count 206, Mean Platelet Volume 5.9L , Neutrophils (%) (Auto) 75.2H, Lymphocytes (%) (Auto) 11.7L, Monocytes (%) ( Auto) 10.7H, Eosinophils (%) (Auto) 1.8, Basophils (%) (Auto) 0.7, Sodium Level 140, Potassium Level 4.6, Chloride Level 104, Carbon Dioxide Level 27, Anion Gap 9, Blood Urea Nitrogen 18, Creatinine 0.6L, Estimat Glomerular Filtration Rate , Glucose Level 86, Calcium Level 8.5L 10/16/16 11:30: Activated Partial Thromboplast Time 80H Current Medications Medications (Trade) Dose Ordered Sig/Archie Route PRN Reason Start Time Stop Time Status Last Admin Dose Admin Acetaminophen (Tylenol) 650 mg Q4H PRN ORAL fever 10/14/16 20:00 11/13/16 19:59 Albuterol/ Ipratropium 3 ml 3 ml Q4HRT PRN HHN sob 10/15/16 13:15 10/20/16 13:14 Carvedilol (Coreg) 3.125 mg EVERY 12 HOURS ORAL 10/16/16 21:00 11/15/16 20:59 Dextrose (Dextrose 50%) STAT PRN IV Hypoglycemia 10/14/16 20:00 11/13/16 19:59 Dextrose/Sodium Chloride (D5ns) 1,000 ml @ 50 mls/hr Q20H IV 10/16/16 10:00 11/15/16 09:59 10/16/16 11:38 Heparin Sodium/ Dextrose 500 ml @ 21.228 mls/ hr adjust per protocol IV 10/16/16 05:40 11/14/16 13:59 10/16/16 14:21 Lisinopril (Zestril) 10 mg DAILY ORAL 10/17/16 09:00 11/16/16 08:59 Nitroglycerin (Ntg) 0.4 mg Q 5 MIN X 3 DOSES PRN SL Prn Chest Pain 10/14/16 19:45 11/13/16 19:44 Ondansetron HCl (Zofran) 4 mg Q6H PRN IVP Nausea & Vomiting 10/14/16 20:00 11/13/16 19:59 Pantoprazole (Protonix) 40 mg DAILY IV 10/15/16 09:00 11/14/16 08:59 10/16/16 09:20 Polyethylene Glycol (Miralax) 17 gm DAILYPRN PRN ORAL Constipation 10/14/16 20:00 11/13/16 19:59 Sodium Chloride (NS) 500 ml @ 999 mls/hr NEEDED PRN IV For hypotension (MAP <60%) 10/14/16 20:00 11/13/16 19:59 Valproic Acid (Depakene) 500 mg Q12HR GT 10/14/16 21:00 11/13/16 20:59 10/15/16 22:09 Jamarcus StroudIdalmis reese NP Oct 16, 2016 17:04
--- NOTE | 2016-10-16 17:06 | Diagnostic Imaging Report ---
APPROVED REPORT CPT Code: 19774 Present Symptoms Shortness of breath RIGHT LEG: Venous imaging reveals acute thrombus in the common femoral to superficial femoral veins. Remainder of the deep venous system is within normal limits. There is no evidence of thrombus in the popliteal or calf veins. Greater saphenous vein also within normal limits. LEFT LEG: Venous imaging reveals a patent deep venous system. There is no evidence of thrombus within the femoral, popliteal or tibial segments. The greater saphenous vein is also within normal limits. Doppler indicates normal spontaneous flow within these segments. ZHOU Ruiz was notified of abnormal results at 1600 hours.
[2016-10-16 18:35] LABS: INR 1.2 (0.9-1.1); PROTHROMBIN TIME 12.1 SEC (9.30-11.50)
[2016-10-16 19:00] VITALS: BP 147/70
[2016-10-16] MEDS ORDERED: Warfarin Sodium 5mg ORAL SCH (20:00)
[2016-10-17] VITALS: BP 143/64
--- NOTE | 2016-10-17 01:07 | Consultation ---
DATE OF CONSULTATION: 10/16/2016 NEUROLOGICAL CONSULTATION CONSULTING PHYSICIAN: Gera Rosales M.D. REQUESTING PHYSICIAN: Margaret Jc M.D. HISTORY OF PRESENT ILLNESS: The patient is an 86 years old man, resident of a convalescent home, seen in neurological consultation to evaluate persistent changes in mental status. The patient reportedly prior to admission has been verbalizing, communicating, although with some memory loss. He has a history of previous seizure activity, he is on Depakote. The patient was admitted with bilateral lower lobe consolidation, progressive respiratory failure, he was diagnosed with severe sepsis. Latest chest x-ray revealed persistent pulmonary bibasilar subsegmental atelectasis, improvement on the right. Right lower extremity DVT was noted, as the patient progressed with respiratory failure, he was intubated on 10/07/2016 and extubated on 10/14/2016. His transthoracic ejection fraction was 55% to 60% with significant diastolic dysfunction, signs of acute renal failure noted. His CAT scan of the brain revealed a bilateral cerebral periventricular white matter low attenuation, probably chronic microvascular ischemic in nature, pronounced atrophy, prominent subarachnoid spaces due to atrophy with superimposed chronic subdural fluid collections not excludable. There was no mass effect. There is no midline shift noted. Latest laboratory studies included a CBC with WBC of , hemoglobin 11.3, hematocrit 33.8. His valproic acid level is 45. Chemistry panel, creatinine 0.6, calcium 8.5, elevated BNP of 4532, and CRP of 3.7. PAST MEDICAL HISTORY: The patient has a history of dementia, behavioral abnormalities, benign prostatic hypertrophy, osteoporosis, and hyperlipidemia. FAMILY HISTORY: Noncontributory. SOCIAL HISTORY: Resident of nursing facility. There is no evidence of alcohol drug abuse. MEDICATIONS: Current treatment list included Depakote 500 mg twice a day, Protonix, MiraLAX, Zofran, and intravenous heparin. ALLERGIES: None reported. REVIEW OF SYMPTOMS: The patient is now arousable indicating that he feels fairly well and he would like to stay here because he likes here. He denies headache or dizziness. No chest pain or palpitations. PHYSICAL EXAMINATION: VITAL SIGNS: His blood pressure now 162/52 and temperature 97.5. MUSCULOSKELETAL: Arthritic changes, both knees and ankles. Peripheral pulses 1+ and symmetric. MENTAL STATUS: Alert and oriented to his name, but unable to give place, time, or age. He was able to follow simple commands. He remained intermittently drowsy. CRANIAL NERVE II: Pupils both responding to light and accommodation. Extraocular movements full range. CRANIAL NERVE V: Normal corneal responses. CRANIAL NERVE VII: No facial asymmetry. CRANIAL NERVE VIII: Grossly normal hearing. CRANIAL NERVE IX THROUGH XII: Within normal limits. MOTOR EXAMINATION: Motor examination revealed increased muscle tone, both lower extremities. Able to lift arms against the gravity, efforts very poor with strength 3/5, both upper extremities and 3-/5 lower extremities. Deep tendon reflexes are 2+ bilaterally. Plantar response is mute. SENSORY EXAMINATION: Withdrawing to pin stimulation both arms and legs. Gait not tested. IMPRESSION: 1. 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 2. Sepsis. 3. Pneumonia. 4. Acute renal failure. 5. Anemia. 6. Hyperlipidemia. 7. Congestive heart failure. 8. Acute right lower extremity deep vein thrombosis. RECOMMENDATIONS: The patient from a neurological perspective remained stable with underlying cognitive loss, he presents now with multisystem failure, which carries poor prognosis. He is appropriately placed on DNR. At this time, we would recommend to hold all unessential treatment. He was reduced down valproic acid 250 mg twice a day for prevention of behavioral abnormalities. The patient will need a proper placement. Thank you for allowing me to see this interesting patient in neurological consultation. Gera Rosales M.D. DR: SHELDON JOB#: [id number] CC:
[2016-10-17 04:00] VITALS: BP 149/80
[2016-10-17] MEDS: D5NS 1,000 ML IV SCH (05:01)
[2016-10-17 06:28] LABS: BASOPHILS % (AUTO) 0.9 % (0.0-2.0); EOSINOPHILS % (AUTO) 1.3 % (0.0-3.0); LYMPHOCYTES % (AUTO) 9.3 % (20.0-45.0); MEAN CORPUSCULAR HEMOGLOBIN 31.6 PG (27.0-31.0); MEAN CORPUSCULAR HGB CONC 33.1 G/DL (32.0-36.0); MEAN CORPUSCULAR VOLUME 96 FL (80-99); MEAN PLATELET VOLUME 5.2 FL (6.5-10.1); MONOCYTES % (AUTO) 8.8 % (1.0-10.0); NEUTROPHILS % (AUTO) 79.8 % (45.0-75.0); PLATELET COUNT 230 K/UL (150-450); RED BLOOD COUNT 3.49 M/UL (4.70-6.10); WHITE BLOOD COUNT 12.3 K/UL (4.8-10.8)
[2016-10-17 06:58] LABS: ALANINE AMINOTRANSFERASE 12 U/L (3-41); ALBUMIN/GLOBULIN RATIO 0.5 (1.0-2.7); ANION GAP 13 (5-15); ASPARTATE AMINO TRANSFERASE 18 U/L (5-40); CALCIUM 8.6 mg/dL (8.6-10.2); CARBON DIOXIDE 24 mEQ/L (20-30); CHLORIDE 99 mEQ/L (98-107); CREATININE 0.7 mg/dL (0.7-1.2); HEMOLYSIS 25; SODIUM 136 mEQ/L (135-145); TOTAL PROTEIN 6.1 g/dL (6.6-8.7)
[2016-10-17 07:58] LABS: MAGNESIUM 1.9 MG/DL (1.5-2.4); PHOSPHORUS 3.9 MG/DL (2.5-4.9); URIC ACID 4.6 MG/DL (2.6-7.2)
[2016-10-17 08:00] VITALS: BP 142/65
[2016-10-17] MEDS: Pantoprazole Inj IV SCH (08:10)
[2016-10-17] MEDS: Valproic Acid 250mg/5ml Liquid GT SCH ×2 (08:11→21:00)
[2016-10-17] MEDS ORDERED: Lisinopril 10mg tab ORAL SCH (09:00)
--- NOTE | 2016-10-17 09:39 | Diagnostic Imaging Report ---
Indication: Dyspnea Comparison: 10/13/2016 A single view chest radiograph was obtained. Findings: Cardiomegaly is stable. Endotracheal tube is not as well-seen but is probably unchanged. NG tube is in good position. Left hemidiaphragm is better seen and the left lung base appears clear on today's film. Impression: Resolution of left basilar atelectasis. No change otherwise
--- NOTE | 2016-10-17 11:33 | General Progress Note ---
Assessment/Plan Status: stable - from renal stand Assessment/Plan Status: 1. Severe sepsis. leading to acute renal failure- and respiratory failure- 2. Healthcare-associated pneumonia. 3. Ventilator-dependent respiratory failure. 4. Hypertension. 5. Dementia. Alzheimer's dementia. 6. Hyperlipidemia. 7. Psychiatric disorder. 8. h/o Gallstones. 9. h/o Diverticulosis. 10.h/o BPH. Plan: K Phos supp. as needed Pulm support. Antibiotics- Monitor renal parameters- Urine studies- per consultants Subjective ROS Limited/Unobtainable: Yes Allergies: Coded Allergies: No Known Allergies (Unverified , 10/07/16) Objective Last 24 Hour Vital Signs Date Time Temp Pulse Resp B/P Pulse Ox O2 Delivery O2 Flow Rate FiO2 10/17/16 08:00 97.2 68 19 142/65 98 Nasal Cannula 10/17/16 07:55 Nasal Cannula 3.0 10/17/16 07:55 96 Nasal Cannula 3.0 10/17/16 04:00 97.7 75 20 149/80 94 Nasal Cannula 2.0 10/17/16 00:00 97.7 69 20 143/64 93 Room Air 10/16/16 19:20 96 Nasal Cannula 3.0 10/16/16 19:10 Nasal Cannula 3.0 10/16/16 19:00 98.1 68 20 147/70 96 Nasal Cannula 2.0 10/16/16 16:00 97.9 61 18 152/72 94 Nasal Cannula 2.0 10/16/16 12:07 97.5 60 20 162/52 92 Nasal Cannula Intake and Output 10/16/16 10/17/16 19:00 07:00 Intake Total 422 ml 763.052 ml Output Total 450 ml 1600 ml Balance -28 ml -836.948 ml IV Total 422 ml 763.052 ml Output Urine Total 450 ml 1600 ml Laboratory Tests 10/16/16 17:40: Prothrombin Time 12.1H, Prothromb Time International Ratio 1.2H 10/17/16 05:30: White Blood Count 12.3H, Red Blood Count 3.49L, Hemoglobin 11.0L, Hematocrit 33.4L, Mean Corpuscular Volume 96, Mean Corpuscular Hemoglobin 31.6H, Mean Corpuscular Hemoglobin Concent 33.1, Red Cell Distribution Width 13.0, Platelet Count 230, Mean Platelet Volume 5.2L, Neutrophils (%) (Auto) 79.8H, Lymphocytes (%) (Auto) 9.3L, Monocytes (%) (Auto) 8.8, Eosinophils (%) (Auto) 1.3, Basophils (%) (Auto) 0.9, Activated Partial Thromboplast Time 66H, Sodium Level 136, Potassium Level 4.0, Chloride Level 99, Carbon Dioxide Level 24, Anion Gap 13, Blood Urea Nitrogen 14, Creatinine 0.7, Estimat Glomerular Filtration Rate , Glucose Level 92, Uric Acid 4.6, Calcium Level 8.6, Phosphorus Level 3.9, Magnesium Level 1.9, Total Bilirubin 0.6, Aspartate Amino Transf (AST/SGOT) 18, Alanine Aminotransferase (ALT/SGPT) 12, Alkaline Phosphatase 36L, Pro-B-Type Natriuretic Peptide 81009Q, Total Protein 6.1L, Albumin 2.1L, Globulin 4.0, Albumin/Globulin Ratio 0.5L Height (Feet): 5 Height (Inches): 3.00 Weight (Pounds): 130 General Appearance: no apparent distress EENT: other - has NGT Respiratory/Chest: decreased breath sounds Abdomen: soft Objective PE not changed MANPREET GERMAN Oct 17, 2016 11:33
[2016-10-17 12:08] VITALS: BP 154/67
--- NOTE | 2016-10-17 12:57 | Pulmonology Progress Note ---
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) ATN, likely 2 to sepsis-resolved HTN advanced Alzheimer dementia anemia PLAN OF CARE [facility] floor O2 HHN prn fup with CXR in am initial CXR with mild CHF, s/p Lasix cardio follows 10/16 appeared with mild fluid overload, low dose Lasix 10/16 as per cardio ECHO with EF 55-60% and RVSP of 14, mild LVH BP management, started on BB and JOON Venous Duplex with evidence of acute DVT RLE Heparin drip per pharmacy, add Coumadin to bridge to therapeutic INR off abx per ID, s/p Rx , observe off abx IVF, NPO hold NGT ( as per PMD) swallow eval in am sputum, blood and urine cx all negative CT head no acute intracranial pathology monitor HH, transfuse prn, stool OB negative GI prophylaxis bowel regimen DNR/DNI status case discussed and evaluated by supervising physician Subjective Allergies: Coded Allergies: No Known Allergies (Unverified , 10/07/16) Subjective on [place] floor more awake no signs of respiratory distress on 3 L O2 via NC, sat stable afebrile, leucocytosis with trend down venous Duplex + acute DVT RLE, on heparin drip pulled out NGT Objective Last 24 Hour Vital Signs Date Time Temp Pulse Resp B/P Pulse Ox O2 Delivery O2 Flow Rate FiO2 10/17/16 12:08 98.1 61 20 154/67 Nasal Cannula 10/17/16 08:00 97.2 68 19 142/65 98 Nasal Cannula 10/17/16 07:55 Nasal Cannula 3.0 10/17/16 07:55 96 Nasal Cannula 3.0 10/17/16 04:00 97.7 75 20 149/80 94 Nasal Cannula 2.0 10/17/16 00:00 97.7 69 20 143/64 93 Room Air 10/16/16 19:20 96 Nasal Cannula 3.0 10/16/16 19:10 Nasal Cannula 3.0 10/16/16 19:00 98.1 68 20 147/70 96 Nasal Cannula 2.0 10/16/16 16:00 97.9 61 18 152/72 94 Nasal Cannula 2.0 Intake and Output 10/16/16 10/17/16 19:00 07:00 Intake Total 422 ml 763.052 ml Output Total 450 ml 1600 ml Balance -28 ml -836.948 ml IV Total 422 ml 763.052 ml Output Urine Total 450 ml 1600 ml Objective General Appearance: other - elderly, bedridden male in NAD HEENT: normocephalic, atraumatic, other - O2 via NC, Pulmonary: few isolated crackles at bases, overall clear Cardiovascular: normal rate, regular rhythm, no JVD Abdomen: normal bowel sounds, soft, non tender, non distended Genitourinary: normal external genitalia, other Extremities: no edema Neurologic/Psychiatric: other - awake, poorly responsive Musculoskeletal: atrophy - BLE Laboratory Tests 10/16/16 17:40: Prothrombin Time 12.1H, Prothromb Time International Ratio 1.2H 10/17/16 05:30: White Blood Count 12.3H, Red Blood Count 3.49L, Hemoglobin 11.0L, Hematocrit 33.4L, Mean Corpuscular Volume 96, Mean Corpuscular Hemoglobin 31.6H, Mean Corpuscular Hemoglobin Concent 33.1, Red Cell Distribution Width 13.0, Platelet Count 230, Mean Platelet Volume 5.2L, Neutrophils (%) (Auto) 79.8H, Lymphocytes (%) (Auto) 9.3L, Monocytes (%) (Auto) 8.8, Eosinophils (%) (Auto) 1.3, Basophils (%) (Auto) 0.9, Activated Partial Thromboplast Time 66H, Sodium Level 136, Potassium Level 4.0, Chloride Level 99, Carbon Dioxide Level 24, Anion Gap 13, Blood Urea Nitrogen 14, Creatinine 0.7, Estimat Glomerular Filtration Rate , Glucose Level 92, Uric Acid 4.6, Calcium Level 8.6, Phosphorus Level 3.9, Magnesium Level 1.9, Total Bilirubin 0.6, Aspartate Amino Transf (AST/SGOT) 18, Alanine Aminotransferase (ALT/SGPT) 12, Alkaline Phosphatase 36L, Pro-B-Type Natriuretic Peptide 80822R, Total Protein 6.1L, Albumin 2.1L, Globulin 4.0, Albumin/Globulin Ratio 0.5L Current Medications Medications (Trade) Dose Ordered Sig/Archie Route PRN Reason Start Time Stop Time Status Last Admin Dose Admin Acetaminophen (Tylenol) 650 mg Q4H PRN ORAL fever 10/14/16 20:00 11/13/16 19:59 Albuterol/ Ipratropium 3 ml 3 ml Q4HRT PRN HHN sob 10/15/16 13:15 10/20/16 13:14 Carvedilol (Coreg) 3.125 mg EVERY 12 HOURS ORAL 10/16/16 21:00 11/15/16 20:59 Dextrose (Dextrose 50%) STAT PRN IV Hypoglycemia 10/14/16 20:00 11/13/16 19:59 Dextrose/Sodium Chloride (D5ns) 1,000 ml @ 50 mls/hr Q20H IV 10/16/16 10:00 11/15/16 09:59 10/17/16 05:01 Heparin Sodium/ Dextrose 500 ml @ 21.228 mls/ hr adjust per protocol IV 10/16/16 05:40 11/14/16 13:59 10/16/16 14:21 Lisinopril (Zestril) 10 mg DAILY ORAL 10/17/16 09:00 11/16/16 08:59 Nitroglycerin (Ntg) 0.4 mg Q 5 MIN X 3 DOSES PRN SL Prn Chest Pain 10/14/16 19:45 11/13/16 19:44 Ondansetron HCl (Zofran) 4 mg Q6H PRN IVP Nausea & Vomiting 10/14/16 20:00 11/13/16 19:59 Pantoprazole (Protonix) 40 mg DAILY IV 10/15/16 09:00 11/14/16 08:59 10/17/16 08:10 Polyethylene Glycol (Miralax) 17 gm DAILYPRN PRN ORAL Constipation 10/14/16 20:00 11/13/16 19:59 Sodium Chloride (NS) 500 ml @ 999 mls/hr NEEDED PRN IV For hypotension (MAP <60%) 10/14/16 20:00 11/13/16 19:59 Valproic Acid (Depakene) 500 mg Q12HR GT 10/14/16 21:00 11/13/16 20:59 10/15/16 22:09 Warfarin Sodium (Coumadin per pharmacy) 1 ea DAILY PRN MISC Per rx protocol 10/16/16 17:15 11/15/16 17:14 Jamarcus ([facility])Idalmis NP Oct 17, 2016 12:57
[2016-10-17] MEDS: Heparin 25,000u/D5W 500ml 500 ML IV SCH (14:52)
[2016-10-17 15:52] LABS: INR 1.2 (0.9-1.1); PROTHROMBIN TIME 11.9 SEC (9.30-11.50)
[2016-10-17 16:00] VITALS: BP 157/60
--- NOTE | 2016-10-17 16:52 | Cardiology Progress Note ---
Assessment/Plan Problem List: (1) Pneumonia (2) ATN (acute tubular necrosis) (3) Dementia (4) Anemia (5) CHF (congestive heart failure) (6) HTN (hypertension) Status: stable, progressing Status Narrative pneumonia/ resp failure - extubated successfully. Hypertensive - ? mild vol overload Femoral DVT Assessment/Plan Continue current supportive care. low dose iv lasix today. Continue iv heparin until inr therapeutic on warfarin (for dvt) Inc lisinopril for bp control. Continue coreg. followup labs in am Subjective ROS Limited/Unobtainable: No Subjective Events noted. Mr Easley is comfortable, no respiratory distress. No c/o pain Objective Last 24 Hour Vital Signs Date Time Temp Pulse Resp B/P Pulse Ox O2 Delivery O2 Flow Rate FiO2 10/17/16 12:08 98.1 61 20 154/67 Nasal Cannula 10/17/16 08:00 97.2 68 19 142/65 98 Nasal Cannula 10/17/16 07:55 Nasal Cannula 3.0 10/17/16 07:55 96 Nasal Cannula 3.0 10/17/16 04:00 97.7 75 20 149/80 94 Nasal Cannula 2.0 10/17/16 00:00 97.7 69 20 143/64 93 Room Air 10/16/16 19:20 96 Nasal Cannula 3.0 10/16/16 19:10 Nasal Cannula 3.0 10/16/16 19:00 98.1 68 20 147/70 96 Nasal Cannula 2.0 General Appearance: WD/WN, no apparent distress, alert Neck: supple, no JVD Rhythm: NSR Cardiovascular: normal rate, regular rhythm, no gallop/murmur Respiratory/Chest: other - occ rhonchi Abdomen: normal bowel sounds, non tender, soft Extremities: no swelling Intake and Output 10/16/16 10/17/16 19:00 07:00 Intake Total 422 ml 763.052 ml Output Total 450 ml 1600 ml Balance -28 ml -836.948 ml IV Total 422 ml 763.052 ml Output Urine Total 450 ml 1600 ml Laboratory Tests Test 10/16/16 17:40 10/17/16 05:30 10/17/16 15:05 Prothrombin Time 12.1 SEC (9.30-11.50) H 11.9 SEC (9.30-11.50) H Prothromb Time International Ratio 1.2 (0.9-1.1) H 1.2 (0.9-1.1) H White Blood Count 12.3 K/UL (4.8-10.8) H Red Blood Count 3.49 M/UL (4.70-6.10) L Hemoglobin 11.0 G/DL (14.2-18.0) L Hematocrit 33.4 % (42.0-52.0) L Mean Corpuscular Volume 96 FL (80-99) Mean Corpuscular Hemoglobin 31.6 PG (27.0-31.0) H Mean Corpuscular Hemoglobin Concent 33.1 G/DL (32.0-36.0) Red Cell Distribution Width 13.0 % (11.6-14.8) Platelet Count 230 K/UL (150-450) Mean Platelet Volume 5.2 FL (6.5-10.1) L Neutrophils (%) (Auto) 79.8 % (45.0-75.0) H Lymphocytes (%) (Auto) 9.3 % (20.0-45.0) L Monocytes (%) (Auto) 8.8 % (1.0-10.0) Eosinophils (%) (Auto) 1.3 % (0.0-3.0) Basophils (%) (Auto) 0.9 % (0.0-2.0) Activated Partial Thromboplast Time 66 SEC (23-33) H Sodium Level 136 mEQ/L (135-145) Potassium Level 4.0 mEQ/L (3.4-4.9) Chloride Level 99 mEQ/L (98-107) Carbon Dioxide Level 24 mEQ/L (20-30) Anion Gap 13 (5-15) Blood Urea Nitrogen 14 mg/dL (7-23) Creatinine 0.7 mg/dL (0.7-1.2) Estimat Glomerular Filtration Rate mL/min (>60) Glucose Level 92 mg/dL (74-106) Uric Acid 4.6 MG/DL (2.6-7.2) Calcium Level 8.6 mg/dL (8.6-10.2) Phosphorus Level 3.9 MG/DL (2.5-4.9) Magnesium Level 1.9 MG/DL (1.5-2.4) Total Bilirubin 0.6 mg/dL (0.0-1.2) Aspartate Amino Transf (AST/SGOT) 18 U/L (5-40) Alanine Aminotransferase (ALT/SGPT) 12 U/L (3-41) Alkaline Phosphatase 36 U/L (40-129) L Pro-B-Type Natriuretic Peptide 94132 pg/mL (0-450) H Total Protein 6.1 g/dL (6.6-8.7) L Albumin 2.1 g/dL (3.5-5.2) L Globulin 4.0 g/dL Albumin/Globulin Ratio 0.5 (1.0-2.7) L RIRI DILLARD Oct 17, 2016 16:52
[2016-10-17] MEDS ORDERED: Warfarin Sodium 5mg ORAL ONE (17:00)
--- NOTE | 2016-10-17 17:43 | Internal Med Progress Note ---
Subjective Date of Service: Oct 17, 2016 Physician Name Cezar Haney Attending Physician Margaret Jc MD Current Medications Medications (Trade) Dose Ordered Sig/Archie Route PRN Reason Start Time Stop Time Status Last Admin Dose Admin Acetaminophen (Tylenol) 650 mg Q4H PRN ORAL fever 10/14/16 20:00 11/13/16 19:59 Albuterol/ Ipratropium 3 ml 3 ml Q4HRT PRN HHN sob 10/15/16 13:15 10/20/16 13:14 Carvedilol (Coreg) 3.125 mg EVERY 12 HOURS ORAL 10/16/16 21:00 11/15/16 20:59 Dextrose (Dextrose 50%) STAT PRN IV Hypoglycemia 10/14/16 20:00 11/13/16 19:59 Dextrose/Sodium Chloride (D5ns) 1,000 ml @ 50 mls/hr Q20H IV 10/16/16 10:00 11/15/16 09:59 10/17/16 05:01 Heparin Sodium/ Dextrose 500 ml @ 21.228 mls/ hr adjust per protocol IV 10/16/16 05:40 11/14/16 13:59 10/17/16 14:52 Lisinopril (Prinivil) 20 mg DAILY ORAL 10/18/16 09:00 11/17/16 08:59 Nitroglycerin (Ntg) 0.4 mg Q 5 MIN X 3 DOSES PRN SL Prn Chest Pain 10/14/16 19:45 11/13/16 19:44 Ondansetron HCl (Zofran) 4 mg Q6H PRN IVP Nausea & Vomiting 10/14/16 20:00 11/13/16 19:59 Pantoprazole (Protonix) 40 mg DAILY IV 10/15/16 09:00 11/14/16 08:59 10/17/16 08:10 Polyethylene Glycol (Miralax) 17 gm DAILYPRN PRN ORAL Constipation 10/14/16 20:00 11/13/16 19:59 Sodium Chloride (NS) 500 ml @ 999 mls/hr NEEDED PRN IV For hypotension (MAP <60%) 10/14/16 20:00 11/13/16 19:59 Valproic Acid (Depakene) 500 mg Q12HR GT 10/14/16 21:00 11/13/16 20:59 10/15/16 22:09 Warfarin Sodium (Coumadin per pharmacy) 1 ea DAILY PRN MISC Per rx protocol 10/16/16 17:15 11/15/16 17:14 Allergies: Coded Allergies: No Known Allergies (Unverified , 10/07/16) ROS Limited/Unobtainable: No Constitutional: Reports: no symptoms HEENT: Reports: no symptoms Cardiovascular: Reports: no symptoms Respiratory: Reports: cough Gastrointestinal/Abdominal: Reports: no symptoms Genitourinary: Reports: no symptoms Neurologic/Psychiatric: Reports: no symptoms Subjective 86 YO M admitted with pneumonia and respiratory failure. Cover for Int Kiko - Dr Jc. Tolerating nasal canula Objective Last Vital Signs Date Time Temp Pulse Resp B/P Pulse Ox O2 Delivery O2 Flow Rate FiO2 10/17/16 16:00 96.0 64 16 157/60 94 Nasal Cannula 2.0 10/15/16 19:00 32 General Appearance: WD/WN, alert, mild distress EENT: PERRL/EOMI, normal ENT inspection Neck: non-tender, normal alignment, supple Cardiovascular: normal peripheral pulses, normal rate, regular rhythm, no gallop/murmur, no JVD Respiratory/Chest: crackles/rales, rhonchi - bilaterally, expiratory wheezing Abdomen: normal bowel sounds, non tender, soft, no organomegaly, no mass Neurologic: trimmer sawyer II-XII grossly normal Skin: normal pigmentation, warm/dry Laboratory Tests Test 10/17/16 05:30 10/17/16 15:05 White Blood Count 12.3 K/UL (4.8-10.8) H Red Blood Count 3.49 M/UL (4.70-6.10) L Hemoglobin 11.0 G/DL (14.2-18.0) L Hematocrit 33.4 % (42.0-52.0) L Mean Corpuscular Volume 96 FL (80-99) Mean Corpuscular Hemoglobin 31.6 PG (27.0-31.0) H Mean Corpuscular Hemoglobin Concent 33.1 G/DL (32.0-36.0) Red Cell Distribution Width 13.0 % (11.6-14.8) Platelet Count 230 K/UL (150-450) Mean Platelet Volume 5.2 FL (6.5-10.1) L Neutrophils (%) (Auto) 79.8 % (45.0-75.0) H Lymphocytes (%) (Auto) 9.3 % (20.0-45.0) L Monocytes (%) (Auto) 8.8 % (1.0-10.0) Eosinophils (%) (Auto) 1.3 % (0.0-3.0) Basophils (%) (Auto) 0.9 % (0.0-2.0) Activated Partial Thromboplast Time 66 SEC (23-33) H Sodium Level 136 mEQ/L (135-145) Potassium Level 4.0 mEQ/L (3.4-4.9) Chloride Level 99 mEQ/L (98-107) Carbon Dioxide Level 24 mEQ/L (20-30) Anion Gap 13 (5-15) Blood Urea Nitrogen 14 mg/dL (7-23) Creatinine 0.7 mg/dL (0.7-1.2) Estimat Glomerular Filtration Rate mL/min (>60) Glucose Level 92 mg/dL (74-106) Uric Acid 4.6 MG/DL (2.6-7.2) Calcium Level 8.6 mg/dL (8.6-10.2) Phosphorus Level 3.9 MG/DL (2.5-4.9) Magnesium Level 1.9 MG/DL (1.5-2.4) Total Bilirubin 0.6 mg/dL (0.0-1.2) Aspartate Amino Transf (AST/SGOT) 18 U/L (5-40) Alanine Aminotransferase (ALT/SGPT) 12 U/L (3-41) Alkaline Phosphatase 36 U/L (40-129) L Pro-B-Type Natriuretic Peptide 18045 pg/mL (0-450) H Total Protein 6.1 g/dL (6.6-8.7) L Albumin 2.1 g/dL (3.5-5.2) L Globulin 4.0 g/dL Albumin/Globulin Ratio 0.5 (1.0-2.7) L Prothrombin Time 11.9 SEC (9.30-11.50) H Prothromb Time International Ratio 1.2 (0.9-1.1) H Intake and Output 10/16/16 10/17/16 19:00 07:00 Intake Total 422 ml 763.052 ml Output Total 450 ml 1600 ml Balance -28 ml -836.948 ml IV Total 422 ml 763.052 ml Output Urine Total 450 ml 1600 ml Assessment/Plan Problem List: (1) HTN (hypertension) Assessment & Plan: Cont coreg and lisinopril (2) CHF (congestive heart failure) Assessment & Plan: See cardiology note. (3) Anemia (4) Dementia (5) Pneumonia Assessment & Plan: Healthcare acquired. S/P zosyn and vanco per ID (6) Respiratory failure, acute Assessment & Plan: See pulmonary note. Tolerating nasal canula. (7) Sepsis Status: progressing CEZAR HANEY Oct 17, 2016 17:43
[2016-10-17 20:00] VITALS: BP 154/60
[2016-10-18] VITALS (7 sets, daily range): BP systolic 121–158; BP diastolic 65–82
[2016-10-18] MEDS: D5NS 1,000 ML IV SCH ×2 (00:15→22:24)
[2016-10-18 04:33] LABS: BASOPHILS % (AUTO) 0.7 % (0.0-2.0); EOSINOPHILS % (AUTO) 1.6 % (0.0-3.0); LYMPHOCYTES % (AUTO) 11.2 % (20.0-45.0); MEAN CORPUSCULAR HEMOGLOBIN 31.6 PG (27.0-31.0); MEAN CORPUSCULAR HGB CONC 32.8 G/DL (32.0-36.0); MEAN CORPUSCULAR VOLUME 96 FL (80-99); MEAN PLATELET VOLUME 5.4 FL (6.5-10.1); MONOCYTES % (AUTO) 9.8 % (1.0-10.0); NEUTROPHILS % (AUTO) 76.6 % (45.0-75.0); PLATELET COUNT 270 K/UL (150-450); RED BLOOD COUNT 3.68 M/UL (4.70-6.10); RED CELL DISTRIBUTION WIDTH 12.7 % (11.6-14.8); WHITE BLOOD COUNT 10.5 K/UL (4.8-10.8)
[2016-10-18 04:41] LABS: INR 1.2 (0.9-1.1); PROTHROMBIN TIME 11.8 SEC (9.30-11.50)
[2016-10-18 04:47] LABS: ALANINE AMINOTRANSFERASE 12 U/L (3-41); ALBUMIN/GLOBULIN RATIO 0.5 (1.0-2.7); ANION GAP 11 (5-15); ASPARTATE AMINO TRANSFERASE 14 U/L (5-40); CALCIUM 8.8 mg/dL (8.6-10.2); CARBON DIOXIDE 27 mEQ/L (20-30); CHLORIDE 103 mEQ/L (98-107); CREATININE 0.7 mg/dL (0.7-1.2); HEMOLYSIS 2; POTASSIUM 3.5 mEQ/L (3.4-4.9); SODIUM 141 mEQ/L (135-145); TOTAL PROTEIN 6.1 g/dL (6.6-8.7)
--- NOTE | 2016-10-18 08:32 | Infectious Diseases Prog Note ---
Assessment/Plan Assessment/Plan ASSESSMENT: 86 y/o male with: // Probable PNA - SCx NRF, legionella UAg(-) SP Rx - CXR 10/15: Persistent pulmonary bibasal subsegmental atelectasis with suggestion of some improvement on right - CT: Bilateral pulmonary lower lobe consolidation--atelectasis versus pneumonia - negative: influenza // Severe sepsis SP - improved lactic acidosis // Leukocytosis improved off of AB Rx // Fever - resolved // Acute RLE DVT // Acute VDRF SP - intubated 10/07, extubated 10/14 // Possible diastolic CHF exacerbation - trop(-) x1, BNP >70K - TTE: EF 55-60%, mild AR, significant implied diastolic dysfunction - CXR: Pulmonary vascular redistribution. Bilateral interstitial prominence. Left costophrenic angle blunting suggests small pleural effusion // ARF ?CKD - resolved // Advanced Alzheimer's dementia // NKDA // Full Code PLAN: - Monitor pt off of ABX ( 10/13 SP IV vancomycin, zosyn d# 7 / ) - monitor CBC, temperatures, r - monitor CXR - monitor culture ( Bl, Ur Sp) - Cxray Subjective Constitutional: Denies: anorexia, chills, drenching sweats, fatigue, fever, no symptoms, other Allergies: Coded Allergies: No Known Allergies (Unverified , 10/07/16) Subjective Objective Vital Signs Last 24 Hour Vital Signs Date Time Temp Pulse Resp B/P Pulse Ox O2 Delivery O2 Flow Rate FiO2 10/18/16 04:00 97.3 61 20 155/68 94 Room Air 10/18/16 00:00 97.9 66 22 149/76 94 Nasal Cannula 2.0 10/17/16 21:46 95 Nasal Cannula 2.0 28 10/17/16 21:46 Nasal Cannula 2.0 10/17/16 21:00 65 154/60 10/17/16 20:00 97.7 65 20 154/60 94 Room Air 10/17/16 16:00 96.0 64 16 157/60 94 Nasal Cannula 2.0 10/17/16 12:08 98.1 61 20 154/67 Nasal Cannula Height (Feet): 5 Height (Inches): 3.00 Weight (Pounds): 130 HEENT: anicteric Respiratory/Chest: lungs clear Cardiovascular: normal rate Abdomen: soft, non tender, no organomegaly Laboratory Tests Test 10/17/16 15:05 10/18/16 04:00 Prothrombin Time 11.9 SEC (9.30-11.50) H 11.8 SEC (9.30-11.50) H Prothromb Time International Ratio 1.2 (0.9-1.1) H 1.2 (0.9-1.1) H White Blood Count 10.5 K/UL (4.8-10.8) Red Blood Count 3.68 M/UL (4.70-6.10) L Hemoglobin 11.6 G/DL (14.2-18.0) L Hematocrit 35.4 % (42.0-52.0) L Mean Corpuscular Volume 96 FL (80-99) Mean Corpuscular Hemoglobin 31.6 PG (27.0-31.0) H Mean Corpuscular Hemoglobin Concent 32.8 G/DL (32.0-36.0) Red Cell Distribution Width 12.7 % (11.6-14.8) Platelet Count 270 K/UL (150-450) Mean Platelet Volume 5.4 FL (6.5-10.1) L Neutrophils (%) (Auto) 76.6 % (45.0-75.0) H Lymphocytes (%) (Auto) 11.2 % (20.0-45.0) L Monocytes (%) (Auto) 9.8 % (1.0-10.0) Eosinophils (%) (Auto) 1.6 % (0.0-3.0) Basophils (%) (Auto) 0.7 % (0.0-2.0) Sodium Level 141 mEQ/L (135-145) Potassium Level 3.5 mEQ/L (3.4-4.9) Chloride Level 103 mEQ/L (98-107) Carbon Dioxide Level 27 mEQ/L (20-30) Anion Gap 11 (5-15) Blood Urea Nitrogen 11 mg/dL (7-23) Creatinine 0.7 mg/dL (0.7-1.2) Estimat Glomerular Filtration Rate mL/min (>60) Glucose Level 84 mg/dL (74-106) Calcium Level 8.8 mg/dL (8.6-10.2) Total Bilirubin 0.6 mg/dL (0.0-1.2) Aspartate Amino Transf (AST/SGOT) 14 U/L (5-40) Alanine Aminotransferase (ALT/SGPT) 12 U/L (3-41) Alkaline Phosphatase 36 U/L (40-129) L Total Protein 6.1 g/dL (6.6-8.7) L Albumin 2.1 g/dL (3.5-5.2) L Globulin 4.0 g/dL Albumin/Globulin Ratio 0.5 (1.0-2.7) L Current Medications Medications (Trade) Dose Ordered Sig/Archie Route PRN Reason Start Time Stop Time Status Last Admin Dose Admin Acetaminophen (Tylenol) 650 mg Q4H PRN ORAL fever 10/14/16 20:00 11/13/16 19:59 Albuterol/ Ipratropium 3 ml 3 ml Q4HRT PRN HHN sob 10/15/16 13:15 10/20/16 13:14 Carvedilol (Coreg) 3.125 mg EVERY 12 HOURS ORAL 10/16/16 21:00 11/15/16 20:59 Dextrose (Dextrose 50%) STAT PRN IV Hypoglycemia 10/14/16 20:00 11/13/16 19:59 Dextrose/Sodium Chloride (D5ns) 1,000 ml @ 50 mls/hr Q20H IV 10/16/16 10:00 11/15/16 09:59 10/18/16 00:15 Enoxaparin Sodium (Lovenox) 60 mg EVERY 12 HOURS SUBQ 10/18/16 09:00 11/17/16 08:59 Lisinopril (Prinivil) 20 mg DAILY ORAL 10/18/16 09:00 11/17/16 08:59 Nitroglycerin (Ntg) 0.4 mg Q 5 MIN X 3 DOSES PRN SL Prn Chest Pain 10/14/16 19:45 11/13/16 19:44 Ondansetron HCl (Zofran) 4 mg Q6H PRN IVP Nausea & Vomiting 10/14/16 20:00 11/13/16 19:59 Pantoprazole (Protonix) 40 mg DAILY IV 10/15/16 09:00 11/14/16 08:59 10/17/16 08:10 Polyethylene Glycol (Miralax) 17 gm DAILYPRN PRN ORAL Constipation 10/14/16 20:00 11/13/16 19:59 Sodium Chloride (NS) 500 ml @ 999 mls/hr NEEDED PRN IV For hypotension (MAP <60%) 10/14/16 20:00 11/13/16 19:59 Valproic Acid (Depakene) 250 mg Q12HR GT 10/18/16 09:00 11/17/16 08:59 Warfarin Sodium (Coumadin per pharmacy) 1 ea DAILY PRN MISC Per rx protocol 10/16/16 17:15 11/15/16 17:14 Warfarin Sodium (Coumadin) 5 mg COUMADIN ONCE ORAL 10/18/16 17:00 10/18/16 17:01 ZAIRE MORA M.D. Oct 18, 2016 08:32
[2016-10-18] MEDS: Valproic Acid 250mg/5ml Liquid GT SCH ×2 (09:00→21:30)
[2016-10-18] MEDS: Lisinopril 20mg tab ORAL SCH (09:00)
[2016-10-18] MEDS: Pantoprazole Inj IV SCH (09:41)
[2016-10-18] MEDS: Enoxaparin 60mg Inj SUBQ SCH ×2 (09:52→21:36)
--- NOTE | 2016-10-18 10:26 | General Progress Note ---
Assessment/Plan Status: stable - from renal stand Assessment/Plan Status: 1. Severe sepsis. leading to acute renal failure- and respiratory failure- 2. Healthcare-associated pneumonia. 3. Ventilator-dependent respiratory failure. 4. Hypertension. 5. Dementia. Alzheimer's dementia. 6. Hyperlipidemia. 7. Psychiatric disorder. 8. h/o Gallstones. 9. h/o Diverticulosis. 10.h/o BPH. Plan: K Phos supp. as needed Pulm support. Antibiotics- Monitor renal parameters- Urine studies- per consultants Subjective ROS Limited/Unobtainable: No Constitutional: Reports: malaise, weakness Allergies: Coded Allergies: No Known Allergies (Unverified , 10/07/16) Objective Last 24 Hour Vital Signs Date Time Temp Pulse Resp B/P Pulse Ox O2 Delivery O2 Flow Rate FiO2 10/18/16 09:13 61 18 Nasal Cannula 21 10/18/16 07:59 Nasal Cannula 2.0 10/18/16 07:58 95 Nasal Cannula 2.0 28 10/18/16 04:00 97.3 61 20 155/68 94 Room Air 10/18/16 00:00 97.9 66 22 149/76 94 Nasal Cannula 2.0 10/17/16 21:46 95 Nasal Cannula 2.0 28 10/17/16 21:46 Nasal Cannula 2.0 10/17/16 21:00 65 154/60 10/17/16 20:00 97.7 65 20 154/60 94 Room Air 10/17/16 16:00 96.0 64 16 157/60 94 Nasal Cannula 2.0 10/17/16 12:08 98.1 61 20 154/67 Nasal Cannula Intake and Output 10/17/16 10/18/16 19:00 07:00 Intake Total 854.736 ml 84.912 ml Output Total 450 ml 1000 ml Balance 404.736 ml -915.088 ml IV Total 854.736 ml 84.912 ml Output Urine Total 450 ml 1000 ml Laboratory Tests 10/17/16 15:05: Prothrombin Time 11.9H, Prothromb Time International Ratio 1.2H 10/18/16 04:00: Prothrombin Time 11.8H, Prothromb Time International Ratio 1.2H, White Blood Count 10.5, Red Blood Count 3.68L, Hemoglobin 11.6L, Hematocrit 35.4L, Mean Corpuscular Volume 96, Mean Corpuscular Hemoglobin 31.6H, Mean Corpuscular Hemoglobin Concent 32.8, Red Cell Distribution Width 12.7, Platelet Count 270, Mean Platelet Volume 5.4L, Neutrophils (%) (Auto) 76.6H, Lymphocytes (%) (Auto) 11.2L, Monocytes (%) (Auto) 9.8, Eosinophils (%) (Auto) 1.6, Basophils (%) (Auto ) 0.7, Sodium Level 141, Potassium Level 3.5, Chloride Level 103, Carbon Dioxide Level 27, Anion Gap 11, Blood Urea Nitrogen 11, Creatinine 0.7, Estimat Glomerular Filtration Rate , Glucose Level 84, Calcium Level 8.8, Total Bilirubin 0.6, Aspartate Amino Transf (AST/SGOT) 14, Alanine Aminotransferase ( ALT/SGPT) 12, Alkaline Phosphatase 36L, Total Protein 6.1L, Albumin 2.1L, Globulin 4.0, Albumin/Globulin Ratio 0.5L Height (Feet): 5 Height (Inches): 3.00 Weight (Pounds): 130 General Appearance: lethargic, confused Objective PE not changed MANPREET GERMAN Oct 18, 2016 10:26
--- NOTE | 2016-10-18 11:55 | General Progress Note ---
Assessment/Plan Status: stable Assessment/Plan 1. sepsis- Resolved 2. Healthcare-associated pneumonia. 3. HF- Diastolic 5. ARF: likely secondary to #1 6, Acute Anemia 5. Dementia. 6. Hyperlipidemia. 7. DNR 8. Acute DVT Pulmonary, ID, Nephrology and cardiology notes are reviewed on anticoagulation, will monitor PLT current management Subjective ROS Limited/Unobtainable: Yes - limited follow of commands. seems comfortable Allergies: Coded Allergies: No Known Allergies (Unverified , 10/07/16) Objective Last 24 Hour Vital Signs Date Time Temp Pulse Resp B/P Pulse Ox O2 Delivery O2 Flow Rate FiO2 10/18/16 09:13 61 18 Nasal Cannula 21 10/18/16 08:00 97.7 66 20 140/65 93 Nasal Cannula 2.0 10/18/16 07:59 Nasal Cannula 2.0 10/18/16 07:58 95 Nasal Cannula 2.0 28 10/18/16 04:00 97.3 61 20 155/68 94 Room Air 10/18/16 00:00 97.9 66 22 149/76 94 Nasal Cannula 2.0 10/17/16 21:46 95 Nasal Cannula 2.0 28 10/17/16 21:46 Nasal Cannula 2.0 10/17/16 21:00 65 154/60 10/17/16 20:00 97.7 65 20 154/60 94 Room Air 10/17/16 16:00 96.0 64 16 157/60 94 Nasal Cannula 2.0 10/17/16 12:08 98.1 61 20 154/67 Nasal Cannula Intake and Output 10/17/16 10/18/16 19:00 07:00 Intake Total 854.736 ml 84.912 ml Output Total 450 ml 1000 ml Balance 404.736 ml -915.088 ml IV Total 854.736 ml 84.912 ml Output Urine Total 450 ml 1000 ml Laboratory Tests 10/17/16 15:05: Prothrombin Time 11.9H, Prothromb Time International Ratio 1.2H 10/18/16 04:00: Prothrombin Time 11.8H, Prothromb Time International Ratio 1.2H, White Blood Count 10.5, Red Blood Count 3.68L, Hemoglobin 11.6L, Hematocrit 35.4L, Mean Corpuscular Volume 96, Mean Corpuscular Hemoglobin 31.6H, Mean Corpuscular Hemoglobin Concent 32.8, Red Cell Distribution Width 12.7, Platelet Count 270, Mean Platelet Volume 5.4L, Neutrophils (%) (Auto) 76.6H, Lymphocytes (%) (Auto) 11.2L, Monocytes (%) (Auto) 9.8, Eosinophils (%) (Auto) 1.6, Basophils (%) (Auto ) 0.7, Sodium Level 141, Potassium Level 3.5, Chloride Level 103, Carbon Dioxide Level 27, Anion Gap 11, Blood Urea Nitrogen 11, Creatinine 0.7, Estimat Glomerular Filtration Rate , Glucose Level 84, Calcium Level 8.8, Total Bilirubin 0.6, Aspartate Amino Transf (AST/SGOT) 14, Alanine Aminotransferase ( ALT/SGPT) 12, Alkaline Phosphatase 36L, Total Protein 6.1L, Albumin 2.1L, Globulin 4.0, Albumin/Globulin Ratio 0.5L Height (Feet): 5 Height (Inches): 3.00 Weight (Pounds): 130 General Appearance: no apparent distress EENT: PERRL/EOMI Neck: supple Cardiovascular: normal rate Respiratory/Chest: rhonchi - bilaterally Abdomen: soft Extremities: other - cachectic appearance Neurologic: disoriented Margaret Jc MD Oct 18, 2016 11:55
[2016-10-18] MEDS ORDERED: Warfarin Sodium 5mg ORAL ONE (17:00)
--- NOTE | 2016-10-18 20:58 | Consultation ---
DATE OF CONSULTATION: 10/17/2016 HISTORY OF PRESENT ILLNESS: This is an 86-year-old man with history of seizure disorder and dementia with behavior abnormalities, prostatic hypertrophy, , osteoporosis, and hyperlipidemia who has been admitted to the hospital due to sepsis and multiorgan failure. Psychiatry was consulted due to altered mental status. During the evaluation, the patient was a poor historian due to cognitive impairment. He was only alert and oriented to self. Per staff, the patient has been presenting with waxing and waning consciousness even though he was alert during the evaluation. However, it was reported the patient falling asleep throughout the day and his consciousness as well as cognition is altered. The patient also endorses impairment of concentration and memory attention, which is chronic. CT scan of the brain is consistent with vascular dementia. PAST MEDICAL HISTORY: Significant for dementia, benign prostatic hypertrophy, osteoporosis, and hyperlipidemia. PAST PSYCHIATRIC HISTORY: He has some behavioral issues and has been placed on Depakote. It is unclear whether the Depakote was prescribed only for seizure disorder prevention or for both behavioral issue and seizure. FAMILY HISTORY: Noncontributory. ALLERGIES: No known drug allergies. MEDICATIONS: He is on Depakote 500 mg twice a day, Protonix, MiraLax, Alphagan ____, and heparin. SUBSTANCE ABUSE HISTORY: No history of illicit drug use or alcohol. MENTAL STATUS EXAMINATION: The patient is oriented and oriented times self. Mood is neutral. Affect is flat. Congruent mood. Thought process, there is a paucity of thought content. Thought content, no suicidal or homicidal ideation. Cognition is impaired including memory . 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 He has been presenting with multiple medical issues including sepsis, pneumonia, renal failure, anemia, hyperlipidemia, congestive heart failure, and deep vein thrombosis right lower extremity. The patient has been presenting with waxing and waning consciousness as well as cognitive impairment. This is most likely due to delirium secondary to underlying general medical condition. ASSESSMENT: AXIS I: Delirium due to general medical conditions. Dementia with behavior issues. AXIS II: Deferred. AXIS III: As above. AXIS IV: Low. AXIS V: 10. PLAN: 1. The patient is currently on Depakote 500 milligram twice a day. I do recommend decreasing the dosage 250 mg by mouth at bedtime. 2. He may benefit from low-dose of antipsychotics, however, we will hold it off at this time as the patient is having multiorgan failure. 3. We will continue follow and readjust the medications. Mona Cabral M.D. DR: CORNELIO JOB#: [id number] CC:
--- NOTE | 2016-10-18 23:16 | Pulmonology Progress Note ---
Assessment/Plan Problems: (1) Respiratory failure, acute (2) History of hypertension (3) Pneumonia (4) ATN (acute tubular necrosis) (5) Dementia Assessment/Plan improving swallow study noted continue respiratory treatment for a while before this event , pt kept tellling her daughter that he wants to and doens't want to live. Considering pts debilitated state, that request seems reasonable. Therefor, I suggest hospice care. and no hospitalization in future. Subjective ROS Limited/Unobtainable: No Constitutional: Reports: no symptoms HEENT: Repors: no symptoms Respiratory: Reports: no symptoms Allergies: Coded Allergies: No Known Allergies (Unverified , 10/07/16) Objective Last 24 Hour Vital Signs Date Time Temp Pulse Resp B/P Pulse Ox O2 Delivery O2 Flow Rate FiO2 10/18/16 22:29 84 125/82 94 Nasal Cannula 2.0 10/18/16 21:00 58 158/78 10/18/16 20:00 98.4 85 22 121/81 90 Room Air 10/18/16 19:30 58 16 Room Air 21 10/18/16 19:30 Room Air 21 10/18/16 19:30 92 Room Air 21 10/18/16 16:00 98.1 82 22 158/78 92 Nasal Cannula 2.0 10/18/16 12:00 97.7 59 20 158/66 95 Nasal Cannula 2.0 10/18/16 09:13 61 18 Nasal Cannula 21 10/18/16 08:00 97.7 66 20 140/65 93 Nasal Cannula 2.0 10/18/16 07:59 Nasal Cannula 2.0 10/18/16 07:58 95 Nasal Cannula 2.0 28 10/18/16 04:00 97.3 61 20 155/68 94 Room Air 10/18/16 00:00 97.9 66 22 149/76 94 Nasal Cannula 2.0 Intake and Output 10/17/16 10/18/16 19:00 07:00 Intake Total 854.736 ml 84.912 ml Output Total 450 ml 1000 ml Balance 404.736 ml -915.088 ml IV Total 854.736 ml 84.912 ml Output Urine Total 450 ml 1000 ml General Appearance: WD/WN, no acute distress HEENT: normocephalic, atraumatic Respiratory/Chest: chest wall non-tender, lungs clear Cardiovascular: normal peripheral pulses, normal rate Abdomen: normal bowel sounds Genitourinary: normal external genitalia Skin: no lesions Microbiology Date/Time Source Procedure Growth Status 10/17/16 04:30 Urine,Clean Catch Urine Culture - Preliminary NO GROWTH AFTER 24 HOURS Resulted Laboratory Tests 10/18/16 04:00: White Blood Count 10.5, Red Blood Count 3.68L, Hemoglobin 11.6L, Hematocrit 35.4L, Mean Corpuscular Volume 96, Mean Corpuscular Hemoglobin 31.6H, Mean Corpuscular Hemoglobin Concent 32.8, Red Cell Distribution Width 12.7, Platelet Count 270, Mean Platelet Volume 5.4L, Neutrophils (%) (Auto) 76.6H, Lymphocytes (%) (Auto) 11.2L, Monocytes (%) (Auto) 9.8, Eosinophils (%) (Auto) 1.6, Basophils (%) (Auto) 0.7, Prothrombin Time 11.8H, Prothromb Time International Ratio 1.2H, Sodium Level 141, Potassium Level 3.5, Chloride Level 103, Carbon Dioxide Level 27, Anion Gap 11, Blood Urea Nitrogen 11, Creatinine 0.7, Estimat Glomerular Filtration Rate , Glucose Level 84, Calcium Level 8.8, Total Bilirubin 0.6, Aspartate Amino Transf (AST/SGOT) 14, Alanine Aminotransferase ( ALT/SGPT) 12, Alkaline Phosphatase 36L, Total Protein 6.1L, Albumin 2.1L, Globulin 4.0, Albumin/Globulin Ratio 0.5L Current Medications Medications (Trade) Dose Ordered Sig/Archie Route PRN Reason Start Time Stop Time Status Last Admin Dose Admin Acetaminophen (Tylenol) 650 mg Q4H PRN ORAL fever 10/14/16 20:00 11/13/16 19:59 Albuterol/ Ipratropium 3 ml 3 ml Q4HRT PRN HHN sob 10/15/16 13:15 10/20/16 13:14 Carvedilol (Coreg) 3.125 mg EVERY 12 HOURS ORAL 10/16/16 21:00 11/15/16 20:59 Dextrose (Dextrose 50%) STAT PRN IV Hypoglycemia 10/14/16 20:00 11/13/16 19:59 Dextrose/Sodium Chloride (D5ns) 1,000 ml @ 50 mls/hr Q20H IV 10/16/16 10:00 2/20/17 09:59 10/18/16 22:24 Enoxaparin Sodium (Lovenox) 60 mg EVERY 12 HOURS SUBQ 10/18/16 09:00 11/17/16 08:59 10/18/16 21:36 Lisinopril (Prinivil) 20 mg DAILY ORAL 10/18/16 09:00 11/17/16 08:59 Nitroglycerin (Ntg) 0.4 mg Q 5 MIN X 3 DOSES PRN SL Prn Chest Pain 10/14/16 19:45 11/13/16 19:44 Ondansetron HCl (Zofran) 4 mg Q6H PRN IVP Nausea & Vomiting 10/14/16 20:00 11/13/16 19:59 Pantoprazole (Protonix) 40 mg DAILY IV 10/15/16 09:00 11/14/16 08:59 10/18/16 09:41 Polyethylene Glycol (Miralax) 17 gm DAILYPRN PRN ORAL Constipation 10/14/16 20:00 11/13/16 19:59 Sodium Chloride (NS) 500 ml @ 999 mls/hr NEEDED PRN IV For hypotension (MAP <60%) 10/14/16 20:00 11/13/16 19:59 Valproic Acid (Depakene) 250 mg Q12HR GT 10/18/16 09:00 11/17/16 08:59 10/18/16 21:30 Warfarin Sodium (Coumadin per pharmacy) 1 ea DAILY PRN MISC Per rx protocol 10/16/16 17:15 11/15/16 17:14 HERMINIO DIXON Oct 18, 2016 23:16
[2016-10-19] VITALS: BP 168/71
[2016-10-19 04:00] VITALS: BP 136/76
[2016-10-19 07:26] LABS: BASOPHILS % (AUTO) 1.2 % (0.0-2.0); EOSINOPHILS % (AUTO) 1.4 % (0.0-3.0); LYMPHOCYTES % (AUTO) 12.2 % (20.0-45.0); MEAN CORPUSCULAR HEMOGLOBIN 31.5 PG (27.0-31.0); MEAN CORPUSCULAR HGB CONC 33.6 G/DL (32.0-36.0); MEAN CORPUSCULAR VOLUME 94 FL (80-99); MEAN PLATELET VOLUME 5.4 FL (6.5-10.1); MONOCYTES % (AUTO) 15.9 % (1.0-10.0); NEUTROPHILS % (AUTO) 69.4 % (45.0-75.0); PLATELET COUNT 290 K/UL (150-450); RED BLOOD COUNT 3.49 M/UL (4.70-6.10); RED CELL DISTRIBUTION WIDTH 12.5 % (11.6-14.8); WHITE BLOOD COUNT 10.1 K/UL (4.8-10.8)
[2016-10-19 07:40] LABS: INR 1.3 (0.9-1.1); PROTHROMBIN TIME 12.9 SEC (9.30-11.50)
[2016-10-19 07:50] LABS: ALANINE AMINOTRANSFERASE 9 U/L (3-41); ALBUMIN/GLOBULIN RATIO 0.6 (1.0-2.7); ANION GAP 12 (5-15); ASPARTATE AMINO TRANSFERASE 11 U/L (5-40); CALCIUM 8.7 mg/dL (8.6-10.2); CARBON DIOXIDE 26 mEQ/L (20-30); CHLORIDE 103 mEQ/L (98-107); CREATININE 0.7 mg/dL (0.7-1.2); HEMOLYSIS 2; POTASSIUM 3.8 mEQ/L (3.4-4.9); SODIUM 141 mEQ/L (135-145); TOTAL PROTEIN 5.7 g/dL (6.6-8.7)
[2016-10-19 08:00] VITALS: BP 155/59
[2016-10-19] MEDS: Lisinopril 20mg tab ORAL SCH (08:58)
[2016-10-19] MEDS: Pantoprazole Inj IV SCH (08:58)
[2016-10-19] MEDS: Valproic Acid 250mg/5ml Liquid GT SCH ×2 (08:58→20:27)
[2016-10-19] MEDS: Enoxaparin 60mg Inj SUBQ SCH ×2 (08:59→20:28)
--- NOTE | 2016-10-19 09:30 | General Progress Note ---
Assessment/Plan Status: stable Assessment/Plan 1. sepsis- Resolved 2. Healthcare-associated pneumonia. 3. HF- Diastolic 4. VDRF: S/p successful extubation 5. ARF: likely secondary to #1 6, Acute Anemia 5. Dementia. 6. Hyperlipidemia. 7. DNR 8. Acute DVT 9. Depression Pulmonary, Psych, ID,notes are reviewed on anticoagulation, will monitor PLT current management Subjective ROS Limited/Unobtainable: No Constitutional: Reports: malaise HEENT: Reports: no symptoms Cardiovascular: Reports: no symptoms Respiratory: Reports: no symptoms Allergies: Coded Allergies: No Known Allergies (Unverified , 10/07/16) Objective Last 24 Hour Vital Signs Date Time Temp Pulse Resp B/P Pulse Ox O2 Delivery O2 Flow Rate FiO2 10/19/16 09:05 65 155/59 10/19/16 08:58 155/59 10/19/16 08:00 97.0 65 18 155/59 94 Room Air 10/19/16 04:00 98.0 82 18 136/76 98 Nasal Cannula 2.0 10/19/16 00:00 98.1 84 18 168/71 95 Nasal Cannula 2.0 10/18/16 22:29 84 125/82 94 Nasal Cannula 2.0 10/18/16 21:00 58 158/78 10/18/16 20:00 98.4 85 22 121/81 90 Room Air 10/18/16 19:30 58 16 Room Air 21 10/18/16 19:30 Room Air 21 10/18/16 19:30 92 Room Air 21 10/18/16 16:00 98.1 82 22 158/78 92 Nasal Cannula 2.0 10/18/16 12:00 97.7 59 20 158/66 95 Nasal Cannula 2.0 Intake and Output 10/18/16 10/19/16 19:00 07:00 Intake Total 50 ml 650 ml Output Total 320 ml 200 ml Balance -270 ml 450 ml Intake Oral 200 ml IV Total 50 ml 450 ml Output Urine Total 320 ml 200 ml Laboratory Tests 10/19/16 05:30: White Blood Count 10.1, Red Blood Count 3.49L, Hemoglobin 11.0L, Hematocrit 32.7L, Mean Corpuscular Volume 94, Mean Corpuscular Hemoglobin 31.5H, Mean Corpuscular Hemoglobin Concent 33.6, Red Cell Distribution Width 12.5, Platelet Count 290, Mean Platelet Volume 5.4L, Neutrophils (%) (Auto) 69.4, Lymphocytes ( %) (Auto) 12.2L, Monocytes (%) (Auto) 15.9H, Eosinophils (%) (Auto) 1.4, Basophils (%) (Auto) 1.2, Prothrombin Time 12.9H, Prothromb Time International Ratio 1.3H, Sodium Level 141, Potassium Level 3.8, Chloride Level 103, Carbon Dioxide Level 26, Anion Gap 12, Blood Urea Nitrogen 13, Creatinine 0.7, Estimat Glomerular Filtration Rate , Glucose Level 90, Calcium Level 8.7, Total Bilirubin 0.7, Aspartate Amino Transf (AST/SGOT) 11, Alanine Aminotransferase ( ALT/SGPT) 9, Alkaline Phosphatase 37L, Total Protein 5.7L, Albumin 2.2L, Globulin 3.5, Albumin/Globulin Ratio 0.6L Height (Feet): 5 Height (Inches): 3.00 Weight (Pounds): 130 General Appearance: no apparent distress EENT: PERRL/EOMI Neck: supple Cardiovascular: normal rate Respiratory/Chest: rhonchi - bilaterally Abdomen: soft Extremities: non-tender, other - atrophied musculature Neurologic: disoriented, other - dmented. Depressed mood Margaret Jc MD Oct 19, 2016 09:30
--- NOTE | 2016-10-19 10:31 | Infectious Diseases Prog Note ---
Assessment/Plan Assessment/Plan ASSESSMENT: 86 y/o male with: // Probable PNA - SCx NRF, legionella UAg(-) SP Rx - CXR 10/15: Persistent pulmonary bibasal subsegmental atelectasis with suggestion of some improvement on right - CT: Bilateral pulmonary lower lobe consolidation--atelectasis versus pneumonia - negative: influenza // Severe sepsis SP - improved lactic acidosis // Leukocytosis - resolved ( DVT contributing ) // Fever - resolved // Acute RLE DVT // Acute VDRF SP - intubated 10/07, extubated 10/14 // Possible diastolic CHF exacerbation - trop(-) x1, BNP >70K - TTE: EF 55-60%, mild AR, significant implied diastolic dysfunction - CXR: Pulmonary vascular redistribution. Bilateral interstitial prominence. Left costophrenic angle blunting suggests small pleural effusion // ARF ?CKD - resolved // Advanced Alzheimer's dementia // NKDA // Full Code PLAN: - Monitor pt off of ABX ( 10/13 SP IV vancomycin, zosyn d# / ) - f/u final cultures - monitor CBC, temperatures - monitor CXR Subjective Allergies: Coded Allergies: No Known Allergies (Unverified , 10/07/16) Subjective remains afebrile. comfortable Objective Vital Signs Last 24 Hour Vital Signs Date Time Temp Pulse Resp B/P Pulse Ox O2 Delivery O2 Flow Rate FiO2 10/19/16 09:05 65 155/59 10/19/16 08:58 155/59 10/19/16 08:00 97.0 65 18 155/59 94 Room Air 10/19/16 07:56 Room Air 10/19/16 07:55 93 Room Air 10/19/16 07:54 71 16 Room Air 10/19/16 04:00 98.0 82 18 136/76 98 Nasal Cannula 2.0 10/19/16 00:00 98.1 84 18 168/71 95 Nasal Cannula 2.0 10/18/16 22:29 84 125/82 94 Nasal Cannula 2.0 10/18/16 21:00 58 158/78 10/18/16 20:00 98.4 85 22 121/81 90 Room Air 10/18/16 19:30 58 16 Room Air 21 10/18/16 19:30 Room Air 21 1/23/17 19:30 92 Room Air 21 10/18/16 16:00 98.1 82 22 158/78 92 Nasal Cannula 2.0 10/18/16 12:00 97.7 59 20 158/66 95 Nasal Cannula 2.0 Height (Feet): 5 Height (Inches): 3.00 Weight (Pounds): 130 General Appearance: no acute distress Respiratory/Chest: no respiratory distress Cardiovascular: normal rate, regular rhythm Abdomen: normal bowel sounds, soft, non tender, non distended Microbiology Date/Time Source Procedure Growth Status 10/17/16 04:30 Urine,Clean Catch Urine Culture - Final NO GROWTH AFTER 48 HOURS Complete Laboratory Tests Test 10/19/16 05:30 White Blood Count 10.1 K/UL (4.8-10.8) Red Blood Count 3.49 M/UL (4.70-6.10) L Hemoglobin 11.0 G/DL (14.2-18.0) L Hematocrit 32.7 % (42.0-52.0) L Mean Corpuscular Volume 94 FL (80-99) Mean Corpuscular Hemoglobin 31.5 PG (27.0-31.0) H Mean Corpuscular Hemoglobin Concent 33.6 G/DL (32.0-36.0) Red Cell Distribution Width 12.5 % (11.6-14.8) Platelet Count 290 K/UL (150-450) Mean Platelet Volume 5.4 FL (6.5-10.1) L Neutrophils (%) (Auto) 69.4 % (45.0-75.0) Lymphocytes (%) (Auto) 12.2 % (20.0-45.0) L Monocytes (%) (Auto) 15.9 % (1.0-10.0) H Eosinophils (%) (Auto) 1.4 % (0.0-3.0) Basophils (%) (Auto) 1.2 % (0.0-2.0) Prothrombin Time 12.9 SEC (9.30-11.50) H Prothromb Time International Ratio 1.3 (0.9-1.1) H Sodium Level 141 mEQ/L (135-145) Potassium Level 3.8 mEQ/L (3.4-4.9) Chloride Level 103 mEQ/L (98-107) Carbon Dioxide Level 26 mEQ/L (20-30) Anion Gap 12 (5-15) Blood Urea Nitrogen 13 mg/dL (7-23) Creatinine 0.7 mg/dL (0.7-1.2) Estimat Glomerular Filtration Rate mL/min (>60) Glucose Level 90 mg/dL (74-106) Calcium Level 8.7 mg/dL (8.6-10.2) Total Bilirubin 0.7 mg/dL (0.0-1.2) Aspartate Amino Transf (AST/SGOT) 11 U/L (5-40) Alanine Aminotransferase (ALT/SGPT) 9 U/L (3-41) Alkaline Phosphatase 37 U/L (40-129) L Total Protein 5.7 g/dL (6.6-8.7) L Albumin 2.2 g/dL (3.5-5.2) L Globulin 3.5 g/dL Albumin/Globulin Ratio 0.6 (1.0-2.7) L Current Medications Medications (Trade) Dose Ordered Sig/Archie Route PRN Reason Start Time Stop Time Status Last Admin Dose Admin Acetaminophen (Tylenol) 650 mg Q4H PRN ORAL fever 10/14/16 20:00 11/13/16 19:59 Albuterol/ Ipratropium 3 ml 3 ml Q4HRT PRN HHN sob 10/15/16 13:15 10/20/16 13:14 Carvedilol (Coreg) 3.125 mg EVERY 12 HOURS ORAL 10/16/16 21:00 11/15/16 20:59 10/19/16 09:05 Dextrose (Dextrose 50%) STAT PRN IV Hypoglycemia 10/14/16 20:00 11/13/16 19:59 Dextrose/Sodium Chloride (D5ns) 1,000 ml @ 50 mls/hr Q20H IV 10/16/16 10:00 11/15/16 09:59 10/18/16 22:24 Enoxaparin Sodium (Lovenox) 60 mg EVERY 12 HOURS SUBQ 10/18/16 09:00 11/17/16 08:59 10/19/16 08:59 Lisinopril (Prinivil) 20 mg DAILY ORAL 10/18/16 09:00 11/17/16 08:59 10/19/16 08:58 Nitroglycerin (Ntg) 0.4 mg Q 5 MIN X 3 DOSES PRN SL Prn Chest Pain 10/14/16 19:45 11/13/16 19:44 Ondansetron HCl (Zofran) 4 mg Q6H PRN IVP Nausea & Vomiting 10/14/16 20:00 11/13/16 19:59 Pantoprazole (Protonix) 40 mg DAILY IV 10/15/16 09:00 11/14/16 08:59 10/19/16 08:58 Polyethylene Glycol (Miralax) 17 gm DAILYPRN PRN ORAL Constipation 10/14/16 20:00 11/13/16 19:59 Sodium Chloride (NS) 500 ml @ 999 mls/hr NEEDED PRN IV For hypotension (MAP <60%) 10/14/16 20:00 11/13/16 19:59 Valproic Acid (Depakene) 250 mg Q12HR GT 10/18/16 09:00 11/17/16 08:59 10/19/16 08:58 Warfarin Sodium (Coumadin per pharmacy) 1 ea DAILY PRN MISC Per rx protocol 10/16/16 17:15 11/15/16 17:14 EMILIA CAIN Oct 19, 2016 10:31
[2016-10-19 11:44] VITALS: BP 153/67
[2016-10-19 16:00] VITALS: BP 148/68
--- NOTE | 2016-10-19 16:55 | General Progress Note ---
Assessment/Plan Status: stable - from renal stand Assessment/Plan Status: 1. Severe sepsis. leading to acute renal failure- and respiratory failure- 2. Healthcare-associated pneumonia. 3. Ventilator-dependent respiratory failure. 4. Hypertension. 5. Dementia. Alzheimer's dementia. 6. Hyperlipidemia. 7. Psychiatric disorder. 8. h/o Gallstones. 9. h/o Diverticulosis. 10.h/o BPH. Plan: K Phos supp. as needed Pulm support. Antibiotics- Monitor renal parameters- Urine studies- per consultants Subjective ROS Limited/Unobtainable: No Allergies: Coded Allergies: No Known Allergies (Unverified , 10/07/16) Objective Last 24 Hour Vital Signs Date Time Temp Pulse Resp B/P Pulse Ox O2 Delivery O2 Flow Rate FiO2 10/19/16 16:00 97.5 59 18 148/68 97 Nasal Cannula 2.0 10/19/16 11:44 97.7 79 18 153/67 95 Nasal Cannula 2.0 10/19/16 09:05 65 155/59 10/19/16 08:58 155/59 10/19/16 08:00 97.0 65 18 155/59 94 Room Air 10/19/16 07:56 Room Air 10/19/16 07:55 93 Room Air 21 10/19/16 07:54 71 16 Room Air 21 10/19/16 04:00 98.0 82 18 136/76 98 Nasal Cannula 2.0 10/19/16 00:00 98.1 84 18 168/71 95 Nasal Cannula 2.0 10/18/16 22:29 84 125/82 94 Nasal Cannula 2.0 10/18/16 21:00 58 158/78 10/18/16 20:00 98.4 85 22 121/81 90 Room Air 10/18/16 19:30 58 16 Room Air 21 10/18/16 19:30 Room Air 21 10/18/16 19:30 92 Room Air 21 Intake and Output 10/18/16 10/19/16 19:00 07:00 Intake Total 50 ml 650 ml Output Total 320 ml 200 ml Balance -270 ml 450 ml Intake Oral 200 ml IV Total 50 ml 450 ml Output Urine Total 320 ml 200 ml Laboratory Tests 10/19/16 05:30: White Blood Count 10.1, Red Blood Count 3.49L, Hemoglobin 11.0L, Hematocrit 32.7L, Mean Corpuscular Volume 94, Mean Corpuscular Hemoglobin 31.5H, Mean Corpuscular Hemoglobin Concent 33.6, Red Cell Distribution Width 12.5, Platelet Count 290, Mean Platelet Volume 5.4L, Neutrophils (%) (Auto) 69.4, Lymphocytes ( %) (Auto) 12.2L, Monocytes (%) (Auto) 15.9H, Eosinophils (%) (Auto) 1.4, Basophils (%) (Auto) 1.2, Prothrombin Time 12.9H, Prothromb Time International Ratio 1.3H, Sodium Level 141, Potassium Level 3.8, Chloride Level 103, Carbon Dioxide Level 26, Anion Gap 12, Blood Urea Nitrogen 13, Creatinine 0.7, Estimat Glomerular Filtration Rate , Glucose Level 90, Calcium Level 8.7, Total Bilirubin 0.7, Aspartate Amino Transf (AST/SGOT) 11, Alanine Aminotransferase ( ALT/SGPT) 9, Alkaline Phosphatase 37L, Total Protein 5.7L, Albumin 2.2L, Globulin 3.5, Albumin/Globulin Ratio 0.6L Height (Feet): 5 Height (Inches): 3.00 Weight (Pounds): 130 General Appearance: no apparent distress Objective PE not changed MANPREET GERMAN Oct 19, 2016 16:55
[2016-10-19] MEDS ORDERED: Warfarin Sodium 2.5mg ORAL ONE (17:00)
--- NOTE | 2016-10-19 17:13 | Cardiology Progress Note ---
Assessment/Plan Problem List: (1) Pneumonia (2) ATN (acute tubular necrosis) (3) Dementia (4) Anemia (5) CHF (congestive heart failure) (6) HTN (hypertension) Status: stable, progressing Status Narrative pneumonia/ resp failure - improving Hypertensive - BP not well controlled ? mild vol overload - diastolic dysfunction Femoral DVT Assessment/Plan Continue current supportive care. Will start daily lasix inc lisinopril to 30 mg /d and continue coreg Continue iv heparin as inr not yet therapeutic on warfarin Subjective Subjective Events noted. Mr Easley appears comfortable. Has occ cough, but no dyspnea Objective Last 24 Hour Vital Signs Date Time Temp Pulse Resp B/P Pulse Ox O2 Delivery O2 Flow Rate FiO2 10/19/16 16:00 97.5 59 18 148/68 97 Nasal Cannula 2.0 10/19/16 11:44 97.7 79 18 153/67 95 Nasal Cannula 2.0 10/19/16 09:05 65 155/59 10/19/16 08:58 155/59 10/19/16 08:00 97.0 65 18 155/59 94 Room Air 10/19/16 07:56 Room Air 10/19/16 07:55 93 Room Air 21 10/19/16 07:54 71 16 Room Air 21 10/19/16 04:00 98.0 82 18 136/76 98 Nasal Cannula 2.0 10/19/16 00:00 98.1 84 18 168/71 95 Nasal Cannula 2.0 10/18/16 22:29 84 125/82 94 Nasal Cannula 2.0 10/18/16 21:00 58 158/78 10/18/16 20:00 98.4 85 22 121/81 90 Room Air 10/18/16 19:30 58 16 Room Air 21 10/18/16 19:30 Room Air 21 10/18/16 19:30 92 Room Air 21 General Appearance: WD/WN, no apparent distress, alert EENT: PERRL/EOMI Neck: supple, no JVD Rhythm: NSR Cardiovascular: normal rate, regular rhythm, no gallop/murmur Respiratory/Chest: other - fairly clear anteriorly. does not cooperate w/ deep inspir effort Extremities: no swelling Intake and Output 10/18/16 10/19/16 19:00 07:00 Intake Total 50 ml 650 ml Output Total 320 ml 200 ml Balance -270 ml 450 ml Intake Oral 200 ml IV Total 50 ml 450 ml Output Urine Total 320 ml 200 ml Laboratory Tests Test 10/19/16 05:30 White Blood Count 10.1 K/UL (4.8-10.8) Red Blood Count 3.49 M/UL (4.70-6.10) L Hemoglobin 11.0 G/DL (14.2-18.0) L Hematocrit 32.7 % (42.0-52.0) L Mean Corpuscular Volume 94 FL (80-99) Mean Corpuscular Hemoglobin 31.5 PG (27.0-31.0) H Mean Corpuscular Hemoglobin Concent 33.6 G/DL (32.0-36.0) Red Cell Distribution Width 12.5 % (11.6-14.8) Platelet Count 290 K/UL (150-450) Mean Platelet Volume 5.4 FL (6.5-10.1) L Neutrophils (%) (Auto) 69.4 % (45.0-75.0) Lymphocytes (%) (Auto) 12.2 % (20.0-45.0) L Monocytes (%) (Auto) 15.9 % (1.0-10.0) H Eosinophils (%) (Auto) 1.4 % (0.0-3.0) Basophils (%) (Auto) 1.2 % (0.0-2.0) Prothrombin Time 12.9 SEC (9.30-11.50) H Prothromb Time International Ratio 1.3 (0.9-1.1) H Sodium Level 141 mEQ/L (135-145) Potassium Level 3.8 mEQ/L (3.4-4.9) Chloride Level 103 mEQ/L (98-107) Carbon Dioxide Level 26 mEQ/L (20-30) Anion Gap 12 (5-15) Blood Urea Nitrogen 13 mg/dL (7-23) Creatinine 0.7 mg/dL (0.7-1.2) Estimat Glomerular Filtration Rate mL/min (>60) Glucose Level 90 mg/dL (74-106) Calcium Level 8.7 mg/dL (8.6-10.2) Total Bilirubin 0.7 mg/dL (0.0-1.2) Aspartate Amino Transf (AST/SGOT) 11 U/L (5-40) Alanine Aminotransferase (ALT/SGPT) 9 U/L (3-41) Alkaline Phosphatase 37 U/L (40-129) L Total Protein 5.7 g/dL (6.6-8.7) L Albumin 2.2 g/dL (3.5-5.2) L Globulin 3.5 g/dL Albumin/Globulin Ratio 0.6 (1.0-2.7) L Microbiology Date/Time Source Procedure Growth Status 10/17/16 04:30 Urine,Clean Catch Urine Culture - Final NO GROWTH AFTER 48 HOURS Complete RIRI DILLARD Oct 19, 2016 17:13
[2016-10-19] MEDS: D5NS 1,000 ML IV SCH (17:39)
[2016-10-19 20:00] VITALS: BP 129/58
--- NOTE | 2016-10-19 23:53 | Pulmonology Progress Note ---
Assessment/Plan Problems: (1) Respiratory failure, acute (2) History of hypertension (3) Pneumonia (4) ATN (acute tubular necrosis) (5) Dementia Assessment/Plan swallow study noted continue respiratory treatment no new complains stable improving watch labs, bp, Vital signs aspiration precaution chest pt Subjective ROS Limited/Unobtainable: No Interval Events: awake. coversing in brief sentences Allergies: Coded Allergies: No Known Allergies (Unverified , 10/07/16) Objective Last 24 Hour Vital Signs Date Time Temp Pulse Resp B/P Pulse Ox O2 Delivery O2 Flow Rate FiO2 10/19/16 20:28 60 129/58 10/19/16 20:02 94 Nasal Cannula 2.0 28 10/19/16 20:02 Nasal Cannula 2.0 28 10/19/16 20:02 60 16 Room Air 21 10/19/16 20:00 97.8 66 18 129/58 97 Nasal Cannula 2.0 10/19/16 16:00 97.5 59 18 148/68 97 Nasal Cannula 2.0 10/19/16 11:44 97.7 79 18 153/67 95 Nasal Cannula 2.0 10/19/16 09:05 65 155/59 10/19/16 08:58 155/59 10/19/16 08:00 97.0 65 18 155/59 94 Room Air 10/19/16 07:56 Room Air 10/19/16 07:55 93 Room Air 21 10/19/16 07:54 71 16 Room Air 21 10/19/16 04:00 98.0 82 18 136/76 98 Nasal Cannula 2.0 10/19/16 00:00 98.1 84 18 168/71 95 Nasal Cannula 2.0 Intake and Output 10/18/16 10/19/16 19:00 07:00 Intake Total 50 ml 650 ml Output Total 320 ml 200 ml Balance -270 ml 450 ml Intake Oral 200 ml IV Total 50 ml 450 ml Output Urine Total 320 ml 200 ml General Appearance: WD/WN HEENT: normocephalic Respiratory/Chest: chest wall non-tender, lungs clear Cardiovascular: normal peripheral pulses, normal rate Abdomen: normal bowel sounds, no organomegaly Extremities: no cyanosis Skin: no rash Microbiology Date/Time Source Procedure Growth Status 10/17/16 04:30 Urine,Clean Catch Urine Culture - Final NO GROWTH AFTER 48 HOURS Complete Laboratory Tests 10/19/16 05:30: White Blood Count 10.1, Red Blood Count 3.49L, Hemoglobin 11.0L, Hematocrit 32.7L, Mean Corpuscular Volume 94, Mean Corpuscular Hemoglobin 31.5H, Mean Corpuscular Hemoglobin Concent 33.6, Red Cell Distribution Width 12.5, Platelet Count 290, Mean Platelet Volume 5.4L, Neutrophils (%) (Auto) 69.4, Lymphocytes ( %) (Auto) 12.2L, Monocytes (%) (Auto) 15.9H, Eosinophils (%) (Auto) 1.4, Basophils (%) (Auto) 1.2, Prothrombin Time 12.9H, Prothromb Time International Ratio 1.3H, Sodium Level 141, Potassium Level 3.8, Chloride Level 103, Carbon Dioxide Level 26, Anion Gap 12, Blood Urea Nitrogen 13, Creatinine 0.7, Estimat Glomerular Filtration Rate , Glucose Level 90, Calcium Level 8.7, Total Bilirubin 0.7, Aspartate Amino Transf (AST/SGOT) 11, Alanine Aminotransferase ( ALT/SGPT) 9, Alkaline Phosphatase 37L, Total Protein 5.7L, Albumin 2.2L, Globulin 3.5, Albumin/Globulin Ratio 0.6L Current Medications Medications (Trade) Dose Ordered Sig/Archie Route PRN Reason Start Time Stop Time Status Last Admin Dose Admin Acetaminophen (Tylenol) 650 mg Q4H PRN ORAL fever 10/14/16 20:00 11/13/16 19:59 Albuterol/ Ipratropium 3 ml 3 ml Q4HRT PRN HHN sob 10/15/16 13:15 10/20/16 13:14 Carvedilol (Coreg) 3.125 mg EVERY 12 HOURS ORAL 10/16/16 21:00 11/15/16 20:59 10/19/16 20:28 Dextrose (Dextrose 50%) STAT PRN IV Hypoglycemia 10/14/16 20:00 11/13/16 19:59 Dextrose/Sodium Chloride (D5ns) 1,000 ml @ 50 mls/hr Q20H IV 10/16/16 10:00 11/15/16 09:59 10/19/16 17:39 Enoxaparin Sodium (Lovenox) 60 mg EVERY 12 HOURS SUBQ 10/18/16 09:00 11/17/16 08:59 10/19/16 20:28 Furosemide (Lasix) 20 mg DAILY ORAL 10/20/16 09:00 11/19/16 08:59 Lisinopril (Zestril) 30 mg DAILY ORAL 10/20/16 09:00 11/19/16 08:59 Nitroglycerin (Ntg) 0.4 mg Q 5 MIN X 3 DOSES PRN SL Prn Chest Pain 10/14/16 19:45 11/13/16 19:44 Ondansetron HCl (Zofran) 4 mg Q6H PRN IVP Nausea & Vomiting 10/14/16 20:00 11/13/16 19:59 Pantoprazole (Protonix) 40 mg DAILY IV 10/15/16 09:00 11/14/16 08:59 10/19/16 08:58 Polyethylene Glycol (Miralax) 17 gm DAILYPRN PRN ORAL Constipation 10/14/16 20:00 11/13/16 19:59 Potassium Chloride (K-Dur) 10 meq DAILY ORAL 10/20/16 09:00 11/19/16 08:59 Sodium Chloride (NS) 500 ml @ 999 mls/hr NEEDED PRN IV For hypotension (MAP <60%) 10/14/16 20:00 11/13/16 19:59 Valproic Acid (Depakene) 250 mg Q12HR GT 10/18/16 09:00 11/17/16 08:59 10/19/16 20:27 Warfarin Sodium (Coumadin per pharmacy) 1 ea DAILY PRN MISC Per rx protocol 10/16/16 17:15 11/15/16 17:14 HERMINIO DIXON Oct 19, 2016 23:53
[2016-10-20 04:00] VITALS: BP 161/58
[2016-10-20 07:29] LABS: BASOPHILS % (AUTO) 1.3 % (0.0-2.0); EOSINOPHILS % (AUTO) 2.4 % (0.0-3.0); LYMPHOCYTES % (AUTO) 19.7 % (20.0-45.0); MEAN CORPUSCULAR HEMOGLOBIN 31.4 PG (27.0-31.0); MEAN CORPUSCULAR HGB CONC 33.3 G/DL (32.0-36.0); MEAN CORPUSCULAR VOLUME 94 FL (80-99); MEAN PLATELET VOLUME 5.6 FL (6.5-10.1); MONOCYTES % (AUTO) 13.7 % (1.0-10.0); NEUTROPHILS % (AUTO) 62.9 % (45.0-75.0); PLATELET COUNT 231 K/UL (150-450); RED BLOOD COUNT 3.19 M/UL (4.70-6.10); RED CELL DISTRIBUTION WIDTH 14.2 % (11.6-14.8); WHITE BLOOD COUNT 6.7 K/UL (4.8-10.8)
[2016-10-20 07:46] LABS: ALANINE AMINOTRANSFERASE 5 U/L (3-41); ALBUMIN/GLOBULIN RATIO 0.5 (1.0-2.7); ANION GAP 12 (5-15); ASPARTATE AMINO TRANSFERASE 11 U/L (5-40); CALCIUM 8.7 mg/dL (8.6-10.2); CARBON DIOXIDE 22 mEQ/L (20-30); CHLORIDE 107 mEQ/L (98-107); CREATININE 0.6 mg/dL (0.7-1.2); HEMOLYSIS 38; SODIUM 141 mEQ/L (135-145); TOTAL PROTEIN 5.5 g/dL (6.6-8.7)
[2016-10-20 07:47] LABS: INR 1.4 (0.9-1.1); PROTHROMBIN TIME 13.9 SEC (9.30-11.50)
[2016-10-20] MEDS ORDERED: Sodium Bicarbonate 8.4% 50ml Inj INJ PRN (08:00)
[2016-10-20] MEDS ORDERED: Lidocaine 1% Plain 30 ml INJ PRN (08:00)
[2016-10-20] MEDS ORDERED: Heparin 2000 units/Ns 1000ml INJ PRN (08:00)
[2016-10-20 08:28] VITALS: BP 157/64
[2016-10-20] MEDS: Valproic Acid 250mg/5ml Liquid GT SCH ×2 (09:00→19:58)
[2016-10-20] MEDS: Enoxaparin 60mg Inj SUBQ SCH ×2 (09:00→19:59)
[2016-10-20] MEDS: Pantoprazole Inj IV SCH (09:00)
[2016-10-20] MEDS ORDERED: Lisinopril 10mg tab ORAL SCH (09:00)
--- NOTE | 2016-10-20 09:24 | General Progress Note ---
Assessment/Plan Status: stable Assessment/Plan 1. sepsis- Resolved 2. Healthcare-associated pneumonia. 3. HF- Diastolic 4. VDRF: S/p successful extubation 5. ARF: likely secondary to #1 6, Acute Anemia 5. Dementia. 6. Hyperlipidemia. 7. DNR 8. Acute DVT in Left CFV 9. Depression Pulmonary, Psych, ID,notes are reviewed on anticoagulation, will monitor PLT and hgb current management Dispostion: SNIF, once medically stable Subjective ROS Limited/Unobtainable: Yes - appears comfortable Allergies: Coded Allergies: No Known Allergies (Unverified , 10/07/16) Objective Last 24 Hour Vital Signs Date Time Temp Pulse Resp B/P Pulse Ox O2 Delivery O2 Flow Rate FiO2 10/20/16 09:03 55 157/64 10/20/16 09:00 157/64 10/20/16 08:28 98.4 55 20 157/64 96 Nasal Cannula 10/20/16 06:55 95 Nasal Cannula 2.0 28 10/20/16 06:55 62 16 Room Air 21 10/20/16 06:55 Nasal Cannula 2.0 28 10/20/16 04:00 97.0 57 18 161/58 96 Nasal Cannula 2.0 10/19/16 20:28 60 129/58 10/19/16 20:02 94 Nasal Cannula 2.0 28 10/19/16 20:02 Nasal Cannula 2.0 28 10/19/16 20:02 60 16 Room Air 21 10/19/16 20:00 97.8 66 18 129/58 97 Nasal Cannula 2.0 10/19/16 16:00 97.5 59 18 148/68 97 Nasal Cannula 2.0 10/19/16 11:44 97.7 79 18 153/67 95 Nasal Cannula 2.0 Intake and Output 10/19/16 10/20/16 19:00 07:00 Intake Total 640 ml 530 ml Output Total 200 ml 550 ml Balance 440 ml -20 ml Intake Oral 240 ml 380 ml IV Total 400 ml 150 ml Output Urine Total 200 ml 550 ml # Bowel Movements 1 Laboratory Tests 10/20/16 04:50: White Blood Count 6.7, Red Blood Count 3.19L, Hemoglobin 10.0L, Hematocrit 30.1L , Mean Corpuscular Volume 94, Mean Corpuscular Hemoglobin 31.4H, Mean Corpuscular Hemoglobin Concent 33.3, Red Cell Distribution Width 14.2, Platelet Count 231, Mean Platelet Volume 5.6L, Neutrophils (%) (Auto) 62.9, Lymphocytes ( %) (Auto) 19.7L, Monocytes (%) (Auto) 13.7H, Eosinophils (%) (Auto) 2.4, Basophils (%) (Auto) 1.3, Prothrombin Time 13.9H, Prothromb Time International Ratio 1.4H, Sodium Level 141, Potassium Level 4.0, Chloride Level 107, Carbon Dioxide Level 22, Anion Gap 12, Blood Urea Nitrogen 14, Creatinine 0.6L, Estimat Glomerular Filtration Rate , Glucose Level 84, Calcium Level 8.7, Total Bilirubin 0.6, Aspartate Amino Transf (AST/SGOT) 11, Alanine Aminotransferase ( ALT/SGPT) 5, Alkaline Phosphatase 32L, Total Protein 5.5L, Albumin 2.0L, Globulin 3.5, Albumin/Globulin Ratio 0.5L Height (Feet): 5 Height (Inches): 3.00 Weight (Pounds): 130 General Appearance: no apparent distress EENT: PERRL/EOMI Neck: supple Cardiovascular: normal rate Respiratory/Chest: rhonchi - bilaterally Abdomen: soft Extremities: non-tender, other - atrophied musculature Neurologic: disoriented Margaret Jc MD Oct 20, 2016 09:24
[2016-10-20 12:00] VITALS: BP 183/66
[2016-10-20] MEDS: D5NS 1,000 ML IV SCH (13:19)
--- NOTE | 2016-10-20 14:38 | General Progress Note ---
Assessment/Plan Status: stable Assessment/Plan Status: 1. Severe sepsis. leading to acute renal failure- and respiratory failure- 2. Healthcare-associated pneumonia. 3. Ventilator-dependent respiratory failure. 4. Hypertension. 5. Dementia. Alzheimer's dementia. 6. Hyperlipidemia. 7. Psychiatric disorder. 8. h/o Gallstones. 9. h/o Diverticulosis. 10.h/o BPH. Plan: K Phos supp. as needed Pulm support. Antibiotics- Monitor renal parameters- Urine studies- per consultants Subjective ROS Limited/Unobtainable: No Constitutional: Reports: malaise Allergies: Coded Allergies: No Known Allergies (Unverified , 10/07/16) Objective Last 24 Hour Vital Signs Date Time Temp Pulse Resp B/P Pulse Ox O2 Delivery O2 Flow Rate FiO2 10/20/16 12:00 98.6 53 20 183/66 97 Nasal Cannula 2.0 10/20/16 09:03 55 157/64 10/20/16 09:00 157/64 10/20/16 08:28 98.4 55 20 157/64 96 Nasal Cannula 10/20/16 06:55 95 Nasal Cannula 2.0 28 10/20/16 06:55 62 16 Room Air 21 10/20/16 06:55 Nasal Cannula 2.0 28 10/20/16 04:00 97.0 57 18 161/58 96 Nasal Cannula 2.0 10/19/16 20:28 60 129/58 10/19/16 20:02 94 Nasal Cannula 2.0 28 10/19/16 20:02 Nasal Cannula 2.0 28 10/19/16 20:02 60 16 Room Air 21 10/19/16 20:00 97.8 66 18 129/58 97 Nasal Cannula 2.0 10/19/16 16:00 97.5 59 18 148/68 97 Nasal Cannula 2.0 Intake and Output 10/19/16 10/20/16 19:00 07:00 Intake Total 640 ml 530 ml Output Total 200 ml 550 ml Balance 440 ml -20 ml Intake Oral 240 ml 380 ml IV Total 400 ml 150 ml Output Urine Total 200 ml 550 ml # Bowel Movements 1 Laboratory Tests 10/20/16 04:50: White Blood Count 6.7, Red Blood Count 3.19L, Hemoglobin 10.0L, Hematocrit 30.1L , Mean Corpuscular Volume 94, Mean Corpuscular Hemoglobin 31.4H, Mean Corpuscular Hemoglobin Concent 33.3, Red Cell Distribution Width 14.2, Platelet Count 231, Mean Platelet Volume 5.6L, Neutrophils (%) (Auto) 62.9, Lymphocytes ( %) (Auto) 19.7L, Monocytes (%) (Auto) 13.7H, Eosinophils (%) (Auto) 2.4, Basophils (%) (Auto) 1.3, Prothrombin Time 13.9H, Prothromb Time International Ratio 1.4H, Sodium Level 141, Potassium Level 4.0, Chloride Level 107, Carbon Dioxide Level 22, Anion Gap 12, Blood Urea Nitrogen 14, Creatinine 0.6L, Estimat Glomerular Filtration Rate , Glucose Level 84, Calcium Level 8.7, Total Bilirubin 0.6, Aspartate Amino Transf (AST/SGOT) 11, Alanine Aminotransferase ( ALT/SGPT) 5, Alkaline Phosphatase 32L, Total Protein 5.5L, Albumin 2.0L, Globulin 3.5, Albumin/Globulin Ratio 0.5L Height (Feet): 5 Height (Inches): 3.00 Weight (Pounds): 130 General Appearance: no apparent distress Objective PE not changed MANPREET GERMAN Oct 20, 2016 14:38
[2016-10-20 16:07] VITALS: BP 168/65
--- NOTE | 2016-10-20 16:29 | Diagnostic Imaging Report ---
Indications: Needs long-term IV access Technique: Ultrasound confirms patent compressible right brachial vein. Total sterile technique, including sterile probe cover and sterile gel, hat, mask,, sterile gown, large sterile drape, and preparation with 2% chlorhexidine utilized. Local anesthesia with 1% lidocaine. Under real-time ultrasound guidance, puncture brachial vein using 21-gauge needle, documented and archived, passage 0.018 guidewire under direct fluoroscopy, which was used to determine appropriate catheter length, exchange for 5 [place] peel-away sheath. 5 [place] Bard dual-lumen power PICC cut to 39 cm. It was inserted through the peel-away sheath. Peel-away sheath and guidewire removed. Catheter fixed to the skin. Both catheter ports aspirated and flushed. Patient tolerated procedure well, without immediate complication. Digital radiograph documents satisfactory catheter tip position, at the cavoatrial junction. Total fluoroscopy time 0.3 minutes. Total dose area product 23 dGycm2 Impression: Successful placement of right arm PICC under sonographic and fluoroscopic guidance, as described above.
[2016-10-20] MEDS ORDERED: Warfarin Sodium 4mg PO ONE (17:00)
--- NOTE | 2016-10-20 18:16 | Infectious Diseases Prog Note ---
Assessment/Plan Assessment/Plan ASSESSMENT: 86 y/o male with: // Probable PNA - SCx NRF, legionella UAg(-) SP Rx - CXR 10/15: Persistent pulmonary bibasal subsegmental atelectasis with suggestion of some improvement on right - CT: Bilateral pulmonary lower lobe consolidation--atelectasis versus pneumonia - negative: influenza // Severe sepsis SP - improved lactic acidosis // Leukocytosis improved off of AB Rx // Fever - resolved // Acute RLE DVT // Acute VDRF SP - intubated 10/07, extubated 10/14 // Possible diastolic CHF exacerbation - trop(-) x1, BNP >70K - TTE: EF 55-60%, mild AR, significant implied diastolic dysfunction - CXR: Pulmonary vascular redistribution. Bilateral interstitial prominence. Left costophrenic angle blunting suggests small pleural effusion // ARF ?CKD - resolved // Advanced Alzheimer's dementia // NKDA // Full Code PLAN: - Monitor pt off of ABX ( 10/13 SP IV vancomycin, zosyn d# 7 / ) - monitor CBC, temperatures - monitor CXR - monitor culture ( Bl, Ur Sp) - Cxray Subjective Constitutional: Denies: anorexia, chills, drenching sweats, fatigue, fever, no symptoms, other Allergies: Coded Allergies: No Known Allergies (Unverified , 10/07/16) Subjective Objective Vital Signs Last 24 Hour Vital Signs Date Time Temp Pulse Resp B/P Pulse Ox O2 Delivery O2 Flow Rate FiO2 10/20/16 16:07 98.6 65 19 168/65 97 Nasal Cannula 2.0 10/20/16 12:00 98.6 53 20 183/66 97 Nasal Cannula 2.0 10/20/16 09:03 55 157/64 10/20/16 09:00 157/64 10/20/16 08:28 98.4 55 20 157/64 96 Nasal Cannula 10/20/16 06:55 95 Nasal Cannula 2.0 28 10/20/16 06:55 62 16 Room Air 21 10/20/16 06:55 Nasal Cannula 2.0 28 10/20/16 04:00 97.0 57 18 161/58 96 Nasal Cannula 2.0 10/19/16 20:28 60 129/58 10/19/16 20:02 94 Nasal Cannula 2.0 28 10/19/16 20:02 Nasal Cannula 2.0 28 10/19/16 20:02 60 16 Room Air 21 10/19/16 20:00 97.8 66 18 129/58 97 Nasal Cannula 2.0 Height (Feet): 5 Height (Inches): 3.00 Weight (Pounds): 130 HEENT: atraumatic Respiratory/Chest: lungs clear, no respiratory distress Abdomen: soft, non tender, no organomegaly Laboratory Tests Test 10/20/16 04:50 White Blood Count 6.7 K/UL (4.8-10.8) Red Blood Count 3.19 M/UL (4.70-6.10) L Hemoglobin 10.0 G/DL (14.2-18.0) L Hematocrit 30.1 % (42.0-52.0) L Mean Corpuscular Volume 94 FL (80-99) Mean Corpuscular Hemoglobin 31.4 PG (27.0-31.0) H Mean Corpuscular Hemoglobin Concent 33.3 G/DL (32.0-36.0) Red Cell Distribution Width 14.2 % (11.6-14.8) Platelet Count 231 K/UL (150-450) Mean Platelet Volume 5.6 FL (6.5-10.1) L Neutrophils (%) (Auto) 62.9 % (45.0-75.0) Lymphocytes (%) (Auto) 19.7 % (20.0-45.0) L Monocytes (%) (Auto) 13.7 % (1.0-10.0) H Eosinophils (%) (Auto) 2.4 % (0.0-3.0) Basophils (%) (Auto) 1.3 % (0.0-2.0) Prothrombin Time 13.9 SEC (9.30-11.50) H Prothromb Time International Ratio 1.4 (0.9-1.1) H Sodium Level 141 mEQ/L (135-145) Potassium Level 4.0 mEQ/L (3.4-4.9) Chloride Level 107 mEQ/L (98-107) Carbon Dioxide Level 22 mEQ/L (20-30) Anion Gap 12 (5-15) Blood Urea Nitrogen 14 mg/dL (7-23) Creatinine 0.6 mg/dL (0.7-1.2) L Estimat Glomerular Filtration Rate mL/min (>60) Glucose Level 84 mg/dL (74-106) Calcium Level 8.7 mg/dL (8.6-10.2) Total Bilirubin 0.6 mg/dL (0.0-1.2) Aspartate Amino Transf (AST/SGOT) 11 U/L (5-40) Alanine Aminotransferase (ALT/SGPT) 5 U/L (3-41) Alkaline Phosphatase 32 U/L (40-129) L Total Protein 5.5 g/dL (6.6-8.7) L Albumin 2.0 g/dL (3.5-5.2) L Globulin 3.5 g/dL Albumin/Globulin Ratio 0.5 (1.0-2.7) L Current Medications Medications (Trade) Dose Ordered Sig/Archie Route PRN Reason Start Time Stop Time Status Last Admin Dose Admin Acetaminophen (Tylenol) 650 mg Q4H PRN ORAL fever 10/14/16 20:00 11/13/16 19:59 Carvedilol (Coreg) 3.125 mg EVERY 12 HOURS ORAL 10/16/16 21:00 11/15/16 20:59 10/20/16 09:03 Dextrose (Dextrose 50%) STAT PRN IV Hypoglycemia 10/14/16 20:00 11/13/16 19:59 Dextrose/Sodium Chloride (D5ns) 1,000 ml @ 50 mls/hr Q20H IV 10/16/16 10:00 11/15/16 09:59 10/19/16 17:39 Enoxaparin Sodium (Lovenox) 60 mg EVERY 12 HOURS SUBQ 10/18/16 09:00 11/17/16 08:59 10/19/16 20:28 Furosemide (Lasix) 20 mg DAILY ORAL 10/20/16 09:00 11/19/16 08:59 10/20/16 09:03 Heparin Sodium/ Sodium Chloride (Heparin 2000 units/Ns 1000ml premix) 2,000 unit ONCE PRN INJ PICC PLACEMENT 10/20/16 08:00 10/21/16 23:59 Lidocaine HCl (Xylocaine 1% 30ml) 30 ml ONCE PRN INJ PICC PLACEMENT 10/20/16 08:00 10/21/16 23:59 Lisinopril (Zestril) 30 mg DAILY ORAL 10/20/16 09:00 11/19/16 08:59 10/20/16 09:00 Nitroglycerin (Ntg) 0.4 mg Q 5 MIN X 3 DOSES PRN SL Prn Chest Pain 10/14/16 19:45 11/13/16 19:44 Ondansetron HCl (Zofran) 4 mg Q6H PRN IVP Nausea & Vomiting 10/14/16 20:00 11/13/16 19:59 Pantoprazole (Protonix) 40 mg DAILY IV 10/15/16 09:00 11/14/16 08:59 10/19/16 08:58 Polyethylene Glycol 17 gm 17 gm DAILYPRN PRN ORAL Constipation 10/14/16 20:00 11/13/16 19:59 Potassium Chloride (K-Dur) 10 meq DAILY ORAL 10/20/16 09:00 11/19/16 08:59 10/20/16 09:00 Sodium Bicarbonate (Sodium Bicarbonate) 50 ml ONCE PRN INJ PICC PLACEMENT 10/20/16 08:00 10/21/16 23:59 Sodium Chloride (NS) 500 ml @ 999 mls/hr NEEDED PRN IV For hypotension (MAP <60%) 10/14/16 20:00 11/13/16 19:59 Valproic Acid (Depakene) 250 mg Q12HR GT 10/18/16 09:00 11/17/16 08:59 10/20/16 09:00 Warfarin Sodium (Coumadin per pharmacy) 1 ea DAILY PRN MISC Per rx protocol 10/16/16 17:15 11/15/16 17:14 ZAIRE MORA M.D. Oct 20, 2016 18:16
--- NOTE | 2016-10-20 22:51 | Pulmonology Progress Note ---
Assessment/Plan Problems: (1) Respiratory failure, acute (2) History of hypertension (3) Pneumonia (4) ATN (acute tubular necrosis) (5) Dementia Assessment/Plan improving swallow study noted continue respiratory treatment for a while before this event , pt kept tellling her daughter that he wants to and doens't want to live. Considering pts debilitated state, that request seems reasonable. Therefor, I suggest hospice care. and no hospitalization in future. Subjective ROS Limited/Unobtainable: Yes Respiratory: Reports: dyspnea at rest, dyspnea on exertion, productive cough, shortness of breath, sputum Allergies: Coded Allergies: No Known Allergies (Unverified , 10/07/16) Objective Last 24 Hour Vital Signs Date Time Temp Pulse Resp B/P Pulse Ox O2 Delivery O2 Flow Rate FiO2 10/20/16 20:06 Nasal Cannula 2.0 10/20/16 19:58 65 168/65 10/20/16 19:13 95 Nasal Cannula 2.0 28 10/20/16 19:13 65 18 Nasal Cannula 28 10/20/16 19:13 Nasal Cannula 2.0 28 10/20/16 16:07 98.6 65 19 168/65 97 Nasal Cannula 2.0 10/20/16 12:00 98.6 53 20 183/66 97 Nasal Cannula 2.0 10/20/16 09:03 55 157/64 10/20/16 09:00 157/64 10/20/16 08:28 98.4 55 20 157/64 96 Nasal Cannula 10/20/16 06:55 95 Nasal Cannula 2.0 28 10/20/16 06:55 62 16 Room Air 21 10/20/16 06:55 Nasal Cannula 2.0 28 10/20/16 04:00 97.0 57 18 161/58 96 Nasal Cannula 2.0 Intake and Output 10/19/16 10/20/16 19:00 07:00 Intake Total 640 ml 530 ml Output Total 200 ml 550 ml Balance 440 ml -20 ml Intake Oral 240 ml 380 ml IV Total 400 ml 150 ml Output Urine Total 200 ml 550 ml # Bowel Movements 1 General Appearance: no acute distress HEENT: normocephalic, atraumatic, PERRL Respiratory/Chest: chest wall non-tender, decreased breath sounds, accessory muscle use, rhonchi Cardiovascular: normal peripheral pulses, normal rate, regular rhythm, no JVD Abdomen: normal bowel sounds, soft, non tender, no organomegaly Genitourinary: normal external genitalia Extremities: no cyanosis Skin: rash, lesions 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, no motor/sensory deficits, disoriented Laboratory Tests 10/20/16 04:50: White Blood Count 6.7, Red Blood Count 3.19L, Hemoglobin 10.0L, Hematocrit 30.1L , Mean Corpuscular Volume 94, Mean Corpuscular Hemoglobin 31.4H, Mean Corpuscular Hemoglobin Concent 33.3, Red Cell Distribution Width 14.2, Platelet Count 231, Mean Platelet Volume 5.6L, Neutrophils (%) (Auto) 62.9, Lymphocytes ( %) (Auto) 19.7L, Monocytes (%) (Auto) 13.7H, Eosinophils (%) (Auto) 2.4, Basophils (%) (Auto) 1.3, Prothrombin Time 13.9H, Prothromb Time International Ratio 1.4H, Sodium Level 141, Potassium Level 4.0, Chloride Level 107, Carbon Dioxide Level 22, Anion Gap 12, Blood Urea Nitrogen 14, Creatinine 0.6L, Estimat Glomerular Filtration Rate , Glucose Level 84, Calcium Level 8.7, Total Bilirubin 0.6, Aspartate Amino Transf (AST/SGOT) 11, Alanine Aminotransferase ( ALT/SGPT) 5, Alkaline Phosphatase 32L, Total Protein 5.5L, Albumin 2.0L, Globulin 3.5, Albumin/Globulin Ratio 0.5L Current Medications Medications (Trade) Dose Ordered Sig/Archie Route PRN Reason Start Time Stop Time Status Last Admin Dose Admin Acetaminophen (Tylenol) 650 mg Q4H PRN ORAL fever 10/14/16 20:00 11/13/16 19:59 Carvedilol (Coreg) 3.125 mg EVERY 12 HOURS ORAL 10/16/16 21:00 11/15/16 20:59 10/20/16 19:58 Clonidine HCl (Catapres) 0.1 mg Q8H PRN ORAL SBP>170 10/20/16 20:45 11/19/16 20:44 Dextrose (Dextrose 50%) STAT PRN IV Hypoglycemia 10/14/16 20:00 11/13/16 19:59 Enoxaparin Sodium (Lovenox) 60 mg EVERY 12 HOURS SUBQ 10/18/16 09:00 2/22/17 08:59 10/20/16 19:59 Heparin Sodium/ Sodium Chloride (Heparin 2000 units/Ns 1000ml premix) 2,000 unit ONCE PRN INJ PICC PLACEMENT 10/20/16 08:00 10/21/16 23:59 Lidocaine HCl (Xylocaine 1% 30ml) 30 ml ONCE PRN INJ PICC PLACEMENT 10/20/16 08:00 10/21/16 23:59 Lisinopril (Zestril) 2.5 mg DAILY ORAL 10/21/16 09:00 11/20/16 08:59 Lisinopril (Zestril) 30 mg DAILY ORAL 10/20/16 09:00 11/19/16 08:59 10/20/16 09:00 Nitroglycerin (Ntg) 0.4 mg Q 5 MIN X 3 DOSES PRN SL Prn Chest Pain 10/14/16 19:45 11/13/16 19:44 Ondansetron HCl (Zofran) 4 mg Q6H PRN IVP Nausea & Vomiting 10/14/16 20:00 11/13/16 19:59 Pantoprazole (Protonix) 40 mg DAILY IV 10/15/16 09:00 11/14/16 08:59 10/19/16 08:58 Polyethylene Glycol (Miralax) 17 gm DAILYPRN PRN ORAL Constipation 10/14/16 20:00 11/13/16 19:59 Sodium Bicarbonate (Sodium Bicarbonate) 50 ml ONCE PRN INJ PICC PLACEMENT 10/20/16 08:00 10/21/16 23:59 Sodium Chloride (NS) 500 ml @ 999 mls/hr NEEDED PRN IV For hypotension (MAP <60%) 10/14/16 20:00 11/13/16 19:59 Valproic Acid (Depakene) 250 mg Q12HR GT 10/18/16 09:00 11/17/16 08:59 10/20/16 19:58 Warfarin Sodium (Coumadin per pharmacy) 1 ea DAILY PRN MISC Per rx protocol 10/16/16 17:15 11/15/16 17:14 HERMINIO DIXON Oct 20, 2016 22:51
[2016-10-21] VITALS: BP 152/69
[2016-10-21 04:00] VITALS: BP 146/74
[2016-10-21 07:24] LABS: INR 1.9 (0.9-1.1); PROTHROMBIN TIME 19.3 SEC (9.30-11.50)
[2016-10-21 07:28] LABS: BASOPHILS % (AUTO) 1.4 % (0.0-2.0); EOSINOPHILS % (AUTO) 2.5 % (0.0-3.0); LYMPHOCYTES % (AUTO) 24.6 % (20.0-45.0); MEAN CORPUSCULAR HEMOGLOBIN 31.9 PG (27.0-31.0); MEAN CORPUSCULAR HGB CONC 33.9 G/DL (32.0-36.0); MEAN CORPUSCULAR VOLUME 94 FL (80-99); MEAN PLATELET VOLUME 5.5 FL (6.5-10.1); MONOCYTES % (AUTO) 12.3 % (1.0-10.0); NEUTROPHILS % (AUTO) 59.3 % (45.0-75.0); PLATELET COUNT 281 K/UL (150-450); RED BLOOD COUNT 3.13 M/UL (4.70-6.10); RED CELL DISTRIBUTION WIDTH 13.2 % (11.6-14.8); WHITE BLOOD COUNT 5.5 K/UL (4.8-10.8)
[2016-10-21 07:59] LABS: ALANINE AMINOTRANSFERASE 7 U/L (3-41); ALBUMIN/GLOBULIN RATIO 0.7 (1.0-2.7); ANION GAP 11 (5-15); ASPARTATE AMINO TRANSFERASE 10 U/L (5-40); CALCIUM 8.9 mg/dL (8.6-10.2); CARBON DIOXIDE 27 mEQ/L (20-30); CHLORIDE 107 mEQ/L (98-107); CREATININE 0.7 mg/dL (0.7-1.2); HEMOLYSIS 1; POTASSIUM 3.9 mEQ/L (3.4-4.9); SODIUM 145 mEQ/L (135-145); TOTAL PROTEIN 5.8 g/dL (6.6-8.7)
[2016-10-21] MEDS: Valproic Acid 250mg/5ml Liquid GT SCH ×2 (08:00→20:05)
[2016-10-21] MEDS: Pantoprazole Inj IV SCH (08:00)
[2016-10-21] MEDS: Lisinopril 2.5mg tab ORAL SCH (08:03)
[2016-10-21] MEDS: Enoxaparin 60mg Inj SUBQ SCH ×2 (08:08→20:06)
--- NOTE | 2016-10-21 08:16 | General Progress Note ---
Assessment/Plan Status: stable Assessment/Plan 1. sepsis- Resolved 2. Healthcare-associated pneumonia. 3. HF- Diastolic 4. VDRF: S/p successful extubation 5. ARF: likely secondary to #1 6, Acute Anemia 5. Dementia. 6. Hyperlipidemia. 7. DNR 8. Acute DVT in Left CFV 9. Depression Pulmonary, Psych, ID,notes are reviewed on anticoagulation, will monitor PLT and hgb sub optimal medical management secondary to patient refusal of care and self extubation of tubes (piccline-NG tube) Dispostion: SNIF, once medically stable Subjective ROS Limited/Unobtainable: Yes Constitutional: Reports: malaise HEENT: Reports: no symptoms - limited as pateint demented Allergies: Coded Allergies: No Known Allergies (Unverified , 10/07/16) Objective Last 24 Hour Vital Signs Date Time Temp Pulse Resp B/P Pulse Ox O2 Delivery O2 Flow Rate FiO2 10/21/16 08:10 88 165/60 10/21/16 08:03 168/64 10/21/16 04:00 97.6 64 18 146/74 96 Room Air 10/21/16 00:00 97.7 63 18 152/69 97 Nasal Cannula 2.0 10/20/16 20:06 Nasal Cannula 2.0 10/20/16 19:58 65 168/65 10/20/16 19:13 95 Nasal Cannula 2.0 28 10/20/16 19:13 65 18 Nasal Cannula 28 10/20/16 19:13 Nasal Cannula 2.0 28 10/20/16 16:07 98.6 65 19 168/65 97 Nasal Cannula 2.0 10/20/16 12:00 98.6 53 20 183/66 97 Nasal Cannula 2.0 10/20/16 09:03 55 157/64 10/20/16 09:00 157/64 10/20/16 08:28 98.4 55 20 157/64 96 Nasal Cannula Intake and Output 10/20/16 10/21/16 19:00 07:00 Intake Total 100 ml 340 ml Output Total 200 ml 600 ml Balance -100 ml -260 ml Intake Oral 100 ml 340 ml Output Urine Total 200 ml 600 ml # Voids 1 # Bowel Movements 1 Laboratory Tests 10/21/16 05:10: White Blood Count 5.5, Red Blood Count 3.13L, Hemoglobin 10.0L, Hematocrit 29.4L , Mean Corpuscular Volume 94, Mean Corpuscular Hemoglobin 31.9H, Mean Corpuscular Hemoglobin Concent 33.9, Red Cell Distribution Width 13.2, Platelet Count 281, Mean Platelet Volume 5.5L, Neutrophils (%) (Auto) 59.3, Lymphocytes ( %) (Auto) 24.6, Monocytes (%) (Auto) 12.3H, Eosinophils (%) (Auto) 2.5, Basophils (%) (Auto) 1.4, Prothrombin Time 19.3H, Prothromb Time International Ratio 1.9H, Sodium Level 145, Potassium Level 3.9, Chloride Level 107, Carbon Dioxide Level 27, Anion Gap 11, Blood Urea Nitrogen 14, Creatinine 0.7, Estimat Glomerular Filtration Rate , Glucose Level 77, Calcium Level 8.9, Total Bilirubin 0.5, Aspartate Amino Transf (AST/SGOT) 10, Alanine Aminotransferase ( ALT/SGPT) 7, Alkaline Phosphatase 35L, Total Protein 5.8L, Albumin 2.4L, Globulin 3.4, Albumin/Globulin Ratio 0.7L Height (Feet): 5 Height (Inches): 3.00 Weight (Pounds): 130 General Appearance: no apparent distress EENT: PERRL/EOMI Neck: supple Cardiovascular: normal rate Respiratory/Chest: rhonchi - bilaterally Abdomen: soft Extremities: other - cachectic Neurologic: disoriented, other - depressed Margaret Jc MD Oct 21, 2016 08:16
[2016-10-21 08:30] VITALS: BP 168/64
--- NOTE | 2016-10-21 10:14 | Infectious Diseases Prog Note ---
Assessment/Plan Assessment/Plan ASSESSMENT: 86 y/o male with: // Probable PNA - SCx NRF, legionella UAg(-) SP Rx - CXR 10/15: Persistent pulmonary bibasal subsegmental atelectasis with suggestion of some improvement on right - CT: Bilateral pulmonary lower lobe consolidation--atelectasis versus pneumonia - negative: influenza // Severe sepsis SP - improved lactic acidosis // Leukocytosis improved off of AB Rx // Fever - resolved // Acute RLE DVT // Acute VDRF SP - intubated 10/07, extubated 10/14 // Possible diastolic CHF exacerbation - trop(-) x1, BNP >70K - TTE: EF 55-60%, mild AR, significant implied diastolic dysfunction - CXR: Pulmonary vascular redistribution. Bilateral interstitial prominence. Left costophrenic angle blunting suggests small pleural effusion // ARF ?CKD - resolved // Advanced Alzheimer's dementia // NKDA // Full Code PLAN: - Monitor pt off of ABX ( 10/13 SP IV vancomycin, zosyn d# 7 / ) - monitor CBC, temperatures - monitor CXR - Cxray Subjective Constitutional: Denies: anorexia, chills, drenching sweats, fatigue, fever, no symptoms, other Allergies: Coded Allergies: No Known Allergies (Unverified , 10/07/16) Subjective Objective Vital Signs Last 24 Hour Vital Signs Date Time Temp Pulse Resp B/P Pulse Ox O2 Delivery O2 Flow Rate FiO2 10/21/16 08:45 62 16 Nasal Cannula 28 10/21/16 08:45 Nasal Cannula 2.0 28 10/21/16 08:45 94 Nasal Cannula 2.0 28 10/21/16 08:30 97.0 60 19 168/64 95 Room Air 10/21/16 08:10 88 165/60 10/21/16 08:03 168/64 10/21/16 04:00 97.6 64 18 146/74 96 Room Air 10/21/16 00:00 97.7 63 18 152/69 97 Nasal Cannula 2.0 10/20/16 20:06 Nasal Cannula 2.0 10/20/16 19:58 65 168/65 10/20/16 19:13 95 Nasal Cannula 2.0 28 10/20/16 19:13 65 18 Nasal Cannula 28 10/20/16 19:13 Nasal Cannula 2.0 28 10/20/16 16:07 98.6 65 19 168/65 97 Nasal Cannula 2.0 10/20/16 12:00 98.6 53 20 183/66 97 Nasal Cannula 2.0 Height (Feet): 5 Height (Inches): 3.00 Weight (Pounds): 130 HEENT: anicteric Respiratory/Chest: no respiratory distress Cardiovascular: regularly irregular Abdomen: no organomegaly Laboratory Tests Test 10/21/16 05:10 White Blood Count 5.5 K/UL (4.8-10.8) Red Blood Count 3.13 M/UL (4.70-6.10) L Hemoglobin 10.0 G/DL (14.2-18.0) L Hematocrit 29.4 % (42.0-52.0) L Mean Corpuscular Volume 94 FL (80-99) Mean Corpuscular Hemoglobin 31.9 PG (27.0-31.0) H Mean Corpuscular Hemoglobin Concent 33.9 G/DL (32.0-36.0) Red Cell Distribution Width 13.2 % (11.6-14.8) Platelet Count 281 K/UL (150-450) Mean Platelet Volume 5.5 FL (6.5-10.1) L Neutrophils (%) (Auto) 59.3 % (45.0-75.0) Lymphocytes (%) (Auto) 24.6 % (20.0-45.0) Monocytes (%) (Auto) 12.3 % (1.0-10.0) H Eosinophils (%) (Auto) 2.5 % (0.0-3.0) Basophils (%) (Auto) 1.4 % (0.0-2.0) Prothrombin Time 19.3 SEC (9.30-11.50) H Prothromb Time International Ratio 1.9 (0.9-1.1) H Sodium Level 145 mEQ/L (135-145) Potassium Level 3.9 mEQ/L (3.4-4.9) Chloride Level 107 mEQ/L (98-107) Carbon Dioxide Level 27 mEQ/L (20-30) Anion Gap 11 (5-15) Blood Urea Nitrogen 14 mg/dL (7-23) Creatinine 0.7 mg/dL (0.7-1.2) Estimat Glomerular Filtration Rate mL/min (>60) Glucose Level 77 mg/dL (74-106) Calcium Level 8.9 mg/dL (8.6-10.2) Total Bilirubin 0.5 mg/dL (0.0-1.2) Aspartate Amino Transf (AST/SGOT) 10 U/L (5-40) Alanine Aminotransferase (ALT/SGPT) 7 U/L (3-41) Alkaline Phosphatase 35 U/L (40-129) L Total Protein 5.8 g/dL (6.6-8.7) L Albumin 2.4 g/dL (3.5-5.2) L Globulin 3.4 g/dL Albumin/Globulin Ratio 0.7 (1.0-2.7) L Current Medications Medications (Trade) Dose Ordered Sig/Archie Route PRN Reason Start Time Stop Time Status Last Admin Dose Admin Acetaminophen (Tylenol) 650 mg Q4H PRN ORAL fever 10/14/16 20:00 11/13/16 19:59 Carvedilol (Coreg) 3.125 mg EVERY 12 HOURS ORAL 10/16/16 21:00 11/15/16 20:59 10/21/16 08:10 Clonidine HCl (Catapres) 0.1 mg Q8H PRN ORAL SBP>170 10/20/16 20:45 11/19/16 20:44 Dextrose (Dextrose 50%) STAT PRN IV Hypoglycemia 10/14/16 20:00 11/13/16 19:59 Enoxaparin Sodium (Lovenox) 60 mg EVERY 12 HOURS SUBQ 10/18/16 09:00 11/17/16 08:59 10/21/16 08:08 Heparin Sodium/ Sodium Chloride (Heparin 2000 units/Ns 1000ml premix) 2,000 unit ONCE PRN INJ PICC PLACEMENT 10/20/16 08:00 10/21/16 23:59 Lidocaine HCl (Xylocaine 1% 30ml) 30 ml ONCE PRN INJ PICC PLACEMENT 10/20/16 08:00 10/21/16 23:59 Lisinopril (Zestril) 2.5 mg DAILY ORAL 10/21/16 09:00 11/20/16 08:59 10/21/16 08:03 Nitroglycerin (Ntg) 0.4 mg Q 5 MIN X 3 DOSES PRN SL Prn Chest Pain 10/14/16 19:45 11/13/16 19:44 Ondansetron HCl (Zofran) 4 mg Q6H PRN IVP Nausea & Vomiting 10/14/16 20:00 11/13/16 19:59 Pantoprazole (Protonix) 40 mg DAILY IV 10/15/16 09:00 11/14/16 08:59 10/19/16 08:58 Polyethylene Glycol (Miralax) 17 gm DAILYPRN PRN ORAL Constipation 10/14/16 20:00 11/13/16 19:59 10/21/16 07:59 Sodium Bicarbonate (Sodium Bicarbonate) 50 ml ONCE PRN INJ PICC PLACEMENT 10/20/16 08:00 10/21/16 23:59 Sodium Chloride (NS) 500 ml @ 999 mls/hr NEEDED PRN IV For hypotension (MAP <60%) 10/14/16 20:00 11/13/16 19:59 Valproic Acid (Depakene) 250 mg Q12HR GT 10/18/16 09:00 11/17/16 08:59 10/21/16 08:00 Warfarin Sodium (Coumadin per pharmacy) 1 ea DAILY PRN MISC Per rx protocol 10/16/16 17:15 11/15/16 17:14 Warfarin Sodium (Coumadin) 2 mg COUMADIN ONCE ORAL 10/21/16 17:00 10/21/16 17:01 ZAIRE MORA M.D. Oct 21, 2016 10:14
--- NOTE | 2016-10-21 12:30 | General Progress Note ---
Assessment/Plan Status: stable - from renal stand Assessment/Plan Status: 1. Severe sepsis. leading to acute renal failure- and respiratory failure- 2. Healthcare-associated pneumonia. 3. Ventilator-dependent respiratory failure. 4. Hypertension. 5. Dementia. Alzheimer's dementia. 6. Hyperlipidemia. 7. Psychiatric disorder. 8. h/o Gallstones. 9. h/o Diverticulosis. 10.h/o BPH. Plan: K Phos supp. as needed Pulm support. Antibiotics- Monitor renal parameters- Urine studies- per consultants Subjective ROS Limited/Unobtainable: No Constitutional: Reports: malaise Allergies: Coded Allergies: No Known Allergies (Unverified , 10/07/16) Objective Last 24 Hour Vital Signs Date Time Temp Pulse Resp B/P Pulse Ox O2 Delivery O2 Flow Rate FiO2 10/21/16 08:45 62 16 Nasal Cannula 28 10/21/16 08:45 Nasal Cannula 2.0 28 10/21/16 08:45 94 Nasal Cannula 2.0 28 10/21/16 08:30 97.0 60 19 168/64 95 Room Air 10/21/16 08:10 88 165/60 10/21/16 08:03 168/64 10/21/16 04:00 97.6 64 18 146/74 96 Room Air 10/21/16 00:00 97.7 63 18 152/69 97 Nasal Cannula 2.0 10/20/16 20:06 Nasal Cannula 2.0 10/20/16 19:58 65 168/65 10/20/16 19:13 95 Nasal Cannula 2.0 28 10/20/16 19:13 65 18 Nasal Cannula 28 10/20/16 19:13 Nasal Cannula 2.0 28 10/20/16 16:07 98.6 65 19 168/65 97 Nasal Cannula 2.0 Intake and Output 10/20/16 10/21/16 19:00 07:00 Intake Total 100 ml 340 ml Output Total 200 ml 600 ml Balance -100 ml -260 ml Intake Oral 100 ml 340 ml Output Urine Total 200 ml 600 ml # Voids 1 # Bowel Movements 1 Laboratory Tests 10/21/16 05:10: White Blood Count 5.5, Red Blood Count 3.13L, Hemoglobin 10.0L, Hematocrit 29.4L , Mean Corpuscular Volume 94, Mean Corpuscular Hemoglobin 31.9H, Mean Corpuscular Hemoglobin Concent 33.9, Red Cell Distribution Width 13.2, Platelet Count 281, Mean Platelet Volume 5.5L, Neutrophils (%) (Auto) 59.3, Lymphocytes ( %) (Auto) 24.6, Monocytes (%) (Auto) 12.3H, Eosinophils (%) (Auto) 2.5, Basophils (%) (Auto) 1.4, Prothrombin Time 19.3H, Prothromb Time International Ratio 1.9H, Sodium Level 145, Potassium Level 3.9, Chloride Level 107, Carbon Dioxide Level 27, Anion Gap 11, Blood Urea Nitrogen 14, Creatinine 0.7, Estimat Glomerular Filtration Rate , Glucose Level 77, Calcium Level 8.9, Total Bilirubin 0.5, Aspartate Amino Transf (AST/SGOT) 10, Alanine Aminotransferase ( ALT/SGPT) 7, Alkaline Phosphatase 35L, Total Protein 5.8L, Albumin 2.4L, Globulin 3.4, Albumin/Globulin Ratio 0.7L Height (Feet): 5 Height (Inches): 3.00 Weight (Pounds): 130 General Appearance: no apparent distress Objective PE not changed MANPREET GERMAN Oct 21, 2016 12:30
[2016-10-21 12:42] VITALS: BP 133/67
[2016-10-21 16:08] VITALS: BP 159/59
[2016-10-21] MEDS ORDERED: D5NS 1000ml IV ONE (16:46)
[2016-10-21] MEDS ORDERED: Warfarin Sodium 2mg ORAL ONE (17:00)
--- NOTE | 2016-10-21 17:10 | Pulmonology Progress Note ---
Assessment/Plan Problems: (1) Respiratory failure, acute (2) History of hypertension (3) Pneumonia (4) ATN (acute tubular necrosis) (5) Dementia Assessment/Plan no new complains stable improving watch labs, bp, Vital signs aspiration precaution chest pt Subjective ROS Limited/Unobtainable: No Interval Events: comfortable Allergies: Coded Allergies: No Known Allergies (Unverified , 10/07/16) Objective Last 24 Hour Vital Signs Date Time Temp Pulse Resp B/P Pulse Ox O2 Delivery O2 Flow Rate FiO2 10/21/16 16:08 97.6 61 20 159/59 95 Room Air 10/21/16 12:42 97.0 89 18 133/67 94 Nasal Cannula 2.0 10/21/16 08:45 62 16 Nasal Cannula 28 10/21/16 08:45 Nasal Cannula 2.0 28 10/21/16 08:45 94 Nasal Cannula 2.0 28 10/21/16 08:30 97.0 60 19 168/64 95 Room Air 10/21/16 08:10 88 165/60 10/21/16 08:03 168/64 10/21/16 04:00 97.6 64 18 146/74 96 Room Air 10/21/16 00:00 97.7 63 18 152/69 97 Nasal Cannula 2.0 10/20/16 20:06 Nasal Cannula 2.0 10/20/16 19:58 65 168/65 10/20/16 19:13 95 Nasal Cannula 2.0 28 10/20/16 19:13 65 18 Nasal Cannula 28 10/20/16 19:13 Nasal Cannula 2.0 28 Intake and Output 10/20/16 10/21/16 19:00 07:00 Intake Total 100 ml 340 ml Output Total 200 ml 600 ml Balance -100 ml -260 ml Intake Oral 100 ml 340 ml Output Urine Total 200 ml 600 ml # Voids 1 # Bowel Movements 1 General Appearance: WD/WN HEENT: normocephalic Respiratory/Chest: chest wall non-tender, lungs clear Cardiovascular: normal peripheral pulses, normal rate Abdomen: normal bowel sounds, soft, non tender Extremities: no cyanosis Neurologic/Psychiatric: 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 science 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 II-XII grossly normal Laboratory Tests 10/21/16 05:10: White Blood Count 5.5, Red Blood Count 3.13L, Hemoglobin 10.0L, Hematocrit 29.4L , Mean Corpuscular Volume 94, Mean Corpuscular Hemoglobin 31.9H, Mean Corpuscular Hemoglobin Concent 33.9, Red Cell Distribution Width 13.2, Platelet Count 281, Mean Platelet Volume 5.5L, Neutrophils (%) (Auto) 59.3, Lymphocytes ( %) (Auto) 24.6, Monocytes (%) (Auto) 12.3H, Eosinophils (%) (Auto) 2.5, Basophils (%) (Auto) 1.4, Prothrombin Time 19.3H, Prothromb Time International Ratio 1.9H, Sodium Level 145, Potassium Level 3.9, Chloride Level 107, Carbon Dioxide Level 27, Anion Gap 11, Blood Urea Nitrogen 14, Creatinine 0.7, Estimat Glomerular Filtration Rate , Glucose Level 77, Calcium Level 8.9, Total Bilirubin 0.5, Aspartate Amino Transf (AST/SGOT) 10, Alanine Aminotransferase ( ALT/SGPT) 7, Alkaline Phosphatase 35L, Total Protein 5.8L, Albumin 2.4L, Globulin 3.4, Albumin/Globulin Ratio 0.7L Current Medications Medications (Trade) Dose Ordered Sig/Archie Route PRN Reason Start Time Stop Time Status Last Admin Dose Admin Acetaminophen (Tylenol) 650 mg Q4H PRN ORAL fever 10/14/16 20:00 11/13/16 19:59 Carvedilol (Coreg) 3.125 mg EVERY 12 HOURS ORAL 10/16/16 21:00 11/15/16 20:59 10/21/16 08:10 Clonidine HCl (Catapres) 0.1 mg Q8H PRN ORAL SBP>170 10/20/16 20:45 11/19/16 20:44 Dextrose (Dextrose 50%) STAT PRN IV Hypoglycemia 10/14/16 20:00 11/13/16 19:59 Enoxaparin Sodium (Lovenox) 60 mg EVERY 12 HOURS SUBQ 10/18/16 09:00 11/17/16 08:59 10/21/16 08:08 Heparin Sodium/ Sodium Chloride (Heparin 2000 units/Ns 1000ml premix) 2,000 unit ONCE PRN INJ PICC PLACEMENT 10/20/16 08:00 10/21/16 23:59 Lidocaine HCl (Xylocaine 1% 30ml) 30 ml ONCE PRN INJ PICC PLACEMENT 10/20/16 08:00 10/21/16 23:59 Lisinopril (Zestril) 2.5 mg DAILY ORAL 10/21/16 09:00 11/20/16 08:59 10/21/16 08:03 Nitroglycerin (Ntg) 0.4 mg Q 5 MIN X 3 DOSES PRN SL Prn Chest Pain 10/14/16 19:45 11/13/16 19:44 Ondansetron HCl (Zofran) 4 mg Q6H PRN IVP Nausea & Vomiting 10/14/16 20:00 11/13/16 19:59 Pantoprazole (Protonix) 40 mg DAILY IV 10/15/16 09:00 11/14/16 08:59 10/19/16 08:58 Polyethylene Glycol (Miralax) 17 gm DAILYPRN PRN ORAL Constipation 10/14/16 20:00 11/13/16 19:59 10/21/16 07:59 Sodium Bicarbonate (Sodium Bicarbonate) 50 ml ONCE PRN INJ PICC PLACEMENT 10/20/16 08:00 10/21/16 23:59 Sodium Chloride (NS) 500 ml @ 999 mls/hr NEEDED PRN IV For hypotension (MAP <60%) 10/14/16 20:00 11/13/16 19:59 Valproic Acid (Depakene) 250 mg Q12HR GT 10/18/16 09:00 11/17/16 08:59 10/21/16 08:00 Warfarin Sodium (Coumadin per pharmacy) 1 ea DAILY PRN MISC Per rx protocol 10/16/16 17:15 11/15/16 17:14 HERMINIO DIXON Oct 21, 2016 17:10
--- NOTE | 2016-10-21 17:13 | Pulmonology Progress Note ---
Assessment/Plan Problems: (1) Respiratory failure, acute (2) History of hypertension (3) Pneumonia (4) ATN (acute tubular necrosis) (5) Dementia Assessment/Plan no new complains stable improving watch labs, bp, Vital signs aspiration precaution chest pt titrate fio2 Subjective ROS Limited/Unobtainable: No Constitutional: Reports: no symptoms HEENT: Repors: no symptoms Respiratory: Reports: no symptoms Allergies: Coded Allergies: No Known Allergies (Unverified , 10/07/16) Objective Last 24 Hour Vital Signs Date Time Temp Pulse Resp B/P Pulse Ox O2 Delivery O2 Flow Rate FiO2 10/21/16 16:08 97.6 61 20 159/59 95 Room Air 10/21/16 12:42 97.0 89 18 133/67 94 Nasal Cannula 2.0 10/21/16 08:45 62 16 Nasal Cannula 28 10/21/16 08:45 Nasal Cannula 2.0 28 10/21/16 08:45 94 Nasal Cannula 2.0 28 10/21/16 08:30 97.0 60 19 168/64 95 Room Air 10/21/16 08:10 88 165/60 10/21/16 08:03 168/64 10/21/16 04:00 97.6 64 18 146/74 96 Room Air 10/21/16 00:00 97.7 63 18 152/69 97 Nasal Cannula 2.0 10/20/16 20:06 Nasal Cannula 2.0 10/20/16 19:58 65 168/65 10/20/16 19:13 95 Nasal Cannula 2.0 28 10/20/16 19:13 65 18 Nasal Cannula 28 10/20/16 19:13 Nasal Cannula 2.0 28 Intake and Output 10/20/16 10/21/16 19:00 07:00 Intake Total 100 ml 340 ml Output Total 200 ml 600 ml Balance -100 ml -260 ml Intake Oral 100 ml 340 ml Output Urine Total 200 ml 600 ml # Voids 1 # Bowel Movements 1 General Appearance: WD/WN HEENT: normocephalic, anicteric Respiratory/Chest: chest wall non-tender, lungs clear Cardiovascular: normal peripheral pulses, normal rate Abdomen: normal bowel sounds, soft, non tender Genitourinary: normal external genitalia Laboratory Tests 10/21/16 05:10: White Blood Count 5.5, Red Blood Count 3.13L, Hemoglobin 10.0L, Hematocrit 29.4L , Mean Corpuscular Volume 94, Mean Corpuscular Hemoglobin 31.9H, Mean Corpuscular Hemoglobin Concent 33.9, Red Cell Distribution Width 13.2, Platelet Count 281, Mean Platelet Volume 5.5L, Neutrophils (%) (Auto) 59.3, Lymphocytes ( %) (Auto) 24.6, Monocytes (%) (Auto) 12.3H, Eosinophils (%) (Auto) 2.5, Basophils (%) (Auto) 1.4, Prothrombin Time 19.3H, Prothromb Time International Ratio 1.9H, Sodium Level 145, Potassium Level 3.9, Chloride Level 107, Carbon Dioxide Level 27, Anion Gap 11, Blood Urea Nitrogen 14, Creatinine 0.7, Estimat Glomerular Filtration Rate , Glucose Level 77, Calcium Level 8.9, Total Bilirubin 0.5, Aspartate Amino Transf (AST/SGOT) 10, Alanine Aminotransferase ( ALT/SGPT) 7, Alkaline Phosphatase 35L, Total Protein 5.8L, Albumin 2.4L, Globulin 3.4, Albumin/Globulin Ratio 0.7L Current Medications Medications (Trade) Dose Ordered Sig/Archie Route PRN Reason Start Time Stop Time Status Last Admin Dose Admin Acetaminophen (Tylenol) 650 mg Q4H PRN ORAL fever 10/14/16 20:00 11/13/16 19:59 Carvedilol (Coreg) 3.125 mg EVERY 12 HOURS ORAL 10/16/16 21:00 11/15/16 20:59 10/21/16 08:10 Clonidine HCl (Catapres) 0.1 mg Q8H PRN ORAL SBP>170 10/20/16 20:45 11/19/16 20:44 Dextrose (Dextrose 50%) STAT PRN IV Hypoglycemia 10/14/16 20:00 11/13/16 19:59 Enoxaparin Sodium (Lovenox) 60 mg EVERY 12 HOURS SUBQ 10/18/16 09:00 11/17/16 08:59 10/21/16 08:08 Heparin Sodium/ Sodium Chloride (Heparin 2000 units/Ns 1000ml premix) 2,000 unit ONCE PRN INJ PICC PLACEMENT 10/20/16 08:00 10/21/16 23:59 Lidocaine HCl (Xylocaine 1% 30ml) 30 ml ONCE PRN INJ PICC PLACEMENT 10/20/16 08:00 10/21/16 23:59 Lisinopril (Zestril) 2.5 mg DAILY ORAL 10/21/16 09:00 11/20/16 08:59 10/21/16 08:03 Nitroglycerin (Ntg) 0.4 mg Q 5 MIN X 3 DOSES PRN SL Prn Chest Pain 10/14/16 19:45 11/13/16 19:44 Ondansetron HCl (Zofran) 4 mg Q6H PRN IVP Nausea & Vomiting 10/14/16 20:00 11/13/16 19:59 Pantoprazole (Protonix) 40 mg DAILY IV 10/15/16 09:00 11/14/16 08:59 10/19/16 08:58 Polyethylene Glycol (Miralax) 17 gm DAILYPRN PRN ORAL Constipation 10/14/16 20:00 11/13/16 19:59 10/21/16 07:59 Sodium Bicarbonate (Sodium Bicarbonate) 50 ml ONCE PRN INJ PICC PLACEMENT 10/20/16 08:00 10/21/16 23:59 Sodium Chloride (NS) 500 ml @ 999 mls/hr NEEDED PRN IV For hypotension (MAP <60%) 10/14/16 20:00 11/13/16 19:59 Valproic Acid (Depakene) 250 mg Q12HR GT 10/18/16 09:00 11/17/16 08:59 10/21/16 08:00 Warfarin Sodium (Coumadin per pharmacy) 1 ea DAILY PRN MISC Per rx protocol 10/16/16 17:15 11/15/16 17:14 HERMINIO DIXON Oct 21, 2016 17:13
[2016-10-21 20:00] VITALS: BP 141/74
[2016-10-22] VITALS (7 sets, daily range): BP systolic 137–182; BP diastolic 49–82
[2016-10-22 07:28] LABS: LYMPHOCYTES % (AUTO) 23.7 % (20.0-45.0); MEAN CORPUSCULAR HEMOGLOBIN 32.1 PG (27.0-31.0); MEAN CORPUSCULAR VOLUME 94 FL (80-99); MONOCYTES % (AUTO) 9.7 % (1.0-10.0); NEUTROPHILS % (AUTO) 63.7 % (45.0-75.0); PLATELET COUNT 263 K/UL (150-450); RED BLOOD COUNT 3.01 M/UL (4.70-6.10); RED CELL DISTRIBUTION WIDTH 14.3 % (11.6-14.8); WHITE BLOOD COUNT 4.9 K/UL (4.8-10.8)
[2016-10-22 07:51] LABS: ALANINE AMINOTRANSFERASE 6 U/L (3-41); ALBUMIN/GLOBULIN RATIO 0.7 (1.0-2.7); ANION GAP 10 (5-15); ASPARTATE AMINO TRANSFERASE 12 U/L (5-40); CALCIUM 8.7 mg/dL (8.6-10.2); CARBON DIOXIDE 28 mEQ/L (20-30); CHLORIDE 107 mEQ/L (98-107); CREATININE 0.7 mg/dL (0.7-1.2); HEMOLYSIS 6; POTASSIUM 3.3 mEQ/L (3.4-4.9); SODIUM 145 mEQ/L (135-145); TOTAL PROTEIN 5.5 g/dL (6.6-8.7)
[2016-10-22 08:00] LABS: INR 1.8 (0.9-1.1); PROTHROMBIN TIME 18.7 SEC (9.30-11.50)
--- NOTE | 2016-10-22 08:59 | General Progress Note ---
Assessment/Plan Status: stable Assessment/Plan 1. sepsis- Resolved 2. Healthcare-associated pneumonia. 3. HF- Diastolic 4. VDRF: S/p successful extubation 5. ARF: likely secondary to #1 6, Acute Anemia 5. Dementia. 6. Hyperlipidemia. 7. DNR 8. Acute DVT in Left CFV 9. Depression Pulmonary, Psych, ID,notes are reviewed on anticoagulation, will monitor PLT and hgb sub optimal medical management secondary to patient refusal of care and self extubation of tubes (piccline-NG tube) Disposition: SNIF Subjective ROS Limited/Unobtainable: Yes Allergies: Coded Allergies: No Known Allergies (Unverified , 10/07/16) Objective Last 24 Hour Vital Signs Date Time Temp Pulse Resp B/P Pulse Ox O2 Delivery O2 Flow Rate FiO2 10/22/16 08:21 98.0 52 18 137/57 96 Room Air 10/22/16 04:00 98.0 66 18 148/66 94 Room Air 10/22/16 01:17 98.1 68 18 182/82 95 Room Air 10/22/16 00:30 182/82 10/21/16 20:05 65 159/59 10/21/16 20:00 97.5 63 18 141/74 95 Room Air 10/21/16 19:55 65 16 Room Air 10/21/16 19:55 Room Air 10/21/16 19:55 95 Room Air 10/21/16 16:08 97.6 61 20 159/59 95 Room Air 10/21/16 12:42 97.0 89 18 133/67 94 Nasal Cannula 2.0 Intake and Output 10/21/16 10/22/16 19:00 07:00 Intake Total 220 ml 220 ml Output Total 725 ml 175 ml Balance -505 ml 45 ml Intake Oral 220 ml 220 ml Output Urine Total 725 ml 175 ml Laboratory Tests 10/22/16 05:15: White Blood Count 4.9, Red Blood Count 3.01L, Hemoglobin 9.7L, Hematocrit 28.4L , Mean Corpuscular Volume 94, Mean Corpuscular Hemoglobin 32.1H, Mean Corpuscular Hemoglobin Concent 34.0, Red Cell Distribution Width 14.3, Platelet Count 263, Mean Platelet Volume 6.0L, Neutrophils (%) (Auto) 63.7, Lymphocytes ( %) (Auto) 23.7, Monocytes (%) (Auto) 9.7, Eosinophils (%) (Auto) 2.0, Basophils (%) (Auto) 1.0, Prothrombin Time 18.7H, Prothromb Time International Ratio 1.8H , Sodium Level 145, Potassium Level 3.3L, Chloride Level 107, Carbon Dioxide Level 28, Anion Gap 10, Blood Urea Nitrogen 16, Creatinine 0.7, Estimat Glomerular Filtration Rate , Glucose Level 103, Calcium Level 8.7, Total Bilirubin 0.5, Aspartate Amino Transf (AST/SGOT) 12, Alanine Aminotransferase ( ALT/SGPT) 6, Alkaline Phosphatase 39L, Total Protein 5.5L, Albumin 2.3L, Globulin 3.2, Albumin/Globulin Ratio 0.7L Height (Feet): 5 Height (Inches): 3.00 Weight (Pounds): 130 General Appearance: no apparent distress, other - poor historian EENT: PERRL/EOMI Neck: supple Cardiovascular: normal rate Respiratory/Chest: rhonchi - bilaterally Abdomen: soft Extremities: non-tender Neurologic: disoriented - demented. depressed. poor historian Margaret Jc MD Oct 22, 2016 08:59
[2016-10-22] MEDS: Pantoprazole Inj IV SCH (09:00)
--- NOTE | 2016-10-22 09:01 | Infectious Diseases Prog Note ---
Assessment/Plan Assessment/Plan ASSESSMENT: 86 y/o male with: // Probable PNA - SCx NRF, legionella UAg(-) SP Rx - CXR 10/15: Persistent pulmonary bibasal subsegmental atelectasis with suggestion of some improvement on right - CT: Bilateral pulmonary lower lobe consolidation--atelectasis versus pneumonia - negative: influenza // Severe sepsis SP - improved lactic acidosis // Leukocytosis improved off of AB Rx // Fever - resolved // Acute RLE DVT // Acute VDRF SP - intubated 10/07, extubated 10/14 // Possible diastolic CHF exacerbation - trop(-) x1, BNP >70K - TTE: EF 55-60%, mild AR, significant implied diastolic dysfunction - CXR: Pulmonary vascular redistribution. Bilateral interstitial prominence. Left costophrenic angle blunting suggests small pleural effusion // ARF ?CKD - resolved // Advanced Alzheimer's dementia // NKDA // Full Code PLAN: - Monitor pt off of ABX ( 10/13 SP IV vancomycin, zosyn d# 7 / ) - monitor CBC, temperatures - monitor CXR - Cxray Subjective Constitutional: Denies: anorexia, chills, drenching sweats, fatigue, fever, no symptoms, other Allergies: Coded Allergies: No Known Allergies (Unverified , 10/07/16) Subjective Objective Vital Signs Last 24 Hour Vital Signs Date Time Temp Pulse Resp B/P Pulse Ox O2 Delivery O2 Flow Rate FiO2 10/22/16 08:21 98.0 52 18 137/57 96 Room Air 10/22/16 04:00 98.0 66 18 148/66 94 Room Air 10/22/16 01:17 98.1 68 18 182/82 95 Room Air 10/22/16 00:30 182/82 10/21/16 20:05 65 159/59 10/21/16 20:00 97.5 63 18 141/74 95 Room Air 10/21/16 19:55 65 16 Room Air 10/21/16 19:55 Room Air 10/21/16 19:55 95 Room Air 10/21/16 16:08 97.6 61 20 159/59 95 Room Air 10/21/16 12:42 97.0 89 18 133/67 94 Nasal Cannula 2.0 Height (Feet): 5 Height (Inches): 3.00 Weight (Pounds): 130 HEENT: atraumatic Respiratory/Chest: lungs clear Cardiovascular: normal rate, regularly irregular Abdomen: soft, non tender, no organomegaly Laboratory Tests Test 10/22/16 05:15 White Blood Count 4.9 K/UL (4.8-10.8) Red Blood Count 3.01 M/UL (4.70-6.10) L Hemoglobin 9.7 G/DL (14.2-18.0) L Hematocrit 28.4 % (42.0-52.0) L Mean Corpuscular Volume 94 FL (80-99) Mean Corpuscular Hemoglobin 32.1 PG (27.0-31.0) H Mean Corpuscular Hemoglobin Concent 34.0 G/DL (32.0-36.0) Red Cell Distribution Width 14.3 % (11.6-14.8) Platelet Count 263 K/UL (150-450) Mean Platelet Volume 6.0 FL (6.5-10.1) L Neutrophils (%) (Auto) 63.7 % (45.0-75.0) Lymphocytes (%) (Auto) 23.7 % (20.0-45.0) Monocytes (%) (Auto) 9.7 % (1.0-10.0) Eosinophils (%) (Auto) 2.0 % (0.0-3.0) Basophils (%) (Auto) 1.0 % (0.0-2.0) Prothrombin Time 18.7 SEC (9.30-11.50) H Prothromb Time International Ratio 1.8 (0.9-1.1) H Sodium Level 145 mEQ/L (135-145) Potassium Level 3.3 mEQ/L (3.4-4.9) L Chloride Level 107 mEQ/L (98-107) Carbon Dioxide Level 28 mEQ/L (20-30) Anion Gap 10 (5-15) Blood Urea Nitrogen 16 mg/dL (7-23) Creatinine 0.7 mg/dL (0.7-1.2) Estimat Glomerular Filtration Rate mL/min (>60) Glucose Level 103 mg/dL (74-106) Calcium Level 8.7 mg/dL (8.6-10.2) Total Bilirubin 0.5 mg/dL (0.0-1.2) Aspartate Amino Transf (AST/SGOT) 12 U/L (5-40) Alanine Aminotransferase (ALT/SGPT) 6 U/L (3-41) Alkaline Phosphatase 39 U/L (40-129) L Total Protein 5.5 g/dL (6.6-8.7) L Albumin 2.3 g/dL (3.5-5.2) L Globulin 3.2 g/dL Albumin/Globulin Ratio 0.7 (1.0-2.7) L Current Medications Medications (Trade) Dose Ordered Sig/Archie Route PRN Reason Start Time Stop Time Status Last Admin Dose Admin Acetaminophen (Tylenol) 650 mg Q4H PRN ORAL fever 10/14/16 20:00 11/13/16 19:59 Carvedilol (Coreg) 3.125 mg EVERY 12 HOURS ORAL 10/16/16 21:00 11/15/16 20:59 10/21/16 20:05 Clonidine HCl (Catapres) 0.1 mg Q8H PRN ORAL SBP>170 10/20/16 20:45 11/19/16 20:44 10/22/16 00:30 Dextrose (Dextrose 50%) STAT PRN IV Hypoglycemia 10/14/16 20:00 11/13/16 19:59 Enoxaparin Sodium (Lovenox) 60 mg EVERY 12 HOURS SUBQ 10/18/16 09:00 11/17/16 08:59 10/21/16 20:06 Lisinopril (Zestril) 2.5 mg DAILY ORAL 10/21/16 09:00 11/20/16 08:59 10/21/16 08:03 Nitroglycerin (Ntg) 0.4 mg Q 5 MIN X 3 DOSES PRN SL Prn Chest Pain 10/14/16 19:45 11/13/16 19:44 Ondansetron HCl (Zofran) 4 mg Q6H PRN IVP Nausea & Vomiting 10/14/16 20:00 11/13/16 19:59 Pantoprazole (Protonix) 40 mg DAILY IV 10/15/16 09:00 11/14/16 08:59 10/19/16 08:58 Polyethylene Glycol (Miralax) 17 gm DAILYPRN PRN ORAL Constipation 10/14/16 20:00 11/13/16 19:59 10/21/16 07:59 Sodium Chloride (NS) 500 ml @ 999 mls/hr NEEDED PRN IV For hypotension (MAP <60%) 10/14/16 20:00 11/13/16 19:59 Valproic Acid (Depakene) 250 mg Q12HR GT 10/18/16 09:00 11/17/16 08:59 10/21/16 20:05 Warfarin Sodium (Coumadin per pharmacy) 1 ea DAILY PRN MISC Per rx protocol 10/16/16 17:15 11/15/16 17:14 ZAIRE MORA M.D. Oct 22, 2016 09:01
[2016-10-22] MEDS: Valproic Acid 250mg/5ml Liquid GT SCH ×2 (09:14→20:23)
[2016-10-22] MEDS: Lisinopril 2.5mg tab ORAL SCH (09:15)
[2016-10-22] MEDS: Enoxaparin 60mg Inj SUBQ SCH ×2 (09:15→20:24)
--- NOTE | 2016-10-22 13:57 | General Progress Note ---
Assessment/Plan Status: unchanged Assessment/Plan Status: 1. Severe sepsis. leading to acute renal failure- and respiratory failure- 2. Healthcare-associated pneumonia. 3. Ventilator-dependent respiratory failure. 4. Hypertension. 5. Dementia. Alzheimer's dementia. 6. Hyperlipidemia. 7. Psychiatric disorder. 8. h/o Gallstones. 9. h/o Diverticulosis. 10.h/o BPH. Plan: K Phos supp. as needed Pulm support. Antibiotics- Monitor renal parameters- Urine studies- per consultants Subjective ROS Limited/Unobtainable: Yes Constitutional: Reports: malaise Allergies: Coded Allergies: No Known Allergies (Unverified , 10/07/16) Objective Last 24 Hour Vital Signs Date Time Temp Pulse Resp B/P Pulse Ox O2 Delivery O2 Flow Rate FiO2 10/22/16 11:48 97.6 58 18 142/62 96 Room Air 10/22/16 09:15 137/57 10/22/16 09:15 52 137/57 10/22/16 08:21 98.0 52 18 137/57 96 Room Air 10/22/16 04:00 98.0 66 18 148/66 94 Room Air 10/22/16 01:17 98.1 68 18 182/82 95 Room Air 10/22/16 00:30 182/82 10/21/16 20:05 65 159/59 10/21/16 20:00 97.5 63 18 141/74 95 Room Air 10/21/16 19:55 65 16 Room Air 10/21/16 19:55 Room Air 10/21/16 19:55 95 Room Air 10/21/16 16:08 97.6 61 20 159/59 95 Room Air Intake and Output 10/21/16 10/22/16 19:00 07:00 Intake Total 220 ml 220 ml Output Total 725 ml 175 ml Balance -505 ml 45 ml Intake Oral 220 ml 220 ml Output Urine Total 725 ml 175 ml Laboratory Tests 10/22/16 05:15: White Blood Count 4.9, Red Blood Count 3.01L, Hemoglobin 9.7L, Hematocrit 28.4L , Mean Corpuscular Volume 94, Mean Corpuscular Hemoglobin 32.1H, Mean Corpuscular Hemoglobin Concent 34.0, Red Cell Distribution Width 14.3, Platelet Count 263, Mean Platelet Volume 6.0L, Neutrophils (%) (Auto) 63.7, Lymphocytes ( %) (Auto) 23.7, Monocytes (%) (Auto) 9.7, Eosinophils (%) (Auto) 2.0, Basophils (%) (Auto) 1.0, Prothrombin Time 18.7H, Prothromb Time International Ratio 1.8H , Sodium Level 145, Potassium Level 3.3L, Chloride Level 107, Carbon Dioxide Level 28, Anion Gap 10, Blood Urea Nitrogen 16, Creatinine 0.7, Estimat Glomerular Filtration Rate , Glucose Level 103, Calcium Level 8.7, Total Bilirubin 0.5, Aspartate Amino Transf (AST/SGOT) 12, Alanine Aminotransferase ( ALT/SGPT) 6, Alkaline Phosphatase 39L, Total Protein 5.5L, Albumin 2.3L, Globulin 3.2, Albumin/Globulin Ratio 0.7L Height (Feet): 5 Height (Inches): 3.00 Weight (Pounds): 130 General Appearance: no apparent distress Neck: stiff neck Respiratory/Chest: decreased breath sounds Abdomen: soft Objective PE not changed MANPREET GERMAN Oct 22, 2016 13:57
[2016-10-22] MEDS ORDERED: KCl 10% 40mEq/30ml liquid NG ONE (14:25)
--- NOTE | 2016-10-22 15:47 | Pulmonology Progress Note ---
Assessment/Plan Problems: (1) Respiratory failure, acute (2) History of hypertension (3) Pneumonia (4) ATN (acute tubular necrosis) (5) Dementia Assessment/Plan looks comfortable no new complains stable improving watch labs, bp, Vital signs aspiration precaution chest pt titrate fio2 all noted reviewed social service and dc planners note reviewed. Subjective ROS Limited/Unobtainable: No Constitutional: Reports: no symptoms HEENT: Repors: no symptoms Respiratory: Reports: no symptoms Cardiovascular: Reports: no symptoms Allergies: Coded Allergies: No Known Allergies (Unverified , 10/07/16) Objective Last 24 Hour Vital Signs Date Time Temp Pulse Resp B/P Pulse Ox O2 Delivery O2 Flow Rate FiO2 10/22/16 11:48 97.6 58 18 142/62 96 Room Air 10/22/16 09:15 137/57 10/22/16 09:15 52 137/57 10/22/16 08:21 98.0 52 18 137/57 96 Room Air 10/22/16 04:00 98.0 66 18 148/66 94 Room Air 10/22/16 01:17 98.1 68 18 182/82 95 Room Air 10/22/16 00:30 182/82 10/21/16 20:05 65 159/59 10/21/16 20:00 97.5 63 18 141/74 95 Room Air 10/21/16 19:55 65 16 Room Air 10/21/16 19:55 Room Air 10/21/16 19:55 95 Room Air 10/21/16 16:08 97.6 61 20 159/59 95 Room Air Intake and Output 10/21/16 10/22/16 19:00 07:00 Intake Total 220 ml 220 ml Output Total 725 ml 175 ml Balance -505 ml 45 ml Intake Oral 220 ml 220 ml Output Urine Total 725 ml 175 ml General Appearance: WD/WN HEENT: normocephalic Respiratory/Chest: chest wall non-tender Cardiovascular: normal peripheral pulses, regular rhythm, no JVD Abdomen: normal bowel sounds Genitourinary: normal external genitalia Extremities: no clubbing Neurologic/Psychiatric: product examiner II-XII grossly normal Laboratory Tests 10/22/16 05:15: White Blood Count 4.9, Red Blood Count 3.01L, Hemoglobin 9.7L, Hematocrit 28.4L , Mean Corpuscular Volume 94, Mean Corpuscular Hemoglobin 32.1H, Mean Corpuscular Hemoglobin Concent 34.0, Red Cell Distribution Width 14.3, Platelet Count 263, Mean Platelet Volume 6.0L, Neutrophils (%) (Auto) 63.7, Lymphocytes ( %) (Auto) 23.7, Monocytes (%) (Auto) 9.7, Eosinophils (%) (Auto) 2.0, Basophils (%) (Auto) 1.0, Prothrombin Time 18.7H, Prothromb Time International Ratio 1.8H , Sodium Level 145, Potassium Level 3.3L, Chloride Level 107, Carbon Dioxide Level 28, Anion Gap 10, Blood Urea Nitrogen 16, Creatinine 0.7, Estimat Glomerular Filtration Rate , Glucose Level 103, Calcium Level 8.7, Total Bilirubin 0.5, Aspartate Amino Transf (AST/SGOT) 12, Alanine Aminotransferase ( ALT/SGPT) 6, Alkaline Phosphatase 39L, Total Protein 5.5L, Albumin 2.3L, Globulin 3.2, Albumin/Globulin Ratio 0.7L Current Medications Medications (Trade) Dose Ordered Sig/Archie Route PRN Reason Start Time Stop Time Status Last Admin Dose Admin Acetaminophen (Tylenol) 650 mg Q4H PRN ORAL fever 10/14/16 20:00 11/13/16 19:59 Carvedilol (Coreg) 3.125 mg EVERY 12 HOURS ORAL 10/16/16 21:00 11/15/16 20:59 10/22/16 09:15 Clonidine HCl (Catapres) 0.1 mg Q8H PRN ORAL SBP>170 10/20/16 20:45 11/19/16 20:44 10/22/16 00:30 Dextrose (Dextrose 50%) STAT PRN IV Hypoglycemia 10/14/16 20:00 11/13/16 19:59 Enoxaparin Sodium (Lovenox) 60 mg EVERY 12 HOURS SUBQ 10/18/16 09:00 11/17/16 08:59 10/22/16 09:15 Lisinopril (Zestril) 2.5 mg DAILY ORAL 10/21/16 09:00 11/20/16 08:59 10/22/16 09:15 Nitroglycerin (Ntg) 0.4 mg Q 5 MIN X 3 DOSES PRN SL Prn Chest Pain 10/14/16 19:45 11/13/16 19:44 Ondansetron HCl (Zofran) 4 mg Q6H PRN IVP Nausea & Vomiting 10/14/16 20:00 11/13/16 19:59 Pantoprazole (Protonix) 40 mg DAILY IV 10/15/16 09:00 11/14/16 08:59 10/19/16 08:58 Polyethylene Glycol (Miralax) 17 gm DAILYPRN PRN ORAL Constipation 10/14/16 20:00 11/13/16 19:59 10/21/16 07:59 Sodium Chloride (NS) 500 ml @ 999 mls/hr NEEDED PRN IV For hypotension (MAP <60%) 10/14/16 20:00 11/13/16 19:59 Valproic Acid (Depakene) 250 mg Q12HR GT 10/18/16 09:00 11/17/16 08:59 10/22/16 09:14 Warfarin Sodium (Coumadin per pharmacy) 1 ea DAILY PRN MISC Per rx protocol 10/16/16 17:15 11/15/16 17:14 Warfarin Sodium (Coumadin) 3 mg COUMADIN ONCE ORAL 10/22/16 17:00 10/22/16 17:01 HERMINIO DIXON Oct 22, 2016 15:47
[2016-10-22] MEDS ORDERED: Warfarin Sodium 3mg ORAL ONE (17:00)
[2016-10-23 04:00] VITALS: BP 160/57
[2016-10-23 08:07] VITALS: BP 153/84
[2016-10-23] MEDS: Pantoprazole Inj IV SCH ×2 (09:00→09:45)
[2016-10-23] MEDS: Valproic Acid 250mg/5ml Liquid GT SCH ×2 (09:43→20:39)
[2016-10-23] MEDS: Lisinopril 2.5mg tab ORAL SCH (09:45)
[2016-10-23] MEDS: Enoxaparin 60mg Inj SUBQ SCH ×2 (09:49→20:40)
--- NOTE | 2016-10-23 10:01 | General Progress Note ---
Assessment/Plan Status: unchanged Assessment/Plan 1. sepsis- Resolved 2. Healthcare-associated pneumonia. 3. HF- Diastolic 4. VDRF: S/p successful extubation 5. ARF: likely secondary to #1 6, Acute Anemia 5. Dementia. 6. Hyperlipidemia. 7. DNR 8. Acute DVT in Left CFV 9. Depression Pulmonary, Psych, ID,notes are reviewed on anticoagulation, will monitor PLT and hgb sub optimal medical management secondary to patient refusal of care and self extubation of tubes (piccline-NG tube) Disposition: SNIF, pending placement. Subjective ROS Limited/Unobtainable: Yes Allergies: Coded Allergies: No Known Allergies (Unverified , 10/07/16) Objective Last 24 Hour Vital Signs Date Time Temp Pulse Resp B/P Pulse Ox O2 Delivery O2 Flow Rate FiO2 10/23/16 09:45 153/84 10/23/16 09:43 57 153/84 10/23/16 08:07 97.0 57 19 153/84 99 Nasal Cannula 2.0 10/23/16 04:00 97.5 59 20 160/57 99 Nasal Cannula 2.0 10/22/16 23:58 97.2 64 20 157/49 97 Room Air 10/22/16 20:24 80 156/74 10/22/16 20:11 98.0 80 21 156/74 94 Nasal Cannula 2.0 10/22/16 19:54 Nasal Cannula 2.0 10/22/16 19:54 95 Nasal Cannula 2.0 10/22/16 16:00 97.9 64 19 155/53 97 Nasal Cannula 97.0 10/22/16 11:48 97.6 58 18 142/62 96 Room Air Intake and Output 10/22/16 10/23/16 19:00 07:00 Intake Total 240 ml 358 ml Output Total 400 ml 500 ml Balance -160 ml -142 ml Intake Oral 240 ml 358 ml Output Urine Total 400 ml 500 ml # Voids 1 # Bowel Movements 1 Height (Feet): 5 Height (Inches): 3.00 Weight (Pounds): 130 General Appearance: no apparent distress EENT: PERRL/EOMI Neck: supple Cardiovascular: normal rate Respiratory/Chest: lungs clear Abdomen: soft Neurologic: disoriented Margaret Jc MD Oct 23, 2016 10:01
[2016-10-23 11:50] VITALS: BP 150/83
--- NOTE | 2016-10-23 12:10 | General Progress Note ---
Assessment/Plan Status: stable Assessment/Plan Status: 1. Severe sepsis. leading to acute renal failure- and respiratory failure- 2. Healthcare-associated pneumonia. 3. Ventilator-dependent respiratory failure. 4. Hypertension. 5. Dementia. Alzheimer's dementia. 6. Hyperlipidemia. 7. Psychiatric disorder. 8. h/o Gallstones. 9. h/o Diverticulosis. 10.h/o BPH. Plan: K Phos supp. as needed Pulm support. Antibiotics- Monitor renal parameters- Urine studies- per consultants Subjective ROS Limited/Unobtainable: No Constitutional: Reports: malaise, weakness Allergies: Coded Allergies: No Known Allergies (Unverified , 10/07/16) Objective Last 24 Hour Vital Signs Date Time Temp Pulse Resp B/P Pulse Ox O2 Delivery O2 Flow Rate FiO2 10/23/16 11:50 97.0 58 19 150/83 99 Nasal Cannula 2.0 10/23/16 09:45 153/84 10/23/16 09:43 57 153/84 10/23/16 08:07 97.0 57 19 153/84 99 Nasal Cannula 2.0 10/23/16 04:00 97.5 59 20 160/57 99 Nasal Cannula 2.0 10/22/16 23:58 97.2 64 20 157/49 97 Room Air 10/22/16 20:24 80 156/74 10/22/16 20:11 98.0 80 21 156/74 94 Nasal Cannula 2.0 10/22/16 19:54 Nasal Cannula 2.0 10/22/16 19:54 95 Nasal Cannula 2.0 10/22/16 16:00 97.9 64 19 155/53 97 Nasal Cannula 97.0 Intake and Output 10/22/16 10/23/16 19:00 07:00 Intake Total 240 ml 358 ml Output Total 400 ml 500 ml Balance -160 ml -142 ml Intake Oral 240 ml 358 ml Output Urine Total 400 ml 500 ml # Voids 1 # Bowel Movements 1 Laboratory Tests 10/23/16 11:20: Prothrombin Time [Pending], Prothromb Time International Ratio [Pending] Height (Feet): 5 Height (Inches): 3.00 Weight (Pounds): 130 General Appearance: no apparent distress Objective PE not changed MANPREET GERMAN Oct 23, 2016 12:10
[2016-10-23 12:23] LABS: INR 1.5 (0.9-1.1)
[2016-10-23 16:00] VITALS: BP 158/73
[2016-10-23] MEDS ORDERED: Warfarin Sodium 4mg PO ONE (17:00)
[2016-10-23 19:51] VITALS: BP 157/66
--- NOTE | 2016-10-23 21:29 | Pulmonology Progress Note ---
Assessment/Plan Problems: (1) Respiratory failure, acute (2) History of hypertension (3) Pneumonia (4) ATN (acute tubular necrosis) (5) Dementia Assessment/Plan looks comfortable improving watch labs, bp, Vital signs aspiration precaution all meds reviewed titrate fio2 all noted reviewed social service and dc planners note reviewed. Subjective ROS Limited/Unobtainable: No Constitutional: Reports: no symptoms HEENT: Repors: no symptoms Respiratory: Reports: no symptoms Cardiovascular: Reports: no symptoms Allergies: Coded Allergies: No Known Allergies (Unverified , 10/07/16) Objective Last 24 Hour Vital Signs Date Time Temp Pulse Resp B/P Pulse Ox O2 Delivery O2 Flow Rate FiO2 10/23/16 20:39 68 157/66 10/23/16 20:16 95 Nasal Cannula 2.0 10/23/16 20:16 Nasal Cannula 2.0 10/23/16 19:51 97.7 68 18 157/66 95 Nasal Cannula 2.0 10/23/16 16:00 98.0 64 19 158/73 98 Room Air 2.0 10/23/16 11:50 97.0 58 19 150/83 99 Nasal Cannula 2.0 10/23/16 09:45 153/84 10/23/16 09:43 57 153/84 10/23/16 08:07 97.0 57 19 153/84 99 Nasal Cannula 2.0 10/23/16 04:00 97.5 59 20 160/57 99 Nasal Cannula 2.0 10/22/16 23:58 97.2 64 20 157/49 97 Room Air Intake and Output 10/22/16 10/23/16 19:00 07:00 Intake Total 240 ml 358 ml Output Total 400 ml 500 ml Balance -160 ml -142 ml Intake Oral 240 ml 358 ml Output Urine Total 400 ml 500 ml # Voids 1 # Bowel Movements 1 General Appearance: WD/WN HEENT: normocephalic Respiratory/Chest: chest wall non-tender Cardiovascular: normal peripheral pulses, normal rate Abdomen: normal bowel sounds, soft, non tender Extremities: no cyanosis 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/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-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 grossly normal Laboratory Tests 10/23/16 11:20: Prothrombin Time 15.0H, Prothromb Time International Ratio 1.5H Current Medications Medications (Trade) Dose Ordered Sig/Archie Route PRN Reason Start Time Stop Time Status Last Admin Dose Admin Acetaminophen (Tylenol) 650 mg Q4H PRN ORAL fever 10/14/16 20:00 11/13/16 19:59 Carvedilol (Coreg) 3.125 mg EVERY 12 HOURS ORAL 10/16/16 21:00 11/15/16 20:59 10/23/16 20:39 Clonidine HCl (Catapres) 0.1 mg Q8H PRN ORAL SBP>170 10/20/16 20:45 11/19/16 20:44 10/22/16 00:30 Dextrose (Dextrose 50%) STAT PRN IV Hypoglycemia 10/14/16 20:00 11/13/16 19:59 Enoxaparin Sodium (Lovenox) 60 mg EVERY 12 HOURS SUBQ 10/18/16 09:00 11/17/16 08:59 10/23/16 20:40 Lisinopril (Zestril) 2.5 mg DAILY ORAL 10/21/16 09:00 11/20/16 08:59 10/23/16 09:45 Nitroglycerin (Ntg) 0.4 mg Q 5 MIN X 3 DOSES PRN SL Prn Chest Pain 10/14/16 19:45 11/13/16 19:44 Ondansetron HCl (Zofran) 4 mg Q6H PRN IVP Nausea & Vomiting 10/14/16 20:00 11/13/16 19:59 Pantoprazole (Protonix) 40 mg DAILY IV 10/15/16 09:00 11/14/16 08:59 10/19/16 08:58 Polyethylene Glycol (Miralax) 17 gm DAILYPRN PRN ORAL Constipation 10/14/16 20:00 11/13/16 19:59 10/21/16 07:59 Sodium Chloride (NS) 500 ml @ 999 mls/hr NEEDED PRN IV For hypotension (MAP <60%) 10/14/16 20:00 11/13/16 19:59 Valproic Acid (Depakene) 250 mg Q12HR GT 10/18/16 09:00 11/17/16 08:59 10/23/16 20:39 Warfarin Sodium (Coumadin per pharmacy) 1 ea DAILY PRN MISC Per rx protocol 10/16/16 17:15 11/15/16 17:14 HERMINIO DIXON Oct 23, 2016 21:29
[2016-10-24] VITALS: BP 153/63
[2016-10-24 04:00] VITALS: BP 163/77
[2016-10-24 07:29] LABS: INR 1.8 (0.9-1.1); PROTHROMBIN TIME 18.8 SEC (9.30-11.50)
[2016-10-24 08:00] VITALS: BP 164/70
[2016-10-24] MEDS: Valproic Acid 250mg/5ml Liquid GT SCH (09:34)
[2016-10-24] MEDS: Lisinopril 2.5mg tab ORAL SCH (09:35)
[2016-10-24] MEDS: Pantoprazole Inj IV SCH (09:35)
[2016-10-24] MEDS: Enoxaparin 60mg Inj SUBQ SCH (09:36)
[2016-10-24 11:58] VITALS: BP 148/61
--- NOTE | 2016-10-24 13:22 | General Progress Note ---
Assessment/Plan Status: stable Assessment/Plan Status: 1. Severe sepsis. leading to acute renal failure- and respiratory failure- 2. Healthcare-associated pneumonia. 3. Ventilator-dependent respiratory failure. 4. Hypertension. 5. Dementia. Alzheimer's dementia. 6. Hyperlipidemia. 7. Psychiatric disorder. 8. h/o Gallstones. 9. h/o Diverticulosis. 10.h/o BPH. Plan: K Phos supp. as needed Pulm support. Antibiotics- Monitor renal parameters- Urine studies- per consultants Subjective ROS Limited/Unobtainable: No Allergies: Coded Allergies: No Known Allergies (Unverified , 10/07/16) Objective Last 24 Hour Vital Signs Date Time Temp Pulse Resp B/P Pulse Ox O2 Delivery O2 Flow Rate FiO2 10/24/16 11:58 97.7 63 18 148/61 97 Nasal Cannula 2.0 10/24/16 09:47 63 164/70 10/24/16 09:35 164/70 10/24/16 08:00 96.6 63 18 164/70 98 Nasal Cannula 2.0 10/24/16 07:00 96 Nasal Cannula 2.0 28 10/24/16 07:00 Nasal Cannula 2.0 28 10/24/16 04:00 98.0 68 18 163/77 97 Nasal Cannula 2.0 10/24/16 00:00 98.5 68 18 153/63 96 Nasal Cannula 2.0 61 10/23/16 20:39 68 157/66 10/23/16 20:16 95 Nasal Cannula 2.0 28 10/23/16 20:16 Nasal Cannula 2.0 28 10/23/16 19:51 97.7 68 18 157/66 95 Nasal Cannula 2.0 10/23/16 16:00 98.0 64 19 158/73 98 Room Air 2.0 Intake and Output 10/23/16 10/24/16 19:00 07:00 Intake Total 60 ml 358 ml Output Total 220 ml 425 ml Balance -160 ml -67 ml Intake Oral 60 ml 358 ml Output Urine Total 220 ml 425 ml # Voids 1 Laboratory Tests 10/24/16 05:35: Prothrombin Time 18.8H, Prothromb Time International Ratio 1.8H Height (Feet): 5 Height (Inches): 3.00 Weight (Pounds): 130 General Appearance: lethargic, confused Objective PE not changed FOULADIAN,MANPREET Oct 24, 2016 13:22
--- NOTE | 2016-10-24 13:51 | Infectious Diseases Prog Note ---
Assessment/Plan Assessment/Plan ASSESSMENT: 86 y/o male with: // Probable PNA - SCx NRF, legionella UAg(-) SP Rx - CXR 10/15: Persistent pulmonary bibasal subsegmental atelectasis with suggestion of some improvement on right - CT: Bilateral pulmonary lower lobe consolidation--atelectasis versus pneumonia - negative: influenza // Severe sepsis SP - improved lactic acidosis // Leukocytosis improved off of AB Rx // Fever - resolved // Acute RLE DVT // Acute VDRF SP - intubated 10/07, extubated 10/14 // Possible diastolic CHF exacerbation - trop(-) x1, BNP >70K - TTE: EF 55-60%, mild AR, significant implied diastolic dysfunction - CXR: Pulmonary vascular redistribution. Bilateral interstitial prominence. Left costophrenic angle blunting suggests small pleural effusion // ARF ?CKD - resolved // Advanced Alzheimer's dementia // NKDA // Full Code PLAN: - Monitor pt off of ABX ( 10/13 SP IV vancomycin, zosyn d# 7 / ) - monitor CBC, temperatures - monitor CXR - Cxray Subjective Constitutional: Denies: anorexia, chills, drenching sweats, fatigue, fever, no symptoms, other Allergies: Coded Allergies: No Known Allergies (Unverified , 10/07/16) Subjective Objective Vital Signs Last 24 Hour Vital Signs Date Time Temp Pulse Resp B/P Pulse Ox O2 Delivery O2 Flow Rate FiO2 10/24/16 11:58 97.7 63 18 148/61 97 Nasal Cannula 2.0 10/24/16 09:47 63 164/70 10/24/16 09:35 164/70 10/24/16 08:00 96.6 63 18 164/70 98 Nasal Cannula 2.0 10/24/16 07:00 96 Nasal Cannula 2.0 28 10/24/16 07:00 Nasal Cannula 2.0 28 10/24/16 04:00 98.0 68 18 163/77 97 Nasal Cannula 2.0 10/24/16 00:00 98.5 68 18 153/63 96 Nasal Cannula 2.0 61 10/23/16 20:39 68 157/66 10/23/16 20:16 95 Nasal Cannula 2.0 28 10/23/16 20:16 Nasal Cannula 2.0 28 10/23/16 19:51 97.7 68 18 157/66 95 Nasal Cannula 2.0 10/23/16 16:00 98.0 64 19 158/73 98 Room Air 2.0 Height (Feet): 5 Height (Inches): 3.00 Weight (Pounds): 130 Respiratory/Chest: normal breath sounds Cardiovascular: normal rate Abdomen: normal bowel sounds, no organomegaly Laboratory Tests Test 10/24/16 05:35 Prothrombin Time 18.8 SEC (9.30-11.50) H Prothromb Time International Ratio 1.8 (0.9-1.1) H Current Medications Medications (Trade) Dose Ordered Sig/Archie Route PRN Reason Start Time Stop Time Status Last Admin Dose Admin Acetaminophen (Tylenol) 650 mg Q4H PRN ORAL fever 10/14/16 20:00 11/13/16 19:59 Carvedilol (Coreg) 3.125 mg EVERY 12 HOURS ORAL 10/16/16 21:00 11/15/16 20:59 10/24/16 09:47 Clonidine HCl (Catapres) 0.1 mg Q8H PRN ORAL SBP>170 10/20/16 20:45 11/19/16 20:44 10/22/16 00:30 Dextrose (Dextrose 50%) STAT PRN IV Hypoglycemia 10/14/16 20:00 11/13/16 19:59 Enoxaparin Sodium (Lovenox) 60 mg EVERY 12 HOURS SUBQ 10/18/16 09:00 11/17/16 08:59 10/24/16 09:36 Lisinopril (Zestril) 2.5 mg DAILY ORAL 10/21/16 09:00 11/20/16 08:59 10/24/16 09:35 Nitroglycerin (Ntg) 0.4 mg Q 5 MIN X 3 DOSES PRN SL Prn Chest Pain 10/14/16 19:45 11/13/16 19:44 Ondansetron HCl (Zofran) 4 mg Q6H PRN IVP Nausea & Vomiting 10/14/16 20:00 11/13/16 19:59 Pantoprazole (Protonix) 40 mg DAILY IV 10/15/16 09:00 11/14/16 08:59 10/24/16 09:35 Polyethylene Glycol (Miralax) 17 gm DAILYPRN PRN ORAL Constipation 10/14/16 20:00 11/13/16 19:59 10/21/16 07:59 Sodium Chloride (NS) 500 ml @ 999 mls/hr NEEDED PRN IV For hypotension (MAP <60%) 10/14/16 20:00 11/13/16 19:59 Valproic Acid (Depakene) 250 mg Q12HR GT 10/18/16 09:00 11/17/16 08:59 10/24/16 09:34 Warfarin Sodium (Coumadin per pharmacy) 1 ea DAILY PRN MISC Per rx protocol 10/16/16 17:15 11/15/16 17:14 Warfarin Sodium (Coumadin) 4 mg COUMADIN ONCE PO 10/24/16 17:00 10/24/16 17:01 ZAIRE MORA M.D. Oct 24, 2016 13:50
[2016-10-24 16:00] VITALS: BP 187/70
[2016-10-24] MEDS ORDERED: Warfarin Sodium 4mg PO ONE (17:00)
[2016-10-24] MEDS ORDERED: ACETAMINOPHEN80 M1 ORAL (17:36)
[2016-10-24] MEDS ORDERED: CATAPRES0.1 MG ORAL (17:41)
[2016-10-24] MEDS ORDERED: LOVENOX10 M1 SUBQ (17:42)
[2016-10-24] MEDS ORDERED: LISINOPRIL5 MG ORAL (17:42)
[2016-10-24] MEDS ORDERED: NITROGLYCERIN0.4 MG SL (17:43)
[2016-10-24] MEDS ORDERED: PANTOPRAZOLE SO40 MG IV (17:44)
[2016-10-24] MEDS ORDERED: ZOFRAN4 M1 IVP (17:44)
[2016-10-24] MEDS ORDERED: POLYETHYLENE GL17 GM ORAL (17:45)
[2016-10-24] MEDS ORDERED: DEPAKENE250 MG/5 M PO (17:46)
[2016-10-24] MEDS ORDERED: COUMADIN7.5 MG ORAL ×2 (17:47→17:49)
[2016-10-24 18:26] VITALS: BP 165/65
--- NOTE | 2016-10-24 21:45 | Pulmonology Progress Note ---
Assessment/Plan Problems: (1) Respiratory failure, acute (2) History of hypertension (3) Pneumonia (4) ATN (acute tubular necrosis) (5) Dementia Assessment/Plan looks comfortable improving watch labs, bp, Vital signs aspiration precaution all meds reviewed titrate fio2 all noted reviewed social service and dc planners note reviewed. all notes and labs, meds reviewed ok dc today Subjective ROS Limited/Unobtainable: No Constitutional: Reports: no symptoms HEENT: Repors: no symptoms Respiratory: Reports: no symptoms Cardiovascular: Reports: no symptoms Allergies: Coded Allergies: No Known Allergies (Unverified , 10/07/16) Objective Last 24 Hour Vital Signs Date Time Temp Pulse Resp B/P Pulse Ox O2 Delivery O2 Flow Rate FiO2 10/24/16 18:26 67 165/65 10/24/16 17:16 187/70 10/24/16 16:00 97.5 69 18 187/70 93 Room Air 10/24/16 11:58 97.7 63 18 148/61 97 Nasal Cannula 2.0 10/24/16 09:47 63 164/70 10/24/16 09:35 164/70 10/24/16 08:00 96.6 63 18 164/70 98 Nasal Cannula 2.0 10/24/16 07:00 96 Nasal Cannula 2.0 28 10/24/16 07:00 Nasal Cannula 2.0 28 10/24/16 04:00 98.0 68 18 163/77 97 Nasal Cannula 2.0 10/24/16 00:00 98.5 68 18 153/63 96 Nasal Cannula 2.0 61 Intake and Output 10/23/16 10/24/16 19:00 07:00 Intake Total 60 ml 358 ml Output Total 220 ml 425 ml Balance -160 ml -67 ml Intake Oral 60 ml 358 ml Output Urine Total 220 ml 425 ml # Voids 1 General Appearance: WD/WN HEENT: normocephalic, atraumatic Respiratory/Chest: chest wall non-tender, lungs clear Cardiovascular: normal peripheral pulses, normal rate Abdomen: normal bowel sounds Genitourinary: normal external genitalia Skin: no rash Neurologic/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
--- NOTE | 2016-10-26 09:32 | Discharge Summary ---
Discharge Summary Hospital Course Date of Admission Oct 07, 2016 at 09:31 Date of Discharge Oct 24, 2016 at 20:15 Admitting Diagnosis RESPIRATORY DISTRESS HPI Patrick Easley is a 86 year old male who was admitted on Oct 07, 2016 at 09:31 for Respiratory Distress Hospital Course dc summary dictated #[id number] Discharge Medications Continued Medications: Acetaminophen (Acetaminophen) 650 Mg/20.3 Ml Solution 650 MG ORAL Q6H PRN for Prn Headache/Temp > 101, ML 0 Refills Carvedilol (Coreg) 3.125 Mg Tablet 3.125 MG ORAL EVERY 12 HOURS, TAB Clonidine Hcl* (Catapres*) 0.1 Mg Tablet 0.1 MG ORAL EVERY 8 HOURS, TAB Enoxaparin* (Lovenox*) 60 Mg/0.6 Ml Inj 60 MG SUBQ EVERY 12 HOURS, #60 EA 0 Refills Lisinopril (Lisinopril*) 5 Mg Tablet 2.5 MG ORAL DAILY, TAB Nitroglycerin (Nitroglycerin) 0.4 Mg Tab.subl 0.4 MG SL [id number] PRN for Prn Chest Pain, TAB Ondansetron (Zofran) 4 Mg Tablet 4 MG IVP Q6H PRN for Nausea & Vomiting, TAB Pantoprazole* (Pantoprazole*) 40 Mg Tablet.dr 40 MG IV DAILY, TAB Polyethylene Glycol 3350* (Polyethylene Glycol 3350*) 17 Gm Powd.pack 17 GM ORAL DAILY PRN for Constipation, PACKET Valproate Sodium (Depakene) 250 Mg/5 Ml Solution 250 MG PO Q12HR Warfarin Sod (Coumadin*) 7.5 Mg Tablet 4 MG ORAL DAILY for pharmacy to dose, TAB Discharge Condition Upon Discharge: improving Discharge Disposition Patient was discharged to SNF/Subacute Facility(03) Discharge Diagnoses: Discharge Instructions Discharge Instructions Special Instructions I have been assigned to complete a D/C Summary on this account. I was not involved in the patient management Idalmis Ricketts NP (Vanchtein) Oct 26, 2016 09:32
--- NOTE | 2016-10-26 23:08 | Discharge Summary 2 SIG ---
DATE OF ADMISSION: 10/07/2016 DATE OF DISCHARGE: 10/24/2016 REASON FOR ADMISSION: 86 years old male was brought by paramedics for acute respiratory distress. According to paramedics, the [facility], [facility], with sudden onset of shortness of breath that morning. The patient was unable to provide any information because of underlying significant Alzheimer dementia. The patient was placed initially on 100% nonrebreathing mask in route to the hospital. In the emergency department, the patient was initially attempted on the BiPAP, however, the patient failed that attempt. Upon presentation to the emergency room, he was a full code status and required airway intubation. The emergency room doctor discussed with the family, and the family agreed to intubation. The patient was subsequently orally intubated in the emergency room. Central line was placed in the emergency room as well. Workup revealed leukocytosis of 15.5. Lactic acid of 5.7 ; evidence of acute renal failure with BUN of 39 and creatinine of 2.2. Electrolytes were stable. Troponin was negative. EKG revealed bifascicular block. Nonspecific ST and T-wave changes with normal sinus rhythm , no premature ventricular contraction, no ectopy. CT of the head was done in the emergency room revealed no acute disease. CT of the abdomen revealed cholelithiasis, chronic diverticulosis without evidence of cholecystitis, bilateral pulmonary lower lobe consolidation/atelectasis versus pneumonia. The patient was started on aggressive hydration. The patient was magaña-cultured. The patient transferred to ICU for further management. ADMITTING DIAGNOSES: 1. Severe sepsis 2. Healthcare-associated pneumonia. 3. Acute renal failure. 4. Acute hypoxemic respiratory failure, requiring intubation. 5. Advanced Alzheimer dementia. HOSPITAL COURSE: The patient was admitted to intensive care unit. Ventilator care was provided. Pulmonary toilet was provided. ID doctor followed the patient in terms of antibiotics. Sputum culture was negative. Influenza screen was negative. Blood culture were negative. Urine culture was negative. Eventually antibiotics were stopped and ID recommended to keep the patient off antibiotics and closely observe. Pit Hoist Operator followed the patient. Echocardiogram revealed ejection fraction of 55% to 60%, right ventricular systolic pressure of 14 and mild left ventricular hypertrophy. Blood pressure was initially not controlled. Antihypertensive regimen was optimized per day guard. The patient had mild volume overload with significant diastolic dysfunction and the day guard placed the patient on low dose of diuretic, increased JOON inhibitor dose, and continue beta-victor m. As his condition stabilized, the patient subsequently was able to be extubated and transferred to Medical/Surgical floor. Venous duplex revealed acute DVT in the right lower extremity. The patient was started on Lovenox and Coumadin. INR prior to discharge was still subtherapeutic at 1.8. The patient was discharged on Lovenox and Coumadin to bridge to therapeutic INR at 2 to 3 and then discontinue Lovenox and continue Coumadin to keep therapeutic range 2 to 3. The patient was found to have anemia. Anemia workup revealed iron deficiency anemia; stable B12, and folate. CEA within normal limits. Stool OB negative. Continue monitoring hemoglobin and hematocrit at the intermediate. Neurologist followed the patient as well. The patient has advanced Alzheimer dementia. No acute neurological issues. The psychiatrist had seen the patient and found the patient had delirium secondary to general medical condition. She recommended to decrease Depakote level. She also suggested that the patient would benefit from antipsychotic medication, however at that time, she recommended to hold on the antipsychotic until the patient's condition stable. Family decided to change the code status, and the patient is currently DNR/DNI status. Prior to discharge, all consultants cleared the patient for discharge. Acute renal failure was likely secondary to severe sepsis and resolved. BUN and creatinine stable. S/p antibiotics treatment, off antibiotics. FINAL DIAGNOSES: 1. Acute hypoxemic respiratory failure, requiring intubation on 10/07/2016. 2. Status post extubation on 10/14/2016. 3. Severe sepsis. 4. Healthcare-associated pneumonia, status post treatment. 5. Acute renal failure secondary to severe sepsis, resolved. 6. Hypertension. 7. Advanced Alzheimer dementia. 8. Acute DVT right lower extremity. 9. Congestive heart failure with diastolic dysfunction, mild volume overload. 10. Iron-deficiency anemia. 11. Delirium secondary to general medical condition. DISCHARGE MEDICATIONS: See medication reconciliation list. DISCHARGE INSTRUCTIONS: [facility] to [facility]. Follow up with medical doctor at the facility. Closely monitor INR to bridge to therapeutic INR in range 2 to 3 and then discontinue Lovenox and continue Coumadin, still keeping therapeutic range of INR 2-3. Continue current management. The patient currently DNR/DNI status. The patient off antibiotics. Supportive care. Margaret Jc M.D. I have been assigned to dictate discharge summary on this account and I was not involved in the patient's management. Idalmis Ricketts N.P. (Vanchtein) DR: CHARITY JOB#: [id number] CC: REYNA
--- NOTE | 2016-10-29 12:53 | Diagnostic Imaging Report ---
Indications: Dysphagia Technique: Multiphasic barium dysphagia study was performed under fluoroscopic control with , speech pathologist. Cinegraphic images were obtained. Total fluoroscopy time: time sec Dose-area product: mGy-m2 Findings: Comparison: None Oral and pharyngeal phases of swallowing demonstrate multiple mechanical abnormalities, as enumerated on speech pathology evaluation form. The patient demonstrates . Esophageal phase of swallowing . IMPRESSION: Abnormal oropharyngeal mechanics with . Recommendation per speech pathology evaluation form. Indications: Dysphagia Technique: Multiphasic barium dysphagia study was performed under fluoroscopic control with Grisel Eubanks speech pathologist. Cinegraphic images were obtained. Total fluoroscopy time: 126.5 sec Dose-area product: 0.16 mGy-m2 Findings: Comparison: None Oral and pharyngeal phases of swallowing demonstrate multiple mechanical abnormalities, as enumerated on speech pathology evaluation form. The patient demonstrates tracheal aspiration of thin and nectar thickness barium, not injected, laryngeal penetration of honey or pudding thickness barium without aspiration, ejected. There is moderate barium coating of pharyngeal structures post swallow.. Esophageal phase of swallowing demonstrates pooling of barium with retrograde propagation through the pharyngeal esophageal segment. IMPRESSION: Abnormal oropharyngeal mechanics with tracheal aspiration of thinner consistencies of barium tested, laryngeal penetration without aspiration of thicker consistencies of barium tested. Moderate post swallow pharyngeal residue Esophageal dysmotility with reversed peristalsis as described Recommendation per speech pathology evaluation form.
== END 2016-10-24 20:15 | DRG 870 ==
LOC: EDBD 08:42 → EMR 09:13 → ICU 09:31 → EDBEDREQ 09:51 → EDBEDREQSVC 11:05 → EDBEDREQ 12:14 → 4W 10-14 20:21
PROC: 06HM33Z Insertion of Infusion Device into Right Femoral Vein, Percutaneous Approach (ICD-10-PCS; principal; 2016-10-07)
PROC: 5A1955Z Respiratory Ventilation, Greater than 96 Consecutive Hours (ICD-10-PCS; principal; 2016-10-07)
PROC: 0BH17EZ Insertion of Endotracheal Airway into Trachea, Via Natural or Artificial Opening (ICD-10-PCS; principal; 2016-10-07)
PROC: B548ZZA Ultrasonography of Superior Vena Cava, Guidance (ICD-10-PCS; 2016-10-20)
PROC: 02HV33Z Insertion of Infusion Device into Superior Vena Cava, Percutaneous Approach (ICD-10-PCS; 2016-10-20)
DX: A41.9 Sepsis, unspecified organism (principal); J96.01 Acute respiratory failure with hypoxia; N17.0 Acute kidney failure with tubular necrosis; I50.33 Acute on chronic diastolic (congestive) heart failure; J18.9 Pneumonia, unspecified organism; I13.0 Hypertensive heart and chronic kidney disease with heart failure and stage 1 through stage 4 chronic kidney disease, or unspecified chronic kidney disease; I82.411 Acute embolism and thrombosis of right femoral vein; Z99.11 Dependence on respirator [ventilator] status; F05 Delirium due to known physiological condition; R65.20 Severe sepsis without septic shock; E78.5 Hyperlipidemia, unspecified; Z66 Do not resuscitate; G30.9 Alzheimer's disease, unspecified; F02.80 Dementia in other diseases classified elsewhere, unspecified severity, without behavioral disturbance, psychotic disturbance, mood disturbance, and anxiety; N40.0 Benign prostatic hyperplasia without lower urinary tract symptoms; N18.9 Chronic kidney disease, unspecified; D50.9 Iron deficiency anemia, unspecified; F32.9 Major depressive disorder, single episode, unspecified
CPT/HCPCS: 36415; 36569; 36600; 70450; 71010; 74176; 74230; 76937; 80048; 80053; 80164; 80202; 81003; 82164; 82248; 82270; 82378; 82550; 82553; 82607; 82746; 82803; 82962; 82977; 83540; 83550; 83605; 83615; 83735; 83880; 84100; 84300; 84484; 84550; 85007; 85025; 85044; 85060; 85610; 85651; 85730; 86140; 86710; 87040; 87070; 87081; 87086; 87205; 89050; 93005; 93306; 93970; 94002; 94003; 94640; 94664; 94760; J7620